=== PATIENT | female | born 1965 | race Caucasian/White ===

== ENCOUNTER 2017-02-24 11:09 | Inpatient (IN) | payer MEDICAID, OTHER ==
[2017-02-24 11:14] VITALS: BMI 24.7
--- NOTE | 2017-02-24 11:51 | CT ---
PROCEDURE: CT HEAD WITHOUT CONTRAST. HISTORY: r/o ICH - slurred speech since 3pm yesterday COMPARISON: None available. TECHNIQUE: Axial computed tomography images were obtained through the head/brain without intravenous contrast. Radiation dose: Total exam DLP = 955.53 mGy-cm. This CT exam was performed using one or more of the following dose reduction techniques: Automated exposure control, adjustment of the mA and/or kV according to patient size, and/or use of iterative reconstruction technique. FINDINGS: HEMORRHAGE: No acute parenchymal, subarachnoid or extra-axial hemorrhage. Hemorrhage. BRAIN: Large wedge-shaped area of low attenuation in the left of frontal operculum region which also appears to involve the left lateral basal ganglia including the subinsular cortex of consistent with acute/subacute infarct. . In addition, there is evidence of dense left sided MCA sign. Questionable small age-indeterminate infarct left centrum semiovale. VENTRICLES: Unremarkable. No hydrocephalus. CALVARIUM: Unremarkable. PARANASAL SINUSES: Unremarkable as visualized. No significant inflammatory changes. MASTOID AIR CELLS: Unremarkable as visualized. No inflammatory changes. OTHER FINDINGS: Status post hinson right-sided cataract surgery. IMPRESSION: Large acute/subacute left MCA territory infarct which also involves the on lateral basal ganglia. No evidence of acute intracranial hemorrhage. These findings discussed with Dr. Romero at approximately 11:44 a.m. with written down and read back verification.
[2017-02-24 11:57] LABS: BASO % 0.6 % (0.0-2.0); EOS # 0.1 K/uL (0.0-0.7); EOS % 0.8 % (0.0-4.0); HEMOGLOBIN 13.8 g/dL (11.0-16.0); LYMPH # 1.5 K/uL (1.0-4.3); LYMPH % 19.3 % (20.0-40.0); MEAN CELL VOLUME 83.4 fL (81.0-99.0); MEAN CORPUSCULAR HEMOGLOBIN 27.5 pg (27.0-31.0); MEAN PLATELET VOLUME 9.2 fL (7.2-11.7); MONO # 0.8 K/uL (0.0-0.8); MONO % 9.8 % (0.0-10.0); NEUT # 5.5 K/uL (1.8-7.0); NEUT % 69.5 % (50.0-75.0); RBC 5.03 Mil/uL (3.80-5.20); RED CELL DISTRIBUTION WIDTH 14.1 % (11.5-14.5)
[2017-02-24] MEDS ORDERED: Labetalol 25mg/5ml Syringe IVP STA (11:58)
[2017-02-24 12:05] LABS: INR 1.1
[2017-02-24] MEDS ORDERED: Iodixanol 320 MG/ML 100 ML BOTTLE IV ONE (12:17)
[2017-02-24 12:37] LABS: ALBUMIN 3.7 g/dL (3.5-5.0)
[2017-02-24 12:41] LABS: CALCIUM 8.5 mg/dl (8.6-10.4)
[2017-02-24 12:53] LABS: TROPONIN I 0.013 ng/mL (0.00-0.120)
--- NOTE | 2017-02-24 14:14 | C.PDOC ---
History Of Present Illness Patient is a 52 year old female brought in via ALS for slurred speech and a facial droop. Patient had an episode of slurred speech yesterday at 15:00 and was sent home from work. Patient did not show up from work today so her job called 991 as per ALS. Patient was found with slurred speech and a facial droop. Patient has no physical complaints at this time. Time Seen by Provider: 02/24/17 11:13 Chief Complaint (Nursing): Altered Mental Status History Per: Patient History/Exam Limitations: None Onset/Duration Of Symptoms: Hrs Onset Of Symptoms: Other (15:00 yesterday) Current Symptoms Are (Timing): Still Present Usual Baseline: Unknown Exacerbating Factor(s): Unknown Use Of Anticoag/Antiplatelets: Unknown Speech Is: Slurred Recent travel outside of the [place]: No Past Medical History Reviewed: Historical Data, Nursing Documentation, Vital Signs Vital Signs: Last Vital Signs Temp 98.3 F 02/24/17 16:03 Pulse 82 02/24/17 16:03 Resp 20 02/24/17 16:03 BP 188/95 H 02/24/17 16:03 Pulse Ox 2 L 02/24/17 18:21 - Medical History PMH: Diabetes, HTN, Hyperlipidemia - [facility] Procedures CORONAR ARTERIOGR-2 CATH (04/12/14) LEFT HEART CARDIAC CATH (04/12/14) LT HEART ANGIOCARDIOGRAM (04/12/14) NON-INVASIVE MECHANICAL VENTILATION (04/12/14) Family History: States: Unknown Family Hx - Social History Hx Tobacco Use: Yes Hx Alcohol Use: No Hx Substance Use: No Review Of Systems Except As Marked, All Systems Reviewed And Found Negative. Neurological: Positive for: Other (Slurred speech. Facial droop.) Physical Exam - Physical Exam Appears: Non-toxic Skin: Normal Color, Warm, Dry Head: Atraumatic, Normacephalic Eye(s): left: Normal Inspection, PERRL, EOMI Oral Mucosa: Moist Chest: Symmetrical, No Tenderness Cardiovascular: Rhythm Regular, No Murmur Respiratory: Normal Breath Sounds, No Rales, No Rhonchi, No Wheezing Extremity: Other (Mild right upper extremity weakness. Right upper extremity pronator drift.) Neurological/Psych: Oriented x3, Other (Right facial droop. Slurred speech.) ED Course And Treatment - Laboratory Results Result Diagrams: 02/24/17 11:48 02/24/17 12:25 O2 Sat by Pulse Oximetry: 2 Progress Note: Head/neck angio CT, EKG, CXR and urinalysis ordered. Aspirin and trandate administered. Patient will be admitted to telemetry under Dr. Pérez. - Physician Consult Information Time Consulting Physician Contacted: 12:00 Physician Contacted: Dr. Mccormick Outcome Of Conversation: Advised to keep patient on blood pressure medication and aspirin. Critical Care Time - Critical Care Note Total Time (in mins): 60 Documented critical care: time excludes all time spent performing seperately billable procedures. NIHSS Stroke Scale - Date/Time Evaluation Performed Date Performed: 02/24/17 Time Performed: 11:15 When Was NIHSS Performed: Baseline - How Severe is the Stoke Level of Consciousness: 0=Alert LOC to Questions: 2=Neither correct LOC to commands: 0=Obeys both correctly Best Gaze: 0=Normal Visual: 0=No visual loss Facial: 2=Partial (lower face paralysis) Motor Arm - Left: 0=No drift Motor Arm - Right: 2=Falls before 10 sec Motor Leg - Left: 0=No drift Motor Leg - Right: 0=No drift Limb Ataxia: 1=Present Upper or Lower Sensory: 0=Normal Best Language: 1=Mild to moderate aphasia Dysarthia: 1=Mild to moderate slurring Extinction & Inattention (Neglect): 0=Normal, no object Score: 9 Severity Of Stroke: 5-15= Moderate Stroke rTPA Inclusion/Exclusion - Refusal of Treatment Patient Refused Treatment: No - Inclusion Criteria for Altepase Patient is 18 years or Older: Yes Clinical DX Ischemic Stroke Cause Neurological Deficit: Yes Time of Onset Established Less Than 270 Mins Before TX Begin: No Risk/Benefit Discussed With Patient/Family Member Present: No - Exclusion Criteria for Altepase Uncontrolled Hypertension at Time of TX (SBP>185 or DBP>110): Yes Disposition - Disposition Disposition: HOSPITALIZED Disposition Time: 12:45 Condition: GUARDED - Clinical Impression Clinical Impression: Ischemic stroke - Scribe Statement The provider has reviewed the documentation as recorded by the Scribe Huey Guevara All medical record entries made by the Scribe were at my direction and personally dictated by me. I have reviewed the chart and agree that the record accurately reflects my personal performance of the history, physical exam, medical decision making, and the department course for this patient. I have also personally directed, reviewed, and agree with the discharge instructions and disposition.
--- NOTE | 2017-02-24 14:26 | CP.PCM.HP ---
<Jacques Kim - Last Filed: 02/24/17 15:13> History of Present Illness - History of Present Illness History of Present Illness: cc: unable to obtain HPI: Patient is a 52 year old female that presented to the hospital after being found by ambulance, which was called by people at her workplace after she had not come to work. Patient does not have any family in the [place] as per her emergency contact. Patient is able to answer some yes or no questions. She denies any current chest pain, breathing problems, abdominal pain. Additional history is not unobtainable, as patient is unable to talk. Chart review shows her last visit was in 2013, she had a history of hypertension, DM and triple vessel disease s/p triple bipass. Patient does not recall any of this history. Additional PMHx, PSH, Allergies, Fam hx , Social hx is not available. Present on Admission - Present on Admission Any Indicators Present on Admission: No Review of Systems - Constitutional Constitutional: absent: Chills, Daytime Sleepiness, Night Sweats, Snoring, Weakness - EENT Eyes: absent: Blurred Vision, Change in Vision Nose/Mouth/Throat: absent: Nasal Congestion, Nasal Discharge - Cardiovascular Cardiovascular: absent: Chest Pain, Irregular Heart Rhythm, Leg Edema, Palpitations, Pedal Edema - Respiratory Respiratory: absent: Cough, Dyspnea, Hemoptysis, Wheezing - Gastrointestinal Gastrointestinal: absent: Abdominal Pain, Belching, Constipation, Diarrhea, Nausea, Vomiting - Genitourinary Genitourinary: absent: Difficulty Urinating, Dysuria - Musculoskeletal Musculoskeletal: absent: Back Pain, Myalgias, Numbness - Neurological Neurological: Abnormal Speech Past Patient History - Infectious Disease Hx of Infectious Diseases: None - Past Medical History & Family History Past Medical History?: Yes - Past Social History Smoking Status: Unknown If Ever Smoked Alcohol: Other (unknown) Drugs: Other (unknown) - CARDIAC Hx Hypertension: Yes - PULMONARY Hx Pulmonary Edema: Yes - ENDOCRINE/METABOLIC Hx Diabetes Mellitus Type 2: Yes - MUSCULOSKELETAL/RHEUMATOLOGICAL Hx Falls: No - PSYCHIATRIC Hx Substance Use: No Meds Allergies/Adverse Reactions: Allergies Allergy/AdvReac Type Severity Reaction Status Date / Time No Known Allergies Allergy Verified 02/24/17 11:11 Physical Exam - Constitutional Appears: Non-toxic, No Acute Distress - Head Exam Head Exam: ATRAUMATIC, NORMAL INSPECTION, NORMOCEPHALIC Additional comments: left facial droop - Eye Exam Pupil Exam: NORMAL ACCOMODATION, PERRL - ENT Exam ENT Exam: Mucous Membranes Moist - Neck Exam Neck exam: Positive for: Normal Inspection - Respiratory Exam Respiratory Exam: Clear to Auscultation Bilateral, NORMAL BREATHING PATTERN. absent: Prolonged Expiratory Phase, Rales, Rhonchi, Wheezes - Cardiovascular Exam Cardiovascular Exam: REGULAR RHYTHM, +S1, +S2 - GI/Abdominal Exam GI & Abdominal Exam: Normal Bowel Sounds, Soft. absent: Distended, Firm, Hyperactive Bowel Sounds, Tenderness - Extremities Exam Extremities exam: Positive for: normal capillary refill - Neurological Exam Neurological exam: Alert, CN II-XII Intact, Motor Sensory Deficit (4/5 strenghth in R upper extremity, 5/5 strength in L upper R lower and L lower extremity), Oriented x3 - Psychiatric Exam Psychiatric exam: Normal Affect, Normal Mood - Skin Skin Exam: Dry, Intact, Normal Color, Warm Results - Vital Signs Recent Vital Signs: Last Vital Signs Temp 97.8 F 02/24/17 14:12 Pulse 81 02/24/17 14:12 Resp 17 02/24/17 14:12 BP 144/50 L 02/24/17 14:12 Pulse Ox 2 L 02/24/17 14:15 - Labs Result Diagrams: 02/24/17 11:48 02/24/17 12:25 Assessment & Plan (1) Acute ischemic stroke Status: Acute Comment: CT Head- Large acute/subacute left MCA territory infarct which also involves the left lateral basal ganglia. NPO until formal swallow evaluation, failed swallow eval in ED. Started on Asa 300mg per rectum. ROMIs negative x 1 , f/u ROMIs x 2. EKG- NSR w possible atrial enlargement. f/u MRI Brain w/o contrast, MRA of head and neck w/o contrast. f/u carotid ultrasound. f/u echo. As per Dr. Mccormick, SBP goal is 180. Hydralazine 10mg IVP Q6h PRN for SBP >180. f/u HgbA1C, FLP, TSH (2) Hypertension Status: Acute Comment: SBP to maintain around 180, as per Dr. Mccormick. Hydralazine 10mg IVP Q6h PRN for SBP >180 (3) Diabetes Status: Acute Comment: Accucheck. Hold off on RISS until patient can take PO. f/u HgbA1C (4) Prophylactic measure Status: Acute Comment: Protonix 40mg IVP Daily. Holding off on chemical anticoagulation due to acute stroke. SCDs <Dylan Monique H - Last Filed: 03/04/17 07:27> Results - Vital Signs Recent Vital Signs: Last Vital Signs Temp 97.3 F L 03/03/17 23:30 Pulse 65 03/04/17 04:06 Resp 20 03/03/17 23:30 BP 169/77 H 03/03/17 23:30 Pulse Ox 95 03/03/17 23:30 - Labs Result Diagrams: 03/03/17 11:14 03/03/17 11:14 Labs: Laboratory Results - last 24 hr 03/03/17 03/03/17 03/03/17 06:13 11:14 11:14 WBC 8.9 RBC 4.22 Hgb 11.5 Hct 35.5 MCV 84.1 MCH 27.2 MCHC 32.3 L RDW 14.0 Plt Count 296 MPV 9.1 Neut % (Auto) 63.3 Lymph % (Auto) 24.0 Kimble % (Auto) 8.7 Eos % (Auto) 2.9 Baso % (Auto) 1.1 Neut # 5.6 Lymph # 2.1 Kimble # 0.8 Eos # 0.3 Baso # 0.1 Sodium 146 Potassium 4.6 Chloride 109 H Carbon Dioxide 26 Anion Gap 16 BUN 33 H Creatinine 1.2 Est GFR ( Amer) 57 Est GFR (Non-Af Amer) 47 POC Glucose (mg/dL) 197 H Random Glucose 176 H Calcium 9.0 Phosphorus 3.9 Magnesium 2.5 H Total Bilirubin 0.3 AST 35 ALT 25 Alkaline Phosphatase 76 Total Protein 6.6 Albumin 3.0 L Globulin 3.5 Albumin/Globulin Ratio 0.9 L 03/03/17 03/03/17 03/03/17 11:26 16:25 21:06 WBC RBC Hgb Hct MCV MCH MCHC RDW Plt Count MPV Neut % (Auto) Lymph % (Auto) Kimble % (Auto) Eos % (Auto) Baso % (Auto) Neut # Lymph # Kimble # Eos # Baso # Sodium Potassium Chloride Carbon Dioxide Anion Gap BUN Creatinine Est GFR ( Amer) Est GFR (Non-Af Amer) POC Glucose (mg/dL) 211 H 155 H 171 H Random Glucose Calcium Phosphorus Magnesium Total Bilirubin AST ALT Alkaline Phosphatase Total Protein Albumin Globulin Albumin/Globulin Ratio 03/04/17 06:16 WBC RBC Hgb Hct MCV MCH MCHC RDW Plt Count MPV Neut % (Auto) Lymph % (Auto) Kimble % (Auto) Eos % (Auto) Baso % (Auto) Neut # Lymph # Kimble # Eos # Baso # Sodium Potassium Chloride Carbon Dioxide Anion Gap BUN Creatinine Est GFR ( Amer) Est GFR (Non-Af Amer) POC Glucose (mg/dL) 127 H Random Glucose Calcium Phosphorus Magnesium Total Bilirubin AST ALT Alkaline Phosphatase Total Protein Albumin Globulin Albumin/Globulin Ratio Attending/Attestation - Attestation I have personally seen and examined this patient.: Yes I have fully participated in the care of the patient.: Yes I have reviewed all pertinent clinical information: Yes
--- NOTE | 2017-02-24 14:42 | RAD ---
PROCEDURE: CHEST RADIOGRAPH, 1 VIEW HISTORY: r/o infiltrate COMPARISON: 04/12/2014 FINDINGS: LUNGS: Vague somewhat wedge-shaped area of increased attenuation left medial lung base could represent some atelectasis however developing infiltrate not excluded. PLEURA: No pneumothorax or pleural fluid seen. CARDIOVASCULAR: Normal. OSSEOUS STRUCTURES: No significant abnormalities. VISUALIZED UPPER ABDOMEN: Normal. OTHER FINDINGS: None. IMPRESSION: Vague opacity left medial lung base could represent some atelectasis though small infiltrate not excluded. Followup at interval recommended to assess stability. This report was placed in PA review folder for followup.
[2017-02-24] MEDS ORDERED: Sodium Chloride 0.45% 1,000 ML IV ONE ×2 (16:34)
--- NOTE | 2017-02-24 17:44 | CON ---
DATE: 02/24/2017 CHIEF COMPLAINT: Aphasia and right facial droop. HISTORY OF PRESENT ILLNESS: History was obtained from medical records due to the patient gives limit ed history. This is a 52-year-old woman with history of diabetes, hypertension, history of coronary artery disease who came to the hospital because patient did not show up for work today, so she was fo und and she had been found with slurring her speech and right facial droop and aphasia, found to have elevated systolic and diastolic blood pressures and right-sided weakness. A CAT scan of the head wa s done which showed a large acute/subacute left MCA territory infarct involving the left lateral basa l ganglia. She had an elevated systolic and diastolic blood pressure of 220/110 and is currently is slowly being managed permissively. Rectal aspirin has been given. She is outside the TPA window. PAST MEDICAL HISTORY: Diabetes, hypertension, dyslipidemia. REVIEW OF SYSTEMS: A 14-point review of systems negative except per HPI. ALLERGIES: No known drug allergies. SOCIAL HISTORY: No illicit drug use, smoking, or ETOH abuse. FAMILY HISTORY: Noncontributory. PHYSICAL EXAMINATION: VITAL SIGNS: Temperature 97.8, pulse rate of 80, blood pressure 191/75, respiratory rate 16, oxygen 98% on room air. GENERAL: The patient is sitting up in bed, slightly drowsy, in no acute distress. HEENT: Atraumatic, normocephalic. PERRLA. Extraocular muscles intact. NECK: Supple, no JVD, no adenopathy noted. LUNGS: Clear to auscultation. No adventitious sounds. HEART: S1, S2, normal rate and rhythm. No murmurs, rubs, or gallops. ABDOMEN: Soft, nontender, nondistended. Bowel sounds present. EXTREMITIES: No clubbing, no cyanosis. Peripheral pulses 2+ felt bilaterally. NEUROLOGIC: The patient is alert, oriented to person and place, not much in year, poor attention spa n, slow thought process, slightly drowsy. Cranial nerves II through XII are intact except for right facial droop. Speech has some dysarthria and a mild aphasia. MOTOR: Decreased tone on the right side, has right-sided weakness and right upper extremity pronator drift. Left side is intact. Toes are upgoing bilaterally. SENSORY: Light touch, pinprick, proprioception, vibration intact. Decreased vibration of the toes. COORDINATION: Difficult on the right due to right-sided weakness, intact on the left. GAIT: Deferred for now. DTRs 2+ throughout and 1 at the ankles. LABORATORY DATA: Sodium is 137, potassium 4, chloride 100, carbon dioxide 26, BUN of 45, creatinine 1.6. Glucose 276. ASSESSMENT AND PLAN: This is a 52-year-old woman with history of diabetes, hypertension, dyslipidemi a, who came in for right facial droop, dysarthria and right-sided weakness, found to have large acute to subacute left middle cerebral artery territory infarct affecting the left lateral basal ganglia, likely secondary to diffuse atherosclerosis and uncontrolled hypertension. She has acute renal failu re at this time and hypoglycemic episodes. At this time, recommend: 1. Suppository aspirin for now and likely needs to be on aspirin 81 mg p.o. daily in addition to pos sibly Plavix in the future 75 mg p.o. daily for stroke prevention. 2. Atorvastatin 80 mg p.o. daily for 21 days then can reduce to 40 mg. 3. Get an A1c and carotid Doppler. 4. An MRI of the brain without contrast and MRA of the head to assess the extent of the infarct. 5. Acute rehabilitation with speech therapy, PT and OT evaluation and will need acute rehabilitation . 6. Get a A1c and a fasting lipid profile and continue with current present management. Permissive hypertension for 24 hours and then to a goal 130-140 mmHg. At this time, continue with cu rrent present management. Thank you for this consult. Nigel Mccormick MD cc: [phone] TT: 02/24/2017 17:43:41 Confirmation # [id number] Dictation # [id number]
[2017-02-24 19:56] LABS: CK-MB 2.42 ng/mL (0.0-3.38)
[2017-02-25 02:02] LABS: CK-MB 1.92 ng/mL (0.0-3.38)
[2017-02-25 07:30] LABS: BASO # 0.1 K/uL (0.0-0.2); BASO % 0.9 % (0.0-2.0); EOS # 0.1 K/uL (0.0-0.7); EOS % 0.6 % (0.0-4.0); HEMOGLOBIN 12.9 g/dL (11.0-16.0); LYMPH # 2.3 K/uL (1.0-4.3); LYMPH % 24.7 % (20.0-40.0); MEAN CELL VOLUME 83.8 fL (81.0-99.0); MEAN CORPUSCULAR HEMOGLOBIN 27.4 pg (27.0-31.0); MEAN CORPUSCULAR HGB CONC 32.7 g/dL (33.0-37.0); MONO # 1.4 K/uL (0.0-0.8); MONO % 15.4 % (0.0-10.0); NEUT # 5.4 K/uL (1.8-7.0); NEUT % 58.4 % (50.0-75.0); RBC 4.71 Mil/uL (3.80-5.20); RED CELL DISTRIBUTION WIDTH 14.1 % (11.5-14.5); WHITE BLOOD COUNT 9.3 K/uL (4.8-10.8)
[2017-02-25 07:55] LABS: ALBUMIN 3.4 g/dL (3.5-5.0)
[2017-02-25 07:58] LABS: ALB/GLOB RATIO 0.9 (1.0-2.1); CALCIUM 8.4 mg/dl (8.6-10.4)
[2017-02-25 07:59] LABS: MAGNESIUM 2.2 mg/dL (1.6-2.3)
--- NOTE | 2017-02-25 09:33 | CP.PCM.PN ---
<Elena Rossisteveradha - Last Filed: 02/25/17 19:23> Subjective - Date & Time of Evaluation Date of Evaluation: 02/25/17 Time of Evaluation: 09:40 - Subjective Subjective: PGY 1 Medicine Note- Dr. Miranda's service Pt seen and examined in no acute distress. Patient can utter the words okay and can nod yes or no. Per Nurse Pepito patient is intermittently AMS and cannot complete MRI questionnaire and thus emergency contacts were attempted to be reached. Patient shook head no to a ROS however given intermitted AMS, will need to reassess. Objective - Vital Signs/Intake and Output Vital Signs (last 24 hours): Temp Pulse Resp BP Pulse Ox 98.2 F 72 20 169/99 H 100 02/25/17 08:26 02/25/17 08:26 02/25/17 08:26 02/25/17 08:26 02/25/17 08:26 Intake and Output: 02/25/17 02/25/17 06:59 18:59 Intake Total 320 Balance 320 - Medications Medications: Current Medications Aspirin (Aspirin Supp) 300 mg IN DAILY [place] Hydralazine HCl (Apresoline) 10 mg IVP Q6H PRN PRN Reason: For SBP >180 Last Admin: 02/24/17 16:45 Dose: 10 mg Sodium Chloride (Sodium Chloride 0.45%) 1,000 mls @ 40 mls/hr IV .Q24H ONE Stop: 02/25/17 16:33 Last Admin: 02/24/17 16:51 Dose: 40 mls/hr Pantoprazole Sodium (Protonix Inj) 40 mg IVP DAILY [place] - Labs Labs: 02/25/17 07:15 02/25/17 07:15 PT 12.0 SECONDS (9.7-12.2) 02/24/17 11:48 INR 1.1 02/24/17 11:48 APTT 24 SECONDS (21-34) 02/24/17 11:48 - Constitutional Appears: Non-toxic, No Acute Distress - Head Exam Head Exam: ATRAUMATIC Additional comments: facial droop - Eye Exam Eye Exam: EOMI, Normal appearance, PERRL Pupil Exam: NORMAL ACCOMODATION - ENT Exam ENT Exam: Mucous Membranes Moist - Neck Exam Neck Exam: Full ROM - Respiratory Exam Respiratory Exam: Clear to Ausculation Bilateral, NORMAL BREATHING PATTERN. absent: Wheezes - Cardiovascular Exam Cardiovascular Exam: REGULAR RHYTHM, +S1, +S2 - GI/Abdominal Exam GI & Abdominal Exam: Soft, Normal Bowel Sounds. absent: Tenderness - Back Exam Back Exam: absent: Full ROM - Neurological Exam Neurological Exam: Awake, CN II-XII Intact. absent: Oriented x3 Neuro motor strength exam: Left Upper Extremity: 4, Right Upper Extremity: 2/1, Left Lower Extremity: 4, Right Lower Extremity: 2/1 Additional comments: Sensation intact; unable to perform heel to franco test or finger to nose because patient is not fully comprehending commands. - Psychiatric Exam Psychiatric exam: Flat Affect, Normal Affect - Skin Skin Exam: Normal Color, Warm Assessment and Plan - Assessment and Plan (Free Text) Assessment: (1) Acute ischemic stroke Status: Acute Comment: CT Head- Large acute/subacute left MCA territory infarct which also involves the left lateral basal ganglia. NPO until formal swallow evaluation, failed swallow eval in ED. Started on ASA 300mg per rectum. ROMIs negative x 3, EKG- NSR w possible atrial enlargement. MRI Brain w/o contrast not performed yet becasue questionnaire could not be filled as patient is altered at times of evaluation. Awaiting a family member or friend who can confirm answers. In the meantime, CT angio of head ordered- F/ U MRA of head and neck w/o contrast. Carotid ultrasound- Complete occlusion of left internal carotid and mild occlusive disease of right internal carotid f/u echo. As per Dr. Mccormick, BP SBP btwn 130-140 mmHg, ASA *1 mg Po daily and Plavix 75 mg PO daily, Atorvastatin 80 mg PO daily for 21 days then reduced to 40 mg once patient passes swallow eval HgbA1C 11.2, FLP elevated, TSH 1.7 Repeat swalllow eval. Not performed today as patient was not in room at time of eval (2) Hypertension Status: Acute Comment: SBP to maintain around 180, as per Dr. Mccormick. Hydralazine 10mg IVP Q6h PRN for SBP >180 (3) Diabetes Status: Acute Comment: Accucheck. Hold off on RISS until patient can take PO. HgbA1C 11.2, Will assess medication management once patient passes swallow eval (4) Prophylactic measure Status: Acute Comment: Protonix 40mg IVP Daily. Holding off on chemical anticoagulation due to acute stroke. SCDs PT/OT eval <Jad Miranda M - Last Filed: 02/26/17 09:07> Objective - Vital Signs/Intake and Output Vital Signs (last 24 hours): Temp Pulse Resp BP Pulse Ox 97.8 F 60 20 179/78 H 98 02/26/17 00:40 02/26/17 04:02 02/26/17 00:40 02/26/17 00:40 02/25/17 15:53 Intake and Output: 02/26/17 02/26/17 06:59 18:59 Intake Total 1600 Balance 1600 - Medications Medications: Current Medications Aspirin (Aspirin Supp) 300 mg IN DAILY [facility] Last Admin: 02/25/17 10:48 Dose: 300 mg Hydralazine HCl (Apresoline) 10 mg IVP Q6H PRN PRN Reason: For SBP >180 Last Admin: 02/24/17 16:45 Dose: 10 mg Sodium Chloride (Sodium Chloride 0.9%) 1,000 mls @ 125 mls/hr IV .Q8H [facility] Last Admin: 02/26/17 03:40 Dose: 125 mls/hr Pantoprazole Sodium (Protonix Inj) 40 mg IVP DAILY [facility] Last Admin: 02/25/17 10:48 Dose: 40 mg Rosuvastatin Calcium (Crestor) 10 mg PO HS [facility] Last Admin: 02/26/17 00:39 Dose: 10 mg - Labs Labs: 02/26/17 07:19 02/26/17 07:19 PT 12.0 SECONDS (9.7-12.2) 02/24/17 11:48 INR 1.1 02/24/17 11:48 APTT 24 SECONDS (21-34) 02/24/17 11:48 Attending/Attestation - Attestation I have personally seen and examined this patient.: Yes I have fully participated in the care of the patient.: Yes I have reviewed all pertinent clinical information, including history, physical exam and plan: Yes Notes (Text): 02/26/17 09:05 Patient was seen and examined at bedside with the resident. Neurology evaluation and follow-up seen and appreciated. Swelling evaluation completed. Patient started on diet. She is also started on antiplatelet therapy and statin. MRI and MRA of the brain could not be completed because patient is unable to once a questions and no family can be contacted. Therefore we will obtain a CT angiogram of the head and neck. I discussed the plan of care with the resident and agree with the above history and physical and assessment/plan by the resident.
--- NOTE | 2017-02-25 13:02 | CARD ---
APPROVED REPORT EKG Measurement Heart [id number] <Conclusion> Normal sinus rhythm Possible Left atrial enlargement Nonspecific T wave abnormality Abnormal ECG
--- NOTE | 2017-02-25 13:03 | CARD ---
APPROVED REPORT EKG Measurement Heart [id number] ID [id number] <Conclusion> Normal sinus rhythm Possible Left atrial enlargement Nonspecific T wave abnormality Abnormal ECG
--- NOTE | 2017-02-25 16:29 | CP.PCM.CON ---
History of Present Illness - History of Present Illness History of Present Illness: [facility] Sx: Dr Choi Pt is a 52F recently brought to the ED by EMS. Pt did not show up for work yesterday so EMS was sent to her home, where she was found confused and with slurred speech. Pt also noted to have right sided facial droop. She was unable to answer questions on arrival and code stroke protocol was initiated. CT head showed large left MCA infarct which explains pts symptoms. Carotid duplex was ordered and surgery was consulted to evaluate potential for CEA. History unobtainable. Per records pt has history of htn, dm, triple vessel disease s/p triple bypass Review of Systems - Review of Systems Systems not reviewed;Unavailable: Altered Mental Status Past Patient History - Infectious Disease Hx of Infectious Diseases: None - Past Medical History & Family History Past Medical History?: Yes - Past Social History Smoking Status: Never Smoked - CARDIAC Hx Cardiac Disorders: Yes (CAD) Hx Hypertension: Yes - PULMONARY Hx Pulmonary Edema: Yes - ENDOCRINE/METABOLIC Hx Diabetes Mellitus Type 2: Yes - MUSCULOSKELETAL/RHEUMATOLOGICAL Hx Falls: No - PSYCHIATRIC Hx Substance Use: No - SURGICAL HISTORY Hx Angioplasty: Yes (CABG SCAR) - ANESTHESIA Hx Anesthesia: Yes Meds Allergies/Adverse Reactions: Allergies Allergy/AdvReac Type Severity Reaction Status Date / Time No Known Allergies Allergy Verified 02/24/17 11:11 - Medications Medications: Current Medications Aspirin (Aspirin Supp) 300 mg [place] DAILY [facility] Last Admin: 02/25/17 10:48 Dose: 300 mg Hydralazine HCl (Apresoline) 10 mg IVP Q6H PRN PRN Reason: For SBP >180 Last Admin: 02/24/17 16:45 Dose: 10 mg Pantoprazole Sodium (Protonix Inj) 40 mg IVP DAILY [facility] Last Admin: 02/25/17 10:48 Dose: 40 mg Physical Exam - Constitutional Appears: Non-toxic, No Acute Distress - ENT Exam Additional comments: right sided facial droop - Respiratory Exam Respiratory Exam: absent: Accessory Muscle Use, Respiratory Distress - GI/Abdominal Exam GI & Abdominal Exam: Soft. absent: Guarding, Hernia, Tenderness - Extremities Exam Extremities exam: Negative for: pedal edema - Neurological Exam Neurological exam: Alert - Psychiatric Exam Psychiatric exam: Normal Affect, Normal Mood Results - Vital Signs Recent Vital Signs: Last Vital Signs Temp 98.3 F 02/25/17 15:53 Pulse 67 02/25/17 15:53 Resp 20 02/25/17 15:53 BP 171/65 H 02/25/17 15:53 Pulse Ox 98 02/25/17 15:53 - Labs Result Diagrams: 02/25/17 07:15 02/25/17 07:15 Labs: Laboratory Results - last 24 hr 02/24/17 02/24/17 02/24/17 18:08 19:28 22:20 WBC RBC Hgb Hct MCV MCH MCHC RDW Plt Count MPV Neut % (Auto) Lymph % (Auto) Gibson % (Auto) Eos % (Auto) Baso % (Auto) Neut # Lymph # Gibson # Eos # Baso # Sodium Potassium Chloride Carbon Dioxide Anion Gap BUN Creatinine Est GFR ( Amer) Est GFR (Non-Af Amer) POC Glucose (mg/dL) 185 H 206 H Random Glucose Hemoglobin A1c Calcium Phosphorus Magnesium Total Bilirubin AST ALT Alkaline Phosphatase Total Creatine Kinase 127 CK-MB (Mass) 2.42 Troponin I, Quant 0.0140 Total Protein Albumin Globulin Albumin/Globulin Ratio Triglycerides Cholesterol LDL Cholesterol Direct HDL Cholesterol TSH 3rd Generation 02/25/17 02/25/17 02/25/17 00:45 07:15 07:15 WBC 9.3 RBC 4.71 Hgb 12.9 Hct 39.5 MCV 83.8 MCH 27.4 MCHC 32.7 L RDW 14.1 Plt Count 244 MPV 9.0 Neut % (Auto) 58.4 Lymph % (Auto) 24.7 Gibson % (Auto) 15.4 H Eos % (Auto) 0.6 Baso % (Auto) 0.9 Neut # 5.4 Lymph # 2.3 Gibson # 1.4 H Eos # 0.1 Baso # 0.1 Sodium 139 Potassium 3.9 Chloride 103 Carbon Dioxide 24 Anion Gap 17 BUN 42 H Creatinine 1.3 H Est GFR ( Amer) 52 Est GFR (Non-Af Amer) 43 POC Glucose (mg/dL) Random Glucose 187 H Hemoglobin A1c Calcium 8.4 L Phosphorus 5.0 H Magnesium 2.2 Total Bilirubin 0.6 AST 29 ALT 24 Alkaline Phosphatase 83 Total Creatine Kinase 111 CK-MB (Mass) 1.92 Troponin I, Quant 0.0170 Total Protein 7.1 Albumin 3.4 L Globulin 3.6 Albumin/Globulin Ratio 0.9 L Triglycerides 176 H Cholesterol 215 H LDL Cholesterol Direct 140 H HDL Cholesterol 28 L TSH 3rd Generation 1.70 02/25/17 02/25/17 07:15 07:29 WBC RBC Hgb Hct MCV MCH MCHC RDW Plt Count MPV Neut % (Auto) Lymph % (Auto) Gibson % (Auto) Eos % (Auto) Baso % (Auto) Neut # Lymph # Gibson # Eos # Baso # Sodium Potassium Chloride Carbon Dioxide Anion Gap BUN Creatinine Est GFR ( Amer) Est GFR (Non-Af Amer) POC Glucose (mg/dL) 185 H Random Glucose Hemoglobin A1c 11.2 H Calcium Phosphorus Magnesium Total Bilirubin AST ALT Alkaline Phosphatase Total Creatine Kinase CK-MB (Mass) Troponin I, Quant Total Protein Albumin Globulin Albumin/Globulin Ratio Triglycerides Cholesterol LDL Cholesterol Direct HDL Cholesterol TSH 3rd Generation Assessment & Plan - Assessment and Plan (Free Text) Assessment: 52F s/p left MCA infarct Plan: will follow up official duplex read further recommendations to follow will d/w Dr Steph Gimenez, PGY2 - Date & Time Date: 02/25/17 Time: 16:35
--- NOTE | 2017-02-25 16:56 | CP.PCM.PN ---
Subjective - Date & Time of Evaluation Date of Evaluation: 02/25/17 Time of Evaluation: 16:00 - Subjective Subjective: Patient: ALESSIA DOMINGUEZ [facility] #:[id number] Unit: [id number] : 1965 Loc: C.6T Room/Bed: C668-B Age/Sex: 52 / F ADM Status: ADM IN ADM Date: [id number] DIS Date: PROGRESS NOTE: DATE: 02/25/2017 CHIEF COMPLAINT: Aphasia and right facial droop. SUBJECTIVE: Patient has right-sided weakness and right facial droop. Left carotid no flow. Awaiting vascular intervention. MRA neck pending. PAST MEDICAL HISTORY: Diabetes, hypertension, dyslipidemia. REVIEW OF SYSTEMS: A 14-point review of systems negative except per HPI. ALLERGIES: No known drug allergies. SOCIAL HISTORY: No illicit drug use, smoking, or ETOH abuse. FAMILY HISTORY: Noncontributory. PHYSICAL EXAMINATION: VITAL SIGNS: Reviewed. GENERAL: The patient is sitting up in bed, slightly drowsy, in no acute distress. HEENT: Atraumatic, normocephalic. PERRLA. Extraocular muscles intact. NECK: Supple, no JVD, no adenopathy noted. LUNGS: Clear to auscultation. No adventitious sounds. HEART: S1, S2, normal rate and rhythm. No murmurs, rubs, or gallops. ABDOMEN: Soft, nontender, nondistended. Bowel sounds present. EXTREMITIES: No clubbing, no cyanosis. Peripheral pulses 2+ felt bilaterally. NEUROLOGIC: The patient is alert, oriented to person and place, not much in year, poor attention span, slow thought process, slightly drowsy. Cranial nerves II through XII are intact except for right facial droop. Speech has some dysarthria and a mild aphasia. MOTOR: Decreased tone on the right side, has right-sided weakness and right upper extremity pronator drift. Left side is intact. Toes are upgoing bilaterally. SENSORY: Light touch, pinprick, proprioception, vibration intact. Decreased vibration of the toes. COORDINATION: Difficult on the right due to right-sided weakness, intact on the left. GAIT: Deferred for now. DTRs 2+ throughout and 1 at the ankles. LABORATORY DATA: Reviewed. ASSESSMENT AND PLAN: This is a 52-year-old woman with history of diabetes, hypertension, dyslipidemia, who came in for right facial droop, dysarthria and right-sided weakness, found to have large acute to subacute left middle cerebral artery territory infarct affecting the left lateral basal ganglia, likely secondary to diffuse atherosclerosis and uncontrolled hypertension and left carotid disease. Left carotid showes no flow on doppler, need MRA neck pending. At this time, recommend: 1. Needs to be on aspirin 81 mg p.o. daily in addition to Plavix 75 mg p.o. daily for stroke prevention. 2. Atorvastatin 80 mg p.o. daily for 21 days then can reduce to 40 mg. 3. Vascular consult for left carotid occlusion. 4. An MRI of the brain without contrast and MRA of the head and neck to assess the extent of the infarct. 5. Acute rehabilitation with speech therapy, PT and OT evaluation and will need acute rehabilitation. 6. Keep BP btw 130-140 mmHg. 7. Needs acute rehab At this time, continue with current present management. Thank you for this consult. Nigel Mccormick MD Objective - Vital Signs/Intake and Output Vital Signs (last 24 hours): Temp Pulse Resp BP Pulse Ox 98.3 F 67 20 171/65 H 98 02/25/17 15:53 02/25/17 15:53 02/25/17 15:53 02/25/17 15:53 02/25/17 15:53 Intake and Output: 02/25/17 02/25/17 06:59 18:59 Intake Total 320 420 Balance 320 420 - Medications Medications: Current Medications Aspirin (Aspirin Supp) 300 mg [place] DAILY [facility] Last Admin: 02/25/17 10:48 Dose: 300 mg Hydralazine HCl (Apresoline) 10 mg IVP Q6H PRN PRN Reason: For SBP >180 Last Admin: 02/24/17 16:45 Dose: 10 mg Pantoprazole Sodium (Protonix Inj) 40 mg IVP DAILY [facility] Last Admin: 02/25/17 10:48 Dose: 40 mg - Labs Labs: 02/25/17 07:15 02/25/17 07:15 PT 12.0 SECONDS (9.7-12.2) 02/24/17 11:48 INR 1.1 02/24/17 11:48 APTT 24 SECONDS (21-34) 02/24/17 11:48
[2017-02-25] MEDS: Sodium Chloride 0.9% 1,000 ML IV SCH (19:49)
--- NOTE | 2017-02-25 21:47 | CARD ---
APPROVED REPORT EXAM: Two-dimensional and M-mode echocardiogram with Doppler and color Doppler. Other Information Quality : GoodRhythm : NSR INDICATION CVA/TIA Surgery/Intervention CABG: M-Mode DIMENSIONS RVDd2.05 (2.1-3.2cm)Left Atrium (MM)3.82 (2.5-4.0cm) IVSd0.62 (0.7-1.1cm)Aortic Root2.78 (2.2-3.7cm) LVDd4.79 (4.0-5.6cm)Aortic Cusp Exc.1.77 (1.5-2.0cm) PWd0.87 (0.7-1.1cm)FS (%) 43 % LVDs2.74 (2.0-3.8cm)LVEF (%)74 (>50%) Aortic Valve AI P 1/2 [id number] Mitral Valve MV E Cawqrygv72.6cm/sMV A Voreeyqr81.2cm/sE/A ratio0.8 TDI E/Lateral E'0.0E/Medial E'0.0 Tricuspid Valve TR Peak Nqlerrce15by/sTR Peak [id number] LEFT VENTRICLE The left ventricle is normal size. There is normal left ventricular wall thickness. Left ventricle systolic function is normal. The Ejection Fraction is 65-70%. There is hypokinesis in the septal wall. Transmitral Doppler flow pattern is Grade I-abnormal relaxation pattern. There is no ventricular septal defect visualized. RIGHT VENTRICLE The right ventricle is normal size. The right ventricular systolic function is normal. ATRIA The left atrium size is normal. The right atrium size is normal. AORTIC VALVE The aortic valve is mildly sclerotic. The aortic valve is tri-cuspid. There is mild aortic regurgitation. There is no aortic valvular stenosis. MITRAL VALVE Mitral annular calcification is mild. There is no evidence of mitral valve prolapse. There is no mitral valve regurgitation noted. TRICUSPID VALVE The tricuspid valve is normal in structure. There is trace tricuspid regurgitation. Right ventricular systolic pressure is estimated at less than 30 mmHg. There is no pulmonary hypertension. PULMONIC VALVE The pulmonic valve is not well visualized. There is no pulmonic valvular regurgitation. GREAT VESSELS The IVC is normal in size and collapses >50% with inspiration. PERICARDIAL EFFUSION There is no pericardial effusion. <Conclusion> Left ventricle systolic function is normal. The Ejection Fraction is 65-70%. There is hypokinesis in the septal wall. Transmitral Doppler flow pattern is Grade I-abnormal relaxation pattern. There is mild aortic regurgitation.
[2017-02-26] MEDS: Sodium Chloride 0.9% 1,000 ML IV SCH (03:40)
[2017-02-26 07:33] LABS: BASO # 0.1 K/uL (0.0-0.2); BASO % 0.9 % (0.0-2.0); EOS # 0.1 K/uL (0.0-0.7); EOS % 1.5 % (0.0-4.0); HEMOGLOBIN 12.5 g/dL (11.0-16.0); LYMPH # 3.2 K/uL (1.0-4.3); LYMPH % 33.9 % (20.0-40.0); MEAN CORPUSCULAR HEMOGLOBIN 27.8 pg (27.0-31.0); MEAN CORPUSCULAR HGB CONC 33.5 g/dL (33.0-37.0); MEAN PLATELET VOLUME 8.7 fL (7.2-11.7); MONO # 0.9 K/uL (0.0-0.8); MONO % 10.1 % (0.0-10.0); NEUT % 53.6 % (50.0-75.0); NRBC % 0.1 % (0.0-2.0); RBC 4.48 Mil/uL (3.80-5.20); RED CELL DISTRIBUTION WIDTH 14.2 % (11.5-14.5); WHITE BLOOD COUNT 9.3 K/uL (4.8-10.8)
--- NOTE | 2017-02-26 08:21 | CP.PCM.PN ---
Subjective - Date & Time of Evaluation Date of Evaluation: 02/26/17 Time of Evaluation: 08:19 - Subjective Subjective: Surgery: Dr. Choi Pt seen and examined. Still has R side motor defecits and is aphasic Objective - Vital Signs/Intake and Output Vital Signs (last 24 hours): Temp Pulse Resp BP Pulse Ox 97.8 F 60 20 179/78 H 98 02/26/17 00:40 02/26/17 04:02 02/26/17 00:40 02/26/17 00:40 02/25/17 15:53 Intake and Output: 02/26/17 02/26/17 06:59 18:59 Intake Total 1600 Balance 1600 - Medications Medications: Current Medications Aspirin (Aspirin Supp) 300 mg [place] DAILY [facility] Last Admin: 02/25/17 10:48 Dose: 300 mg Hydralazine HCl (Apresoline) 10 mg IVP Q6H PRN PRN Reason: For SBP >180 Last Admin: 02/24/17 16:45 Dose: 10 mg Sodium Chloride (Sodium Chloride 0.9%) 1,000 mls @ 125 mls/hr IV .Q8H [facility] Last Admin: 02/26/17 03:40 Dose: 125 mls/hr Pantoprazole Sodium (Protonix Inj) 40 mg IVP DAILY [facility] Last Admin: 02/25/17 10:48 Dose: 40 mg Rosuvastatin Calcium (Crestor) 10 mg PO HS [facility] Last Admin: 02/26/17 00:39 Dose: 10 mg - Labs Labs: 02/26/17 07:19 02/25/17 07:15 PT 12.0 SECONDS (9.7-12.2) 02/24/17 11:48 INR 1.1 02/24/17 11:48 APTT 24 SECONDS (21-34) 02/24/17 11:48 - Constitutional Appears: Non-toxic, No Acute Distress - Head Exam Head Exam: ATRAUMATIC, NORMOCEPHALIC Additional comments: R side facial droop - Respiratory Exam Respiratory Exam: NORMAL BREATHING PATTERN. absent: Accessory Muscle Use, Respiratory Distress - GI/Abdominal Exam GI & Abdominal Exam: Soft. absent: Tenderness - Extremities Exam Additional comments: R side motor defecits - Neurological Exam Neurological Exam: Alert, Awake. absent: Oriented x3 Assessment and Plan - Assessment and Plan (Free Text) Assessment: 52F w. L MCA infarct -f/u final read of carotid duplex -MRA of head and neck ordered, f/u results -d/w attending Jaret PGY2
[2017-02-26 08:25] LABS: ALBUMIN 3.2 g/dL (3.5-5.0)
[2017-02-26 08:27] LABS: GFR AFRICAN-AMERICAN > 60; GFR NON-AFRICAN AMERICAN 58
[2017-02-26 08:28] LABS: ALB/GLOB RATIO 0.8 (1.0-2.1); ALT/SGPT 21 U/L (9-52); AST/SGOT 27 U/L (14-36); BLOOD UREA NITROGEN 29 mg/dL (7-17); CALCIUM 8.2 mg/dl (8.6-10.4); MAGNESIUM 2.3 mg/dL (1.6-2.3)
--- NOTE | 2017-02-26 13:21 | MRI ---
PROCEDURE: MRI BRAIN WITHOUT CONTRAST HISTORY: CVA COMPARISON: Comparison made with CT scan brain 02/24/2017. Comparison also made with concurrent MRA of the brain. TECHNIQUE: Multiplanar, multisequence MR images of the brain were obtained without intravenous contrast enhancement. FINDINGS: HEMORRHAGE: No definitive evidence of acute parenchymal, subarachnoid nor extra-axial hemorrhage. DWI: Re- demonstrated is large left MCA territory infarct which involves most of the left temporal, left frontal and left parietal lobes. There is also some involvement of the left lateral basal ganglia as well. The at cytotoxic edema does exerts surrounding mass effect resulting in overlying sulcal effacement as well as mild compression of the left lateral ventricle. No significant [id number] midline shift seen at this time. BRAIN PARENCHYMA: Multiple tiny chronic appearing lacunar type infarcts seen scattered about deep and subcortical white matter both cerebral hemispheres. VENTRICLES: No evidence of obstructive hydrocephalus not withstanding the compressive effects left lateral ventricle mentioned above. CRANIUM: Grossly unremarkable. ORBITS: Changes of right cataract surgery. PARANASAL SINUSES/MASTOIDS: Small polypoid like mucosal thickening or mucous retention cyst left maxillary sinus. VASCULAR SYSTEM: There is complete occlusion of the distal left internal carotid artery including the petrous, cavernous and proximal supraclinoid segments. The proximal left middle cerebral artery is patent however there is paucity of distal branches of the left MCA within the sylvian fissure corresponding to the aforementioned acute infarct. OTHER FINDINGS: None. IMPRESSION: There is occlusion of the distal left internal carotid artery with large left MCA territory infarct as described. Note that these findings were discussed with nurse lead of 6 T nurse Gonzalez at 1:15 p.m. with written down and read back verification.
[2017-02-26] MEDS: (Novolog) Insulin Aspart, Recombinant 100 u/ml 10 ml vial SC SCH ×3 (13:45→22:12)
--- NOTE | 2017-02-26 13:53 | MRI ---
PROCEDURE: MR angiography of the neck dated 02/26/2017. HISTORY: CVA. COMPARISON: Correlation made with carotid Doppler exam dated 02/25/2017. FINDINGS: Note that the examination is quite limited due to motion artifact. Current study reveals complete occlusion of the left internal carotid artery which appears presumably at the level of the left carotid bifurcation/proximal left internal carotid artery. . There is an area of decreased flow along the posterior margin of the right carotid bifurcation however this is likely due to motion artifact which limits evaluation for the degree of stenosis. Both vertebral arteries are visible right-sided which is larger in caliber/ more dominant than the left side. . Impression: There is complete occlusion of the left internal carotid artery which appears to extend from the level of the bifurcation /proximal left internal carotid artery into the intracranial compartment. The left petrous and cavernous as well as proximal supraclinoid segments are completely occluded as seen on concurrent MRI and MRA of the brain. Evaluation for the degree of narrowing on the right side is limited due to motion artifact as above. There is asymmetry of the vertebral arteries right-sided which is larger in caliber/more dominant than the left Findings were discussed with resident art consultant Dr. Rossi at approximately 1:46 p.m. with written down and read back verification.
--- NOTE | 2017-02-26 13:55 | MRI ---
PROCEDURE: MRA brain dated 02/26/2017 HISTORY: CVA COMPARISON: Comparison made with concurrent MRI of the brain TECHNIQUE: 3D time of flight MR angiography of the intracranial arteries was performed. Rotating maximum intensity projection images were generated. FINDINGS: The current study reveals complete occlusion of the left internal carotid artery. In addition, there is high-grade/significant stenosis of the left cavernous and supraclinoid carotid artery. . There is paucity of distal branches of the left middle cerebral artery at the level of the sylvian fissure consistent with large acute left MCA territory infarct. Left-sided circulation is fed on across the 5 the right A1 and anterior communicating artery. There may also be some contribution from the posterior circulation. There is asymmetry of the vertebral arteries right-sided which is larger in caliber/ more dominant than the left. There may also be some mild localized stenosis of the left posterior cerebral artery at the P1/P2 junction. Paucity of distal branches of right posterior cerebral artery could be due to small vessel caliber and slow flow. Impression: Complete occlusion of the left internal carotid artery. High-grade stenosis of the distal right internal carotid artery at the cavernous/supraclinoid level. Note that these findings were discussed with Dr. Rossi at approximately 1:46 p.m. with written down and read back verification.
--- NOTE | 2017-02-26 14:02 | CP.PCM.PN ---
<Sunny Rossi - Last Filed: 02/26/17 19:42> Subjective - Date & Time of Evaluation Date of Evaluation: 02/26/17 Time of Evaluation: 07:36 - Subjective Subjective: PGY 1 Medicine Note- Dr. Miranda's service Pt seen and examined in no acute distress. Patient is still saying okay to questions and aphasic following ischemic stroke. Patient is not always able to follow commands. Patient not able to clearly respond to ROS. Objective - Vital Signs/Intake and Output Vital Signs (last 24 hours): Temp Pulse Resp BP Pulse Ox 97.8 F 60 20 179/78 H 98 02/26/17 00:40 02/26/17 04:02 02/26/17 00:40 02/26/17 00:40 02/25/17 15:53 Intake and Output: 02/26/17 02/26/17 06:59 18:59 Intake Total 1600 Balance 1600 - Medications Medications: Current Medications Aspirin (Ecotrin) 81 mg PO DAILY [facility] Last Admin: 02/26/17 10:18 Dose: 81 mg Clopidogrel Bisulfate (Plavix) 75 mg PO DAILY [facility] Last Admin: 02/26/17 10:16 Dose: 75 mg Famotidine (Pepcid) 20 mg PO BID [facility] Last Admin: 02/26/17 10:15 Dose: 20 mg Hydralazine HCl (Apresoline) 10 mg IVP Q6H PRN PRN Reason: For SBP >180 Last Admin: 02/26/17 10:17 Dose: 10 mg Sodium Chloride (Sodium Chloride 0.9%) 1,000 mls @ 125 mls/hr IV .Q8H [facility] Last Admin: 02/26/17 03:40 Dose: 125 mls/hr Insulin Aspart (Novolog) 0 unit SC ACHS [facility] PRN Reason: Protocol Last Admin: 02/26/17 13:45 Dose: Not Given Labetalol HCl (Trandate) 100 mg PO TID [facility] Last Admin: 02/26/17 10:17 Dose: 100 mg Rosuvastatin Calcium (Crestor) 40 mg PO HS [facility] - Labs Labs: 02/26/17 07:19 02/26/17 07:19 PT 12.0 SECONDS (9.7-12.2) 02/24/17 11:48 INR 1.1 02/24/17 11:48 APTT 24 SECONDS (21-34) 02/24/17 11:48 - Constitutional Appears: Non-toxic, No Acute Distress - Head Exam Head Exam: ATRAUMATIC Additional comments: facial droop noted - Eye Exam Eye Exam: EOMI, Normal appearance, PERRL - ENT Exam ENT Exam: Mucous Membranes Moist - Neck Exam Neck Exam: Full ROM - Respiratory Exam Respiratory Exam: Clear to Ausculation Bilateral, NORMAL BREATHING PATTERN. absent: Wheezes - Cardiovascular Exam Cardiovascular Exam: REGULAR RHYTHM, +S1, +S2 - GI/Abdominal Exam GI & Abdominal Exam: Soft, Normal Bowel Sounds - Extremities Exam Extremities Exam: Full ROM, Normal Capillary Refill - Back Exam Back Exam: Full ROM - Neurological Exam Neurological Exam: Alert, Awake, CN II-XII Intact, Oriented x3 Neuro motor strength exam: Left Upper Extremity: 4, Right Upper Extremity: 2/1, Left Lower Extremity: 4, Right Lower Extremity: 2/1 - Psychiatric Exam Psychiatric exam: Normal Affect, Normal Mood - Skin Skin Exam: Dry, Normal Color, Warm Additional comments: Sensation intact; unable to perform heel to franco test or finger to nose Assessment and Plan - Assessment and Plan (Free Text) Assessment: (1) Acute ischemic stroke Status: Acute Comment: CT Head- Large acute/subacute left MCA territory infarct which also involves the left lateral basal ganglia. ROMIs negative x 3, EKG- NSR w possible atrial enlargement. MRI Brain w/o contrast, MRA of head and neck w/o contrast performed. Cousin/ friend was able to answer MRI questionnaire. 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 Per Surgery ( Dr. Choi) no surgical intervention at this time. Radiologist Dr. Khan called to confirm occlusive findings. f/u echo. As per Dr. Mccormick, BP SBP btwn 130-140 mmHg, ASA 81 mg Po daily and Plavix 75 mg PO daily, Crestor 40 mg PO HS since patient passed swallow eval HgbA1C 11.2, FLP elevated, TSH 1.7 Cont to monitor (2) Hypertension Status: Acute Comment: Labetalol 100 mg PO TID and Hydralazine 10 mg IV Q6 PRN if SBP above 180 (3) Diabetes Status: Acute Comment: Accucheck. ISS ACHS. HgbA1C 11.2, (4) Prophylactic measure Status: Acute Comment: Pepcid 20 mg PO BID. ASA 81mg. SCDs PT/OT eval Cousin/Family Friend Sheng Doyle [phone] visited bedside. He was updated thus far and questions were addressed. <RubenHildan M - Last Filed: 02/27/17 08:14> Objective - Vital Signs/Intake and Output Vital Signs (last 24 hours): Temp Pulse Resp BP Pulse Ox 98.0 F 79 20 153/68 H 97 02/27/17 04:00 02/27/17 05:16 02/27/17 04:00 02/27/17 05:16 02/27/17 04:00 Intake and Output: 02/27/17 02/27/17 06:59 18:59 Intake Total 460 Balance 460 - Medications Medications: Current Medications Aspirin (Ecotrin) 81 mg PO DAILY [facility] Last Admin: 02/26/17 10:18 Dose: 81 mg Clopidogrel Bisulfate (Plavix) 75 mg PO DAILY [facility] Last Admin: 02/26/17 10:16 Dose: 75 mg Famotidine (Pepcid) 20 mg PO BID [facility] Last Admin: 02/26/17 17:59 Dose: 20 mg Hydralazine HCl (Apresoline) 10 mg IVP Q6H PRN PRN Reason: For SBP >180 Last Admin: 02/26/17 23:58 Dose: 10 mg Sodium Chloride (Sodium Chloride 0.9%) 1,000 mls @ 125 mls/hr IV .Q8H [facility] Last Admin: 02/26/17 03:40 Dose: 125 mls/hr Insulin Aspart (Novolog) 0 unit SC ACHS [facility] PRN Reason: Protocol Last Admin: 02/27/17 07:41 Dose: 4 unit Insulin Glargine (Lantus) 10 unit SC DAILY [facility] Labetalol HCl (Trandate) 100 mg PO TID [facility] Last Admin: 02/26/17 17:59 Dose: 100 mg Lisinopril (Zestril) 10 mg PO DAILY [facility] Metformin HCl (Glucophage) 500 mg PO BID [facility] Rosuvastatin Calcium (Crestor) 40 mg PO HS [facility] Last Admin: 02/26/17 22:13 Dose: 40 mg - Labs Labs: 02/27/17 07:02/27/17 07:06 PT 12.0 SECONDS (9.7-12.2) 02/24/17 11:48 INR 1.1 02/24/17 11:48 APTT 24 SECONDS (21-34) 02/24/17 11:48 Attending/Attestation - Attestation I have personally seen and examined this patient.: Yes I have fully participated in the care of the patient.: Yes I have reviewed all pertinent clinical information, including history, physical exam and plan: Yes Notes (Text): 02/27/17 08:13 Patient seen and examined at bedside with the resident MRI and MRA of the head and neck report reviewed. Patient has left the carotid artery occlusion Vascular surgery is already on board but no surgical intervention is planned I reviewed patient's chart, medical records, labs, imaging studies, consultants notes I agree with the history and physical and assessment/plan by the resident.
--- NOTE | 2017-02-26 16:17 | VASCLAB ---
PROCEDURE: HISTORY: CVA COMPARISON: None available. TECHNIQUE: Grayscale and duplex Doppler evaluation of the cervical carotid and vertebral arteries were performed. The common carotid, carotid bifurcations and cervical Internal Carotid Artery (ICA) and proximal External Carotid Artery (ECA) were evaluated. The vertebral arteries were evaluated for gross patency and flow direction. Report prepared by WILBER Magdaleno, RVT.. FINDINGS: RIGHT CAROTID ARTERIES: 1. Common Carotid Artery: No significant focal plaque formation of the right common carotid artery. Maximum Peak Systolic velocity: 93 cm/sec: End-diastolic velocity 23 cm/sec. 2. Carotid Bifurcation: plaque formation. Maximum Peak Systolic velocity: 95 cm/sec: End-diastolic velocity 22 cm/sec. 3. Internal Carotid Artery: Plaque description: 3.1. Proximal Segment: Peak systolic velocity 88 cm/sec: End-diastolic velocity 26 cm/sec - % stenosis 0-15% 3.2. Middle Segment: Peak systolic velocity 73 cm/sec: End-diastolic velocity 30 cm/sec - % stenosis 0-15% 3.3. Distal Segment: Peak systolic velocity 56 cm/sec: End-diastolic velocity 23 cm/sec - % stenosis 0-15% 4. External Carotid Artery: No significant focal plaque formation. Peak systolic velocity 133 cm/sec 5. ICA/CCA Ratio: 1.0 LEFT CAROTID ARTERIES: 1. Common Carotid Artery: No significant focal plaque formation of the left common carotid artery. Maximum Peak Systolic velocity: 55 cm/sec: End-diastolic velocity 0 cm/sec. 2. Carotid Bifurcation: Heterogeneous plaque formation. Maximum Peak Systolic velocity: 81 cm/sec: End-diastolic velocity 0 cm/sec. 3. Internal Carotid Artery: Plaque description: 3.1. Proximal Segment: Peak systolic velocity 0 cm/sec: End-diastolic velocity 0 cm/sec - % stenosis 100% 3.2. Middle Segment: Peak systolic velocity 0 cm/sec: End-diastolic velocity 0 cm/sec - % stenosis 100% 3.3. Distal Segment: Peak systolic velocity 0 cm/sec: End-diastolic velocity 0 cm/sec - % stenosis 100% 4. External Carotid Artery: No significant focal plaque formation. Peak systolic velocity 149 cm/sec 5. ICA/CCA Ratio: 1.5 VERTEBRAL ARTERIES: 1. Right Vertebral Artery: The right vertebral artery flow direction is antegrade. 2. Left Vertebral Artery: The left vertebral artery flow direction is antegrade. OTHER FINDINGS: 1. Right Brachial Blood pressure: mmHg. 2. Left Brachial Blood pressure: 146 mmHg. JEROME Cisneros notified about the findings. IMPRESSION: RIGHT: Duplex scan does not suggest hemodynamically significant stenosis of the right extracranial carotid arteries. LEFT: Occlusion of the left internal carotid artery.
[2017-02-27 07:26] LABS: BASO # 0.1 K/uL (0.0-0.2); BASO % 1.4 % (0.0-2.0); EOS # 0.1 K/uL (0.0-0.7); EOS % 0.9 % (0.0-4.0); HEMOGLOBIN 12.3 g/dL (11.0-16.0); LYMPH # 3.2 K/uL (1.0-4.3); MEAN CELL VOLUME 82.9 fL (81.0-99.0); MEAN CORPUSCULAR HEMOGLOBIN 27.8 pg (27.0-31.0); MEAN CORPUSCULAR HGB CONC 33.5 g/dL (33.0-37.0); MEAN PLATELET VOLUME 9.2 fL (7.2-11.7); MONO # 0.9 K/uL (0.0-0.8); MONO % 8.6 % (0.0-10.0); NEUT % 58.1 % (50.0-75.0); NRBC % 0.1 % (0.0-2.0); RBC 4.44 Mil/uL (3.80-5.20); RED CELL DISTRIBUTION WIDTH 14.2 % (11.5-14.5); WHITE BLOOD COUNT 10.3 K/uL (4.8-10.8)
[2017-02-27] MEDS: (Novolog) Insulin Aspart, Recombinant 100 u/ml 10 ml vial SC SCH ×4 (07:41→22:10)
[2017-02-27 07:47] LABS: ALBUMIN 3.1 g/dL (3.5-5.0)
[2017-02-27 07:49] LABS: AST/SGOT 21 U/L (14-36); GFR AFRICAN-AMERICAN > 60; GFR NON-AFRICAN AMERICAN 52
[2017-02-27 07:50] LABS: ALB/GLOB RATIO 0.8 (1.0-2.1); ALT/SGPT 21 U/L (9-52); BLOOD UREA NITROGEN 25 mg/dL (7-17); CALCIUM 8.4 mg/dl (8.6-10.4); MAGNESIUM 2.4 mg/dL (1.6-2.3)
--- NOTE | 2017-02-27 09:25 | CP.PCM.PN ---
<Sunny Rossi - Last Filed: 02/27/17 14:01> Subjective - Date & Time of Evaluation Date of Evaluation: 02/27/17 Time of Evaluation: 07:02 - Subjective Subjective: PGY 1 Medicine Note- Dr. Miranda's service Pt seen and examined in no acute distress. Patient responds "okay" to questions , nods and shakes head. Patient still aphasic however appears to understand when spoken to. Physical Therapist is optimizing patient for increased mobility. At this point, patient is full max assist secondarily to effects of the ischemic stroke. Family friend, (Mr. Sheng Doyle) informed case management that patient will be going to home country of [place] once patient's medical course is complete here. Patient has no family or other close friend here who can care for her and thus she will be cared for in her [place] by her family. Patient denies headaches, chest pain, palpitations, nausea or vomiting at this time. Objective - Vital Signs/Intake and Output Vital Signs (last 24 hours): Temp Pulse Resp BP Pulse Ox 98.1 F 85 20 161/74 H 97 02/27/17 07:30 02/27/17 07:30 02/27/17 07:30 02/27/17 07:30 02/27/17 07:30 Intake and Output: 02/27/17 02/27/17 06:59 18:59 Intake Total 460 Balance 460 - Medications Medications: Current Medications Aspirin (Ecotrin) 81 mg PO DAILY [facility] Last Admin: 02/26/17 10:18 Dose: 81 mg Clopidogrel Bisulfate (Plavix) 75 mg PO DAILY [facility] Last Admin: 02/26/17 10:16 Dose: 75 mg Famotidine (Pepcid) 20 mg PO BID [facility] Last Admin: 02/26/17 17:59 Dose: 20 mg Hydralazine HCl (Apresoline) 10 mg IVP Q6H PRN PRN Reason: For SBP >180 Last Admin: 02/26/17 23:58 Dose: 10 mg Sodium Chloride (Sodium Chloride 0.9%) 1,000 mls @ 125 mls/hr IV .Q8H [facility] Last Admin: 02/26/17 03:40 Dose: 125 mls/hr Insulin Aspart (Novolog) 0 unit SC ACHS [facility] PRN Reason: Protocol Last Admin: 02/27/17 07:41 Dose: 4 unit Insulin Glargine (Lantus) 10 unit SC DAILY [facility] Labetalol HCl (Trandate) 100 mg PO TID [facility] Last Admin: 02/26/17 17:59 Dose: 100 mg Lisinopril (Zestril) 10 mg PO DAILY [facility] Metformin HCl (Glucophage) 500 mg PO BIDCC [facility] Rosuvastatin Calcium (Crestor) 40 mg PO HS [facility] Last Admin: 02/26/17 22:13 Dose: 40 mg - Labs Labs: 02/27/17 07:06 02/27/17 07:06 PT 12.0 SECONDS (9.7-12.2) 02/24/17 11:48 INR 1.1 02/24/17 11:48 APTT 24 SECONDS (21-34) 02/24/17 11:48 - Constitutional Appears: Non-toxic, No Acute Distress - Head Exam Head Exam: ATRAUMATIC Additional comments: facial droop noted - Eye Exam Eye Exam: EOMI, PERRL - ENT Exam ENT Exam: Mucous Membranes Moist - Neck Exam Neck Exam: Full ROM - Respiratory Exam Respiratory Exam: NORMAL BREATHING PATTERN. absent: Wheezes - Cardiovascular Exam Cardiovascular Exam: REGULAR RHYTHM, +S1, +S2 - GI/Abdominal Exam GI & Abdominal Exam: Soft, Normal Bowel Sounds - Extremities Exam Extremities Exam: Normal Capillary Refill. absent: Full ROM, Pedal Edema - Neurological Exam Neurological Exam: Alert, Awake, CN II-XII Intact Neuro motor strength exam: Left Upper Extremity: 4, Right Upper Extremity: 2/1, Left Lower Extremity: 4, Right Lower Extremity: 2/1 Additional comments: Sensation intact. Patient unable to perform heel to franco test at this time. - Psychiatric Exam Psychiatric exam: Normal Affect, Normal Mood - Skin Skin Exam: Dry, Normal Color, Warm Assessment and Plan - Assessment and Plan (Free Text) Assessment: (1) Acute ischemic stroke Status: Acute Comment: CT Head- Large acute/subacute left MCA territory infarct which also involves the left lateral basal ganglia. ROMIs negative x 3, EKG- NSR w possible atrial enlargement. MRI Brain w/o contrast, MRA of head and neck w/o contrast performed. 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 Per Surgery ( Dr. Choi) no surgical intervention at this time. Radiologist Dr. Khan called to confirm occlusive findings. Echo- EF is 65-70%. Mild aortic regurgitation; LV systolic function is normal; hypokinesis in septal wall. Refer to complete report. As per Dr. Mccormick, BP SBP btwn 130-140 mmHg, ASA 81 mg Po daily and Plavix 75 mg PO daily, Crestor 40 mg PO HS since patient passed swallow eval HgbA1C 11.2, FLP elevated, TSH 1.7 Daily PT/OT to improve strength/ motor functioning Cont to monitor (2) Hypertension Status: Acute Comment: Labetalol 100 mg PO TID; Hydralazine 10 mg IV Q6 PRN if SBP above 180 (3) Diabetes Status: Acute Comment: Accucheck. ISS ACHS. HgbA1C 11.2, Lantus 10 units SC daily . Cont to monitor. (4) Prophylactic measure Status: Acute Comment: Pepcid 20 mg PO BID. ASA 81mg. SCDs. Continue with PT/OT daily to maximize strength. Per Case management: Patient has no medical insurance. Family friend Sheng Doyle spoke with patient's family back home in [place] who will care for her upon discharge when patient has improved strength and motor function. Patient has no family here in the [facility]. PT/OT on the case to help optimize patient. Contact info Family Friend Sheng Doyle [phone] <Jad Miranda M - Last Filed: 02/27/17 14:38> Objective - Vital Signs/Intake and Output Vital Signs (last 24 hours): Temp Pulse Resp BP Pulse Ox 98.1 F 76 20 156/74 H 97 02/27/17 07:30 02/27/17 12:44 02/27/17 07:30 02/27/17 12:44 02/27/17 07:30 Intake and Output: 02/27/17 02/27/17 06:59 18:59 Intake Total 460 Balance 460 - Medications Medications: Current Medications Aspirin (Ecotrin) 81 mg PO DAILY [facility] Last Admin: 02/27/17 10:03 Dose: 81 mg Clopidogrel Bisulfate (Plavix) 75 mg PO DAILY [facility] Last Admin: 02/27/17 10:04 Dose: 75 mg Famotidine (Pepcid) 20 mg PO BID [facility] Last Admin: 02/27/17 10:04 Dose: 20 mg Hydralazine HCl (Apresoline) 10 mg IVP Q6H PRN PRN Reason: For SBP >180 Last Admin: 02/26/17 23:58 Dose: 10 mg Sodium Chloride (Sodium Chloride 0.9%) 1,000 mls @ 125 mls/hr IV .Q8H [facility] Last Admin: 02/26/17 03:40 Dose: 125 mls/hr Insulin Aspart (Novolog) 0 unit SC ACHS [facility] PRN Reason: Protocol Last Admin: 02/27/17 11:21 Dose: 8 unit Insulin Glargine (Lantus) 10 unit SC DAILY [facility] Last Admin: 02/27/17 10:03 Dose: 10 u Labetalol HCl (Trandate) 100 mg PO TID [facility] Last Admin: 02/27/17 13:49 Dose: 100 mg Lisinopril (Zestril) 10 mg PO DAILY [facility] Last Admin: 02/27/17 10:05 Dose: 10 mg Metformin HCl (Glucophage) 500 mg PO BIDCC [facility] Last Admin: 02/27/17 10:03 Dose: 500 mg Rosuvastatin Calcium (Crestor) 40 mg PO HS [facility] Last Admin: 02/26/17 22:13 Dose: 40 mg - Labs Labs: 02/27/17 07:06 02/27/17 07:06 PT 12.0 SECONDS (9.7-12.2) 02/24/17 11:48 INR 1.1 02/24/17 11:48 APTT 24 SECONDS (21-34) 02/24/17 11:48 Attending/Attestation - Attestation I have personally seen and examined this patient.: Yes I have fully participated in the care of the patient.: Yes I have reviewed all pertinent clinical information, including history, physical exam and plan: Yes Notes (Text): 02/27/17 14:37 Patient was seen and examined at bedside with the resident Continue current medical management Continue physical therapy daily I discussed the plan of care with the resident and agree with the above- mentioned physical and assessment/plan by the resident.
[2017-02-27] MEDS: (Lantus) Insulin Glargine, Recombinant SC SCH (10:03)
[2017-02-28 02:16] LABS: HCG,QUALITATIVE URINE NEGATIVE (NEGATIVE)
[2017-02-28 02:23] LABS: SQUAMOUS EPITHIAL 1 /hpf (0-5); URINE BACTERIA MOD (<OCC); URINE BILIRUBIN NEGATIVE (NEGATIVE); URINE BLOOD NEGATIVE (NEGATIVE); URINE CLARITY Hazy (Clear); URINE COLOR Amber (YELLOW); URINE GLUCOSE (UA) 3+ mg/dL (Normal); URINE LEUKOCYTE ESTERASE 3+ Leu/uL (Negative); URINE NITRATE NEGATIVE (NEGATIVE); URINE PROTEIN 2+ mg/dL (NEGATIVE); URINE UROBILINOGEN NORMAL mg/dL (0.2-1.0)
[2017-02-28 06:42] LABS: BASO # 0.1 K/uL (0.0-0.2); EOS # 0.1 K/uL (0.0-0.7); EOS % 1.2 % (0.0-4.0); HEMOGLOBIN 11.2 g/dL (11.0-16.0); LYMPH # 3.1 K/uL (1.0-4.3); LYMPH % 27.6 % (20.0-40.0); MEAN CELL VOLUME 83.4 fL (81.0-99.0); MEAN CORPUSCULAR HGB CONC 32.3 g/dL (33.0-37.0); MEAN PLATELET VOLUME 8.9 fL (7.2-11.7); MONO % 8.7 % (0.0-10.0); NEUT # 6.9 K/uL (1.8-7.0); NEUT % 61.5 % (50.0-75.0); RBC 4.14 Mil/uL (3.80-5.20); RED CELL DISTRIBUTION WIDTH 14.4 % (11.5-14.5); WHITE BLOOD COUNT 11.1 K/uL (4.8-10.8)
[2017-02-28 07:06] LABS: ALBUMIN 2.9 g/dL (3.5-5.0)
[2017-02-28 07:09] LABS: ALB/GLOB RATIO 0.9 (1.0-2.1); CALCIUM 8.4 mg/dl (8.6-10.4)
[2017-02-28 07:10] LABS: MAGNESIUM 2.2 mg/dL (1.6-2.3)
[2017-02-28] MEDS: (Novolog) Insulin Aspart, Recombinant 100 u/ml 10 ml vial SC SCH ×4 (08:29→21:44)
[2017-02-28] MEDS: (Lantus) Insulin Glargine, Recombinant SC SCH (09:15)
--- NOTE | 2017-02-28 09:37 | CP.PCM.PN ---
<Elena Rossisteveradha - Last Filed: 02/28/17 20:03> Subjective - Date & Time of Evaluation Date of Evaluation: 02/28/17 Time of Evaluation: 06:27 - Subjective Subjective: PGY 1 Medicine Note- Dr. Miranda's service Pt seen and examined in no acute distress. Patient responds "okay" and now " no " to questions. She also nods and shakes head. Patient still aphasic however appears to understand when spoken to. Physical Therapist is continuing to optimize patient for increased mobility. At this point, patient cannot maintain a standing position for more than 30 seconds. Patient denies subjective fevers or chills, headaches, chest pain, palpitations, nausea, vomiting or dysuria at this time. Objective - Vital Signs/Intake and Output Vital Signs (last 24 hours): Temp Pulse Resp BP Pulse Ox 98.6 F 74 20 175/73 H 98 02/28/17 07:00 02/28/17 07:00 02/28/17 07:00 02/28/17 07:00 02/28/17 07:00 Intake and Output: 02/28/17 02/28/17 06:59 18:59 Intake Total 440 Output Total 60 Balance 380 - Medications Medications: Current Medications Aspirin (Ecotrin) 81 mg PO DAILY [facility] Last Admin: 02/28/17 09:14 Dose: 81 mg Clopidogrel Bisulfate (Plavix) 75 mg PO DAILY [facility] Last Admin: 02/28/17 09:14 Dose: 75 mg Famotidine (Pepcid) 20 mg PO BID [facility] Last Admin: 02/28/17 09:15 Dose: 20 mg Hydralazine HCl (Apresoline) 10 mg IVP Q6H PRN PRN Reason: For SBP >180 Last Admin: 02/26/17 23:58 Dose: 10 mg Sodium Chloride (Sodium Chloride 0.9%) 1,000 mls @ 125 mls/hr IV .Q8H [facility] Last Admin: 02/26/17 03:40 Dose: 125 mls/hr Ceftriaxone Sodium 1 gm/ (Sodium Chloride) 100 mls @ 100 mls/hr IVPB DAILY@ 0330 [facility] Last Admin: 02/28/17 03:33 Dose: 100 mls/hr Insulin Aspart (Novolog) 0 unit SC ACHS [facility] PRN Reason: Protocol Last Admin: 02/28/17 08:29 Dose: 4 unit Insulin Glargine (Lantus) 10 unit SC DAILY [facility] Last Admin: 02/28/17 09:15 Dose: 10 u Labetalol HCl (Trandate) 100 mg PO TID [facility] Last Admin: 02/28/17 09:14 Dose: 100 mg Lisinopril (Zestril) 10 mg PO DAILY [facility] Last Admin: 02/28/17 09:14 Dose: 10 mg Metformin HCl (Glucophage) 500 mg PO BIDCC [facility] Last Admin: 02/28/17 08:29 Dose: 500 mg Rosuvastatin Calcium (Crestor) 40 mg PO HS [facility] Last Admin: 02/27/17 22:10 Dose: 40 mg - Labs Labs: 02/28/17 06:26 02/28/17 06:26 PT 12.0 SECONDS (9.7-12.2) 02/24/17 11:48 INR 1.1 02/24/17 11:48 APTT 24 SECONDS (21-34) 02/24/17 11:48 - Constitutional Appears: Non-toxic, No Acute Distress - Head Exam Head Exam: ATRAUMATIC, NORMAL INSPECTION, NORMOCEPHALIC Additional comments: facial droop appreciated - Eye Exam Eye Exam: EOMI, Normal appearance, PERRL Pupil Exam: NORMAL ACCOMODATION, PERRL - ENT Exam ENT Exam: Mucous Membranes Moist - Neck Exam Neck Exam: Full ROM - Respiratory Exam Respiratory Exam: Clear to Ausculation Bilateral, NORMAL BREATHING PATTERN. absent: Wheezes - Cardiovascular Exam Cardiovascular Exam: REGULAR RHYTHM, +S1, +S2 - GI/Abdominal Exam GI & Abdominal Exam: Soft, Normal Bowel Sounds - Extremities Exam Extremities Exam: Normal Capillary Refill. absent: Full ROM - Neurological Exam Neurological Exam: Alert, Awake, CN II-XII Intact Neuro motor strength exam: Left Upper Extremity: 4, Right Upper Extremity: 2/1, Left Lower Extremity: 4, Right Lower Extremity: 2/1 Additional comments: Sensation intact to pressure. Patient unable to perform heel to franco test at this time. - Psychiatric Exam Psychiatric exam: Normal Affect, Normal Mood - Skin Skin Exam: Dry, Normal Color Assessment and Plan - Assessment and Plan (Free Text) Assessment: Acute ischemic stroke Status: Acute Comment: CT Head- Large acute/subacute left MCA territory infarct which also involves the left lateral basal ganglia. ROMIs negative x 3, EKG- NSR w possible atrial enlargement. MRI Brain w/o contrast, MRA of head and neck w/o contrast performed. 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 Per Surgery ( Dr. Choi) no surgical intervention at this time. Radiologist Dr. Khan called to confirm occlusive findings. Echo- EF is 65-70%. Mild aortic regurgitation; LV systolic function is normal; hypokinesis in septal wall. Refer to complete report. As per Dr. Mccormick, BP SBP btwn 130-140 mmHg, ASA 81 mg PO daily and Plavix 75 mg PO daily, Crestor 40 mg PO HS since patient passed swallow eval HgbA1C 11.2, FLP elevated, TSH 1.7 Daily PT/OT to improve strength/ motor functioning Cont to monitor Positive UA Status: Acute No fevers or white count noted No apparent change in mentation Positive UA F/U UC Ceftriaxone 1 gm daily Hypertension Status: Acute Comment: Labetalol 100 mg PO TID; Hydralazine 10 mg IV Q6 PRN if SBP above 180 Diabetes Status: Acute Comment: Accucheck. ISS ACHS. HgbA1C 11.2, Novolog Mix 70/30 15 units BIDAC daily. Metformin 500 mg PO BIDCC, Cont to monitor. Prophylactic measure Status: Acute Comment: Pepcid 20 mg PO BID. ASA 81mg. SCDs. Continue with PT/OT daily to maximize strength. Per Case management: Patient has no medical insurance. Family friend Joseab Doyle spoke with patient's family back home in [place] who will care for her upon discharge when patient has improved strength and motor function. Patient has no family here in the [facility]. PT/OT on the case to help optimize patient. Contact info Family Friend Sheng Doyle [phone] <Jad Miranda M - Last Filed: 03/01/17 16:09> Objective - Vital Signs/Intake and Output Vital Signs (last 24 hours): Temp Pulse Resp BP Pulse Ox 98.9 F 73 20 165/81 H 98 03/01/17 16:00 03/01/17 16:00 03/01/17 16:00 03/01/17 16:00 03/01/17 16:00 Intake and Output: 03/01/17 03/01/17 06:59 18:59 Intake Total 100 Balance 100 - Medications Medications: Current Medications Aspirin (Ecotrin) 81 mg PO DAILY [facility] Last Admin: 03/01/17 09:21 Dose: 81 mg Clopidogrel Bisulfate (Plavix) 75 mg PO DAILY [facility] Last Admin: 03/01/17 09:23 Dose: 75 mg Famotidine (Pepcid) 20 mg PO BID [facility] Last Admin: 03/01/17 09:21 Dose: 20 mg Hydralazine HCl (Apresoline) 10 mg IVP Q6H PRN PRN Reason: For SBP >180 Last Admin: 02/26/17 23:58 Dose: 10 mg Sodium Chloride (Sodium Chloride 0.9%) 1,000 mls @ 125 mls/hr IV .Q8H [facility] Last Admin: 02/26/17 03:40 Dose: 125 mls/hr Ceftriaxone Sodium 1 gm/ (Sodium Chloride) 100 mls @ 100 mls/hr IVPB DAILY@ 0330 [facility] Last Admin: 03/01/17 04:03 Dose: 100 mls/hr Insulin Aspart (Novolog Mix 70/30 (70/30 Units/Ml)) 15 units SC BIDAC [facility] Last Admin: 03/01/17 08:20 Dose: 15 units Insulin Aspart (Novolog) 0 unit SC ACHS [facility] PRN Reason: Protocol Last Admin: 03/01/17 12:09 Dose: 2 unit Labetalol HCl (Trandate) 100 mg PO TID [facility] Last Admin: 03/01/17 13:17 Dose: 100 mg Lisinopril (Zestril) 10 mg PO DAILY [facility] Last Admin: 03/01/17 09:21 Dose: 10 mg Metformin HCl (Glucophage) 500 mg PO BIDCC [facility] Last Admin: 03/01/17 08:20 Dose: 500 mg Rosuvastatin Calcium (Crestor) 40 mg PO HS [facility] Last Admin: 02/28/17 21:43 Dose: 40 mg - Labs Labs: 03/01/17 08:24 03/01/17 08:24 PT 12.0 SECONDS (9.7-12.2) 02/24/17 11:48 INR 1.1 02/24/17 11:48 APTT 24 SECONDS (21-34) 02/24/17 11:48 Attending/Attestation - Attestation I have personally seen and examined this patient.: Yes I have fully participated in the care of the patient.: Yes I have reviewed all pertinent clinical information, including history, physical exam and plan: Yes Notes (Text): 03/01/17 16:08 Patient was seen and examined at bedside with the resident We will continue current medical management Continue physical therapy daily I discussed the plan of care with the resident and agree with the above history and physical and assessment/plan by the resident.
[2017-02-28] MEDS: (Novolog Mix 70/30) Insulin Aspart/Insulin Aspar 100 units/ml SC SCH (18:05)
[2017-03-01] MEDS: (Novolog Mix 70/30) Insulin Aspart/Insulin Aspar 100 units/ml SC SCH ×2 (08:20→17:24)
[2017-03-01] MEDS: (Novolog) Insulin Aspart, Recombinant 100 u/ml 10 ml vial SC SCH ×4 (08:21→22:06)
[2017-03-01 08:33] LABS: BASO # 0.1 K/uL (0.0-0.2); BASO % 0.9 % (0.0-2.0); EOS # 0.2 K/uL (0.0-0.7); EOS % 1.9 % (0.0-4.0); HEMOGLOBIN 11.4 g/dL (11.0-16.0); LYMPH # 2.5 K/uL (1.0-4.3); LYMPH % 24.6 % (20.0-40.0); MEAN CORPUSCULAR HEMOGLOBIN 27.7 pg (27.0-31.0); MEAN PLATELET VOLUME 9.3 fL (7.2-11.7); MONO # 0.8 K/uL (0.0-0.8); MONO % 8.4 % (0.0-10.0); NEUT # 6.5 K/uL (1.8-7.0); NEUT % 64.2 % (50.0-75.0); RBC 4.1 Mil/uL (3.80-5.20); RED CELL DISTRIBUTION WIDTH 14.3 % (11.5-14.5); WHITE BLOOD COUNT 10.1 K/uL (4.8-10.8)
[2017-03-01 08:56] LABS: ALBUMIN 2.7 g/dL (3.5-5.0)
[2017-03-01 08:59] LABS: ALB/GLOB RATIO 0.7 (1.0-2.1)
[2017-03-01 09:00] LABS: CALCIUM 8.6 mg/dl (8.6-10.4); MAGNESIUM 2.2 mg/dL (1.6-2.3)
--- NOTE | 2017-03-01 09:06 | CP.PCM.PN ---
<FloElenasteveradha - Last Filed: 03/01/17 11:25> Subjective - Date & Time of Evaluation Date of Evaluation: 03/01/17 Time of Evaluation: 08:55 - Subjective Subjective: PGY 1 Medicine Note- Dr. Miranda's service Pt seen and examined in no acute distress. Patient responds "okay" and " no" to questions. She nods and shakes head although sometimes patient does not comprehend nor process well and attempts to smile when questioned. Patient still aphasic. Physical Therapist is continuing to optimize patient for increased mobility. Patient's friend Sommer Lopez present bedside with questions and concerns addressed regarding patient's course thus far. Patient shakes her head no in response to ROS specific for leg pain, chest pain, fevers , or chills. Objective - Vital Signs/Intake and Output Vital Signs (last 24 hours): Temp Pulse Resp BP Pulse Ox 98.8 F 67 18 181/79 H 97 03/01/17 07:17 03/01/17 08:00 03/01/17 07:17 03/01/17 07:17 03/01/17 07:17 Intake and Output: 03/01/17 03/01/17 06:59 18:59 Intake Total 100 Balance 100 - Medications Medications: Current Medications Aspirin (Ecotrin) 81 mg PO DAILY [facility] Last Admin: 02/28/17 09:14 Dose: 81 mg Clopidogrel Bisulfate (Plavix) 75 mg PO DAILY [facility] Last Admin: 02/28/17 09:14 Dose: 75 mg Famotidine (Pepcid) 20 mg PO BID [facility] Last Admin: 02/28/17 18:04 Dose: 20 mg Hydralazine HCl (Apresoline) 10 mg IVP Q6H PRN PRN Reason: For SBP >180 Last Admin: 02/26/17 23:58 Dose: 10 mg Sodium Chloride (Sodium Chloride 0.9%) 1,000 mls @ 125 mls/hr IV .Q8H [facility] Last Admin: 02/26/17 03:40 Dose: 125 mls/hr Ceftriaxone Sodium 1 gm/ (Sodium Chloride) 100 mls @ 100 mls/hr IVPB DAILY@ 0330 [facility] Last Admin: 03/01/17 04:03 Dose: 100 mls/hr Insulin Aspart (Novolog Mix 70/30 (70/30 Units/Ml)) 15 units SC BIDAC [facility] Last Admin: 03/01/17 08:20 Dose: 15 units Insulin Aspart (Novolog) 0 unit SC ACHS [facility] PRN Reason: Protocol Last Admin: 03/01/17 08:21 Dose: 4 unit Labetalol HCl (Trandate) 100 mg PO TID [facility] Last Admin: 02/28/17 18:39 Dose: 100 mg Lisinopril (Zestril) 10 mg PO DAILY [facility] Last Admin: 02/28/17 09:14 Dose: 10 mg Metformin HCl (Glucophage) 500 mg PO BIDCC [facility] Last Admin: 03/01/17 08:20 Dose: 500 mg Rosuvastatin Calcium (Crestor) 40 mg PO HS [facility] Last Admin: 02/28/17 21:43 Dose: 40 mg - Labs Labs: 03/01/17 08:24 03/01/17 08:24 PT 12.0 SECONDS (9.7-12.2) 02/24/17 11:48 INR 1.1 02/24/17 11:48 APTT 24 SECONDS (21-34) 02/24/17 11:48 - Constitutional Appears: Non-toxic, No Acute Distress - Head Exam Head Exam: ATRAUMATIC, NORMAL INSPECTION, NORMOCEPHALIC Additional comments: facial droop - Eye Exam Eye Exam: EOMI, Normal appearance, PERRL Pupil Exam: PERRL - ENT Exam ENT Exam: Mucous Membranes Moist - Neck Exam Neck Exam: Full ROM - Respiratory Exam Respiratory Exam: Clear to Ausculation Bilateral, NORMAL BREATHING PATTERN. absent: Wheezes - Cardiovascular Exam Cardiovascular Exam: REGULAR RHYTHM, +S1, +S2 - GI/Abdominal Exam GI & Abdominal Exam: Soft, Normal Bowel Sounds - Extremities Exam Extremities Exam: Normal Capillary Refill. absent: Full ROM - Neurological Exam Neurological Exam: Alert, Awake, CN II-XII Intact. absent: Normal Gait Neuro motor strength exam: Left Upper Extremity: 4, Right Upper Extremity: 2/1, Left Lower Extremity: 4, Right Lower Extremity: 2/1 - Psychiatric Exam Psychiatric exam: Normal Affect, Normal Mood - Skin Skin Exam: Dry, Normal Color Assessment and Plan - Assessment and Plan (Free Text) Assessment: Acute ischemic stroke Status: Acute Comment: CT Head- Large acute/subacute left MCA territory infarct which also involves the left lateral basal ganglia. ROMIs negative x 3, EKG- NSR w possible atrial enlargement. MRI Brain w/o contrast, MRA of head and neck w/o contrast performed. 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 Per Surgery ( Dr. Choi) no surgical intervention at this time. Radiologist Dr. Khan called to confirm occlusive findings. Echo- EF is 65-70%. Mild aortic regurgitation; LV systolic function is normal; hypokinesis in septal wall. Refer to complete report. As per Dr. Mccormick, BP SBP btwn 130-140 mmHg, ASA 81 mg PO daily and Plavix 75 mg PO daily, Crestor 40 mg PO HS since patient passed swallow eval HgbA1C 11.2, FLP elevated, TSH 1.7 Daily PT/OT to improve strength/ motor functioning Cont to monitor Positive UA Status: Acute No fevers or white count noted No apparent change in mentation Positive UA F/U UC. No final result to date though culture received. Ceftriaxone 1 gm daily Hypertension Status: Acute Comment: Labetalol 100 mg PO TID; Hydralazine 10 mg IV Q6 PRN if SBP above 180 Diabetes Status: Acute Comment: Accucheck. ISS ACHS. HgbA1C 11.2, Novolog Mix 70/30 15 units BIDAC daily. Metformin 500 mg PO BIDCC, Cont to monitor. Prophylactic measure Status: Acute Comment: Pepcid 20 mg PO BID. ASA 81mg. SCDs. Continue with PT/OT daily to maximize strength. Per Case management: Patient has no medical insurance. Family friend Sheng Reyescarissa spoke with patient's family back home in [place] who will care for her upon discharge when patient has improved strength and motor function. Patient has no family here in the [facility]. PT/OT on the case to help optimize patient. Contact info Family Friend Sheng Yanira [phone] <Jad Miranda - Last Filed: 03/01/17 16:14> Objective - Vital Signs/Intake and Output Vital Signs (last 24 hours): Temp Pulse Resp BP Pulse Ox 98.9 F 73 20 165/81 H 98 03/01/17 16:00 03/01/17 16:00 03/01/17 16:00 03/01/17 16:00 03/01/17 16:00 Intake and Output: 06/09/17 06/09/17 06:59 18:59 Intake Total 100 Balance 100 - Medications Medications: Current Medications Aspirin (Ecotrin) 81 mg PO DAILY [facility] Last Admin: 03/01/17 09:21 Dose: 81 mg Clopidogrel Bisulfate (Plavix) 75 mg PO DAILY [facility] Last Admin: 03/01/17 09:23 Dose: 75 mg Famotidine (Pepcid) 20 mg PO BID [facility] Last Admin: 03/01/17 09:21 Dose: 20 mg Hydralazine HCl (Apresoline) 10 mg IVP Q6H PRN PRN Reason: For SBP >180 Last Admin: 02/26/17 23:58 Dose: 10 mg Sodium Chloride (Sodium Chloride 0.9%) 1,000 mls @ 125 mls/hr IV .Q8H [facility] Last Admin: 02/26/17 03:40 Dose: 125 mls/hr Ceftriaxone Sodium 1 gm/ (Sodium Chloride) 100 mls @ 100 mls/hr IVPB DAILY@ 0330 [facility] Last Admin: 03/01/17 04:03 Dose: 100 mls/hr Insulin Aspart (Novolog Mix 70/30 (70/30 Units/Ml)) 15 units SC BIDAC [facility] Last Admin: 03/01/17 08:20 Dose: 15 units Insulin Aspart (Novolog) 0 unit SC ACHS [facility] PRN Reason: Protocol Last Admin: 03/01/17 12:09 Dose: 2 unit Labetalol HCl (Trandate) 100 mg PO TID [facility] Last Admin: 03/01/17 13:17 Dose: 100 mg Lisinopril (Zestril) 10 mg PO DAILY [facility] Last Admin: 03/01/17 09:21 Dose: 10 mg Metformin HCl (Glucophage) 500 mg PO BIDCC [facility] Last Admin: 03/01/17 08:20 Dose: 500 mg Rosuvastatin Calcium (Crestor) 40 mg PO HS [facility] Last Admin: 02/28/17 21:43 Dose: 40 mg - Labs Labs: 03/01/17 08:24 03/01/17 08:24 PT 12.0 SECONDS (9.7-12.2) 02/24/17 11:48 INR 1.1 02/24/17 11:48 APTT 24 SECONDS (21-34) 02/24/17 11:48 Attending/Attestation - Attestation I have personally seen and examined this patient.: Yes I have fully participated in the care of the patient.: Yes I have reviewed all pertinent clinical information, including history, physical exam and plan: Yes Notes (Text): 03/01/17 16:12 Patient was seen and examined at bedside No improvement noted in patient's clinical condition 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
--- NOTE | 2017-03-02 01:51 | CP.PCM.PN ---
<James Clayton - Last Filed: 03/02/17 05:43> Subjective - Date & Time of Evaluation Date of Evaluation: 03/02/17 Time of Evaluation: 01:48 - Subjective Subjective: PGY 1 Medicine Note- Dr. Miranda's service Pt seen and examined in no acute distress. Nursing reports no acute events overnight. Patient responds "okay" to all questions. Patient aphasic. Physical Therapist is continuing to optimize patient for increased mobility. Accurate ROS felt unavailable due to pts condition. Nursing paged this resident overnight for positive urine culture. Prelim culture showing gram negative bob. Will f/u sensitivities, but pt already on Rocephin. Nursing also paged for left antecubital heplock discontinuation. 2mm opening with scant drainage noted at site. Ordered one application of Bacitracin to area. Objective - Vital Signs/Intake and Output Vital Signs (last 24 hours): Temp Pulse Resp BP Pulse Ox 98.9 F 67 20 151/76 H 98 03/01/17 23:35 03/02/17 00:00 03/01/17 23:35 03/01/17 23:35 03/01/17 23:35 - Medications Medications: Current Medications Aspirin (Ecotrin) 81 mg PO DAILY [facility] Last Admin: 03/01/17 09:21 Dose: 81 mg Clopidogrel Bisulfate (Plavix) 75 mg PO DAILY [facility] Last Admin: 03/01/17 09:23 Dose: 75 mg Famotidine (Pepcid) 20 mg PO BID [facility] Last Admin: 03/01/17 17:25 Dose: 20 mg Hydralazine HCl (Apresoline) 10 mg IVP Q6H PRN PRN Reason: For SBP >180 Last Admin: 02/26/17 23:58 Dose: 10 mg Sodium Chloride (Sodium Chloride 0.9%) 1,000 mls @ 125 mls/hr IV .Q8H [facility] Last Admin: 02/26/17 03:40 Dose: 125 mls/hr Ceftriaxone Sodium 1 gm/ (Sodium Chloride) 100 mls @ 100 mls/hr IVPB DAILY@ 0330 [facility] Last Admin: 03/01/17 04:03 Dose: 100 mls/hr Insulin Aspart (Novolog Mix 70/30 (70/30 Units/Ml)) 15 units SC BIDAC [facility] Last Admin: 03/01/17 17:24 Dose: 15 units Insulin Aspart (Novolog) 0 unit SC ACHS [facility] PRN Reason: Protocol Last Admin: 03/01/17 22:06 Dose: Not Given Labetalol HCl (Trandate) 100 mg PO TID [facility] Last Admin: 03/01/17 17:25 Dose: 100 mg Lisinopril (Zestril) 10 mg PO DAILY [facility] Last Admin: 03/01/17 09:21 Dose: 10 mg Metformin HCl (Glucophage) 500 mg PO BIDCC [facility] Last Admin: 03/01/17 17:23 Dose: 500 mg Rosuvastatin Calcium (Crestor) 40 mg PO HS [facility] Last Admin: 03/01/17 22:03 Dose: 40 mg - Labs Labs: 03/01/17 08:24 03/01/17 08:24 PT 12.0 SECONDS (9.7-12.2) 02/24/17 11:48 INR 1.1 02/24/17 11:48 APTT 24 SECONDS (21-34) 02/24/17 11:48 - Additional Findings Additional findings: - Constitutional Appears: Non-toxic, No Acute Distress - Head Exam Head Exam: ATRAUMATIC, NORMAL INSPECTION, NORMOCEPHALIC Additional comments: facial droop - Eye Exam Eye Exam: EOMI, Normal appearance, PERRL Pupil Exam: PERRL - ENT Exam ENT Exam: Mucous Membranes Moist - Neck Exam Neck Exam: Full ROM - Respiratory Exam Respiratory Exam: Clear to Ausculation Bilateral, NORMAL BREATHING PATTERN. absent: Wheezes - Cardiovascular Exam Cardiovascular Exam: REGULAR RHYTHM, +S1, +S2 - GI/Abdominal Exam GI & Abdominal Exam: Soft, Normal Bowel Sounds - Extremities Exam Extremities Exam: Normal Capillary Refill. absent: Full ROM - Left arm heplock site d/c. Open 2mm area with scant drainage. - Neurological Exam Neurological Exam: Alert, Awake, CN II-XII Intact. absent: Normal Gait Neuro motor strength exam: Left Upper Extremity: 4, Right Upper Extremity: 2/1, Left Lower Extremity: 4, Right Lower Extremity: 2/1 - Right sided weakness/aphasia remain as sequelae from stroke - Psychiatric Exam Psychiatric exam: Normal Affect, Normal Mood - Skin Skin Exam: Dry, Normal Color Assessment and Plan - Assessment and Plan (Free Text) Plan: Acute ischemic stroke Status: Acute Comment: CT Head- Large acute/subacute left MCA territory infarct which also involves the left lateral basal ganglia. ROMIs negative x 3, EKG- NSR w possible atrial enlargement. MRI Brain w/o contrast, MRA of head and neck w/o contrast performed. 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 Per Surgery ( Dr. Choi) no surgical intervention at this time. Radiologist Dr. Khan called to confirm occlusive findings. Echo- EF is 65-70%. Mild aortic regurgitation; LV systolic function is normal; hypokinesis in septal wall. Refer to complete report. As per Dr. Mccormick, BP SBP btwn 130-140 mmHg, ASA 81 mg PO daily and Plavix 75 mg PO daily, Crestor 40 mg PO HS since patient passed swallow eval HgbA1C 11.2, FLP elevated, TSH 1.7 Daily PT/OT to improve strength/ motor functioning Cont to monitor Positive UA Status: Acute No fevers or white count noted No apparent change in mentation Positive UA UC: Preliminary Gram negative Bob Ceftriaxone 1 gm daily Hypertension Status: Acute Comment: Labetalol 100 mg PO TID; Hydralazine 10 mg IV Q6 PRN if SBP above 180 Diabetes Status: Acute Comment: Accucheck. ISS ACHS. HgbA1C 11.2, Novolog Mix 70/30 15 units BIDAC daily. Metformin 500 mg PO BIDCC, Cont to monitor. Prophylactic measure Status: Acute Comment: Pepcid 20 mg PO BID. ASA 81mg. SCDs. Continue with PT/OT daily to maximize strength. Per Case management: Patient has no medical insurance. Family friend Sheng Reyescarissa spoke with patient's family back home in [place] who will care for her upon discharge when patient has improved strength and motor function. Patient has no family here in the [facility]. PT/OT on the case to help optimize patient. Contact info Family Friend Sheng Doyle [phone] <Jad Miranda - Last Filed: 03/02/17 15:47> Objective - Vital Signs/Intake and Output Vital Signs (last 24 hours): Temp Pulse Resp BP Pulse Ox 98.2 F 65 20 152/72 H 96 03/02/17 07:39 03/02/17 07:39 03/02/17 07:39 03/02/17 07:39 03/02/17 07:39 Intake and Output: 06/10/17 06/10/17 06:59 18:59 Intake Total 10 Balance 10 - Medications Medications: Current Medications Aspirin (Ecotrin) 81 mg PO DAILY [facility] Last Admin: 03/02/17 09:49 Dose: 81 mg Clopidogrel Bisulfate (Plavix) 75 mg PO DAILY [facility] Last Admin: 03/02/17 09:49 Dose: 75 mg Famotidine (Pepcid) 20 mg PO BID [facility] Last Admin: 03/02/17 09:49 Dose: 20 mg Hydralazine HCl (Apresoline) 10 mg IVP Q6H PRN PRN Reason: For SBP >180 Last Admin: 02/26/17 23:58 Dose: 10 mg Sodium Chloride (Sodium Chloride 0.9%) 1,000 mls @ 125 mls/hr IV .Q8H [facility] Last Admin: 02/26/17 03:40 Dose: 125 mls/hr Ceftriaxone Sodium 1 gm/ (Sodium Chloride) 100 mls @ 100 mls/hr IVPB DAILY@ 0330 [facility] Last Admin: 03/02/17 02:33 Dose: 100 mls/hr Insulin Aspart (Novolog Mix 70/30 (70/30 Units/Ml)) 15 units SC BIDAC [facility] Last Admin: 03/02/17 08:28 Dose: 15 units Insulin Aspart (Novolog) 0 unit SC ACHS [facility] PRN Reason: Protocol Last Admin: 03/02/17 12:26 Dose: 2 unit Labetalol HCl (Trandate) 100 mg PO TID [facility] Last Admin: 03/02/17 09:48 Dose: 100 mg Lisinopril (Zestril) 10 mg PO DAILY [facility] Last Admin: 03/02/17 09:49 Dose: 10 mg Metformin HCl (Glucophage) 500 mg PO BIDCC [facility] Last Admin: 03/02/17 08:29 Dose: 500 mg Rosuvastatin Calcium (Crestor) 40 mg PO HS [facility] Last Admin: 03/01/17 22:03 Dose: 40 mg - Labs Labs: 03/02/17 08:41 03/02/17 08:41 PT 12.0 SECONDS (9.7-12.2) 02/24/17 11:48 INR 1.1 02/24/17 11:48 APTT 24 SECONDS (21-34) 02/24/17 11:48 Attending/Attestation - Attestation I have personally seen and examined this patient.: Yes I have fully participated in the care of the patient.: Yes I have reviewed all pertinent clinical information, including history, physical exam and plan: Yes Notes (Text): 03/02/17 15:41 Patient was seen and examined at bedside with the resident Patient continues to have right-sided flaccid paralysis Continue physical therapy daily. Continue medical management with antiplatelet therapy and statin. Control blood pressure We will increase the dose of lisinopril to 20 mg daily. Titrate medication for blood pressure as needed. I agree with the history and physical and assessment/plan by the resident
[2017-03-02] MEDS ORDERED: Bacitracin 500 Units/gm Oint Foilpak UD TOP ONE (03:04)
[2017-03-02] MEDS: (Novolog Mix 70/30) Insulin Aspart/Insulin Aspar 100 units/ml SC SCH ×2 (08:28→17:55)
[2017-03-02] MEDS: (Novolog) Insulin Aspart, Recombinant 100 u/ml 10 ml vial SC SCH ×4 (08:29→22:24)
[2017-03-02 08:51] LABS: BASO # 0.1 K/uL (0.0-0.2); EOS # 0.3 K/uL (0.0-0.7); EOS % 3.3 % (0.0-4.0); LYMPH # 2.4 K/uL (1.0-4.3); LYMPH % 24.9 % (20.0-40.0); MEAN CORPUSCULAR HEMOGLOBIN 27.3 pg (27.0-31.0); MEAN CORPUSCULAR HGB CONC 32.5 g/dL (33.0-37.0); MEAN PLATELET VOLUME 9.1 fL (7.2-11.7); MONO # 0.8 K/uL (0.0-0.8); MONO % 8.6 % (0.0-10.0); NEUT # 6.1 K/uL (1.8-7.0); NEUT % 62.2 % (50.0-75.0); RBC 4.01 Mil/uL (3.80-5.20); RED CELL DISTRIBUTION WIDTH 14.4 % (11.5-14.5); WHITE BLOOD COUNT 9.8 K/uL (4.8-10.8)
[2017-03-02 09:08] LABS: ALBUMIN 2.9 g/dL (3.5-5.0)
[2017-03-02 09:11] LABS: ALB/GLOB RATIO 0.9 (1.0-2.1)
[2017-03-02 09:12] LABS: CALCIUM 8.8 mg/dl (8.6-10.4); MAGNESIUM 2.3 mg/dL (1.6-2.3)
[2017-03-02] MEDS ORDERED: Sod Polystyrene Sulf 15 gm/60 ml Oral Susp PO ONE (12:30)
--- NOTE | 2017-03-03 03:27 | CP.PCM.PN ---
<James Clayton - Last Filed: 03/04/17 07:04> Subjective - Date & Time of Evaluation Date of Evaluation: 03/03/17 Time of Evaluation: 03:24 - Subjective Subjective: PGY 1 Medicine Note- Dr. Miranda's service Pt seen and examined in no acute distress. Nursing reports no acute events overnight. Patient resting comfortably in bed. Patient remains aphasic. Nursing reports pt tolerating diet, and is moving bowels without issue. Accurate ROS felt unavailable due to pts condition. Objective - Vital Signs/Intake and Output Vital Signs (last 24 hours): Temp Pulse Resp BP Pulse Ox 98.6 F 72 20 168/82 H 96 03/02/17 23:30 03/03/17 00:00 03/02/17 23:30 03/02/17 23:30 03/02/17 23:30 Intake and Output: 03/02/17 03/03/17 18:59 06:59 Intake Total 350 Balance 350 - Medications Medications: Current Medications Aspirin (Ecotrin) 81 mg PO DAILY [facility] Last Admin: 03/02/17 09:49 Dose: 81 mg Clopidogrel Bisulfate (Plavix) 75 mg PO DAILY [facility] Last Admin: 03/02/17 09:49 Dose: 75 mg Famotidine (Pepcid) 20 mg PO BID [facility] Last Admin: 03/02/17 17:54 Dose: 20 mg Hydralazine HCl (Apresoline) 10 mg IVP Q6H PRN PRN Reason: For SBP >180 Last Admin: 02/26/17 23:58 Dose: 10 mg Sodium Chloride (Sodium Chloride 0.9%) 1,000 mls @ 125 mls/hr IV .Q8H [facility] Last Admin: 02/26/17 03:40 Dose: 125 mls/hr Ceftriaxone Sodium 1 gm/ (Sodium Chloride) 100 mls @ 100 mls/hr IVPB DAILY@ 0330 [facility] Last Admin: 03/02/17 02:33 Dose: 100 mls/hr Insulin Aspart (Novolog Mix 70/30 (70/30 Units/Ml)) 15 units SC BIDAC [facility] Last Admin: 03/02/17 17:55 Dose: 15 units Insulin Aspart (Novolog) 0 unit SC ACHS [facility] PRN Reason: Protocol Last Admin: 03/02/17 22:24 Dose: Not Given Labetalol HCl (Trandate) 100 mg PO TID [facility] Last Admin: 03/02/17 17:54 Dose: 100 mg Lisinopril (Zestril) 20 mg PO DAILY [facility] Metformin HCl (Glucophage) 500 mg PO BIDCC [facility] Last Admin: 03/02/17 17:54 Dose: 500 mg Rosuvastatin Calcium (Crestor) 40 mg PO HS [facility] Last Admin: 03/02/17 22:23 Dose: 40 mg - Labs Labs: 03/02/17 08:41 03/02/17 08:41 PT 12.0 SECONDS (9.7-12.2) 02/24/17 11:48 INR 1.1 02/24/17 11:48 APTT 24 SECONDS (21-34) 02/24/17 11:48 - Additional Findings Additional findings: - Constitutional Appears: Non-toxic, No Acute Distress - Head Exam Head Exam: ATRAUMATIC, NORMAL INSPECTION, NORMOCEPHALIC Additional comments: facial droop - Eye Exam Eye Exam: EOMI, Normal appearance, PERRL Pupil Exam: PERRL - ENT Exam ENT Exam: Mucous Membranes Moist - Neck Exam Neck Exam: Full ROM - Respiratory Exam Respiratory Exam: Clear to Ausculation Bilateral, NORMAL BREATHING PATTERN. absent: Wheezes - Cardiovascular Exam Cardiovascular Exam: REGULAR RHYTHM, +S1, +S2 - GI/Abdominal Exam GI & Abdominal Exam: Soft, Normal Bowel Sounds - Extremities Exam Extremities Exam: Normal Capillary Refill. absent: Full ROM - Left arm heplock site d/c. Open 2mm area with scant drainage. - Neurological Exam Neurological Exam: Alert, Awake, CN II-XII Intact. absent: Normal Gait Neuro motor strength exam: Left Upper Extremity: 4, Right Upper Extremity: 2/1, Left Lower Extremity: 4, Right Lower Extremity: 2/1 - Right sided weakness/aphasia remain as sequelae from stroke - Psychiatric Exam Psychiatric exam: Normal Affect, Normal Mood - Skin Skin Exam: Dry, Normal Color Assessment and Plan - Assessment and Plan (Free Text) Plan: Acute ischemic stroke Status: Acute Comment: CT Head- Large acute/subacute left MCA territory infarct which also involves the left lateral basal ganglia. ROMIs negative x 3, EKG- NSR w possible atrial enlargement. MRI Brain w/o contrast, MRA of head and neck w/o contrast performed. 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 Per Surgery ( Dr. Choi) no surgical intervention at this time. Radiologist Dr. Khan called to confirm occlusive findings. Echo- EF is 65-70%. Mild aortic regurgitation; LV systolic function is normal; hypokinesis in septal wall. Refer to complete report. As per Dr. Mccormick, BP SBP btwn 130-140 mmHg, ASA 81 mg PO daily and Plavix 75 mg PO daily, Crestor 40 mg PO HS since patient passed swallow eval HgbA1C 11.2, FLP elevated, TSH 1.7 Daily PT/OT to improve strength/ motor functioning Cont to monitor Positive UA Status: Acute No fevers or white count noted No apparent change in mentation Positive UA UC: Preliminary Gram negative Bob Ceftriaxone 1 gm daily Hypertension Status: Acute Comment: Labetalol 100 mg PO TID; Start Lisinopril 20mg PO Daily; Hydralazine 10 mg IV Q6 PRN if SBP above 180 Diabetes Status: Acute Comment: Accucheck. ISS ACHS. HgbA1C 11.2, Novolog Mix 70/30 15 units BIDAC daily. Metformin 500 mg PO BIDCC, Cont to monitor. Prophylactic measure Status: Acute Comment: Pepcid 20 mg PO BID. ASA 81mg. SCDs. Continue with PT/OT daily to maximize strength. Per Case management: Patient has no medical insurance. Family friend Sheng Reyescarissa spoke with patient's family back home in [place] who will care for her upon discharge when patient has improved strength and motor function. Patient has no family here in the [facility]. PT/OT on the case to help optimize patient. Contact info Family Friend Sheng Reyescarissa [phone] <Jad Miranda M - Last Filed: 03/11/17 15:39> Objective - Vital Signs/Intake and Output Vital Signs (last 24 hours): Temp Pulse Resp BP Pulse Ox 98.3 F 64 18 123/71 96 03/11/17 15:17 03/11/17 15:17 03/11/17 15:17 03/11/17 15:17 03/11/17 15:17 Intake and Output: 03/11/17 03/11/17 06:59 18:59 Intake Total 750 Output Total 500 Balance -500 750 - Medications Medications: Current Medications Aspirin (Ecotrin) 81 mg PO DAILY [facility] Last Admin: 03/11/17 09:26 Dose: 81 mg Clopidogrel Bisulfate (Plavix) 75 mg PO DAILY [facility] Last Admin: 03/11/17 09:26 Dose: 75 mg Famotidine (Pepcid) 20 mg PO BID [facility] Last Admin: 03/11/17 09:26 Dose: 20 mg Heparin Sodium (Porcine) (Heparin) 5,000 units SC Q12 [facility] Last Admin: 03/11/17 09:26 Dose: 5,000 units Hydralazine HCl (Apresoline) 10 mg IVP Q6H PRN PRN Reason: For SBP >180 Last Admin: 02/26/17 23:58 Dose: 10 mg Hydralazine HCl (Apresoline) 50 mg PO QID [facility] Last Admin: 03/11/17 13:15 Dose: 50 mg Sodium Chloride (Sodium Chloride 0.45%) 1,000 mls @ 100 mls/hr IV .Q10H [facility] Last Admin: 03/11/17 14:46 Dose: 100 mls/hr Insulin Aspart (Novolog Mix 70/30 (70/30 Units/Ml)) 15 units SC BIDAC [facility] Last Admin: 03/11/17 07:57 Dose: 15 units Insulin Aspart (Novolog) 0 unit SC ACHS [facility] PRN Reason: Protocol Last Admin: 03/11/17 12:33 Dose: 3 unit Labetalol HCl (Trandate) 100 mg PO TID [facility] Last Admin: 03/11/17 13:15 Dose: 100 mg Lisinopril (Zestril) 20 mg PO DAILY [facility] Last Admin: 03/11/17 09:26 Dose: 20 mg Metformin HCl (Glucophage) 500 mg PO BIDCC [facility] Last Admin: 03/11/17 07:57 Dose: 500 mg Rosuvastatin Calcium (Crestor) 40 mg PO HS [facility] Last Admin: 03/10/17 21:43 Dose: 40 mg - Labs Labs: 03/11/17 11:06 03/11/17 11:06 PT 12.0 SECONDS (9.7-12.2) 02/24/17 11:48 INR 1.1 02/24/17 11:48 APTT 24 SECONDS (21-34) 02/24/17 11:48 Attending/Attestation - Attestation I have personally seen and examined this patient.: Yes I have fully participated in the care of the patient.: Yes I have reviewed all pertinent clinical information, including history, physical exam and plan: Yes Notes (Text): 03/11/17 15:39 Patient was seen and examined at bedside with the resident This a late computer entry Patient has right-sided hemiplegia Continue physical therapy daily Agree with the above history and physical and assessment/plan by the resident.
[2017-03-03] MEDS: (Novolog Mix 70/30) Insulin Aspart/Insulin Aspar 100 units/ml SC SCH ×2 (08:01→18:07)
[2017-03-03] MEDS: (Novolog) Insulin Aspart, Recombinant 100 u/ml 10 ml vial SC SCH ×4 (08:02→21:28)
[2017-03-03 11:21] LABS: BASO # 0.1 K/uL (0.0-0.2); BASO % 1.1 % (0.0-2.0); EOS # 0.3 K/uL (0.0-0.7); EOS % 2.9 % (0.0-4.0); HEMOGLOBIN 11.5 g/dL (11.0-16.0); LYMPH # 2.1 K/uL (1.0-4.3); MEAN CELL VOLUME 84.1 fL (81.0-99.0); MEAN CORPUSCULAR HEMOGLOBIN 27.2 pg (27.0-31.0); MEAN CORPUSCULAR HGB CONC 32.3 g/dL (33.0-37.0); MEAN PLATELET VOLUME 9.1 fL (7.2-11.7); MONO # 0.8 K/uL (0.0-0.8); MONO % 8.7 % (0.0-10.0); NEUT # 5.6 K/uL (1.8-7.0); NEUT % 63.3 % (50.0-75.0); RBC 4.22 Mil/uL (3.80-5.20); WHITE BLOOD COUNT 8.9 K/uL (4.8-10.8)
[2017-03-03 11:34] LABS: ALB/GLOB RATIO 0.9 (1.0-2.1)
[2017-03-03 11:35] LABS: MAGNESIUM 2.5 mg/dL (1.6-2.3)
--- NOTE | 2017-03-04 06:13 | CP.PCM.PN ---
<FloElenasteveradha - Last Filed: 03/04/17 12:11> Subjective - Date & Time of Evaluation Date of Evaluation: 03/04/17 Time of Evaluation: 06:23 - Subjective Subjective: PGY 1 Medicine Note- Dr. Monique's service Pt seen and examined in no acute distress. Patient frustrated this morning after being unable to adjust self in bed. Patient kept stating "okay" over and over and attempting to gesture with left hand though with difficulty. Patient was able to nod or shake head no as she was questioned about her level of discomfort. Patient able to adjust and scoot to edge of bed with difficulty and support from physical therapy and occupational therapy staff. She denies headaches, chest pain, palpitations, subjective fevers or chills at this time. Objective - Vital Signs/Intake and Output Vital Signs (last 24 hours): Temp Pulse Resp BP Pulse Ox 97.3 F L 65 20 169/77 H 95 03/03/17 23:30 03/04/17 04:06 03/03/17 23:30 03/03/17 23:30 03/03/17 23:30 Intake and Output: 03/03/17 03/04/17 18:59 06:59 Intake Total 250 420 Balance 250 420 - Medications Medications: Current Medications Aspirin (Ecotrin) 81 mg PO DAILY [facility] Last Admin: 03/03/17 10:24 Dose: 81 mg Clopidogrel Bisulfate (Plavix) 75 mg PO DAILY [facility] Last Admin: 03/03/17 10:24 Dose: 75 mg Famotidine (Pepcid) 20 mg PO BID [facility] Last Admin: 03/03/17 18:05 Dose: 20 mg Hydralazine HCl (Apresoline) 10 mg IVP Q6H PRN PRN Reason: For SBP >180 Last Admin: 02/26/17 23:58 Dose: 10 mg Sodium Chloride (Sodium Chloride 0.9%) 1,000 mls @ 125 mls/hr IV .Q8H [facility] Last Admin: 02/26/17 03:40 Dose: 125 mls/hr Ceftriaxone Sodium 1 gm/ (Sodium Chloride) 100 mls @ 100 mls/hr IVPB DAILY@ 0330 [facility] Last Admin: 03/04/17 03:31 Dose: 100 mls/hr Insulin Aspart (Novolog Mix 70/30 (70/30 Units/Ml)) 15 units SC BIDAC [facility] Last Admin: 03/03/17 18:07 Dose: 15 units Insulin Aspart (Novolog) 0 unit SC ACHS [facility] PRN Reason: Protocol Last Admin: 03/03/17 21:28 Dose: Not Given Labetalol HCl (Trandate) 100 mg PO TID [facility] Last Admin: 03/03/17 18:06 Dose: 100 mg Lisinopril (Zestril) 20 mg PO DAILY [facility] Last Admin: 03/03/17 10:24 Dose: 20 mg Metformin HCl (Glucophage) 500 mg PO BIDCC [facility] Last Admin: 03/03/17 18:00 Dose: 500 mg Rosuvastatin Calcium (Crestor) 40 mg PO HS [facility] Last Admin: 03/03/17 21:34 Dose: 40 mg - Labs Labs: 03/03/17 11:14 03/03/17 11:14 PT 12.0 SECONDS (9.7-12.2) 02/24/17 11:48 INR 1.1 02/24/17 11:48 APTT 24 SECONDS (21-34) 02/24/17 11:48 - Constitutional Appears: Non-toxic - Head Exam Head Exam: ATRAUMATIC, NORMAL INSPECTION, NORMOCEPHALIC - Eye Exam Eye Exam: EOMI, Normal appearance, PERRL Pupil Exam: NORMAL ACCOMODATION - ENT Exam ENT Exam: Mucous Membranes Moist - Neck Exam Neck Exam: Full ROM - Respiratory Exam Respiratory Exam: NORMAL BREATHING PATTERN. absent: Wheezes - Cardiovascular Exam Cardiovascular Exam: REGULAR RHYTHM, +S1, +S2 - GI/Abdominal Exam GI & Abdominal Exam: Soft, Normal Bowel Sounds - Extremities Exam Extremities Exam: Normal Capillary Refill. absent: Full ROM, Pedal Edema, Tenderness - Back Exam Back Exam: absent: Full ROM - Neurological Exam Neurological Exam: Alert, Awake, CN II-XII Intact Neuro motor strength exam: Left Upper Extremity: 4, Right Upper Extremity: 2/1, Left Lower Extremity: 4, Right Lower Extremity: 2/1 - Psychiatric Exam Psychiatric exam: Normal Affect, Normal Mood - Skin Skin Exam: Dry, Intact, Normal Color, Warm Assessment and Plan - Assessment and Plan (Free Text) Assessment: Acute ischemic stroke Status: Acute Comment: CT Head- Large acute/subacute left MCA territory infarct which also involves the left lateral basal ganglia. ROMIs negative x 3, EKG- NSR w possible atrial enlargement. MRI Brain w/o contrast, MRA of head and neck w/o contrast performed. 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 Per Surgery ( Dr. Choi) no surgical intervention at this time. Radiologist Dr. Khan called to confirm occlusive findings. Echo- EF is 65-70%. Mild aortic regurgitation; LV systolic function is normal; hypokinesis in septal wall. Refer to complete report. As per Dr. Mccormick, BP SBP btwn 130-140 mmHg, ASA 81 mg PO daily and Plavix 75 mg PO daily, Crestor 40 mg PO HS since patient passed swallow eval HgbA1C 11.2, FLP elevated, TSH 1.7 Daily PT/OT to improve strength/ motor functioning Cont to monitor Positive UA Status: Acute No fevers or white count noted No apparent change in mentation Positive UA UC: sensitive to ceftriaxone. Continue. Ceftriaxone 1 gm daily started 02/28 Hypertension Status: Acute Comment: Labetalol 100 mg PO TID; Lisinopril 20mg PO Daily; Hydralazine 10 mg IV Q6 PRN if SBP above 180 Diabetes Status: Acute Comment: Accucheck. ISS ACHS. HgbA1C 11.2, Novolog Mix 70/30 15 units BIDAC daily. Metformin 500 mg PO BIDCC, Cont to monitor. Prophylactic measure Status: Acute Comment: Pepcid 20 mg PO BID. ASA 81mg. Heparin SC Q12 SCDs. Continue with PT /OT daily to maximize strength. Mouth care. Per Case management: Patient has no medical insurance. Family friend Sheng Doyle spoke with patient's family back home in [place] who will care for her upon discharge when patient has improved strength and motor function. Patient has no family here in the [facility]. PT/OT on the case to help optimize patient. Contact info Family Friend Sheng Doyle [phone] <Dylan Monique - Last Filed: 03/04/17 15:40> Objective - Vital Signs/Intake and Output Vital Signs (last 24 hours): Temp Pulse Resp BP Pulse Ox 98.2 F 68 20 137/75 97 03/04/17 07:22 03/04/17 07:22 03/04/17 07:22 03/04/17 13:26 03/04/17 07:22 Intake and Output: 03/04/17 03/04/17 06:59 18:59 Intake Total 520 Balance 520 - Medications Medications: Current Medications Aspirin (Ecotrin) 81 mg PO DAILY [facility] Last Admin: 03/04/17 09:36 Dose: 81 mg Clopidogrel Bisulfate (Plavix) 75 mg PO DAILY [facility] Last Admin: 03/04/17 09:36 Dose: 75 mg Famotidine (Pepcid) 20 mg PO BID [facility] Last Admin: 03/04/17 09:35 Dose: 20 mg Heparin Sodium (Porcine) (Heparin) 5,000 units SC Q12 [facility] Hydralazine HCl (Apresoline) 10 mg IVP Q6H PRN PRN Reason: For SBP >180 Last Admin: 02/26/17 23:58 Dose: 10 mg Sodium Chloride (Sodium Chloride 0.9%) 1,000 mls @ 125 mls/hr IV .Q8H [facility] Last Admin: 02/26/17 03:40 Dose: 125 mls/hr Ceftriaxone Sodium 1 gm/ (Sodium Chloride) 100 mls @ 100 mls/hr IVPB DAILY@ 0330 [facility] Last Admin: 03/04/17 03:31 Dose: 100 mls/hr Insulin Aspart (Novolog Mix 70/30 (70/30 Units/Ml)) 15 units SC BIDAC [facility] Last Admin: 03/04/17 08:00 Dose: 15 units Insulin Aspart (Novolog) 0 unit SC ACHS [facility] PRN Reason: Protocol Last Admin: 03/04/17 12:25 Dose: 4 unit Labetalol HCl (Trandate) 100 mg PO TID [facility] Last Admin: 03/04/17 13:25 Dose: 100 mg Lisinopril (Zestril) 20 mg PO DAILY [facility] Last Admin: 03/04/17 09:36 Dose: 20 mg Metformin HCl (Glucophage) 500 mg PO BIDCC [facility] Last Admin: 03/04/17 08:00 Dose: 500 mg Rosuvastatin Calcium (Crestor) 40 mg PO HS [facility] Last Admin: 03/03/17 21:34 Dose: 40 mg - Labs Labs: 03/04/17 07:44 03/04/17 07:44 PT 12.0 SECONDS (9.7-12.2) 02/24/17 11:48 INR 1.1 02/24/17 11:48 APTT 24 SECONDS (21-34) 02/24/17 11:48 Attending/Attestation - Attestation I have personally seen and examined this patient.: Yes I have fully participated in the care of the patient.: Yes I have reviewed all pertinent clinical information, including history, physical exam and plan: Yes Notes (Text): Medical attending: Patient was seen and examined by me as well. Agree with the above note by the resident. This is my first time meeting patient. Reviewed case with the medical facilities section director and also previous notes. There was extensive occlusion found in left carotid artery and the patient has had a massive CVA causing hemipargeai. Situaution is more complicated due to language difference as well. We watched her during PT/OT session today and she is profoundly weak on the right side. She was able to slowly move her self using the left side of her body. Dylan Monique
[2017-03-04] MEDS: (Novolog) Insulin Aspart, Recombinant 100 u/ml 10 ml vial SC SCH ×4 (07:59→22:13)
[2017-03-04] MEDS: (Novolog Mix 70/30) Insulin Aspart/Insulin Aspar 100 units/ml SC SCH ×2 (08:00→18:33)
[2017-03-04 08:04] LABS: BASO # 0.1 K/uL (0.0-0.2); BASO % 0.9 % (0.0-2.0); EOS # 0.3 K/uL (0.0-0.7); EOS % 3.7 % (0.0-4.0); HEMOGLOBIN 11.1 g/dL (11.0-16.0); LYMPH # 2.1 K/uL (1.0-4.3); LYMPH % 25.5 % (20.0-40.0); MEAN CELL VOLUME 84.4 fL (81.0-99.0); MEAN CORPUSCULAR HEMOGLOBIN 27.4 pg (27.0-31.0); MEAN CORPUSCULAR HGB CONC 32.5 g/dL (33.0-37.0); MEAN PLATELET VOLUME 9.1 fL (7.2-11.7); MONO # 0.7 K/uL (0.0-0.8); MONO % 9.1 % (0.0-10.0); NEUT % 60.8 % (50.0-75.0); NRBC % 0.1 % (0.0-2.0); RBC 4.05 Mil/uL (3.80-5.20); RED CELL DISTRIBUTION WIDTH 14.1 % (11.5-14.5); WHITE BLOOD COUNT 8.2 K/uL (4.8-10.8)
[2017-03-04 08:49] LABS: ALB/GLOB RATIO 0.9 (1.0-2.1); ALBUMIN 3.1 g/dL (3.5-5.0); CALCIUM 8.9 mg/dl (8.6-10.4); MAGNESIUM 2.3 mg/dL (1.6-2.3)
[2017-03-05 08:30] LABS: BASO # 0.1 K/uL (0.0-0.2); BASO % 1.1 % (0.0-2.0); EOS # 0.3 K/uL (0.0-0.7); EOS % 3.3 % (0.0-4.0); HEMOGLOBIN 11.1 g/dL (11.0-16.0); LYMPH # 2.3 K/uL (1.0-4.3); LYMPH % 25.8 % (20.0-40.0); MEAN CELL VOLUME 84.1 fL (81.0-99.0); MEAN CORPUSCULAR HEMOGLOBIN 27.6 pg (27.0-31.0); MEAN CORPUSCULAR HGB CONC 32.8 g/dL (33.0-37.0); MEAN PLATELET VOLUME 8.7 fL (7.2-11.7); MONO # 0.7 K/uL (0.0-0.8); MONO % 8.4 % (0.0-10.0); NEUT # 5.5 K/uL (1.8-7.0); NEUT % 61.4 % (50.0-75.0); RBC 4.04 Mil/uL (3.80-5.20); RED CELL DISTRIBUTION WIDTH 14.1 % (11.5-14.5); WHITE BLOOD COUNT 8.9 K/uL (4.8-10.8)
[2017-03-05] MEDS: (Novolog) Insulin Aspart, Recombinant 100 u/ml 10 ml vial SC SCH ×4 (08:37→21:41)
[2017-03-05] MEDS: (Novolog Mix 70/30) Insulin Aspart/Insulin Aspar 100 units/ml SC SCH ×2 (08:37→18:01)
[2017-03-05 08:52] LABS: ALBUMIN 3.1 g/dL (3.5-5.0)
[2017-03-05 08:55] LABS: ALB/GLOB RATIO 0.9 (1.0-2.1)
[2017-03-05 08:56] LABS: MAGNESIUM 2.3 mg/dL (1.6-2.3)
--- NOTE | 2017-03-05 09:45 | CP.PCM.PN ---
<FloRuthradha - Last Filed: 03/05/17 12:33> Subjective - Date & Time of Evaluation Date of Evaluation: 03/05/17 Time of Evaluation: 07:40 - Subjective Subjective: PGY 1 Medicine Note- Dr. Monique's service Pt seen and examined. She is still responding " okay" in response to questions asked. Patient able to move left toes in response to touch stimuli. Patient not able to verbally respond to ROS, rather stating "okay" repetitively. Objective - Vital Signs/Intake and Output Vital Signs (last 24 hours): Temp Pulse Resp BP Pulse Ox 98.4 F 64 20 188/81 H 97 03/05/17 07:00 03/05/17 07:00 03/05/17 07:00 03/05/17 07:00 03/05/17 07:00 - Medications Medications: Current Medications Aspirin (Ecotrin) 81 mg PO DAILY [facility] Last Admin: 03/05/17 09:19 Dose: 81 mg Clopidogrel Bisulfate (Plavix) 75 mg PO DAILY [facility] Last Admin: 03/05/17 09:19 Dose: 75 mg Famotidine (Pepcid) 20 mg PO BID [facility] Last Admin: 03/05/17 09:19 Dose: 20 mg Heparin Sodium (Porcine) (Heparin) 5,000 units SC Q12 [facility] Last Admin: 03/05/17 09:19 Dose: 5,000 units Hydralazine HCl (Apresoline) 10 mg IVP Q6H PRN PRN Reason: For SBP >180 Last Admin: 02/26/17 23:58 Dose: 10 mg Sodium Chloride (Sodium Chloride 0.9%) 1,000 mls @ 125 mls/hr IV .Q8H [facility] Last Admin: 02/26/17 03:40 Dose: 125 mls/hr Ceftriaxone Sodium 1 gm/ (Sodium Chloride) 100 mls @ 100 mls/hr IVPB DAILY@ 0330 [facility] Last Admin: 03/05/17 04:59 Dose: 100 mls/hr Insulin Aspart (Novolog Mix 70/30 (70/30 Units/Ml)) 15 units SC BIDAC [facility] Last Admin: 03/05/17 08:37 Dose: 15 units Insulin Aspart (Novolog) 0 unit SC ACHS [facility] PRN Reason: Protocol Last Admin: 03/05/17 08:37 Dose: 2 unit Labetalol HCl (Trandate) 100 mg PO TID [facility] Last Admin: 03/05/17 09:23 Dose: 100 mg Lisinopril (Zestril) 20 mg PO DAILY [facility] Last Admin: 03/05/17 09:19 Dose: 20 mg Metformin HCl (Glucophage) 500 mg PO BIDCC [facility] Last Admin: 03/05/17 08:36 Dose: 500 mg Rosuvastatin Calcium (Crestor) 40 mg PO HS [facility] Last Admin: 03/04/17 22:37 Dose: 40 mg - Labs Labs: 03/05/17 08:23 03/05/17 08:23 PT 12.0 SECONDS (9.7-12.2) 02/24/17 11:48 INR 1.1 02/24/17 11:48 APTT 24 SECONDS (21-34) 02/24/17 11:48 - Constitutional Appears: Non-toxic, No Acute Distress - Head Exam Head Exam: ATRAUMATIC, NORMAL INSPECTION, NORMOCEPHALIC - Eye Exam Eye Exam: EOMI, Normal appearance, PERRL Pupil Exam: NORMAL ACCOMODATION - ENT Exam ENT Exam: Mucous Membranes Moist - Neck Exam Neck Exam: Full ROM - Respiratory Exam Respiratory Exam: Clear to Ausculation Bilateral. absent: Wheezes - Cardiovascular Exam Cardiovascular Exam: +S1, +S2 - GI/Abdominal Exam GI & Abdominal Exam: Soft - Extremities Exam Extremities Exam: absent: Full ROM - Back Exam Back Exam: absent: tenderness - Neurological Exam Neurological Exam: Alert, Awake, CN II-XII Intact Neuro motor strength exam: Left Upper Extremity: 4, Right Upper Extremity: 2/1, Left Lower Extremity: 4, Right Lower Extremity: 2/1 Additional comments: Brachioradialis reflex testing of LUE 4/4, Brachioradialis reflex testing of RUE 4/4, Patellar reflex testing of LLE 4/4, Patellar reflex testing of RLE 3/4 , sensation intact in UE and LE to light touch - Psychiatric Exam Psychiatric exam: Normal Affect, Normal Mood - Skin Skin Exam: Dry, Normal Color, Warm Assessment and Plan - Assessment and Plan (Free Text) Assessment: Acute ischemic stroke Status: Acute Comment: CT Head- Large acute/subacute left MCA territory infarct which also involves the left lateral basal ganglia. ROMIs negative x 3, EKG- NSR w possible atrial enlargement. MRI Brain w/o contrast, MRA of head and neck w/o contrast performed. 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 Per Surgery ( Dr. Choi) no surgical intervention at this time. Radiologist Dr. Khan called to confirm occlusive findings. Echo- EF is 65-70%. Mild aortic regurgitation; LV systolic function is normal; hypokinesis in septal wall. Refer to complete report. As per Dr. Mccormick, BP SBP btwn 130-140 mmHg, ASA 81 mg PO daily and Plavix 75 mg PO daily, Crestor 40 mg PO HS since patient passed swallow eval HgbA1C 11.2, FLP elevated, TSH 1.7 Daily PT/OT to improve strength/ motor functioning F/U Repeat Head CT to evaluate if there is progression of prior CVA. Cont to monitor Positive UA Status: Acute No fevers or white count noted No apparent change in mentation Positive UA UC: sensitive to ceftriaxone. Continue. Ceftriaxone 1 gm daily started 02/28 Hypertension Status: Acute Comment: Labetalol 100 mg PO TID; Lisinopril 20mg PO Daily; Hydralazine 10 mg IV Q6 PRN if SBP above 180 Diabetes Status: Acute Comment: Accucheck. ISS ACHS. HgbA1C 11.2, Novolog Mix 70/30 15 units BIDAC daily. Metformin 500 mg PO BIDCC, Cont to monitor. Prophylactic measure Status: Acute Comment: Pepcid 20 mg PO BID. ASA 81mg. Heparin SC Q12. SCDs. Continue with PT/OT daily to maximize strength. Patient is still max assist. Mouth care. Per Case management: Patient has no medical insurance. Family friend Sheng Doyle spoke with patient's family back home in [place] who will care for her upon discharge when patient has improved strength and motor function. Patient has no family here in the [facility]. PT/OT on the case to help optimize patient. Contact info Family Friend Sheng Doyle [phone] <Dylan Monique - Last Filed: 03/05/17 15:54> Objective - Vital Signs/Intake and Output Vital Signs (last 24 hours): Temp Pulse Resp BP Pulse Ox 98.4 F 64 20 157/65 H 97 03/05/17 07:00 03/05/17 07:00 03/05/17 07:00 03/05/17 13:58 03/05/17 07:00 Intake and Output: 03/05/17 03/05/17 06:59 18:59 Intake Total 500 Balance 500 - Medications Medications: Current Medications Aspirin (Ecotrin) 81 mg PO DAILY [facility] Last Admin: 03/05/17 09:19 Dose: 81 mg Clopidogrel Bisulfate (Plavix) 75 mg PO DAILY [facility] Last Admin: 03/05/17 09:19 Dose: 75 mg Famotidine (Pepcid) 20 mg PO BID [facility] Last Admin: 03/05/17 09:19 Dose: 20 mg Heparin Sodium (Porcine) (Heparin) 5,000 units SC Q12 [facility] Last Admin: 03/05/17 09:19 Dose: 5,000 units Hydralazine HCl (Apresoline) 10 mg IVP Q6H PRN PRN Reason: For SBP >180 Last Admin: 02/26/17 23:58 Dose: 10 mg Sodium Chloride (Sodium Chloride 0.9%) 1,000 mls @ 125 mls/hr IV .Q8H [facility] Last Admin: 02/26/17 03:40 Dose: 125 mls/hr Ceftriaxone Sodium 1 gm/ (Sodium Chloride) 100 mls @ 100 mls/hr IVPB DAILY@ 0330 [facility] Last Admin: 03/05/17 04:59 Dose: 100 mls/hr Insulin Aspart (Novolog Mix 70/30 (70/30 Units/Ml)) 15 units SC BIDAC [facility] Last Admin: 03/05/17 08:37 Dose: 15 units Insulin Aspart (Novolog) 0 unit SC ACHS [facility] PRN Reason: Protocol Last Admin: 03/05/17 12:00 Dose: 3 unit Labetalol HCl (Trandate) 100 mg PO TID [facility] Last Admin: 03/05/17 13:59 Dose: 100 mg Lisinopril (Zestril) 20 mg PO DAILY [facility] Last Admin: 03/05/17 09:19 Dose: 20 mg Metformin HCl (Glucophage) 500 mg PO BIDCC [facility] Last Admin: 03/05/17 08:36 Dose: 500 mg Rosuvastatin Calcium (Crestor) 40 mg PO HS [facility] Last Admin: 03/04/17 22:37 Dose: 40 mg - Labs Labs: 03/05/17 08:23 03/05/17 08:23 PT 12.0 SECONDS (9.7-12.2) 02/24/17 11:48 INR 1.1 02/24/17 11:48 APTT 24 SECONDS (21-34) 02/24/17 11:48 Attending/Attestation - Attestation I have personally seen and examined this patient.: Yes I have fully participated in the care of the patient.: Yes I have reviewed all pertinent clinical information, including history, physical exam and plan: Yes Notes (Text): 03/05/17 15:47 Medical Attending: Patient was seen and examined by me. Agree with the above note by the resident. The patient as mentioned before and also above in the resident note requires maximum assistance. Today ordered another CT of the head without contrast for follow up. In the mean time continue with PT/OT thank you Dylan Monique
--- NOTE | 2017-03-05 12:49 | CT ---
PROCEDURE: CT HEAD WITHOUT CONTRAST. HISTORY: CVA followup COMPARISON: Comparison made with prior 9 Gy dated 02/26/2017 TECHNIQUE: Axial computed tomography images were obtained through the head/brain without intravenous contrast. Radiation dose: Total exam DLP = 981.84 mGy-cm. This CT exam was performed using one or more of the following dose reduction techniques: Automated exposure control, adjustment of the mA and/or kV according to patient size, and/or use of iterative reconstruction technique. FINDINGS: HEMORRHAGE: No acute parenchymal, subarachnoid nor extra-axial hemorrhage. BRAIN: Large of the left MCA territory infarct again noted. Mild surrounding mass effect with effacement rule in sulci and mild compression of the left lateral ventricle. No significant [id number] midline shift. No new infarcts. VENTRICLES: No evidence of obstructive hydrocephalus despite compressive effects of the left lateral ventricle. CALVARIUM: There are no acute calvarial fractures. . PARANASAL SINUSES: Small focal area polypoid like mucosal thickening left maxillary sinus unchanged. MASTOID AIR CELLS: Unremarkable as visualized. No inflammatory changes. OTHER FINDINGS: None. IMPRESSION: Re- demonstrated is large left MCA territory infarct with mild surrounding mass effect as described. No evidence hemorrhage. No new infarcts seen.
--- NOTE | 2017-03-06 06:30 | CP.PCM.PN ---
<Sunny Rossi - Last Filed: 03/06/17 17:20> Subjective - Date & Time of Evaluation Date of Evaluation: 03/06/17 Time of Evaluation: 07:14 - Subjective Subjective: PGY 1 Medicine Note- Dr. Monique's service Pt seen and examined. She is still responding " okay" in response to questions asked. Patient still having difficulty moving right side of body. She made some attempts tp move her LLE with great difficulty. Patient not able to verbally respond to ROS, rather stating "okay" repetitively. Objective - Vital Signs/Intake and Output Vital Signs (last 24 hours): Temp Pulse Resp BP Pulse Ox 98.4 F 64 20 129/73 97 03/05/17 23:35 03/06/17 00:00 03/05/17 23:35 03/05/17 23:35 03/05/17 23:35 Intake and Output: 03/05/17 03/06/17 18:59 06:59 Intake Total 500 Balance 500 - Medications Medications: Current Medications Aspirin (Ecotrin) 81 mg PO DAILY [facility] Last Admin: 03/05/17 09:19 Dose: 81 mg Clopidogrel Bisulfate (Plavix) 75 mg PO DAILY [facility] Last Admin: 03/05/17 09:19 Dose: 75 mg Famotidine (Pepcid) 20 mg PO BID [facility] Last Admin: 03/05/17 18:00 Dose: 20 mg Heparin Sodium (Porcine) (Heparin) 5,000 units SC Q12 [facility] Last Admin: 03/05/17 21:40 Dose: 5,000 units Hydralazine HCl (Apresoline) 10 mg IVP Q6H PRN PRN Reason: For SBP >180 Last Admin: 02/26/17 23:58 Dose: 10 mg Sodium Chloride (Sodium Chloride 0.9%) 1,000 mls @ 125 mls/hr IV .Q8H [facility] Last Admin: 02/26/17 03:40 Dose: 125 mls/hr Ceftriaxone Sodium 1 gm/ (Sodium Chloride) 100 mls @ 100 mls/hr IVPB DAILY@ 0330 [facility] Last Admin: 03/06/17 02:32 Dose: 100 mls/hr Insulin Aspart (Novolog Mix 70/30 (70/30 Units/Ml)) 15 units SC BIDAC [facility] Last Admin: 03/05/17 18:01 Dose: 15 units Insulin Aspart (Novolog) 0 unit SC ACHS [facility] PRN Reason: Protocol Last Admin: 03/05/17 21:41 Dose: Not Given Labetalol HCl (Trandate) 100 mg PO TID [facility] Last Admin: 03/05/17 18:00 Dose: 100 mg Lisinopril (Zestril) 20 mg PO DAILY [facility] Last Admin: 03/05/17 09:19 Dose: 20 mg Metformin HCl (Glucophage) 500 mg PO BIDCC [facility] Last Admin: 03/05/17 17:56 Dose: 500 mg Rosuvastatin Calcium (Crestor) 40 mg PO HS [facility] Last Admin: 03/05/17 21:39 Dose: 40 mg - Labs Labs: 03/05/17 08:23 03/05/17 08:23 PT 12.0 SECONDS (9.7-12.2) 02/24/17 11:48 INR 1.1 02/24/17 11:48 APTT 24 SECONDS (21-34) 02/24/17 11:48 - Constitutional Appears: Non-toxic, No Acute Distress - Head Exam Head Exam: ATRAUMATIC, NORMAL INSPECTION Additional comments: facial droop resolving - Eye Exam Eye Exam: EOMI, Normal appearance, PERRL - ENT Exam ENT Exam: Mucous Membranes Moist - Neck Exam Neck Exam: Full ROM - Respiratory Exam Respiratory Exam: NORMAL BREATHING PATTERN. absent: Wheezes - Cardiovascular Exam Cardiovascular Exam: +S1, +S2 - GI/Abdominal Exam GI & Abdominal Exam: Soft, Normal Bowel Sounds - Extremities Exam Extremities Exam: absent: Full ROM Additional comments: limited ROM of right sided extremities - Back Exam Back Exam: Full ROM - Neurological Exam Neurological Exam: Alert, Awake, Oriented x3 Neuro motor strength exam: Left Upper Extremity: 5, Right Upper Extremity: 2/1, Left Lower Extremity: 4, Right Lower Extremity: 2/1 Additional comments: sensation intact in UE and LE to light touch - Psychiatric Exam Psychiatric exam: Normal Affect, Normal Mood - Skin Skin Exam: Dry, Intact, Normal Color, Warm Assessment and Plan - Assessment and Plan (Free Text) Assessment: Acute ischemic stroke Status: Acute Comment: CT Head- Large acute/subacute left MCA territory infarct which also involves the left lateral basal ganglia. ROMIs negative x 3, EKG- NSR w possible atrial enlargement. MRI Brain w/o contrast, MRA of head and neck w/o contrast performed. 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 Per Surgery ( Dr. Choi) no surgical intervention at this time. Radiologist Dr. Khan called to confirm occlusive findings. Echo- EF is 65-70%. Mild aortic regurgitation; LV systolic function is normal; hypokinesis in septal wall. Refer to complete report. As per Dr. Mccormick, BP SBP btwn 130-140 mmHg, ASA 81 mg PO daily and Plavix 75 mg PO daily, Crestor 40 mg PO HS since patient passed swallow eval HgbA1C 11.2, FLP elevated, TSH 1.7 Daily PT/OT to improve strength/ motor functioning Repeat Head CT 03/05 redemonstrates large MCA territory infarct with mild surrounding mass effect . No evidence of hemorrhage or new infarcts. Cont to monitor Positive UA Status: Acute No fevers or white count noted No apparent change in mentation Positive UA UC: sensitive to ceftriaxone. Continue. Ceftriaxone 1 gm daily started 02/28 Hyperkalemia Status: Acute Comment: Kayexelate administered. Monitor for BMs Hypertension Status: Acute Comment: Labetalol 100 mg PO TID; Lisinopril 20mg PO Daily; Hydralazine 10 mg IV Q6 PRN if SBP above 180 Diabetes Status: Acute Comment: Accucheck. ISS ACHS. HgbA1C 11.2, Novolog Mix 70/30 15 units BIDAC daily. Metformin 500 mg PO BIDCC, Cont to monitor. Prophylactic measure Status: Acute Comment: Pepcid 20 mg PO BID. ASA 81mg. Heparin SC Q12. SCDs. Continue with PT/OT daily to maximize strength. Patient is still max assist. Mouth care. Per Case management: Patient has no medical insurance. Family friend Sheng Doyle spoke with patient's family back home in [place] who will care for her upon discharge when patient has improved strength and motor function. Patient has no family here in the [facility]. PT/OT on the case to help optimize patient. Contact info Family Friend Sheng Doyle [phone] <Dylan Monique - Last Filed: 03/06/17 18:38> Objective - Vital Signs/Intake and Output Vital Signs (last 24 hours): Temp Pulse Resp BP Pulse Ox 97.9 F 60 18 145/78 97 03/06/17 15:45 03/06/17 15:45 03/06/17 15:45 03/06/17 15:45 03/06/17 15:45 Intake and Output: 03/06/17 03/06/17 06:59 18:59 Intake Total 110 Balance 110 - Medications Medications: Current Medications Aspirin (Ecotrin) 81 mg PO DAILY [facility] Last Admin: 03/06/17 10:32 Dose: 81 mg Clopidogrel Bisulfate (Plavix) 75 mg PO DAILY [facility] Last Admin: 03/06/17 10:32 Dose: 75 mg Famotidine (Pepcid) 20 mg PO BID [facility] Last Admin: 03/06/17 17:37 Dose: 20 mg Heparin Sodium (Porcine) (Heparin) 5,000 units SC Q12 [facility] Last Admin: 03/06/17 10:31 Dose: 5,000 units Hydralazine HCl (Apresoline) 10 mg IVP Q6H PRN PRN Reason: For SBP >180 Last Admin: 02/26/17 23:58 Dose: 10 mg Hydralazine HCl (Apresoline) 25 mg PO QID [facility] Last Admin: 03/06/17 17:37 Dose: 25 mg Sodium Chloride (Sodium Chloride 0.9%) 1,000 mls @ 125 mls/hr IV .Q8H [facility] Last Admin: 02/26/17 03:40 Dose: 125 mls/hr Ceftriaxone Sodium 1 gm/ (Sodium Chloride) 100 mls @ 100 mls/hr IVPB DAILY@ 0330 [facility] Last Admin: 03/06/17 02:32 Dose: 100 mls/hr Insulin Aspart (Novolog Mix 70/30 (70/30 Units/Ml)) 15 units SC BIDAC [facility] Last Admin: 03/06/17 17:30 Dose: 15 units Insulin Aspart (Novolog) 0 unit SC ACHS [facility] PRN Reason: Protocol Last Admin: 03/06/17 17:30 Dose: 2 unit Labetalol HCl (Trandate) 100 mg PO TID [facility] Last Admin: 03/06/17 14:04 Dose: 100 mg Lisinopril (Zestril) 20 mg PO DAILY [facility] Last Admin: 03/06/17 10:32 Dose: 20 mg Metformin HCl (Glucophage) 500 mg PO BIDCC [facility] Last Admin: 03/06/17 17:37 Dose: 500 mg Rosuvastatin Calcium (Crestor) 40 mg PO HS [facility] Last Admin: 03/05/17 21:39 Dose: 40 mg - Labs Labs: 03/06/17 11:26 03/06/17 11:26 PT 12.0 SECONDS (9.7-12.2) 02/24/17 11:48 INR 1.1 02/24/17 11:48 APTT 24 SECONDS (21-34) 02/24/17 11:48 Attending/Attestation - Attestation I have personally seen and examined this patient.: Yes I have fully participated in the care of the patient.: Yes I have reviewed all pertinent clinical information, including history, physical exam and plan: Yes Notes (Text): Medical attending: Patient was seen and examined by me, by medical center director. As mentioned before in the resident note the head CT showed very large left MCA area infarct. The patient still needs a lot of help with daily activities, she is maximum assist. The only areas of improvement appear to be in her face where she has less facial droop before, especially on smiling and when asking to puff her cheeks. Her extraocular eye muscles appear to be intact. On examination of the right side of her body she still has 0 out of 5 muscle strength. This is both upper and lower extremity strength. The only adjustments we made today work with regard to her blood pressure medication added on hydralazine by mouth every 8 hours Dylan Monique
[2017-03-06] MEDS: (Novolog) Insulin Aspart, Recombinant 100 u/ml 10 ml vial SC SCH ×4 (08:00→22:07)
[2017-03-06] MEDS: (Novolog Mix 70/30) Insulin Aspart/Insulin Aspar 100 units/ml SC SCH ×2 (08:00→17:30)
[2017-03-06 11:35] LABS: BASO # 0.1 K/uL (0.0-0.2); BASO % 1.2 % (0.0-2.0); EOS # 0.3 K/uL (0.0-0.7); HEMOGLOBIN 11.6 g/dL (11.0-16.0); LYMPH # 2.4 K/uL (1.0-4.3); LYMPH % 26.6 % (20.0-40.0); MEAN CELL VOLUME 83.6 fL (81.0-99.0); MEAN CORPUSCULAR HEMOGLOBIN 26.9 pg (27.0-31.0); MEAN CORPUSCULAR HGB CONC 32.2 g/dL (33.0-37.0); MONO # 0.6 K/uL (0.0-0.8); MONO % 7.1 % (0.0-10.0); NEUT # 5.6 K/uL (1.8-7.0); NEUT % 62.1 % (50.0-75.0); NRBC % 0.1 % (0.0-2.0); RBC 4.31 Mil/uL (3.80-5.20); RED CELL DISTRIBUTION WIDTH 13.7 % (11.5-14.5); WHITE BLOOD COUNT 9.1 K/uL (4.8-10.8)
[2017-03-06 11:59] LABS: AST/SGOT 40 U/L (14-36); GFR AFRICAN-AMERICAN > 60; GFR NON-AFRICAN AMERICAN 52
[2017-03-06 12:00] LABS: ALB/GLOB RATIO 0.8 (1.0-2.1); ALT/SGPT 40 U/L (9-52); BLOOD UREA NITROGEN 33 mg/dL (7-17); CALCIUM 8.8 mg/dl (8.6-10.4)
[2017-03-06 12:01] LABS: MAGNESIUM 2.1 mg/dL (1.6-2.3)
[2017-03-06] MEDS ORDERED: Sod Polystyrene Sulf 15 gm/60 ml Oral Susp PO ONE (17:05)
[2017-03-07] MEDS: (Novolog Mix 70/30) Insulin Aspart/Insulin Aspar 100 units/ml SC SCH ×2 (08:13→18:30)
[2017-03-07] MEDS: (Novolog) Insulin Aspart, Recombinant 100 u/ml 10 ml vial SC SCH ×4 (08:14→21:45)
--- NOTE | 2017-03-07 09:08 | CP.PCM.PN ---
<FloRuthradha - Last Filed: 03/07/17 14:26> Subjective - Date & Time of Evaluation Date of Evaluation: 03/07/17 Time of Evaluation: 09:45 - Subjective Subjective: PGY 1 Medicine Note- Dr. Monique's service Pt seen and examined. Patient remains aphasic. She responds "okay" in response to questions asked. Patient sitting upright in armchair. Patient still having difficulty with right extremity movements. Patient still responding okay and nodding to a ROS. She denies chest pain, headaches, palpitations, leg pain, arm pain, visual changes at this time. Objective - Vital Signs/Intake and Output Vital Signs (last 24 hours): Temp Pulse Resp BP Pulse Ox 97.4 F L 59 L 20 151/80 H 98 03/07/17 07:00 03/07/17 07:00 03/07/17 07:00 03/07/17 07:00 03/07/17 07:00 Intake and Output: 03/07/17 03/07/17 06:59 18:59 Intake Total 380 Balance 380 - Medications Medications: Current Medications Aspirin (Ecotrin) 81 mg PO DAILY [facility] Last Admin: 03/06/17 10:32 Dose: 81 mg Clopidogrel Bisulfate (Plavix) 75 mg PO DAILY [facility] Last Admin: 03/06/17 10:32 Dose: 75 mg Famotidine (Pepcid) 20 mg PO BID [facility] Last Admin: 03/06/17 17:37 Dose: 20 mg Heparin Sodium (Porcine) (Heparin) 5,000 units SC Q12 [facility] Last Admin: 03/06/17 22:05 Dose: 5,000 units Hydralazine HCl (Apresoline) 10 mg IVP Q6H PRN PRN Reason: For SBP >180 Last Admin: 02/26/17 23:58 Dose: 10 mg Hydralazine HCl (Apresoline) 25 mg PO QID [facility] Last Admin: 03/06/17 22:05 Dose: 25 mg Sodium Chloride (Sodium Chloride 0.9%) 1,000 mls @ 125 mls/hr IV .Q8H [facility] Last Admin: 02/26/17 03:40 Dose: 125 mls/hr Ceftriaxone Sodium 1 gm/ (Sodium Chloride) 100 mls @ 100 mls/hr IVPB DAILY@ 0330 [facility] Last Admin: 03/07/17 04:25 Dose: 100 mls/hr Insulin Aspart (Novolog Mix 70/30 (70/30 Units/Ml)) 15 units SC BIDAC [facility] Last Admin: 03/07/17 08:13 Dose: 15 units Insulin Aspart (Novolog) 0 unit SC ACHS [facility] PRN Reason: Protocol Last Admin: 03/07/17 08:14 Dose: 2 unit Labetalol HCl (Trandate) 100 mg PO TID [facility] Last Admin: 03/06/17 22:09 Dose: 100 mg Lisinopril (Zestril) 20 mg PO DAILY [facility] Last Admin: 03/06/17 10:32 Dose: 20 mg Metformin HCl (Glucophage) 500 mg PO BIDCC [facility] Last Admin: 03/07/17 08:13 Dose: 500 mg Rosuvastatin Calcium (Crestor) 40 mg PO HS [facility] Last Admin: 03/06/17 22:05 Dose: 40 mg - Labs Labs: 03/06/17 11:26 03/06/17 11:26 PT 12.0 SECONDS (9.7-12.2) 02/24/17 11:48 INR 1.1 02/24/17 11:48 APTT 24 SECONDS (21-34) 02/24/17 11:48 - Constitutional Appears: Non-toxic, No Acute Distress - Head Exam Head Exam: ATRAUMATIC, NORMAL INSPECTION, NORMOCEPHALIC - Eye Exam Eye Exam: EOMI, Normal appearance, PERRL Pupil Exam: NORMAL ACCOMODATION - ENT Exam ENT Exam: Mucous Membranes Moist - Neck Exam Neck Exam: Full ROM - Respiratory Exam Respiratory Exam: NORMAL BREATHING PATTERN. absent: Wheezes - Cardiovascular Exam Cardiovascular Exam: REGULAR RHYTHM, +S1, +S2 - GI/Abdominal Exam GI & Abdominal Exam: Soft. absent: Tenderness - Extremities Exam Extremities Exam: Normal Capillary Refill. absent: Full ROM, Tenderness Additional comments: limited ROM of right sided extremities sensation intact for light touch and temperature. - Back Exam Back Exam: Full ROM - Neurological Exam Neurological Exam: Alert, CN II-XII Intact, Oriented x3 Neuro motor strength exam: Left Upper Extremity: 4, Right Upper Extremity: 2/1, Left Lower Extremity: 4, Right Lower Extremity: 2/1 - Psychiatric Exam Psychiatric exam: Normal Affect, Normal Mood - Skin Skin Exam: Dry, Normal Color, Warm Assessment and Plan - Assessment and Plan (Free Text) Assessment: Acute ischemic stroke Status: Acute Comment: CT Head- Large acute/subacute left MCA territory infarct which also involves the left lateral basal ganglia. ROMIs negative x 3, EKG- NSR w possible atrial enlargement. MRI Brain w/o contrast, MRA of head and neck w/o contrast performed. 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 Per Surgery ( Dr. Choi) no surgical intervention at this time. Radiologist Dr. Khan called to confirm occlusive findings. Echo- EF is 65-70%. Mild aortic regurgitation; LV systolic function is normal; hypokinesis in septal wall. Refer to complete report. As per Dr. Mccormick, BP SBP btwn 130-140 mmHg, ASA 81 mg PO daily and Plavix 75 mg PO daily, Crestor 40 mg PO HS since patient passed swallow eval HgbA1C 11.2, FLP elevated, TSH 1.7 Physical Therapy visit 03/05/17- Pt maintained sitting on EOB w/ supervision w/ reaching slightly out of ALIRIO w/ L UE for 15 reps in all directions. Patient was able to sit to stand x 2, Pt maintained standing at the EOB w/min A/mod A for 5 mins, Side to side rolling x 5 Will encourage Physical therapy treatment today as well. Continue to maximize efforts and encourage patient. Repeat Head CT 03/05 redemonstrates large MCA territory infarct with mild surrounding mass effect . No evidence of hemorrhage or new infarcts. Cont to monitor Positive UA Status: Acute No fevers or white count noted No apparent change in mentation Positive UA UC: sensitive to ceftriaxone. Continue. Ceftriaxone 1 gm daily started 02/28 Hyperkalemia Status: Acute Comment: Kayexelate administered. Monitor for BMs Hypertension Status: Acute Comment: Labetalol 100 mg PO TID; Lisinopril 20mg PO Daily; Hydralazine 10 mg IV Q6 PRN if SBP above 180 Diabetes Status: Acute Comment: Accucheck. ISS ACHS. HgbA1C 11.2, Novolog Mix 70/30 15 units BIDAC daily. Metformin 500 mg PO BIDCC, Cont to monitor. Prophylactic measure Status: Acute Comment: Pepcid 20 mg PO BID. ASA 81mg. Heparin SC Q12. SCDs. Continue with PT/OT daily to maximize strength. Patient is still max assist. Mouth care. Per Case management: Patient has no medical insurance. Family friend Sheng Doyle spoke with patient's family back home in [place] who will care for her upon discharge when patient has improved strength and motor function. Patient has no family here in the [place]. PT/OT on the case to help optimize patient. Contact info Family Friend Sheng Doyle [phone] <Dylan Monique - Last Filed: 03/07/17 15:36> Objective - Vital Signs/Intake and Output Vital Signs (last 24 hours): Temp Pulse Resp BP Pulse Ox 97.4 F L 59 L 20 91/59 L 98 03/07/17 07:00 03/07/17 07:00 03/07/17 07:00 03/07/17 13:06 03/07/17 07:00 Intake and Output: 03/07/17 03/07/17 06:59 18:59 Intake Total 380 400 Balance 380 400 - Medications Medications: Current Medications Aspirin (Ecotrin) 81 mg PO DAILY [facility] Last Admin: 03/07/17 09:37 Dose: 81 mg Clopidogrel Bisulfate (Plavix) 75 mg PO DAILY [facility] Last Admin: 03/07/17 09:37 Dose: 75 mg Famotidine (Pepcid) 20 mg PO BID [facility] Last Admin: 03/07/17 09:36 Dose: 20 mg Heparin Sodium (Porcine) (Heparin) 5,000 units SC Q12 [facility] Last Admin: 03/07/17 09:37 Dose: 5,000 units Hydralazine HCl (Apresoline) 10 mg IVP Q6H PRN PRN Reason: For SBP >180 Last Admin: 02/26/17 23:58 Dose: 10 mg Hydralazine HCl (Apresoline) 25 mg PO QID [facility] Last Admin: 03/07/17 13:03 Dose: Not Given Sodium Chloride (Sodium Chloride 0.9%) 1,000 mls @ 125 mls/hr IV .Q8H [facility] Last Admin: 02/26/17 03:40 Dose: 125 mls/hr Ceftriaxone Sodium 1 gm/ (Sodium Chloride) 100 mls @ 100 mls/hr IVPB DAILY@ 0330 [facility] Last Admin: 03/07/17 04:25 Dose: 100 mls/hr Insulin Aspart (Novolog Mix 70/30 (70/30 Units/Ml)) 15 units SC BIDAC [facility] Last Admin: 03/07/17 08:13 Dose: 15 units Insulin Aspart (Novolog) 0 unit SC ACHS [facility] PRN Reason: Protocol Last Admin: 03/07/17 12:10 Dose: 2 unit Labetalol HCl (Trandate) 100 mg PO TID [facility] Last Admin: 03/07/17 13:03 Dose: Not Given Lisinopril (Zestril) 20 mg PO DAILY [facility] Last Admin: 03/07/17 09:36 Dose: 20 mg Metformin HCl (Glucophage) 500 mg PO BIDCC [facility] Last Admin: 03/07/17 08:13 Dose: 500 mg Rosuvastatin Calcium (Crestor) 40 mg PO HS [facility] Last Admin: 03/06/17 22:05 Dose: 40 mg - Labs Labs: 03/07/17 08:44 03/07/17 08:44 PT 12.0 SECONDS (9.7-12.2) 02/24/17 11:48 INR 1.1 02/24/17 11:48 APTT 24 SECONDS (21-34) 02/24/17 11:48 Attending/Attestation - Attestation I have personally seen and examined this patient.: Yes I have fully participated in the care of the patient.: Yes I have reviewed all pertinent clinical information, including history, physical exam and plan: Yes Notes (Text): Medical attending: Patient was seen and examined by me, agrees the above note by medical asst. The patient still needs a lot of assistance during PT and OT sessions. She still has a lot of weakness particularly on the right upper extremity and right lower extremity the muscle strength is 0 out of 5. There is some reflex is present. She is able to feed herself with the left arm and hand. Yesterday we had started the patient on hydralazine orally every 6 hours. The blood pressure systolic is about 150 today with low today and will see how she does tomorrow if it still in this range will see if will adjust the medications to bring it down a little bit lower. Thank you very much, Dylan Monique
[2017-03-07 09:10] LABS: BASO # 0.1 K/uL (0.0-0.2); BASO % 0.8 % (0.0-2.0); EOS # 0.3 K/uL (0.0-0.7); EOS % 3.3 % (0.0-4.0); HEMOGLOBIN 11.7 g/dL (11.0-16.0); LYMPH # 2.2 K/uL (1.0-4.3); LYMPH % 25.2 % (20.0-40.0); MEAN CELL VOLUME 83.9 fL (81.0-99.0); MEAN CORPUSCULAR HEMOGLOBIN 27.6 pg (27.0-31.0); MEAN CORPUSCULAR HGB CONC 32.8 g/dL (33.0-37.0); MONO # 0.7 K/uL (0.0-0.8); MONO % 8.1 % (0.0-10.0); NEUT # 5.4 K/uL (1.8-7.0); NEUT % 62.6 % (50.0-75.0); NRBC % 0.2 % (0.0-2.0); RBC 4.25 Mil/uL (3.80-5.20); RED CELL DISTRIBUTION WIDTH 13.7 % (11.5-14.5); WHITE BLOOD COUNT 8.7 K/uL (4.8-10.8)
[2017-03-07 09:50] LABS: ALBUMIN 2.9 g/dL (3.5-5.0)
[2017-03-07 09:52] LABS: GFR AFRICAN-AMERICAN > 60; GFR NON-AFRICAN AMERICAN 52
[2017-03-07 09:53] LABS: ALB/GLOB RATIO 0.7 (1.0-2.1); AST/SGOT 48 U/L (14-36); BLOOD UREA NITROGEN 30 mg/dL (7-17); CALCIUM 8.8 mg/dl (8.6-10.4); MAGNESIUM 2.2 mg/dL (1.6-2.3)
[2017-03-07 10:09] LABS: ALT/SGPT 46 U/L (9-52)
[2017-03-08] MEDS: (Novolog) Insulin Aspart, Recombinant 100 u/ml 10 ml vial SC SCH ×4 (08:28→21:25)
[2017-03-08 08:48] LABS: BASO # 0.1 K/uL (0.0-0.2); BASO % 1.4 % (0.0-2.0); EOS # 0.2 K/uL (0.0-0.7); EOS % 3.1 % (0.0-4.0); LYMPH # 2.1 K/uL (1.0-4.3); LYMPH % 27.6 % (20.0-40.0); MEAN CORPUSCULAR HEMOGLOBIN 27.6 pg (27.0-31.0); MEAN CORPUSCULAR HGB CONC 32.9 g/dL (33.0-37.0); MEAN PLATELET VOLUME 8.9 fL (7.2-11.7); MONO # 0.6 K/uL (0.0-0.8); MONO % 7.9 % (0.0-10.0); NEUT # 4.5 K/uL (1.8-7.0); RBC 3.99 Mil/uL (3.80-5.20); RED CELL DISTRIBUTION WIDTH 13.9 % (11.5-14.5); WHITE BLOOD COUNT 7.5 K/uL (4.8-10.8)
--- NOTE | 2017-03-08 09:50 | CP.PCM.PN ---
<Amelie Izaguirre DO - Last Filed: 03/08/17 10:41> Subjective - Date & Time of Evaluation Date of Evaluation: 03/08/17 Time of Evaluation: 07:45 - Subjective Subjective: PGY1 progress note for Dr. Monique Patient seen and examined. Patient able to follow simple commands and squeezing left hand and move left leg. Patient unable to move right side. Patient nods in response to some questions. Objective - Vital Signs/Intake and Output Vital Signs (last 24 hours): Temp Pulse Resp BP Pulse Ox 98.3 F 66 20 163/79 H 97 03/08/17 08:12 03/08/17 08:12 03/08/17 08:12 03/08/17 08:12 03/08/17 08:12 - Medications Medications: Current Medications Aspirin (Ecotrin) 81 mg PO DAILY [facility] Last Admin: 03/07/17 09:37 Dose: 81 mg Clopidogrel Bisulfate (Plavix) 75 mg PO DAILY [facility] Last Admin: 03/07/17 09:37 Dose: 75 mg Famotidine (Pepcid) 20 mg PO BID [facility] Last Admin: 03/07/17 18:00 Dose: 20 mg Hydralazine HCl (Apresoline) 10 mg IVP Q6H PRN PRN Reason: For SBP >180 Last Admin: 02/26/17 23:58 Dose: 10 mg Hydralazine HCl (Apresoline) 50 mg PO QID [facility] Sodium Chloride (Sodium Chloride 0.9%) 1,000 mls @ 125 mls/hr IV .Q8H [facility] Last Admin: 02/26/17 03:40 Dose: 125 mls/hr Ceftriaxone Sodium 1 gm/ (Sodium Chloride) 100 mls @ 100 mls/hr IVPB DAILY@ 0330 [facility] Last Admin: 03/08/17 03:15 Dose: 100 mls/hr Insulin Aspart (Novolog Mix 70/30 (70/30 Units/Ml)) 15 units SC BIDAC [facility] Last Admin: 03/07/17 18:30 Dose: 15 units Insulin Aspart (Novolog) 0 unit SC ACHS [facility] PRN Reason: Protocol Last Admin: 03/08/17 08:28 Dose: 2 unit Labetalol HCl (Trandate) 100 mg PO TID [facility] Last Admin: 03/07/17 18:00 Dose: 100 mg Lisinopril (Zestril) 20 mg PO DAILY [facility] Last Admin: 03/07/17 09:36 Dose: 20 mg Metformin HCl (Glucophage) 500 mg PO BIDCC [facility] Last Admin: 03/08/17 08:28 Dose: 500 mg Rosuvastatin Calcium (Crestor) 40 mg PO HS [facility] Last Admin: 03/07/17 21:36 Dose: 40 mg - Labs Labs: 03/08/17 08:27 03/07/17 08:44 PT 12.0 SECONDS (9.7-12.2) 02/24/17 11:48 INR 1.1 02/24/17 11:48 APTT 24 SECONDS (21-34) 02/24/17 11:48 - Constitutional Appears: Non-toxic, No Acute Distress - Head Exam Head Exam: ATRAUMATIC, NORMOCEPHALIC - Eye Exam Eye Exam: EOMI - ENT Exam ENT Exam: Mucous Membranes Moist - Respiratory Exam Respiratory Exam: Clear to Ausculation Bilateral, NORMAL BREATHING PATTERN - Cardiovascular Exam Cardiovascular Exam: +S1, +S2 - GI/Abdominal Exam GI & Abdominal Exam: Soft, Normal Bowel Sounds. absent: Tenderness - Extremities Exam Extremities Exam: absent: Pedal Edema - Neurological Exam Neurological Exam: Alert, Awake Additional comments: left upper extremity 4/5 strength, left lower extremity 4/5 intact sensation left side and right side patient cannot move right upper or lower extremity Assessment and Plan - Assessment and Plan (Free Text) Assessment: Acute ischemic stroke Status: Acute Comment: CT Head- Large acute/subacute left MCA territory infarct which also involves the left lateral basal ganglia. ROMIs negative x 3, EKG- NSR w possible atrial enlargement. MRI Brain w/o contrast, MRA of head and neck w/o contrast performed. 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 Per Surgery ( Dr. Choi) no surgical intervention at this time. Radiologist Dr. Khan called to confirm occlusive findings. Echo- EF is 65-70%. Mild aortic regurgitation; LV systolic function is normal; hypokinesis in septal wall. Refer to complete report. As per Dr. Mccormick, BP SBP btwn 130-140 mmHg, ASA 81 mg PO daily and Plavix 75 mg PO daily, Crestor 40 mg PO HS since patient passed swallow eval HgbA1C 11.2, FLP elevated, TSH 1.7 Physical Therapy visit 03/05/17- Pt maintained sitting on EOB w/ supervision w/ reaching slightly out of ALIRIO w/ L UE for 15 reps in all directions. Patient was able to sit to stand x 2, Pt maintained standing at the EOB w/min A/mod A for 5 mins, Side to side rolling x 5 Will encourage Physical therapy treatment today as well. Continue to maximize efforts and encourage patient. Repeat Head CT 03/05 redemonstrates large MCA territory infarct with mild surrounding mass effect . No evidence of hemorrhage or new infarcts. Cont to monitor Positive UA Status: Acute No fevers or white count noted No apparent change in mentation Positive UA UC: sensitive to ceftriaxone. Continue. Ceftriaxone 1 gm daily started 02/28 Hyperkalemia Status: Acute Comment: Kayexelate administered. Monitor for BMs Hypertension Status: Acute Comment: Labetalol 100 mg PO TID; Lisinopril 20mg PO Daily; Hydralazine 10 mg IV Q6 PRN if SBP above 180; adding hydralazine 50mg QID Diabetes Status: Acute Comment: Accucheck. ISS ACHS. HgbA1C 11.2, Novolog Mix 70/30 15 units BIDAC daily. Metformin 500 mg PO BIDCC, Cont to monitor. Prophylactic measure Status: Acute Comment: Pepcid 20 mg PO BID. ASA 81mg. Heparin SC Q12. SCDs. Continue with PT/OT daily to maximize strength. Patient is still max assist. Mouth care. Per Case management: Patient has no medical insurance. Family friend Sheng Doyle spoke with patient's family back home in [place] who will care for her upon discharge when patient has improved strength and motor function. Patient has no family here in the [facility]. PT/OT on the case to help optimize patient. Contact info Family Friend Sheng Doyle [phone] <Dylan Monique - Last Filed: 03/08/17 16:04> Objective - Vital Signs/Intake and Output Vital Signs (last 24 hours): Temp Pulse Resp BP Pulse Ox 98.3 F 69 20 124/69 97 03/08/17 08:12 03/08/17 14:00 03/08/17 08:12 03/08/17 14:00 03/08/17 08:12 - Medications Medications: Current Medications Aspirin (Ecotrin) 81 mg PO DAILY [facility] Last Admin: 03/08/17 09:52 Dose: 81 mg Clopidogrel Bisulfate (Plavix) 75 mg PO DAILY [facility] Last Admin: 03/08/17 09:52 Dose: 75 mg Famotidine (Pepcid) 20 mg PO BID [facility] Last Admin: 03/08/17 09:52 Dose: 20 mg Hydralazine HCl (Apresoline) 10 mg IVP Q6H PRN PRN Reason: For SBP >180 Last Admin: 02/26/17 23:58 Dose: 10 mg Hydralazine HCl (Apresoline) 50 mg PO QID [facility] Last Admin: 03/08/17 14:01 Dose: 50 mg Sodium Chloride (Sodium Chloride 0.9%) 1,000 mls @ 125 mls/hr IV .Q8H [facility] Last Admin: 02/26/17 03:40 Dose: 125 mls/hr Ceftriaxone Sodium 1 gm/ (Sodium Chloride) 100 mls @ 100 mls/hr IVPB DAILY@ 0330 [facility] Last Admin: 03/08/17 03:15 Dose: 100 mls/hr Insulin Aspart (Novolog Mix 70/30 (70/30 Units/Ml)) 15 units SC BIDAC [facility] Last Admin: 03/08/17 12:04 Dose: 15 units Insulin Aspart (Novolog) 0 unit SC ACHS [facility] PRN Reason: Protocol Last Admin: 03/08/17 12:04 Dose: 2 unit Labetalol HCl (Trandate) 100 mg PO TID [facility] Last Admin: 03/08/17 09:52 Dose: 100 mg Lisinopril (Zestril) 20 mg PO DAILY [facility] Last Admin: 03/08/17 09:52 Dose: 20 mg Metformin HCl (Glucophage) 500 mg PO BIDCC [facility] Last Admin: 03/08/17 08:28 Dose: 500 mg Rosuvastatin Calcium (Crestor) 40 mg PO HS [facility] Last Admin: 03/07/17 21:36 Dose: 40 mg - Labs Labs: 03/08/17 08:27 03/08/17 08:27 PT 12.0 SECONDS (9.7-12.2) 02/24/17 11:48 INR 1.1 02/24/17 11:48 APTT 24 SECONDS (21-34) 06/04/17 11:48 Attending/Attestation - Attestation I have personally seen and examined this patient.: Yes I have fully participated in the care of the patient.: Yes I have reviewed all pertinent clinical information, including history, physical exam and plan: Yes Notes (Text): 03/08/17 16:02 Medical attending: Patient was seen and examined by me, agree with the above note by coroner/medical examiner. As mentioned before the patient has profound weakness on the right side of her body. At this time were continuing with physical therapy she needs a lot of assistance. The goal is to hopefully make the patient strong enough at some point so that she'll be able to get on a plane go to her country however this is quite distended future considering a week the patient has right now We also increased her hydralazine as her blood pressure is still relatively high Thank you very much, Dylan Monique
[2017-03-08 09:57] LABS: ALBUMIN 2.9 g/dL (3.5-5.0)
[2017-03-08 10:00] LABS: ALB/GLOB RATIO 0.8 (1.0-2.1)
[2017-03-08 10:01] LABS: CALCIUM 8.6 mg/dl (8.6-10.4); MAGNESIUM 2.3 mg/dL (1.6-2.3)
[2017-03-08] MEDS: (Novolog Mix 70/30) Insulin Aspart/Insulin Aspar 100 units/ml SC SCH ×2 (12:04→17:50)
--- NOTE | 2017-03-09 03:43 | CP.PCM.PN ---
<Sunny Rossi - Last Filed: 03/09/17 03:37> Subjective - Date & Time of Evaluation Date of Evaluation: 03/09/17 Time of Evaluation: 12:39 - Subjective Subjective: PGY 1 Medicine Note- Dr. Monique's service Pt seen and examined. Patient remains aphasic. She responds "okay" still. Patient not able to completely respond to ROS due to aphasia secondary to stroke. Objective - Vital Signs/Intake and Output Vital Signs (last 24 hours): Temp Pulse Resp BP Pulse Ox 98.3 F 66 20 133/71 98 03/08/17 23:25 03/09/17 00:00 03/08/17 23:25 03/08/17 23:25 03/08/17 23:25 - Medications Medications: Current Medications Aspirin (Ecotrin) 81 mg PO DAILY [facility] Last Admin: 03/08/17 09:52 Dose: 81 mg Clopidogrel Bisulfate (Plavix) 75 mg PO DAILY [facility] Last Admin: 03/08/17 09:52 Dose: 75 mg Famotidine (Pepcid) 20 mg PO BID [facility] Last Admin: 03/08/17 17:49 Dose: 20 mg Hydralazine HCl (Apresoline) 10 mg IVP Q6H PRN PRN Reason: For SBP >180 Last Admin: 02/26/17 23:58 Dose: 10 mg Hydralazine HCl (Apresoline) 50 mg PO QID [facility] Last Admin: 03/08/17 21:23 Dose: 50 mg Sodium Chloride (Sodium Chloride 0.9%) 1,000 mls @ 125 mls/hr IV .Q8H [facility] Last Admin: 02/26/17 03:40 Dose: 125 mls/hr Ceftriaxone Sodium 1 gm/ (Sodium Chloride) 100 mls @ 100 mls/hr IVPB DAILY@ 0330 [facility] Last Admin: 03/08/17 03:15 Dose: 100 mls/hr Insulin Aspart (Novolog Mix 70/30 (70/30 Units/Ml)) 15 units SC BIDAC [facility] Last Admin: 03/08/17 17:50 Dose: 15 units Insulin Aspart (Novolog) 0 unit SC ACHS [facility] PRN Reason: Protocol Last Admin: 03/08/17 21:25 Dose: Not Given Labetalol HCl (Trandate) 100 mg PO TID [facility] Last Admin: 03/08/17 17:49 Dose: 100 mg Lisinopril (Zestril) 20 mg PO DAILY [facility] Last Admin: 03/08/17 09:52 Dose: 20 mg Metformin HCl (Glucophage) 500 mg PO BIDCC [facility] Last Admin: 03/08/17 17:50 Dose: 500 mg Rosuvastatin Calcium (Crestor) 40 mg PO HS [facility] Last Admin: 03/08/17 21:23 Dose: 40 mg - Labs Labs: 03/08/17 08:27 03/08/17 08:27 PT 12.0 SECONDS (9.7-12.2) 02/24/17 11:48 INR 1.1 02/24/17 11:48 APTT 24 SECONDS (21-34) 02/24/17 11:48 - Constitutional Appears: Non-toxic - Head Exam Head Exam: ATRAUMATIC - Eye Exam Eye Exam: EOMI, Normal appearance, PERRL Pupil Exam: PERRL - ENT Exam ENT Exam: Mucous Membranes Moist - Neck Exam Neck Exam: Full ROM - Respiratory Exam Respiratory Exam: NORMAL BREATHING PATTERN. absent: Wheezes - Cardiovascular Exam Cardiovascular Exam: +S1, +S2 - GI/Abdominal Exam GI & Abdominal Exam: Soft, Normal Bowel Sounds - Extremities Exam Extremities Exam: absent: Full ROM - Neurological Exam Neurological Exam: Alert, Awake, CN II-XII Intact Additional comments: limited ROM of right sided extremities sensation intact for light touch and temperature. - Psychiatric Exam Psychiatric exam: Normal Affect, Normal Mood - Skin Skin Exam: Dry, Normal Color, Warm Assessment and Plan - Assessment and Plan (Free Text) Assessment: ROMIs negative x 3, EKG- NSR w possible atrial enlargement. MRI Brain w/o contrast, MRA of head and neck w/o contrast performed. 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 Per Surgery ( Dr. Choi) no surgical intervention at this time. Radiologist Dr. Khan called to confirm occlusive findings. Echo- EF is 65-70%. Mild aortic regurgitation; LV systolic function is normal; hypokinesis in septal wall. Refer to complete report. As per Dr. Mccormick, BP SBP btwn 130-140 mmHg, ASA 81 mg PO daily and Plavix 75 mg PO daily, Crestor 40 mg PO HS since patient passed swallow eval HgbA1C 11.2, FLP elevated, TSH 1.7 Physical Therapy visit 03/07/17- Pt still max assist; ambulating 4 steps with max assist of two individuals Will encourage Physical therapy treatment today as well. Continue to maximize efforts and encourage patient. Repeat Head CT 03/05 redemonstrates large MCA territory infarct with mild surrounding mass effect . No evidence of hemorrhage or new infarcts. Cont to monitor Positive UA Status: Acute No fevers or white count noted No apparent change in mentation Positive UA UC: sensitive to ceftriaxone. Continue. Recheck UA and UC Ceftriaxone 1 gm daily started 02/28 Hyperkalemia Status: Acute Comment: Kayexelate administered. Monitor for BMs Hypertension Status: Acute Comment: Labetalol 100 mg PO TID; Lisinopril 20mg PO Daily; Hydralazine 50 mg QID, Hydralazine 10 mg IV Q6 PRN if SBP above 180 Diabetes Status: Acute Comment: Accucheck. ISS ACHS. HgbA1C 11.2, Novolog Mix 70/30 15 units BIDAC daily. Metformin 500 mg PO BIDCC, Cont to monitor. Prophylactic measure Status: Acute Comment: Pepcid 20 mg PO BID. ASA 81mg. Heparin SC Q12. SCDs. Continue with PT/OT daily to maximize strength. Patient is still max assist. Mouth care. Per Case management: Patient has no medical insurance. Family friend Sheng Reyescarissa spoke with patient's family back home in [place] who will care for her upon discharge when patient has improved strength and motor function. Patient has no family here in the [facility]. PT/OT on the case to help optimize patient. Contact info Family Friend Sheng Reyescarissa [phone] <Dylan Monique H - Last Filed: 03/09/17 09:00> Objective - Vital Signs/Intake and Output Vital Signs (last 24 hours): Temp Pulse Resp BP Pulse Ox 98.1 F 68 18 165/78 H 96 03/09/17 08:53 03/09/17 08:53 03/09/17 08:53 03/09/17 08:53 03/09/17 08:53 Intake and Output: 03/09/17 03/09/17 06:59 18:59 Intake Total 250 Output Total 450 Balance -200 - Medications Medications: Current Medications Aspirin (Ecotrin) 81 mg PO DAILY [facility] Last Admin: 03/08/17 09:52 Dose: 81 mg Clopidogrel Bisulfate (Plavix) 75 mg PO DAILY [facility] Last Admin: 03/08/17 09:52 Dose: 75 mg Famotidine (Pepcid) 20 mg PO BID [facility] Last Admin: 03/08/17 17:49 Dose: 20 mg Heparin Sodium (Porcine) (Heparin) 5,000 units SC Q12 [facility] Hydralazine HCl (Apresoline) 10 mg IVP Q6H PRN PRN Reason: For SBP >180 Last Admin: 02/26/17 23:58 Dose: 10 mg Hydralazine HCl (Apresoline) 50 mg PO QID [facility] Last Admin: 03/08/17 21:23 Dose: 50 mg Sodium Chloride (Sodium Chloride 0.9%) 1,000 mls @ 125 mls/hr IV .Q8H [facility] Last Admin: 02/26/17 03:40 Dose: 125 mls/hr Ceftriaxone Sodium 1 gm/ (Sodium Chloride) 100 mls @ 100 mls/hr IVPB DAILY@ 0330 [facility] Last Admin: 03/09/17 04:05 Dose: 100 mls/hr Insulin Aspart (Novolog Mix 70/30 (70/30 Units/Ml)) 15 units SC BIDAC [facility] Last Admin: 03/09/17 08:26 Dose: 15 units Insulin Aspart (Novolog) 0 unit SC ACHS [facility] PRN Reason: Protocol Last Admin: 03/08/17 21:25 Dose: Not Given Labetalol HCl (Trandate) 100 mg PO TID [facility] Last Admin: 03/08/17 17:49 Dose: 100 mg Lisinopril (Zestril) 20 mg PO DAILY [facility] Last Admin: 03/08/17 09:52 Dose: 20 mg Metformin HCl (Glucophage) 500 mg PO BIDCC [facility] Last Admin: 03/09/17 08:27 Dose: 500 mg Rosuvastatin Calcium (Crestor) 40 mg PO HS [facility] Last Admin: 03/08/17 21:23 Dose: 40 mg - Labs Labs: 03/08/17 08:27 03/08/17 08:27 PT 12.0 SECONDS (9.7-12.2) 02/24/17 11:48 INR 1.1 02/24/17 11:48 APTT 24 SECONDS (21-34) 02/24/17 11:48 Attending/Attestation - Attestation I have personally seen and examined this patient.: Yes I have fully participated in the care of the patient.: Yes I have reviewed all pertinent clinical information, including history, physical exam and plan: Yes Notes (Text): 03/09/17 08:58 Medical attending: Patient was seen and examined by me. Agree with the above note by the resident. I came and saw the patient later in the morning. The patient had her hydralazine adjusted yesterday and will see if later today the BP is better. As mentioned above in the resident note the patient had a large L MCA and needs alot of assistance. There is no right upper or right lower extremity strength on exam today. So for now working on better BP control. Family wants to bring back to [place] at some point in the future if she gets some strength back thank you Dylan Monique
[2017-03-09 08:12] LABS: SQUAMOUS EPITHIAL < 1 /hpf (0-5); URINE BACTERIA RARE (<OCC); URINE BILIRUBIN NEGATIVE (NEGATIVE); URINE BLOOD NEGATIVE (NEGATIVE); URINE CLARITY Hazy (Clear); URINE COLOR Yellow (YELLOW); URINE GLUCOSE (UA) NORMAL (Normal); URINE LEUKOCYTE ESTERASE NEG Leu/uL (Negative); URINE NITRATE NEGATIVE (NEGATIVE); URINE PROTEIN 2+ mg/dL (NEGATIVE); URINE UROBILINOGEN NORMAL mg/dL (0.2-1.0)
[2017-03-09] MEDS: (Novolog Mix 70/30) Insulin Aspart/Insulin Aspar 100 units/ml SC SCH ×2 (08:26→18:21)
[2017-03-09 09:07] LABS: BASO # 0.1 K/uL (0.0-0.2); BASO % 1.2 % (0.0-2.0); EOS # 0.3 K/uL (0.0-0.7); EOS % 3.1 % (0.0-4.0); LYMPH % 23.3 % (20.0-40.0); MEAN CELL VOLUME 84.1 fL (81.0-99.0); MEAN CORPUSCULAR HEMOGLOBIN 27.4 pg (27.0-31.0); MEAN CORPUSCULAR HGB CONC 32.6 g/dL (33.0-37.0); MEAN PLATELET VOLUME 8.7 fL (7.2-11.7); MONO # 0.6 K/uL (0.0-0.8); MONO % 6.5 % (0.0-10.0); NEUT # 5.6 K/uL (1.8-7.0); NEUT % 65.9 % (50.0-75.0); RBC 4.03 Mil/uL (3.80-5.20); RED CELL DISTRIBUTION WIDTH 13.6 % (11.5-14.5); WHITE BLOOD COUNT 8.5 K/uL (4.8-10.8)
[2017-03-09 09:22] LABS: ALBUMIN 3.2 g/dL (3.5-5.0)
[2017-03-09 09:25] LABS: ALB/GLOB RATIO 0.9 (1.0-2.1)
[2017-03-09 09:26] LABS: CALCIUM 9.2 mg/dl (8.6-10.4); MAGNESIUM 2.4 mg/dL (1.6-2.3)
[2017-03-09] MEDS: (Novolog) Insulin Aspart, Recombinant 100 u/ml 10 ml vial SC SCH ×3 (10:30→22:00)
--- NOTE | 2017-03-10 05:22 | CP.PCM.PN ---
<Sunny Rossi - Last Filed: 03/10/17 06:50> Subjective - Date & Time of Evaluation Date of Evaluation: 03/10/17 Time of Evaluation: 05:19 - Subjective Subjective: PGY 1 Medicine Note- Dr. Monique's service Pt seen and examined with no acute events overnight. Patient remains aphasic. She responds "okay", "no" to questions. Patient not able to completely respond to ROS due to aphasia secondary to stroke. Objective - Vital Signs/Intake and Output Vital Signs (last 24 hours): Temp Pulse Resp BP Pulse Ox 97.9 F 67 20 113/72 96 03/09/17 23:45 03/10/17 00:00 03/09/17 23:45 03/09/17 23:45 03/09/17 23:45 - Medications Medications: Current Medications Aspirin (Ecotrin) 81 mg PO DAILY [facility] Last Admin: 03/09/17 10:29 Dose: 81 mg Clopidogrel Bisulfate (Plavix) 75 mg PO DAILY [facility] Last Admin: 03/09/17 10:29 Dose: 75 mg Famotidine (Pepcid) 20 mg PO BID [facility] Last Admin: 03/09/17 18:21 Dose: 20 mg Heparin Sodium (Porcine) (Heparin) 5,000 units SC Q12 [facility] Last Admin: 03/09/17 21:16 Dose: 5,000 units Hydralazine HCl (Apresoline) 10 mg IVP Q6H PRN PRN Reason: For SBP >180 Last Admin: 02/26/17 23:58 Dose: 10 mg Hydralazine HCl (Apresoline) 50 mg PO QID [facility] Last Admin: 03/09/17 21:16 Dose: 50 mg Sodium Chloride (Sodium Chloride 0.9%) 1,000 mls @ 125 mls/hr IV .Q8H [facility] Last Admin: 02/26/17 03:40 Dose: 125 mls/hr Ceftriaxone Sodium 1 gm/ (Sodium Chloride) 100 mls @ 100 mls/hr IVPB DAILY@ 0330 [facility] Last Admin: 03/10/17 02:30 Dose: 100 mls/hr Insulin Aspart (Novolog Mix 70/30 (70/30 Units/Ml)) 15 units SC BIDAC [facility] Last Admin: 03/09/17 18:21 Dose: 15 units Insulin Aspart (Novolog) 0 unit SC ACHS [facility] PRN Reason: Protocol Last Admin: 03/09/17 22:00 Dose: Not Given Labetalol HCl (Trandate) 100 mg PO TID [facility] Last Admin: 03/09/17 18:21 Dose: 100 mg Lisinopril (Zestril) 20 mg PO DAILY [facility] Last Admin: 03/09/17 10:29 Dose: 20 mg Metformin HCl (Glucophage) 500 mg PO BIDCC [facility] Last Admin: 03/09/17 18:21 Dose: 500 mg Rosuvastatin Calcium (Crestor) 40 mg PO HS [facility] Last Admin: 03/09/17 21:16 Dose: 40 mg - Labs Labs: 03/09/17 08:50 03/09/17 08:50 PT 12.0 SECONDS (9.7-12.2) 02/24/17 11:48 INR 1.1 02/24/17 11:48 APTT 24 SECONDS (21-34) 02/24/17 11:48 - Constitutional Appears: Non-toxic, No Acute Distress - Head Exam Head Exam: NORMOCEPHALIC - Eye Exam Eye Exam: EOMI, Normal appearance, PERRL - ENT Exam ENT Exam: Mucous Membranes Moist - Neck Exam Neck Exam: Full ROM - Respiratory Exam Respiratory Exam: NORMAL BREATHING PATTERN. absent: Wheezes - Cardiovascular Exam Cardiovascular Exam: +S1, +S2 - GI/Abdominal Exam GI & Abdominal Exam: Soft, Normal Bowel Sounds - Extremities Exam Extremities Exam: Normal Capillary Refill, Normal Inspection. absent: Full ROM - Back Exam Back Exam: Full ROM - Neurological Exam Neurological Exam: Alert, Awake Neuro motor strength exam: Left Upper Extremity: 4, Right Upper Extremity: 2/1, Left Lower Extremity: 4, Right Lower Extremity: 2/1 - Psychiatric Exam Psychiatric exam: Flat Affect - Skin Skin Exam: Normal Color, Warm Assessment and Plan - Assessment and Plan (Free Text) Assessment: Acute Ischemic Stroke ROMIs negative x 3, EKG- NSR w possible atrial enlargement. MRI Brain w/o contrast, MRA of head and neck w/o contrast performed. 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 Per Surgery ( Dr. Choi) no surgical intervention at this time. Radiologist Dr. Khan called to confirm occlusive findings. Echo- EF is 65-70%. Mild aortic regurgitation; LV systolic function is normal; hypokinesis in septal wall. Refer to complete report. As per Dr. Mccormick, BP SBP btwn 130-140 mmHg, ASA 81 mg PO daily and Plavix 75 mg PO daily, Crestor 40 mg PO HS since patient passed swallow eval HgbA1C 11.2, FLP elevated, TSH 1.7 Physical Therapy visit 03/07/17- Pt still max assist; ambulating 4 steps with max assist of two individuals Will encourage Physical therapy treatment today as well. Continue to maximize efforts and encourage patient. Repeat Head CT 03/05 redemonstrates large MCA territory infarct with mild surrounding mass effect . No evidence of hemorrhage or new infarcts. Cont to monitor Positive UA Status: Acute No fevers or white count noted No apparent change in mentation Positive UA UC: sensitive to ceftriaxone. Continue. UA improved. F/U UC. Will adjust or discontinue antibiotics pending results. Ceftriaxone 1 gm daily started 02/28 Hyperkalemia Status: Acute Comment: Kayexelate administered. Monitor for BMs Hypertension Status: Acute Comment: Labetalol 100 mg PO TID; Lisinopril 20mg PO Daily; Hydralazine 50 mg QID, Hydralazine 10 mg IV Q6 PRN if SBP above 180 Diabetes Status: Acute Comment: Accucheck. ISS ACHS. HgbA1C 11.2, Novolog Mix 70/30 15 units BIDAC daily. Metformin 500 mg PO BIDCC, Cont to monitor. Prophylactic measure Status: Acute Comment: Pepcid 20 mg PO BID. ASA 81mg. Heparin SC Q12. SCDs. Continue with PT/OT daily to maximize strength. Patient is still max assist. Mouth care. Per Case management: Patient has no medical insurance. Family friend Sheng Doyle spoke with patient's family back home in [place] who will care for her upon discharge when patient has improved strength and motor function. Patient has no family here in the [place]. PT/OT on the case to help optimize patient. Contact info Family Friend Sheng Doyle [phone] <Dylan Monique - Last Filed: 03/10/17 08:25> Objective - Vital Signs/Intake and Output Vital Signs (last 24 hours): Temp Pulse Resp BP Pulse Ox 97.9 F 67 20 113/72 96 03/09/17 23:45 03/10/17 00:00 03/09/17 23:45 03/09/17 23:45 03/09/17 23:45 - Medications Medications: Current Medications Aspirin (Ecotrin) 81 mg PO DAILY [facility] Last Admin: 03/09/17 10:29 Dose: 81 mg Clopidogrel Bisulfate (Plavix) 75 mg PO DAILY [facility] Last Admin: 03/09/17 10:29 Dose: 75 mg Famotidine (Pepcid) 20 mg PO BID [facility] Last Admin: 03/09/17 18:21 Dose: 20 mg Heparin Sodium (Porcine) (Heparin) 5,000 units SC Q12 [facility] Last Admin: 03/09/17 21:16 Dose: 5,000 units Hydralazine HCl (Apresoline) 10 mg IVP Q6H PRN PRN Reason: For SBP >180 Last Admin: 02/26/17 23:58 Dose: 10 mg Hydralazine HCl (Apresoline) 50 mg PO QID [facility] Last Admin: 03/09/17 21:16 Dose: 50 mg Sodium Chloride (Sodium Chloride 0.9%) 1,000 mls @ 125 mls/hr IV .Q8H [facility] Last Admin: 02/26/17 03:40 Dose: 125 mls/hr Ceftriaxone Sodium 1 gm/ (Sodium Chloride) 100 mls @ 100 mls/hr IVPB DAILY@ 0330 [facility] Last Admin: 03/10/17 02:30 Dose: 100 mls/hr Insulin Aspart (Novolog Mix 70/30 (70/30 Units/Ml)) 15 units SC BIDAC [facility] Last Admin: 03/09/17 18:21 Dose: 15 units Insulin Aspart (Novolog) 0 unit SC ACHS [facility] PRN Reason: Protocol Last Admin: 03/10/17 07:58 Dose: Not Given Labetalol HCl (Trandate) 100 mg PO TID [facility] Last Admin: 03/09/17 18:21 Dose: 100 mg Lisinopril (Zestril) 20 mg PO DAILY [facility] Last Admin: 03/09/17 10:29 Dose: 20 mg Metformin HCl (Glucophage) 500 mg PO BIDCC [facility] Last Admin: 03/09/17 18:21 Dose: 500 mg Rosuvastatin Calcium (Crestor) 40 mg PO HS [facility] Last Admin: 03/09/17 21:16 Dose: 40 mg - Labs Labs: 03/09/17 08:50 03/09/17 08:50 PT 12.0 SECONDS (9.7-12.2) 02/24/17 11:48 INR 1.1 02/24/17 11:48 APTT 24 SECONDS (21-34) 02/24/17 11:48 Attending/Attestation - Attestation I have personally seen and examined this patient.: Yes I have fully participated in the care of the patient.: Yes I have reviewed all pertinent clinical information, including history, physical exam and plan: Yes Notes (Text): 03/10/17 08:23 Medical Attending: Patient was seen and examined by me. Agree with the above note by the resident. As mentioned previously she needs maxiumum assistance. There has not been any regain of strength in the right upper or lower extremity following the MCA stroke that she had. With regards to her blood pressure, we recently added hydralazine and increased the dose and as of late the systolic numbers in the 130s. There are still times when she gets into the 160s. thank you Dylan Monique
[2017-03-10] MEDS: (Novolog) Insulin Aspart, Recombinant 100 u/ml 10 ml vial SC SCH ×4 (07:58→21:44)
[2017-03-10] MEDS: (Novolog Mix 70/30) Insulin Aspart/Insulin Aspar 100 units/ml SC SCH ×2 (08:30→17:30)
[2017-03-10 09:29] LABS: BASO # 0.1 K/uL (0.0-0.2); BASO % 1.5 % (0.0-2.0); EOS # 0.3 K/uL (0.0-0.7); EOS % 3.2 % (0.0-4.0); HEMOGLOBIN 11.5 g/dL (11.0-16.0); LYMPH # 2.1 K/uL (1.0-4.3); MEAN CELL VOLUME 84.5 fL (81.0-99.0); MEAN CORPUSCULAR HEMOGLOBIN 27.4 pg (27.0-31.0); MEAN CORPUSCULAR HGB CONC 32.4 g/dL (33.0-37.0); MEAN PLATELET VOLUME 8.6 fL (7.2-11.7); MONO # 0.5 K/uL (0.0-0.8); MONO % 6.4 % (0.0-10.0); NEUT # 5.2 K/uL (1.8-7.0); NEUT % 62.9 % (50.0-75.0); RBC 4.21 Mil/uL (3.80-5.20); RED CELL DISTRIBUTION WIDTH 13.9 % (11.5-14.5); WHITE BLOOD COUNT 8.3 K/uL (4.8-10.8)
[2017-03-10 09:43] LABS: ALBUMIN 3.3 g/dL (3.5-5.0)
[2017-03-10 09:47] LABS: MAGNESIUM 2.3 mg/dL (1.6-2.3)
[2017-03-11] MEDS: (Novolog) Insulin Aspart, Recombinant 100 u/ml 10 ml vial SC SCH ×4 (07:51→22:12)
[2017-03-11] MEDS: (Novolog Mix 70/30) Insulin Aspart/Insulin Aspar 100 units/ml SC SCH ×2 (07:57→17:53)
[2017-03-11 11:22] LABS: BASO # 0.1 K/uL (0.0-0.2); BASO % 1.1 % (0.0-2.0); EOS # 0.3 K/uL (0.0-0.7); EOS % 3.5 % (0.0-4.0); HEMOGLOBIN 11.5 g/dL (11.0-16.0); LYMPH # 2.2 K/uL (1.0-4.3); LYMPH % 29.1 % (20.0-40.0); MEAN CELL VOLUME 84.5 fL (81.0-99.0); MEAN CORPUSCULAR HEMOGLOBIN 27.2 pg (27.0-31.0); MEAN CORPUSCULAR HGB CONC 32.2 g/dL (33.0-37.0); MEAN PLATELET VOLUME 8.7 fL (7.2-11.7); MONO # 0.4 K/uL (0.0-0.8); NEUT # 4.7 K/uL (1.8-7.0); NEUT % 61.3 % (50.0-75.0); NRBC % 0.1 % (0.0-2.0); RBC 4.23 Mil/uL (3.80-5.20); RED CELL DISTRIBUTION WIDTH 13.9 % (11.5-14.5); WHITE BLOOD COUNT 7.7 K/uL (4.8-10.8)
[2017-03-11 11:26] LABS: ALBUMIN 3.6 g/dL (3.5-5.0)
[2017-03-11 11:30] LABS: CALCIUM 9.3 mg/dl (8.6-10.4)
[2017-03-11 11:31] LABS: MAGNESIUM 2.5 mg/dL (1.6-2.3)
--- NOTE | 2017-03-11 14:17 | CP.PCM.PN ---
<Sherlyn Zaidi - Last Filed: 03/11/17 19:13> Subjective - Date & Time of Evaluation Date of Evaluation: 03/11/17 Time of Evaluation: 08:00 - Subjective Subjective: PGY 1 Medicine Note- Dr. Miranda's service Patient seen and examined and is in no acute distress. She responds with "okay" and "no" to questions and is able to follow commands. Objective - Vital Signs/Intake and Output Vital Signs (last 24 hours): Temp Pulse Resp BP Pulse Ox 98.1 F 64 18 120/64 97 03/11/17 07:07 03/11/17 07:07 03/11/17 07:07 03/11/17 13:16 03/11/17 07:07 Intake and Output: 03/11/17 03/11/17 06:59 18:59 Output Total 500 Balance -500 - Medications Medications: Current Medications Aspirin (Ecotrin) 81 mg PO DAILY [facility] Last Admin: 03/11/17 09:26 Dose: 81 mg Clopidogrel Bisulfate (Plavix) 75 mg PO DAILY [facility] Last Admin: 03/11/17 09:26 Dose: 75 mg Famotidine (Pepcid) 20 mg PO BID [facility] Last Admin: 03/11/17 09:26 Dose: 20 mg Heparin Sodium (Porcine) (Heparin) 5,000 units SC Q12 [facility] Last Admin: 03/11/17 09:26 Dose: 5,000 units Hydralazine HCl (Apresoline) 10 mg IVP Q6H PRN PRN Reason: For SBP >180 Last Admin: 02/26/17 23:58 Dose: 10 mg Hydralazine HCl (Apresoline) 50 mg PO QID [facility] Last Admin: 03/11/17 13:15 Dose: 50 mg Sodium Chloride (Sodium Chloride 0.9%) 1,000 mls @ 125 mls/hr IV .Q8H [facility] Last Admin: 02/26/17 03:40 Dose: 125 mls/hr Insulin Aspart (Novolog Mix 70/30 (70/30 Units/Ml)) 15 units SC BIDAC [facility] Last Admin: 03/11/17 07:57 Dose: 15 units Insulin Aspart (Novolog) 0 unit SC ACHS [facility] PRN Reason: Protocol Last Admin: 03/11/17 12:33 Dose: 3 unit Labetalol HCl (Trandate) 100 mg PO TID [facility] Last Admin: 03/11/17 13:15 Dose: 100 mg Lisinopril (Zestril) 20 mg PO DAILY [facility] Last Admin: 03/11/17 09:26 Dose: 20 mg Metformin HCl (Glucophage) 500 mg PO BIDCC [facility] Last Admin: 03/11/17 07:57 Dose: 500 mg Rosuvastatin Calcium (Crestor) 40 mg PO HS [facility] Last Admin: 03/10/17 21:43 Dose: 40 mg - Labs Labs: 03/11/17 11:06 03/11/17 11:06 PT 12.0 SECONDS (9.7-12.2) 02/24/17 11:48 INR 1.1 02/24/17 11:48 APTT 24 SECONDS (21-34) 02/24/17 11:48 - Constitutional Appears: No Acute Distress - Head Exam Head Exam: ATRAUMATIC, NORMAL INSPECTION, NORMOCEPHALIC - Eye Exam Eye Exam: EOMI, Normal appearance, PERRL - ENT Exam ENT Exam: Mucous Membranes Moist, Normal Exam - Neck Exam Neck Exam: Normal Inspection. absent: Lymphadenopathy, Tenderness - Respiratory Exam Respiratory Exam: Clear to Ausculation Bilateral, NORMAL BREATHING PATTERN - Cardiovascular Exam Cardiovascular Exam: REGULAR RHYTHM, +S1, +S2 - GI/Abdominal Exam GI & Abdominal Exam: Soft, Normal Bowel Sounds - Extremities Exam Extremities Exam: absent: Full ROM (R side deficits) - Neurological Exam Neurological Exam: Alert, Awake, Motor Sensory Deficit (R sided neurological deficits ) Neuro motor strength exam: Left Upper Extremity: 5, Right Upper Extremity: 2/1, Left Lower Extremity: 5, Right Lower Extremity: 2/1 - Psychiatric Exam Psychiatric exam: Normal Affect - Skin Skin Exam: Dry, Intact, Normal Color, Warm Assessment and Plan (1) Ischemic stroke Assessment & Plan: 02/24: * ROMIs negative x 3, * EKG- NSR w possible atrial enlargement. * Echo- EF is 65-70%. Mild aortic regurgitation; LV systolic function is normal ; hypokinesis in septal wall. Refer to complete report. As per Dr. Mccormick, BP SBP btwn 130-140 mmHg, ASA 81 mg PO daily and Plavix 75 mg PO daily, Crestor 40 mg PO HS since patient passed swallow eval HgbA1C 11.2, FLP elevated, TSH 1.7 02/26:Head, Neck MRA-Complete occlusion of left internal carotid and mild occlusive disease of right internal carotid. Per Surgery ( Dr. Choi) no surgical intervention at this time. Radiologist Dr. Khan called to confirm occlusive findings. 03/05:Head CT- redemonstrates large MCA territory infarct with mild surrounding mass effect . No evidence of hemorrhage or new infarcts. Continue to encourage movement with help from Physical Therapy. Continue to monitor Status: Acute (2) UTI (urinary tract infection) Assessment & Plan: No fevers or white count noted No apparent change in mentation Positive UA on 02/28, negative UA on 03/09 UC: sensitive to ceftriaxone. Ceftriaxone started on 02/28 and stopped on 03/10. Retaining urine no 03/11 in AM- bladder scan 680ml so patient straight catheterized. Repeat bladder scan 150. Bladder scan PRN to confirm no longer retaining urine. Status: Resolved (3) Acute kidney injury Assessment & Plan: Creatinine trending up; 1.3 on 03/10, 1.5 on 03/11 Consider nephrotoxic medications. Fluids changed to 1/2 NS 100cc/hr Status: Acute (4) Hypertension Assessment & Plan: Labetalol 100 mg PO TID; Lisinopril 20mg PO Daily; Hydralazine 50 mg QID, Hydralazine 10 mg IV Q6 PRN if SBP above 180 Monitor BP Status: Acute (5) Diabetes Assessment & Plan: Accucheck. ISS ACHS. HgbA1C 11.2, Novolog Mix 70/30 15 units BIDAC daily. Metformin 500 mg PO BIDCC, Cont to monitor. Status: Acute (6) Prophylactic measure Assessment & Plan: Pepcid 20 mg PO BID. ASA 81mg. Heparin SC Q12. SCDs. Continue with PT/OT daily to maximize strength. Patient is moderate assist. Mouth care. Status: Acute <Jad Miranda - Last Filed: 03/12/17 07:22> Objective - Vital Signs/Intake and Output Vital Signs (last 24 hours): Temp Pulse Resp BP Pulse Ox 98.0 F 62 20 158/77 H 98 03/12/17 04:00 03/12/17 04:00 03/12/17 04:00 03/12/17 04:00 03/12/17 04:00 Intake and Output: 03/12/17 03/12/17 06:59 18:59 Intake Total 2020 Output Total 950 Balance 1070 - Medications Medications: Current Medications Aspirin (Ecotrin) 81 mg PO DAILY [facility] Last Admin: 03/11/17 09:26 Dose: 81 mg Clopidogrel Bisulfate (Plavix) 75 mg PO DAILY [facility] Last Admin: 03/11/17 09:26 Dose: 75 mg Famotidine (Pepcid) 20 mg PO BID [facility] Last Admin: 03/11/17 17:53 Dose: 20 mg Heparin Sodium (Porcine) (Heparin) 5,000 units SC Q12 [facility] Last Admin: 03/11/17 22:15 Dose: 5,000 units Hydralazine HCl (Apresoline) 10 mg IVP Q6H PRN PRN Reason: For SBP >180 Last Admin: 02/26/17 23:58 Dose: 10 mg Hydralazine HCl (Apresoline) 50 mg PO QID [facility] Last Admin: 03/11/17 22:15 Dose: 50 mg Sodium Chloride (Sodium Chloride 0.45%) 1,000 mls @ 100 mls/hr IV .Q10H [facility] Last Admin: 03/12/17 01:43 Dose: 100 mls/hr Insulin Aspart (Novolog Mix 70/30 (70/30 Units/Ml)) 15 units SC BIDAC [facility] Last Admin: 03/11/17 17:53 Dose: 15 units Insulin Aspart (Novolog) 0 unit SC ACHS [facility] PRN Reason: Protocol Last Admin: 03/11/17 22:12 Dose: Not Given Labetalol HCl (Trandate) 100 mg PO TID [facility] Last Admin: 03/11/17 17:53 Dose: 100 mg Lisinopril (Zestril) 20 mg PO DAILY [facility] Last Admin: 03/11/17 09:26 Dose: 20 mg Metformin HCl (Glucophage) 500 mg PO BIDCC [facility] Last Admin: 03/11/17 17:53 Dose: 500 mg Rosuvastatin Calcium (Crestor) 40 mg PO HS [facility] Last Admin: 03/11/17 22:15 Dose: 40 mg - Labs Labs: 03/11/17 11:06 03/11/17 11:06 PT 12.0 SECONDS (9.7-12.2) 02/24/17 11:48 INR 1.1 02/24/17 11:48 APTT 24 SECONDS (21-34) 02/24/17 11:48 Attending/Attestation - Attestation I have personally seen and examined this patient.: Yes I have fully participated in the care of the patient.: Yes I have reviewed all pertinent clinical information, including history, physical exam and plan: Yes Notes (Text): 03/12/17 07:20 Patient was seen and examined at bedside with the resident Patient appears comfortable lying in bed Patient is still aphasic Persistent right-sided hemiplegia noted Blood pressure periodically elevated. Follow the trend and titrate the medication as needed. Continue medical management with the antiplatelet therapy and statin Continue physical therapy daily Discharge planning when patient is stronger. I discussed the plan of care with the resident and agree with the assessment and plan by the resident. 03/12/17 07:21
[2017-03-11] MEDS: Sodium Chloride 0.45% 1,000 ML IV SCH (14:46)
[2017-03-12] MEDS: Sodium Chloride 0.45% 1,000 ML IV SCH ×3 (01:43→20:30)
[2017-03-12 07:33] LABS: BASO # 0.1 K/uL (0.0-0.2); BASO % 1.2 % (0.0-2.0); EOS # 0.4 K/uL (0.0-0.7); EOS % 4.6 % (0.0-4.0); HEMOGLOBIN 10.5 g/dL (11.0-16.0); LYMPH # 2.4 K/uL (1.0-4.3); LYMPH % 29.7 % (20.0-40.0); MEAN CELL VOLUME 84.1 fL (81.0-99.0); MEAN CORPUSCULAR HEMOGLOBIN 26.9 pg (27.0-31.0); MEAN PLATELET VOLUME 8.6 fL (7.2-11.7); MONO # 0.5 K/uL (0.0-0.8); MONO % 6.6 % (0.0-10.0); NEUT # 4.7 K/uL (1.8-7.0); NEUT % 57.9 % (50.0-75.0); NRBC % 0.2 % (0.0-2.0); RBC 3.91 Mil/uL (3.80-5.20); RED CELL DISTRIBUTION WIDTH 13.6 % (11.5-14.5); WHITE BLOOD COUNT 8.2 K/uL (4.8-10.8)
[2017-03-12 08:31] LABS: ALBUMIN 2.8 g/dL (3.5-5.0)
[2017-03-12 08:34] LABS: ALB/GLOB RATIO 0.8 (1.0-2.1)
[2017-03-12 08:35] LABS: CALCIUM 8.7 mg/dl (8.6-10.4); MAGNESIUM 2.1 mg/dL (1.6-2.3)
[2017-03-12] MEDS: (Novolog) Insulin Aspart, Recombinant 100 u/ml 10 ml vial SC SCH ×4 (08:35→22:18)
[2017-03-12] MEDS: (Novolog Mix 70/30) Insulin Aspart/Insulin Aspar 100 units/ml SC SCH ×2 (08:44→17:26)
--- NOTE | 2017-03-12 10:06 | CP.PCM.PN ---
<Sherlyn Zaidi - Last Filed: 03/12/17 20:14> Subjective - Date & Time of Evaluation Date of Evaluation: 03/12/17 Time of Evaluation: 08:00 - Subjective Subjective: PGY 1 Medicine Note- Dr. Miranda's service Patient seen and examined and is in no acute distress. She responds with "okay" and "no" to questions and is able to follow commands. Objective - Vital Signs/Intake and Output Vital Signs (last 24 hours): Temp Pulse Resp BP Pulse Ox 97.5 F L 66 20 149/72 97 03/12/17 08:28 03/12/17 08:28 03/12/17 08:28 03/12/17 08:28 03/12/17 08:28 Intake and Output: 03/12/17 03/12/17 06:59 18:59 Intake Total 2020 Output Total 950 Balance 1070 - Medications Medications: Current Medications Aspirin (Ecotrin) 81 mg PO DAILY [facility] Last Admin: 03/12/17 09:27 Dose: 81 mg Clopidogrel Bisulfate (Plavix) 75 mg PO DAILY [facility] Last Admin: 03/12/17 09:26 Dose: 75 mg Famotidine (Pepcid) 20 mg PO BID [facility] Last Admin: 03/12/17 09:27 Dose: 20 mg Heparin Sodium (Porcine) (Heparin) 5,000 units SC Q12 [facility] Last Admin: 03/12/17 09:26 Dose: 5,000 units Hydralazine HCl (Apresoline) 10 mg IVP Q6H PRN PRN Reason: For SBP >180 Last Admin: 02/26/17 23:58 Dose: 10 mg Hydralazine HCl (Apresoline) 50 mg PO QID [facility] Last Admin: 03/12/17 09:27 Dose: 50 mg Sodium Chloride (Sodium Chloride 0.45%) 1,000 mls @ 100 mls/hr IV .Q10H [facility] Last Admin: 03/12/17 01:43 Dose: 100 mls/hr Insulin Aspart (Novolog Mix 70/30 (70/30 Units/Ml)) 15 units SC BIDAC [facility] Last Admin: 03/12/17 08:44 Dose: 15 units Insulin Aspart (Novolog) 0 unit SC ACHS [facility] PRN Reason: Protocol Last Admin: 03/12/17 08:35 Dose: Not Given Labetalol HCl (Trandate) 100 mg PO TID [facility] Last Admin: 03/12/17 09:27 Dose: 100 mg Lisinopril (Zestril) 20 mg PO DAILY [facility] Last Admin: 03/12/17 09:27 Dose: 20 mg Metformin HCl (Glucophage) 500 mg PO BIDCC [facility] Last Admin: 03/12/17 08:45 Dose: 500 mg Rosuvastatin Calcium (Crestor) 40 mg PO HS [facility] Last Admin: 03/11/17 22:15 Dose: 40 mg - Labs Labs: 03/12/17 07:13 03/12/17 07:13 PT 12.0 SECONDS (9.7-12.2) 02/24/17 11:48 INR 1.1 02/24/17 11:48 APTT 24 SECONDS (21-34) 02/24/17 11:48 - Constitutional Appears: Well, Non-toxic, No Acute Distress - Head Exam Head Exam: ATRAUMATIC, NORMAL INSPECTION, NORMOCEPHALIC - Eye Exam Eye Exam: EOMI, Normal appearance, PERRL - ENT Exam ENT Exam: Mucous Membranes Moist, Normal Exam - Neck Exam Neck Exam: Normal Inspection. absent: Lymphadenopathy - Respiratory Exam Respiratory Exam: Clear to Ausculation Bilateral, NORMAL BREATHING PATTERN. absent: Rales, Rhonchi, Wheezes, Respiratory Distress, Stridor - Cardiovascular Exam Cardiovascular Exam: REGULAR RHYTHM, RRR, +S1, +S2. absent: Gallop, Rubs, Murmur - GI/Abdominal Exam GI & Abdominal Exam: Soft, Normal Bowel Sounds. absent: Distended, Guarding, Tenderness - Extremities Exam Extremities Exam: absent: Full ROM Additional comments: R side deficits - Back Exam Back Exam: NORMAL INSPECTION - Neurological Exam Neurological Exam: Alert, Awake, Oriented x3 Neuro motor strength exam: Left Upper Extremity: 5, Right Upper Extremity: 2/1, Left Lower Extremity: 5, Right Lower Extremity: 2/1 - Psychiatric Exam Psychiatric exam: Normal Affect, Normal Mood - Skin Skin Exam: Normal Color Assessment and Plan (1) Ischemic stroke Assessment & Plan: 02/24: * ROMIs negative x 3, * EKG- NSR w possible atrial enlargement. * Echo- EF is 65-70%. Mild aortic regurgitation; LV systolic function is normal ; hypokinesis in septal wall. Refer to complete report. As per Dr. Mccormick, BP SBP btwn 130-140 mmHg, ASA 81 mg PO daily and Plavix 75 mg PO daily, Crestor 40 mg PO HS since patient passed swallow eval HgbA1C 11.2, FLP elevated, TSH 1.7 02/26:Head, Neck MRA-Complete occlusion of left internal carotid and mild occlusive disease of right internal carotid. Per Surgery ( Dr. Choi) no surgical intervention at this time. Radiologist Dr. Khan called to confirm occlusive findings. 03/05:Head CT- redemonstrates large MCA territory infarct with mild surrounding mass effect . No evidence of hemorrhage or new infarcts. Continue to encourage movement with help from Physical Therapy. Patient has low PO food intake. Seen by banquet manager on 03/08 and recommended Boost glucose control supplementation. Continue boost and await new recommendations. Status: Acute (2) UTI (urinary tract infection) Assessment & Plan: No fevers or white count noted No apparent change in mentation Positive UA on 02/28, negative UA on 03/09 UC: sensitive to ceftriaxone. Ceftriaxone started on 02/28 and stopped on 03/10. Retaining urine no 03/11 in AM- bladder scan 680ml so patient straight catheterized. Repeat bladder scan 150. Pt continued retaining urine and bennett placed. Voiding trial to be done in morning. If fails voiding trial start Flomax. Status: Resolved (3) Acute kidney injury Assessment & Plan: Creatinine trending down; 1.4 on 03/12, 1.5 on 03/11 Continue 1/2 NS 100cc/hr Status: Acute (5) Hypertension Assessment & Plan: Labetalol 100 mg PO TID; Lisinopril 20mg PO Daily; Hydralazine 50 mg QID, Hydralazine 10 mg IV Q6 PRN if SBP above 180 Monitor BP Status: Acute (6) Diabetes Assessment & Plan: Accucheck. ISS ACHS. HgbA1C 11.2, Novolog Mix 70/30 15 units BIDAC daily. Metformin 500 mg PO BIDCC, Cont to monitor. Status: Acute (7) Prophylactic measure Assessment & Plan: Pepcid 20 mg PO BID. ASA 81mg. Heparin SC Q12. SCDs. Continue with PT/OT daily to maximize strength. Patient is moderate assist. Mouth care. Status: Acute <Jad Miranda - Last Filed: 03/13/17 16:45> Objective - Vital Signs/Intake and Output Vital Signs (last 24 hours): Temp Pulse Resp BP Pulse Ox 97.9 F 64 20 118/66 99 03/13/17 15:40 03/13/17 15:40 03/13/17 15:40 03/13/17 15:40 03/13/17 15:40 Intake and Output: 03/13/17 03/13/17 06:59 18:59 Intake Total 1840 Output Total 1100 Balance 740 - Medications Medications: Current Medications Aspirin (Ecotrin) 81 mg PO DAILY [facility] Last Admin: 03/13/17 09:37 Dose: 81 mg Clopidogrel Bisulfate (Plavix) 75 mg PO DAILY [facility] Last Admin: 03/13/17 09:37 Dose: 75 mg Famotidine (Pepcid) 20 mg PO DAILY [facility] Last Admin: 03/13/17 09:38 Dose: 20 mg Heparin Sodium (Porcine) (Heparin) 5,000 units SC Q12 [facility] Last Admin: 03/13/17 09:41 Dose: 5,000 units Hydralazine HCl (Apresoline) 10 mg IVP Q6H PRN PRN Reason: For SBP >180 Last Admin: 02/26/17 23:58 Dose: 10 mg Hydralazine HCl (Apresoline) 50 mg PO QID [facility] Last Admin: 03/13/17 13:27 Dose: 50 mg Sodium Chloride (Sodium Chloride 0.45%) 1,000 mls @ 100 mls/hr IV .Q10H [facility] Last Admin: 03/13/17 01:09 Dose: 100 mls/hr Insulin Aspart (Novolog Mix 70/30 (70/30 Units/Ml)) 15 units SC BIDAC [facility] Last Admin: 03/13/17 09:38 Dose: 15 units Insulin Aspart (Novolog) 0 unit SC ACHS [facility] PRN Reason: Protocol Last Admin: 03/13/17 13:27 Dose: 3 unit Labetalol HCl (Trandate) 200 mg PO BID [place] Lisinopril (Zestril) 20 mg PO DAILY [facility] Last Admin: 03/13/17 09:37 Dose: 20 mg Metformin HCl (Glucophage) 500 mg PO BIDCC [facility] Last Admin: 03/13/17 09:37 Dose: 500 mg Rosuvastatin Calcium (Crestor) 40 mg PO HS [facility] Last Admin: 03/12/17 22:03 Dose: 40 mg - Labs Labs: 03/13/17 07:05 03/13/17 07:05 PT 12.0 SECONDS (9.7-12.2) 02/24/17 11:48 INR 1.1 02/24/17 11:48 APTT 24 SECONDS (21-34) 02/24/17 11:48 Attending/Attestation - Attestation I have personally seen and examined this patient.: Yes I have fully participated in the care of the patient.: Yes I have reviewed all pertinent clinical information, including history, physical exam and plan: Yes Notes (Text): 03/13/17 16:44 Patient was seen and examined at bedside with the resident Continue current medical management Bennett's in place Will do voiding trial in the morning I discussed with the resident and agree with above assessment/plan by the resident.
[2017-03-13] MEDS: Sodium Chloride 0.45% 1,000 ML IV SCH (01:09)
[2017-03-13 07:16] LABS: BASO # 0.1 K/uL (0.0-0.2); BASO % 0.8 % (0.0-2.0); EOS # 0.4 K/uL (0.0-0.7); EOS % 5.2 % (0.0-4.0); HEMOGLOBIN 10.1 g/dL (11.0-16.0); LYMPH # 2.6 K/uL (1.0-4.3); LYMPH % 32.6 % (20.0-40.0); MEAN CELL VOLUME 84.7 fL (81.0-99.0); MEAN CORPUSCULAR HEMOGLOBIN 27.4 pg (27.0-31.0); MEAN CORPUSCULAR HGB CONC 32.4 g/dL (33.0-37.0); MEAN PLATELET VOLUME 8.6 fL (7.2-11.7); MONO # 0.5 K/uL (0.0-0.8); MONO % 6.3 % (0.0-10.0); NEUT # 4.4 K/uL (1.8-7.0); NEUT % 55.1 % (50.0-75.0); RBC 3.7 Mil/uL (3.80-5.20); RED CELL DISTRIBUTION WIDTH 14.1 % (11.5-14.5)
[2017-03-13 07:37] LABS: ALBUMIN 2.7 g/dL (3.5-5.0)
[2017-03-13 07:40] LABS: ALB/GLOB RATIO 0.8 (1.0-2.1)
[2017-03-13 07:41] LABS: CALCIUM 8.7 mg/dl (8.6-10.4); MAGNESIUM 2.1 mg/dL (1.6-2.3)
[2017-03-13] MEDS: (Novolog) Insulin Aspart, Recombinant 100 u/ml 10 ml vial SC SCH ×4 (08:08→22:00)
[2017-03-13] MEDS: (Novolog Mix 70/30) Insulin Aspart/Insulin Aspar 100 units/ml SC SCH ×2 (09:38→18:07)
--- NOTE | 2017-03-13 14:00 | CP.PCM.PN ---
<Sherlyn Zaidi - Last Filed: 03/13/17 19:05> Subjective - Date & Time of Evaluation Date of Evaluation: 03/13/17 Time of Evaluation: 08:00 - Subjective Subjective: PGY 1 Medicine Note- Dr. Miranda's service Patient seen and examined and is in no acute distress. She responds with "okay" and "no" to questions and is able to follow commands. Patient worked with physical therapy to go from bed to chair. Needed max assist to move to chair and back to bed. Objective - Vital Signs/Intake and Output Vital Signs (last 24 hours): Temp Pulse Resp BP Pulse Ox 97.9 F 68 20 143/73 97 03/13/17 08:59 03/13/17 08:59 03/13/17 08:59 03/13/17 08:59 03/13/17 08:59 Intake and Output: 03/13/17 03/13/17 06:59 18:59 Intake Total 1840 Output Total 1100 Balance 740 - Medications Medications: Current Medications Aspirin (Ecotrin) 81 mg PO DAILY [facility] Last Admin: 03/13/17 09:37 Dose: 81 mg Clopidogrel Bisulfate (Plavix) 75 mg PO DAILY [facility] Last Admin: 03/13/17 09:37 Dose: 75 mg Famotidine (Pepcid) 20 mg PO DAILY [facility] Last Admin: 03/13/17 09:38 Dose: 20 mg Heparin Sodium (Porcine) (Heparin) 5,000 units SC Q12 [facility] Last Admin: 03/13/17 09:41 Dose: 5,000 units Hydralazine HCl (Apresoline) 10 mg IVP Q6H PRN PRN Reason: For SBP >180 Last Admin: 02/26/17 23:58 Dose: 10 mg Hydralazine HCl (Apresoline) 50 mg PO QID [facility] Last Admin: 03/13/17 13:27 Dose: 50 mg Sodium Chloride (Sodium Chloride 0.45%) 1,000 mls @ 100 mls/hr IV .Q10H [facility] Last Admin: 03/13/17 01:09 Dose: 100 mls/hr Insulin Aspart (Novolog Mix 70/30 (70/30 Units/Ml)) 15 units SC BIDAC [facility] Last Admin: 03/13/17 09:38 Dose: 15 units Insulin Aspart (Novolog) 0 unit SC ACHS [facility] PRN Reason: Protocol Last Admin: 03/13/17 13:27 Dose: 3 unit Labetalol HCl (Trandate) 200 mg PO BID [place] Lisinopril (Zestril) 20 mg PO DAILY [facility] Last Admin: 03/13/17 09:37 Dose: 20 mg Metformin HCl (Glucophage) 500 mg PO BIDCC [facility] Last Admin: 03/13/17 09:37 Dose: 500 mg Rosuvastatin Calcium (Crestor) 40 mg PO HS [facility] Last Admin: 03/12/17 22:03 Dose: 40 mg - Labs Labs: 03/13/17 07:05 03/13/17 07:05 PT 12.0 SECONDS (9.7-12.2) 02/24/17 11:48 INR 1.1 02/24/17 11:48 APTT 24 SECONDS (21-34) 02/24/17 11:48 - Constitutional Appears: Well, Non-toxic, No Acute Distress - Head Exam Head Exam: ATRAUMATIC, NORMAL INSPECTION, NORMOCEPHALIC - Eye Exam Eye Exam: EOMI, Normal appearance, PERRL - ENT Exam ENT Exam: Mucous Membranes Moist, Normal Exam - Neck Exam Neck Exam: Normal Inspection. absent: Lymphadenopathy, Tenderness - Respiratory Exam Respiratory Exam: Clear to Ausculation Bilateral, NORMAL BREATHING PATTERN. absent: Rales, Rhonchi, Wheezes, Stridor - Cardiovascular Exam Cardiovascular Exam: REGULAR RHYTHM, RRR, +S1, +S2. absent: Gallop, JVD, Rubs, Murmur - GI/Abdominal Exam GI & Abdominal Exam: Soft, Normal Bowel Sounds. absent: Firm, Guarding, Tenderness - Extremities Exam Extremities Exam: Normal Inspection. absent: Full ROM (R neuro deficits) - Back Exam Back Exam: NORMAL INSPECTION - Neurological Exam Neuro motor strength exam: Left Upper Extremity: 4, Right Upper Extremity: 2/1, Left Lower Extremity: 4, Right Lower Extremity: 2/1 - Psychiatric Exam Psychiatric exam: Normal Affect, Normal Mood - Skin Skin Exam: Normal Color Assessment and Plan (1) Ischemic stroke Assessment & Plan: 02/24: * ROMIs negative x 3, * EKG- NSR w possible atrial enlargement. * Echo- EF is 65-70%. Mild aortic regurgitation; LV systolic function is normal ; hypokinesis in septal wall. Refer to complete report. As per Dr. Mccormick, BP SBP btwn 130-140 mmHg, ASA 81 mg PO daily and Plavix 75 mg PO daily, Crestor 40 mg PO HS since patient passed swallow eval HgbA1C 11.2, FLP elevated, TSH 1.7 02/26:Head, Neck MRA-Complete occlusion of left internal carotid and mild occlusive disease of right internal carotid. Per Surgery ( Dr. Choi) no surgical intervention at this time. Radiologist Dr. Khan called to confirm occlusive findings. 03/05:Head CT- redemonstrates large MCA territory infarct with mild surrounding mass effect . No evidence of hemorrhage or new infarcts. Continue to encourage movement with help from Physical Therapy. 03/13: Patient moved from bed to chair with max assist and put back to bed after an hour with max assist. Modified [place] scale: 5, severe disability; bedridden, incontinent/ requiring constant nursing care. Patient has low PO food intake. Seen by quality process engineer on 03/08 and recommended Boost glucose control supplementation. Continue boost and await new recommendations. Status: Acute (2) UTI (urinary tract infection) Assessment & Plan: No fevers or white count noted No apparent change in mentation Positive UA on 02/28, negative UA on 03/09 UC: sensitive to ceftriaxone. Ceftriaxone started on 02/28 and stopped on 03/10. Retaining urine no 03/11 in AM- bladder scan 680ml so patient straight catheterized. Repeat bladder scan 150. Pt continued retaining urine and bennett placed. Voiding trial done today. Bennett removed. Bladder scan done, showed 250ml retained urine. Nursing communication to contact house doctor if next bladder scan greater than 300ml. Continue to follow bladder scans and straight catheterize if needed. Status: Resolved (3) Acute kidney injury Assessment & Plan: Creatinine trending down; 1.3 on 03/13, 1.4 on 03/12, 1.5 on 03/11 Continue 1/2 NS 100cc/hr Status: Acute (4) Elevated transaminase level Assessment & Plan: AST trending down 03/13: 54...(from 67,110) ALT trending down 03/13:61...(from 79, 103) Status: Acute (5) Hypertension Assessment & Plan: Continue Labetalol 200 mg PO BID (switched from 100 mg PO TID) which is better controlling blood pressure Lisinopril 20mg PO Daily; Hydralazine 50 mg QID, Hydralazine 10 mg IV Q6 PRN if SBP above 180 Monitor BP Status: Acute (6) Diabetes Assessment & Plan: Accucheck. ISS ACHS. HgbA1C 11.2, Novolog Mix 70/30 15 units BIDAC daily. Metformin 500 mg PO BIDCC, Cont to monitor. Status: Acute (7) Prophylactic measure Assessment & Plan: Pepcid 20 mg PO BID. ASA 81mg. Heparin SC Q12. SCDs. Continue with PT/OT daily to maximize strength. Patient is maximum assist. Mouth care. Status: Acute <RubenHildan M - Last Filed: 03/14/17 07:55> Objective - Vital Signs/Intake and Output Vital Signs (last 24 hours): Temp Pulse Resp BP Pulse Ox 98.2 F 68 20 146/66 97 03/14/17 04:00 03/14/17 04:00 03/14/17 04:00 03/14/17 04:00 03/13/17 23:35 Intake and Output: 03/14/17 03/14/17 06:59 18:59 Intake Total 950 Balance 950 - Medications Medications: Current Medications Aspirin (Ecotrin) 81 mg PO DAILY [facility] Last Admin: 03/13/17 09:37 Dose: 81 mg Clopidogrel Bisulfate (Plavix) 75 mg PO DAILY [facility] Last Admin: 03/13/17 09:37 Dose: 75 mg Famotidine (Pepcid) 20 mg PO DAILY [facility] Last Admin: 03/13/17 09:38 Dose: 20 mg Heparin Sodium (Porcine) (Heparin) 5,000 units SC Q12 [facility] Last Admin: 03/13/17 22:00 Dose: 5,000 units Hydralazine HCl (Apresoline) 10 mg IVP Q6H PRN PRN Reason: For SBP >180 Last Admin: 02/26/17 23:58 Dose: 10 mg Hydralazine HCl (Apresoline) 50 mg PO QID [facility] Last Admin: 03/13/17 22:00 Dose: Not Given Sodium Chloride (Sodium Chloride 0.45%) 1,000 mls @ 100 mls/hr IV .Q10H [facility] Last Admin: 03/13/17 01:09 Dose: 100 mls/hr Insulin Aspart (Novolog Mix 70/30 (70/30 Units/Ml)) 15 units SC BIDAC [facility] Last Admin: 03/13/17 18:07 Dose: 15 units Insulin Aspart (Novolog) 0 unit SC ACHS [facility] PRN Reason: Protocol Last Admin: 03/13/17 22:00 Dose: Not Given Labetalol HCl (Trandate) 200 mg PO BID [facility] Last Admin: 03/13/17 18:07 Dose: 200 mg Lisinopril (Zestril) 20 mg PO DAILY [facility] Last Admin: 03/13/17 09:37 Dose: 20 mg Metformin HCl (Glucophage) 500 mg PO BIDCC [facility] Last Admin: 03/13/17 18:07 Dose: 500 mg Rosuvastatin Calcium (Crestor) 40 mg PO HS [facility] Last Admin: 03/13/17 23:13 Dose: 40 mg - Labs Labs: 03/13/17 07:05 03/13/17 07:05 PT 12.0 SECONDS (9.7-12.2) 02/24/17 11:48 INR 1.1 02/24/17 11:48 APTT 24 SECONDS (21-34) 02/24/17 11:48 Attending/Attestation - Attestation I have personally seen and examined this patient.: Yes I have fully participated in the care of the patient.: Yes I have reviewed all pertinent clinical information, including history, physical exam and plan: Yes Notes (Text): 03/14/17 07:55 Patient was seen and examined at bedside with the resident Continue current medical management Continue physical therapy daily Voiding trial in progress I discussed the plan of care with the resident and agree with the above history and physical and assessment/plan.
[2017-03-13] MEDS ORDERED: Dextrose 50% SYRINGE Inj (50 ml) ONE (21:14)
[2017-03-13] MEDS ORDERED: Dextrose 50% SYRINGE Inj (50 ml) IV STA (21:15)
[2017-03-14 07:54] LABS: BASO # 0.1 K/uL (0.0-0.2); BASO % 0.8 % (0.0-2.0); EOS # 0.4 K/uL (0.0-0.7); EOS % 4.5 % (0.0-4.0); HEMOGLOBIN 10.4 g/dL (11.0-16.0); LYMPH # 2.9 K/uL (1.0-4.3); LYMPH % 34.7 % (20.0-40.0); MEAN CELL VOLUME 84.2 fL (81.0-99.0); MEAN CORPUSCULAR HEMOGLOBIN 27.6 pg (27.0-31.0); MEAN CORPUSCULAR HGB CONC 32.7 g/dL (33.0-37.0); MEAN PLATELET VOLUME 8.6 fL (7.2-11.7); MONO # 0.6 K/uL (0.0-0.8); MONO % 6.6 % (0.0-10.0); NEUT # 4.6 K/uL (1.8-7.0); NEUT % 53.4 % (50.0-75.0); RBC 3.77 Mil/uL (3.80-5.20); WHITE BLOOD COUNT 8.5 K/uL (4.8-10.8)
[2017-03-14 08:00] LABS: ALBUMIN 2.9 g/dL (3.5-5.0)
[2017-03-14] MEDS: (Novolog) Insulin Aspart, Recombinant 100 u/ml 10 ml vial SC SCH ×4 (08:00→22:05)
[2017-03-14 08:03] LABS: ALB/GLOB RATIO 0.9 (1.0-2.1)
[2017-03-14 08:04] LABS: CALCIUM 9.1 mg/dl (8.6-10.4); MAGNESIUM 2.1 mg/dL (1.6-2.3)
[2017-03-14] MEDS: (Novolog Mix 70/30) Insulin Aspart/Insulin Aspar 100 units/ml SC SCH ×2 (08:10→18:05)
--- NOTE | 2017-03-14 09:24 | CP.PCM.PN ---
<Sherlyn Zaidi - Last Filed: 03/14/17 19:33> Subjective - Date & Time of Evaluation Date of Evaluation: 03/14/17 Time of Evaluation: 08:00 - Subjective Subjective: PGY 1 Medicine Note- Dr. Miranda's service Patient seen and examined and is in no acute distress. She responds with "okay" and "no" to questions and is able to follow commands. Bennett placed today due to continued urine retention. Objective - Vital Signs/Intake and Output Vital Signs (last 24 hours): Temp Pulse Resp BP Pulse Ox 98.0 F 79 20 159/68 H 97 03/14/17 08:33 03/14/17 08:33 03/14/17 08:33 03/14/17 08:33 03/14/17 08:33 Intake and Output: 03/14/17 03/14/17 06:59 18:59 Intake Total 950 Output Total 400 Balance 550 - Medications Medications: Current Medications Aspirin (Ecotrin) 81 mg PO DAILY [facility] Last Admin: 03/13/17 09:37 Dose: 81 mg Clopidogrel Bisulfate (Plavix) 75 mg PO DAILY [facility] Last Admin: 03/13/17 09:37 Dose: 75 mg Famotidine (Pepcid) 20 mg PO DAILY [facility] Last Admin: 03/13/17 09:38 Dose: 20 mg Heparin Sodium (Porcine) (Heparin) 5,000 units SC Q12 [facility] Last Admin: 03/13/17 22:00 Dose: 5,000 units Hydralazine HCl (Apresoline) 10 mg IVP Q6H PRN PRN Reason: For SBP >180 Last Admin: 02/26/17 23:58 Dose: 10 mg Hydralazine HCl (Apresoline) 50 mg PO QID [facility] Last Admin: 03/13/17 22:00 Dose: Not Given Sodium Chloride (Sodium Chloride 0.45%) 1,000 mls @ 100 mls/hr IV .Q10H [facility] Last Admin: 03/13/17 01:09 Dose: 100 mls/hr Insulin Aspart (Novolog Mix 70/30 (70/30 Units/Ml)) 15 units SC BIDAC [facility] Last Admin: 03/13/17 18:07 Dose: 15 units Insulin Aspart (Novolog) 0 unit SC ACHS [facility] PRN Reason: Protocol Last Admin: 03/14/17 08:00 Dose: Not Given Labetalol HCl (Trandate) 200 mg PO BID [facility] Last Admin: 03/13/17 18:07 Dose: 200 mg Lisinopril (Zestril) 20 mg PO DAILY [facility] Last Admin: 03/13/17 09:37 Dose: 20 mg Metformin HCl (Glucophage) 500 mg PO BIDCC [facility] Last Admin: 03/13/17 18:07 Dose: 500 mg Rosuvastatin Calcium (Crestor) 40 mg PO HS [facility] Last Admin: 03/13/17 23:13 Dose: 40 mg Tamsulosin HCl (Flomax) 0.4 mg PO DAILY [facility] - Labs Labs: 03/14/17 07:40 03/14/17 07:40 PT 12.0 SECONDS (9.7-12.2) 02/24/17 11:48 INR 1.1 02/24/17 11:48 APTT 24 SECONDS (21-34) 02/24/17 11:48 - Constitutional Appears: Well, Non-toxic, No Acute Distress - Head Exam Head Exam: ATRAUMATIC, NORMAL INSPECTION, NORMOCEPHALIC - Eye Exam Eye Exam: EOMI, Normal appearance, PERRL - ENT Exam ENT Exam: Mucous Membranes Moist, Normal Exam - Neck Exam Neck Exam: Normal Inspection. absent: Lymphadenopathy, Tenderness - Respiratory Exam Respiratory Exam: Clear to Ausculation Bilateral, NORMAL BREATHING PATTERN. absent: Rales, Rhonchi, Wheezes, Stridor - Cardiovascular Exam Cardiovascular Exam: REGULAR RHYTHM, RRR, +S1, +S2. absent: Gallop, Rubs, Murmur - GI/Abdominal Exam GI & Abdominal Exam: Soft, Normal Bowel Sounds. absent: Distended, Firm, Guarding, Tenderness - Extremities Exam Extremities Exam: absent: Joint Swelling, Pedal Edema Additional comments: R neuro deficits. No ROM on right - Back Exam Back Exam: NORMAL INSPECTION - Neurological Exam Neurological Exam: Alert, Awake, Oriented x3 Neuro motor strength exam: Left Upper Extremity: 4, Right Upper Extremity: 2/1, Left Lower Extremity: 4, Right Lower Extremity: 2/1 - Psychiatric Exam Psychiatric exam: Normal Affect, Normal Mood - Skin Skin Exam: Normal Color, Warm Assessment and Plan (1) Ischemic stroke Assessment & Plan: 02/24: * ROMIs negative x 3, * EKG- NSR w possible atrial enlargement. * Echo- EF is 65-70%. Mild aortic regurgitation; LV systolic function is normal ; hypokinesis in septal wall. Refer to complete report. As per Dr. Mccormick, BP SBP btwn 130-140 mmHg, ASA 81 mg PO daily and Plavix 75 mg PO daily, Crestor 40 mg PO HS since patient passed swallow eval HgbA1C 11.2, FLP elevated, TSH 1.7 02/26:Head, Neck MRA-Complete occlusion of left internal carotid and mild occlusive disease of right internal carotid. Per Surgery ( Dr. Choi) no surgical intervention at this time. Radiologist Dr. Khan called to confirm occlusive findings. 03/05:Head CT- redemonstrates large MCA territory infarct with mild surrounding mass effect . No evidence of hemorrhage or new infarcts. Continue to encourage movement with help from Physical Therapy. 03/13: Patient moved from bed to chair with max assist and put back to bed after an hour with max assist. Modified [place] scale: 5, severe disability; bedridden, incontinent/ requiring constant nursing care. Patient has low PO food intake. Seen by solar hot water installer on 03/08 and recommended Boost glucose control supplementation. Continue boost and await new recommendations. Status: Acute (2) UTI (urinary tract infection) Assessment & Plan: No fevers or white count noted No apparent change in mentation Positive UA on 02/28, negative UA on 03/09 UC: sensitive to ceftriaxone. Ceftriaxone started on 02/28 and stopped on 03/10. Retaining urine no 03/11 in AM- bladder scan 680ml so patient straight catheterized. Repeat bladder scan 150. Pt continued retaining urine and bennett placed. Voiding trial done today. Bennett removed. Retaining urine and two straigh caths performed. Bennett inserted 03/14. Flomax .4mg once daily started. Fluids decreased to 60 mL/hr. Status: Resolved (3) Acute kidney injury Assessment & Plan: Creatinine stable at 1.3 Continue 09/24 NS 60 cc/hr (decreased due to urine retention) Status: Acute (4) Elevated transaminase level Assessment & Plan: AST and ALT stable at 59. Status: Acute (5) Hypertension Assessment & Plan: Continue Labetalol 200 mg PO BID (switched from 100 mg PO TID) which is better controlling blood pressure Lisinopril 20mg PO Daily; Hydralazine 50 mg QID, Hydralazine 10 mg IV Q6 PRN if SBP above 180 Monitor BP Status: Acute (6) Diabetes Assessment & Plan: Accucheck. ISS ACHS. HgbA1C 11.2, Novolog Mix 70/30 15 units BIDAC daily. Metformin 500 mg PO BIDCC, Cont to monitor. Status: Acute (7) Prophylactic measure Assessment & Plan: Pepcid 20 mg PO BID. ASA 81mg. Heparin SC Q12. SCDs. Continue with PT/OT daily to maximize strength. Patient is maximum assist. Mouth care. Status: Acute <Jad Miranda M - Last Filed: 03/15/17 09:11> Objective - Vital Signs/Intake and Output Vital Signs (last 24 hours): Temp Pulse Resp BP Pulse Ox 98.3 F 66 20 127/72 96 03/15/17 08:34 03/15/17 08:34 03/15/17 08:34 03/15/17 08:34 03/15/17 08:34 Intake and Output: 03/15/17 03/15/17 06:59 18:59 Intake Total 1280 Output Total 950 Balance 330 - Medications Medications: Current Medications Aspirin (Ecotrin) 81 mg PO DAILY [facility] Last Admin: 03/14/17 10:58 Dose: 81 mg Clopidogrel Bisulfate (Plavix) 75 mg PO DAILY [facility] Last Admin: 03/14/17 10:58 Dose: 75 mg Famotidine (Pepcid) 20 mg PO DAILY [facility] Last Admin: 03/14/17 10:58 Dose: 20 mg Hydralazine HCl (Apresoline) 10 mg IVP Q6H PRN PRN Reason: For SBP >180 Last Admin: 02/26/17 23:58 Dose: 10 mg Hydralazine HCl (Apresoline) 50 mg PO QID [facility] Last Admin: 03/14/17 22:04 Dose: 50 mg Sodium Chloride (Sodium Chloride 0.45%) 1,000 mls @ 60 mls/hr IV .[id number] [facility] Last Admin: 03/14/17 20:50 Dose: 60 mls/hr Insulin Aspart (Novolog Mix 70/30 (70/30 Units/Ml)) 15 units SC BIDAC [facility] Last Admin: 03/14/17 18:05 Dose: 15 units Insulin Aspart (Novolog) 0 unit SC ACHS [facility] PRN Reason: Protocol Last Admin: 03/15/17 08:11 Dose: Not Given Labetalol HCl (Trandate) 200 mg PO BID [facility] Last Admin: 03/14/17 18:06 Dose: 200 mg Lisinopril (Zestril) 20 mg PO DAILY [facility] Last Admin: 03/14/17 10:58 Dose: 20 mg Metformin HCl (Glucophage) 500 mg PO BIDCC [facility] Last Admin: 03/14/17 18:05 Dose: 500 mg Rosuvastatin Calcium (Crestor) 40 mg PO HS [facility] Last Admin: 03/14/17 22:04 Dose: 40 mg Tamsulosin HCl (Flomax) 0.4 mg PO DAILY [facility] Last Admin: 03/14/17 10:59 Dose: 0.4 mg - Labs Labs: 03/15/17 06:08 03/15/17 06:08 PT 12.0 SECONDS (9.7-12.2) 02/24/17 11:48 INR 1.1 02/24/17 11:48 APTT 24 SECONDS (21-34) 02/24/17 11:48 Attending/Attestation - Attestation I have personally seen and examined this patient.: Yes I have fully participated in the care of the patient.: Yes I have reviewed all pertinent clinical information, including history, physical exam and plan: Yes Notes (Text): 03/15/17 09:10 Patient was seen and examined at bedside with the resident Bennett's catheter has been placed again because of kidney retention Patient started on Flomax. We will request urology evaluation. I discussed the plan of care with the resident and agree with the history and physical and assessment/plan by the resident.
[2017-03-14] MEDS: Sodium Chloride 0.45% 1,000 ML IV SCH ×2 (12:49→20:50)
[2017-03-15 06:16] LABS: BASO # 0.1 K/uL (0.0-0.2); BASO % 0.9 % (0.0-2.0); EOS # 0.3 K/uL (0.0-0.7); EOS % 4.2 % (0.0-4.0); LYMPH # 2.8 K/uL (1.0-4.3); LYMPH % 34.7 % (20.0-40.0); MEAN CELL VOLUME 84.3 fL (81.0-99.0); MEAN CORPUSCULAR HEMOGLOBIN 27.7 pg (27.0-31.0); MEAN CORPUSCULAR HGB CONC 32.8 g/dL (33.0-37.0); MEAN PLATELET VOLUME 8.1 fL (7.2-11.7); MONO # 0.5 K/uL (0.0-0.8); MONO % 6.6 % (0.0-10.0); NEUT # 4.3 K/uL (1.8-7.0); NEUT % 53.6 % (50.0-75.0); RBC 3.63 Mil/uL (3.80-5.20); RED CELL DISTRIBUTION WIDTH 14.6 % (11.5-14.5)
--- NOTE | 2017-03-15 06:22 | CP.PCM.PN ---
<Sherlyn Zaidi - Last Filed: 03/15/17 20:13> Subjective - Date & Time of Evaluation Date of Evaluation: 03/15/17 Time of Evaluation: 07:00 - Subjective Subjective: PGY1 Medicine Note- Dr. Miranda's service Patient seen and examined bedside this morning and is in no acute distress. Patient still answering "okay" and "no" to questions. Patient had a good appetite. Objective - Vital Signs/Intake and Output Vital Signs (last 24 hours): Temp Pulse Resp BP Pulse Ox 98.9 F 81 20 144/73 97 03/15/17 04:00 03/15/17 04:00 03/15/17 04:00 03/15/17 04:00 03/15/17 04:00 Intake and Output: 03/14/17 03/15/17 18:59 06:59 Intake Total 700 Output Total 950 Balance -250 - Medications Medications: Current Medications Aspirin (Ecotrin) 81 mg PO DAILY [facility] Last Admin: 03/14/17 10:58 Dose: 81 mg Clopidogrel Bisulfate (Plavix) 75 mg PO DAILY [facility] Last Admin: 03/14/17 10:58 Dose: 75 mg Famotidine (Pepcid) 20 mg PO DAILY [facility] Last Admin: 03/14/17 10:58 Dose: 20 mg Hydralazine HCl (Apresoline) 10 mg IVP Q6H PRN PRN Reason: For SBP >180 Last Admin: 02/26/17 23:58 Dose: 10 mg Hydralazine HCl (Apresoline) 50 mg PO QID [facility] Last Admin: 03/14/17 22:04 Dose: 50 mg Sodium Chloride (Sodium Chloride 0.45%) 1,000 mls @ 60 mls/hr IV .[id number] [facility] Last Admin: 03/14/17 20:50 Dose: 60 mls/hr Insulin Aspart (Novolog Mix 70/30 (70/30 Units/Ml)) 15 units SC BIDAC [facility] Last Admin: 03/14/17 18:05 Dose: 15 units Insulin Aspart (Novolog) 0 unit SC ACHS [facility] PRN Reason: Protocol Last Admin: 03/14/17 22:05 Dose: Not Given Labetalol HCl (Trandate) 200 mg PO BID [facility] Last Admin: 03/14/17 18:06 Dose: 200 mg Lisinopril (Zestril) 20 mg PO DAILY [facility] Last Admin: 03/14/17 10:58 Dose: 20 mg Metformin HCl (Glucophage) 500 mg PO BIDCC [facility] Last Admin: 03/14/17 18:05 Dose: 500 mg Rosuvastatin Calcium (Crestor) 40 mg PO HS [facility] Last Admin: 03/14/17 22:04 Dose: 40 mg Tamsulosin HCl (Flomax) 0.4 mg PO DAILY [facility] Last Admin: 03/14/17 10:59 Dose: 0.4 mg - Labs Labs: 03/15/17 06:08 03/14/17 07:40 PT 12.0 SECONDS (9.7-12.2) 02/24/17 11:48 INR 1.1 02/24/17 11:48 APTT 24 SECONDS (21-34) 02/24/17 11:48 - Constitutional Appears: Well, Non-toxic, No Acute Distress - Head Exam Head Exam: ATRAUMATIC, NORMAL INSPECTION, NORMOCEPHALIC - Eye Exam Eye Exam: EOMI, Normal appearance, PERRL - ENT Exam ENT Exam: Mucous Membranes Moist, Normal Exam - Respiratory Exam Respiratory Exam: Clear to Ausculation Bilateral, NORMAL BREATHING PATTERN. absent: Rales, Rhonchi, Wheezes, Respiratory Distress, Stridor - Cardiovascular Exam Cardiovascular Exam: REGULAR RHYTHM, RRR, +S1, +S2. absent: Gallop, Rubs, Murmur - GI/Abdominal Exam GI & Abdominal Exam: Soft, Normal Bowel Sounds. absent: Firm, Guarding, Rigid, Tenderness - Back Exam Back Exam: NORMAL INSPECTION. absent: CVA tenderness (R), rash noted - Neurological Exam Neurological Exam: Alert, Awake, Oriented x3 Neuro motor strength exam: Left Upper Extremity: 4, Right Upper Extremity: 2/1, Left Lower Extremity: 4, Right Lower Extremity: 2/1 - Psychiatric Exam Psychiatric exam: Normal Affect, Normal Mood - Skin Skin Exam: Normal Color, Warm Assessment and Plan (1) Ischemic stroke Assessment & Plan: 02/24: * ROMIs negative x 3, * EKG- NSR w possible atrial enlargement. * Echo- EF is 65-70%. Mild aortic regurgitation; LV systolic function is normal ; hypokinesis in septal wall. Refer to complete report. As per Dr. Mccormick, BP SBP btwn 130-140 mmHg, ASA 81 mg PO daily and Plavix 75 mg PO daily, Crestor 40 mg PO HS since patient passed swallow eval HgbA1C 11.2, FLP elevated, TSH 1.7 02/26:Head, Neck MRA-Complete occlusion of left internal carotid and mild occlusive disease of right internal carotid. Per Surgery ( Dr. Choi) no surgical intervention at this time. Radiologist Dr. Khan called to confirm occlusive findings. 03/05:Head CT- redemonstrates large MCA territory infarct with mild surrounding mass effect . No evidence of hemorrhage or new infarcts. Continue to encourage movement with help from Physical Therapy. 03/13: Patient moved from bed to chair with max assist and put back to bed after an hour with max assist. Modified [place] scale: 5, severe disability; bedridden, incontinent/ requiring constant nursing care. Patient has low PO food intake. Seen by sound technician on 03/08 and recommended Boost glucose control supplementation. Continue boost and await new recommendations. Status: Acute (2) Acute kidney injury Assessment & Plan: Creatinine stable at 1.3 Continue 09/24 NS 60 cc/hr (decreased due to urine retention) Status: Acute (3) Urinary retention Assessment & Plan: Retaining urine no 03/11 in AM- bladder scan 680ml so patient straight catheterized. Repeat bladder scan 150. Pt continued retaining urine and bennett placed. Bennett inserted 03/14. Flomax .4mg once daily started. Fluids decreased to 60 mL/hr. Dr. Valdez evaluated patient today and recommends keeping patient on bennett and encouraging patient to try to urinate more often. Patient started on Cipro 250 mg PO BID Status: Acute (4) Elevated transaminase level Assessment & Plan: AST increased to 67 ALT increased to 66 monitor. Status: Acute (5) Hypertension Assessment & Plan: Continue Labetalol 200 mg PO BID (switched from 100 mg PO TID) which is better controlling blood pressure Lisinopril 20mg PO Daily; Hydralazine 50 mg QID, Hydralazine 10 mg IV Q6 PRN if SBP above 180 Monitor BP Status: Acute (6) Diabetes Assessment & Plan: Accucheck. ISS ACHS. HgbA1C 11.2, Novolog Mix 70/30 15 units BIDAC daily. Metformin 500 mg PO BIDCC, Cont to monitor. Status: Acute (7) UTI (urinary tract infection) Assessment & Plan: No fevers or white count noted No apparent change in mentation Positive UA on 02/28, negative UA on 03/09 UC: sensitive to ceftriaxone. Ceftriaxone started on 02/28 and stopped on 03/10. Status: Resolved (8) Prophylactic measure Assessment & Plan: Pepcid 20 mg PO BID. ASA 81mg. Lovenox 40 sc daily. SCDs. Continue with PT/OT daily to maximize strength. Patient is maximum assist. Mouth care. Status: Acute <RubenJad M - Last Filed: 03/16/17 13:32> Objective - Vital Signs/Intake and Output Vital Signs (last 24 hours): Temp Pulse Resp BP Pulse Ox 98 F 98 H 20 146/76 96 03/16/17 07:00 03/16/17 07:00 03/16/17 07:00 03/16/17 07:00 03/16/17 07:00 Intake and Output: 03/16/17 03/16/17 06:59 18:59 Intake Total 1200 Output Total 2150 Balance -950 - Medications Medications: Current Medications Aspirin (Ecotrin) 81 mg PO DAILY [facility] Last Admin: 03/16/17 10:25 Dose: 81 mg Ciprofloxacin (Cipro) 250 mg PO BID [facility] Last Admin: 03/16/17 10:23 Dose: 250 mg Clopidogrel Bisulfate (Plavix) 75 mg PO DAILY [facility] Last Admin: 03/16/17 10:22 Dose: 75 mg Enoxaparin Sodium (Lovenox) 40 mg SC DAILY [facility] Last Admin: 03/16/17 10:22 Dose: 40 mg Famotidine (Pepcid) 20 mg PO DAILY [facility] Last Admin: 03/16/17 10:25 Dose: 20 mg Hydralazine HCl (Apresoline) 10 mg IVP Q6H PRN PRN Reason: For SBP >180 Last Admin: 02/26/17 23:58 Dose: 10 mg Hydralazine HCl (Apresoline) 50 mg PO QID [facility] Last Admin: 03/16/17 10:22 Dose: 50 mg Sodium Chloride (Sodium Chloride 0.45%) 1,000 mls @ 60 mls/hr IV .[id number] [facility] Last Admin: 03/15/17 20:38 Dose: 60 mls/hr Insulin Aspart (Novolog Mix 70/30 (70/30 Units/Ml)) 15 units SC BIDAC [facility] Last Admin: 03/16/17 09:00 Dose: 15 units Insulin Aspart (Novolog) 0 unit SC ACHS [facility] PRN Reason: Protocol Last Admin: 03/16/17 08:05 Dose: Not Given Labetalol HCl (Trandate) 200 mg PO BID [facility] Last Admin: 03/16/17 10:22 Dose: 200 mg Lisinopril (Zestril) 20 mg PO DAILY [facility] Last Admin: 03/16/17 10:23 Dose: 20 mg Metformin HCl (Glucophage) 500 mg PO BIDCC [facility] Last Admin: 03/16/17 08:30 Dose: 500 mg Rosuvastatin Calcium (Crestor) 40 mg PO HS [facility] Last Admin: 03/15/17 22:27 Dose: 40 mg Tamsulosin HCl (Flomax) 0.4 mg PO DAILY [facility] Last Admin: 03/16/17 10:23 Dose: 0.4 mg - Labs Labs: 03/16/17 08:36 03/16/17 08:36 PT 12.0 SECONDS (9.7-12.2) 02/24/17 11:48 INR 1.1 02/24/17 11:48 APTT 24 SECONDS (21-34) 02/24/17 11:48 Attending/Attestation - Attestation I have personally seen and examined this patient.: Yes I have fully participated in the care of the patient.: Yes I have reviewed all pertinent clinical information, including history, physical exam and plan: Yes Notes (Text): 03/16/17 13:32 Patient was seen and examined at bedside with the resident Patient was also evaluated by urologist Agree with the Bennett's catheter Voiding trial in the next few days Continue current medical management Continue physical therapy Discussed the plan of care with the resident With discharge and physical and assessment/plan.
[2017-03-15 06:35] LABS: ALBUMIN 2.7 g/dL (3.5-5.0)
[2017-03-15 06:38] LABS: ALB/GLOB RATIO 0.9 (1.0-2.1)
[2017-03-15 06:39] LABS: CALCIUM 8.8 mg/dl (8.6-10.4); MAGNESIUM 1.9 mg/dL (1.6-2.3)
[2017-03-15] MEDS: (Novolog) Insulin Aspart, Recombinant 100 u/ml 10 ml vial SC SCH ×5 (07:54→22:28)
[2017-03-15] MEDS: (Novolog Mix 70/30) Insulin Aspart/Insulin Aspar 100 units/ml SC SCH ×3 (07:55→17:24)
[2017-03-15] MEDS: Sodium Chloride 0.45% 1,000 ML IV SCH ×2 (12:30→20:38)
[2017-03-16] MEDS: (Novolog) Insulin Aspart, Recombinant 100 u/ml 10 ml vial SC SCH ×4 (08:05→21:17)
[2017-03-16 08:50] LABS: BASO # 0.1 K/uL (0.0-0.2); BASO % 1.3 % (0.0-2.0); EOS # 0.3 K/uL (0.0-0.7); EOS % 3.8 % (0.0-4.0); HEMOGLOBIN 10.5 g/dL (11.0-16.0); LYMPH # 2.5 K/uL (1.0-4.3); LYMPH % 30.5 % (20.0-40.0); MEAN CELL VOLUME 84.8 fL (81.0-99.0); MEAN CORPUSCULAR HEMOGLOBIN 27.5 pg (27.0-31.0); MEAN CORPUSCULAR HGB CONC 32.4 g/dL (33.0-37.0); MEAN PLATELET VOLUME 8.5 fL (7.2-11.7); MONO # 0.5 K/uL (0.0-0.8); MONO % 5.6 % (0.0-10.0); NEUT # 4.8 K/uL (1.8-7.0); NEUT % 58.8 % (50.0-75.0); RBC 3.82 Mil/uL (3.80-5.20); RED CELL DISTRIBUTION WIDTH 14.4 % (11.5-14.5); WHITE BLOOD COUNT 8.2 K/uL (4.8-10.8)
[2017-03-16 08:58] LABS: ALBUMIN 2.9 g/dL (3.5-5.0)
[2017-03-16 09:00] LABS: GFR AFRICAN-AMERICAN > 60; GFR NON-AFRICAN AMERICAN 52
[2017-03-16] MEDS: (Novolog Mix 70/30) Insulin Aspart/Insulin Aspar 100 units/ml SC SCH ×2 (09:00→18:26)
[2017-03-16 09:01] LABS: ALB/GLOB RATIO 0.9 (1.0-2.1); ALT/SGPT 66 U/L (9-52); AST/SGOT 59 U/L (14-36); BLOOD UREA NITROGEN 21 mg/dL (7-17); CALCIUM 9.2 mg/dl (8.6-10.4)
[2017-03-16 09:02] LABS: MAGNESIUM 1.9 mg/dL (1.6-2.3)
[2017-03-16] MEDS: Enoxaparin 40 mg Syringe SC SCH (10:22)
--- NOTE | 2017-03-16 20:40 | CP.PCM.PN ---
<Augie Ann - Last Filed: 03/16/17 20:37> Subjective - Date & Time of Evaluation Date of Evaluation: 03/16/17 Time of Evaluation: 10:00 - Subjective Subjective: PGY2 on medicine Dr. Miranda service: Pt seen and examined at bedside. No acute events overnight per RN. Pt follows commands but unable to answer questions with sentences, which is no change. Objective - Vital Signs/Intake and Output Vital Signs (last 24 hours): Temp Pulse Resp BP Pulse Ox 97.9 F 70 20 132/75 97 03/16/17 15:00 03/16/17 15:00 03/16/17 15:00 03/16/17 15:00 03/16/17 15:00 - Medications Medications: Current Medications Aspirin (Ecotrin) 81 mg PO DAILY [facility] Last Admin: 03/16/17 10:25 Dose: 81 mg Ciprofloxacin (Cipro) 250 mg PO BID [facility] Last Admin: 03/16/17 18:21 Dose: 250 mg Clopidogrel Bisulfate (Plavix) 75 mg PO DAILY [facility] Last Admin: 03/16/17 10:22 Dose: 75 mg Enoxaparin Sodium (Lovenox) 40 mg SC DAILY [facility] Last Admin: 03/16/17 10:22 Dose: 40 mg Famotidine (Pepcid) 20 mg PO DAILY [facility] Last Admin: 03/16/17 10:25 Dose: 20 mg Hydralazine HCl (Apresoline) 10 mg IVP Q6H PRN PRN Reason: For SBP >180 Last Admin: 02/26/17 23:58 Dose: 10 mg Hydralazine HCl (Apresoline) 50 mg PO QID [facility] Last Admin: 03/16/17 18:25 Dose: 50 mg Sodium Chloride (Sodium Chloride 0.45%) 1,000 mls @ 60 mls/hr IV .[id number] [facility] Last Admin: 03/15/17 20:38 Dose: 60 mls/hr Insulin Aspart (Novolog Mix 70/30 (70/30 Units/Ml)) 15 units SC BIDAC [facility] Last Admin: 03/16/17 18:26 Dose: 15 units Insulin Aspart (Novolog) 0 unit SC ACHS [facility] PRN Reason: Protocol Last Admin: 03/16/17 18:25 Dose: 2 unit Labetalol HCl (Trandate) 200 mg PO BID [facility] Last Admin: 03/16/17 10:22 Dose: 200 mg Lisinopril (Zestril) 20 mg PO DAILY [facility] Last Admin: 03/16/17 10:23 Dose: 20 mg Metformin HCl (Glucophage) 500 mg PO BIDCC [facility] Last Admin: 03/16/17 18:25 Dose: 500 mg Rosuvastatin Calcium (Crestor) 40 mg PO HS [facility] Last Admin: 03/15/17 22:27 Dose: 40 mg Tamsulosin HCl (Flomax) 0.4 mg PO DAILY [facility] Last Admin: 03/16/17 10:23 Dose: 0.4 mg - Labs Labs: 03/16/17 08:36 03/16/17 08:36 PT 12.0 SECONDS (9.7-12.2) 02/24/17 11:48 INR 1.1 02/24/17 11:48 APTT 24 SECONDS (21-34) 02/24/17 11:48 - Constitutional Appears: Non-toxic, No Acute Distress - Head Exam Head Exam: NORMAL INSPECTION, NORMOCEPHALIC - Eye Exam Eye Exam: Normal appearance Pupil Exam: NORMAL ACCOMODATION - Respiratory Exam Respiratory Exam: Clear to Ausculation Bilateral, NORMAL BREATHING PATTERN. absent: Rhonchi, Wheezes - Cardiovascular Exam Cardiovascular Exam: REGULAR RHYTHM, +S1, +S2. absent: Gallop, Rubs - GI/Abdominal Exam GI & Abdominal Exam: Soft, Normal Bowel Sounds. absent: Tenderness - Neurological Exam Neurological Exam: Alert, Awake, Oriented x3 Neuro motor strength exam: Left Upper Extremity: 5, Right Upper Extremity: 3, Left Lower Extremity: 5, Right Lower Extremity: 3 - Psychiatric Exam Psychiatric exam: Normal Mood - Skin Skin Exam: Dry, Intact Assessment and Plan - Assessment and Plan (Free Text) Assessment: (1) Ischemic stroke Assessment & Plan: 02/24: * ROMIs negative x 3, * EKG- NSR w possible atrial enlargement. * Echo- EF is 65-70%. Mild aortic regurgitation; LV systolic function is normal ; hypokinesis in septal wall. Refer to complete report. As per Dr. Mccormick, BP SBP btwn 130-140 mmHg, ASA 81 mg PO daily and Plavix 75 mg PO daily, Crestor 40 mg PO HS since patient passed swallow eval HgbA1C 11.2, FLP elevated, TSH 1.7 02/26:Head, Neck MRA-Complete occlusion of left internal carotid and mild occlusive disease of right internal carotid. Per Surgery ( Dr. Choi) no surgical intervention at this time. Radiologist Dr. Khan called to confirm occlusive findings. 03/05:Head CT- redemonstrates large MCA territory infarct with mild surrounding mass effect . No evidence of hemorrhage or new infarcts. Continue to encourage movement with help from Physical Therapy. 03/13: Patient moved from bed to chair with max assist and put back to bed after an hour with max assist. Modified [place] scale: 5, severe disability; bedridden, incontinent/ requiring constant nursing care. Patient has low PO food intake. Seen by bar manager on 03/08 and recommended Boost glucose control supplementation. Continue boost and await new recommendations. 03/16: Continue physical therapy. Status: Acute (2) Acute kidney injury Assessment & Plan: Creatinine stable at 1.3 Continue 09/24 NS 60 cc/hr (decreased due to urine retention) Status: Acute (3) Urinary retention Assessment & Plan: Retaining urine no 03/11 in AM- bladder scan 680ml so patient straight catheterized. Repeat bladder scan 150. Pt continued retaining urine and bennett placed. Bennett inserted 03/14. Flomax .4mg once daily started. Fluids decreased to 60 mL/hr. Dr. Valdez evaluated patient today and recommends keeping patient on bennett and encouraging patient to try to urinate more often. Patient started on Cipro 250 mg PO BID Status: Acute (4) Elevated transaminase level Assessment & Plan: AST increased to 67 ALT increased to 66 monitor. Status: Acute (5) Hypertension Assessment & Plan: Continue Labetalol 200 mg PO BID (switched from 100 mg PO TID) which is better controlling blood pressure Lisinopril 20mg PO Daily; Hydralazine 50 mg QID, Hydralazine 10 mg IV Q6 PRN if SBP above 180 Monitor BP Status: Acute (6) Diabetes Assessment & Plan: Accucheck. ISS ACHS. HgbA1C 11.2, Novolog Mix 70/30 15 units BIDAC daily. Metformin 500 mg PO BIDCC, Cont to monitor. Status: Acute (7) UTI (urinary tract infection) Assessment & Plan: No fevers or white count noted No apparent change in mentation Positive UA on 02/28, negative UA on 03/09 UC: sensitive to ceftriaxone. Ceftriaxone started on 02/28 and stopped on 03/10. Status: Resolved (8) Prophylactic measure Assessment & Plan: Pepcid 20 mg PO BID. ASA 81mg. Lovenox 40 sc daily. SCDs. Continue with PT/OT daily to maximize strength. Patient is maximum assist. Mouth care. Status: Acute <Jad Miranda - Last Filed: 03/25/17 16:55> Objective - Vital Signs/Intake and Output Vital Signs (last 24 hours): Temp Pulse Resp BP Pulse Ox 98 F 69 18 147/68 98 03/25/17 16:00 03/25/17 16:00 03/25/17 16:00 03/25/17 16:00 03/25/17 16:00 Intake and Output: 03/25/17 03/25/17 06:59 18:59 Intake Total 560 340 Output Total 750 600 Balance -190 -260 - Medications Medications: Current Medications Aspirin (Ecotrin) 81 mg PO DAILY [facility] Last Admin: 03/25/17 09:33 Dose: 81 mg Ciprofloxacin (Cipro) 250 mg PO BID [facility] Last Admin: 03/25/17 09:34 Dose: 250 mg Clopidogrel Bisulfate (Plavix) 75 mg PO DAILY [facility] Last Admin: 03/25/17 09:34 Dose: 75 mg Enoxaparin Sodium (Lovenox) 40 mg SC DAILY [facility] Last Admin: 03/25/17 09:33 Dose: 40 mg Famotidine (Pepcid) 20 mg PO DAILY [facility] Last Admin: 03/25/17 09:33 Dose: 20 mg Hydralazine HCl (Apresoline) 10 mg IVP Q6H PRN PRN Reason: For SBP >180 Last Admin: 02/26/17 23:58 Dose: 10 mg Hydralazine HCl (Apresoline) 50 mg PO QID [facility] Last Admin: 03/25/17 13:54 Dose: 50 mg Insulin Aspart (Novolog Mix 70/30 (70/30 Units/Ml)) 15 units SC BIDAC [facility] Last Admin: 03/25/17 08:35 Dose: 15 units Insulin Aspart (Novolog) 0 unit SC ACHS [facility] PRN Reason: Protocol Last Admin: 03/25/17 08:32 Dose: 2 unit Labetalol HCl (Trandate) 200 mg PO BID [facility] Last Admin: 03/25/17 09:34 Dose: 200 mg Lisinopril (Zestril) 20 mg PO HS [facility] Metformin HCl (Glucophage) 500 mg PO BIDCC [facility] Last Admin: 03/25/17 08:36 Dose: 500 mg Rosuvastatin Calcium (Crestor) 40 mg PO HS [facility] Last Admin: 03/24/17 21:20 Dose: 40 mg Tamsulosin HCl (Flomax) 0.4 mg PO DAILY [facility] Last Admin: 03/25/17 09:34 Dose: 0.4 mg - Labs Labs: 03/24/17 07:47 03/24/17 07:47 PT 12.0 SECONDS (9.7-12.2) 02/24/17 11:48 INR 1.1 02/24/17 11:48 APTT 24 SECONDS (21-34) 02/24/17 11:48 Attending/Attestation - Attestation I have personally seen and examined this patient.: Yes I have fully participated in the care of the patient.: Yes I have reviewed all pertinent clinical information, including history, physical exam and plan: Yes Notes (Text): 03/25/17 16:51 Patient was seen and examined at bedside with the resident Continue physical therapy. Continue medical management for acute CVA Discharge planning when patient is physically stronger Discussed with the resident and agree with the history and physical and assessment/plan but the resident
[2017-03-17] MEDS: Sodium Chloride 0.45% 1,000 ML IV SCH (05:49)
[2017-03-17 07:48] LABS: BASO # 0.1 K/uL (0.0-0.2); BASO % 0.9 % (0.0-2.0); EOS # 0.3 K/uL (0.0-0.7); EOS % 3.4 % (0.0-4.0); HEMOGLOBIN 10.6 g/dL (11.0-16.0); LYMPH # 2.6 K/uL (1.0-4.3); LYMPH % 28.9 % (20.0-40.0); MEAN CELL VOLUME 84.1 fL (81.0-99.0); MEAN CORPUSCULAR HEMOGLOBIN 27.8 pg (27.0-31.0); MEAN CORPUSCULAR HGB CONC 33.1 g/dL (33.0-37.0); MEAN PLATELET VOLUME 8.8 fL (7.2-11.7); MONO # 0.4 K/uL (0.0-0.8); MONO % 4.6 % (0.0-10.0); NEUT # 5.7 K/uL (1.8-7.0); NEUT % 62.2 % (50.0-75.0); RBC 3.83 Mil/uL (3.80-5.20); RED CELL DISTRIBUTION WIDTH 14.1 % (11.5-14.5); WHITE BLOOD COUNT 9.1 K/uL (4.8-10.8)
[2017-03-17 08:00] LABS: ALB/GLOB RATIO 0.9 (1.0-2.1); CALCIUM 9.2 mg/dl (8.6-10.4)
[2017-03-17] MEDS: (Novolog) Insulin Aspart, Recombinant 100 u/ml 10 ml vial SC SCH ×4 (08:25→22:06)
[2017-03-17] MEDS: (Novolog Mix 70/30) Insulin Aspart/Insulin Aspar 100 units/ml SC SCH ×2 (08:28→17:57)
--- NOTE | 2017-03-17 09:22 | CP.PCM.PN ---
Subjective - Date & Time of Evaluation Date of Evaluation: 03/17/17 Time of Evaluation: 08:30 - Subjective Subjective: Patient was seen and examined by me. Not much change from previous time I saw and spoke with the patient Still has right upper and lower extremity weakness, 0/5 strength. There is still facial droop. As documented previously she had a large MCA area ischemic stroke. Objective - Vital Signs/Intake and Output Vital Signs (last 24 hours): Temp Pulse Resp BP Pulse Ox 97.8 F 69 20 136/75 96 03/17/17 09:08 03/17/17 09:08 03/17/17 09:08 03/17/17 09:08 03/17/17 09:08 Intake and Output: 03/17/17 03/17/17 06:59 18:59 Intake Total 480 Output Total 900 Balance -420 - Medications Medications: Current Medications Aspirin (Ecotrin) 81 mg PO DAILY [facility] Last Admin: 03/16/17 10:25 Dose: 81 mg Ciprofloxacin (Cipro) 250 mg PO BID [facility] Last Admin: 03/16/17 18:21 Dose: 250 mg Clopidogrel Bisulfate (Plavix) 75 mg PO DAILY [facility] Last Admin: 03/16/17 10:22 Dose: 75 mg Enoxaparin Sodium (Lovenox) 40 mg SC DAILY [facility] Last Admin: 03/16/17 10:22 Dose: 40 mg Famotidine (Pepcid) 20 mg PO DAILY [facility] Last Admin: 03/16/17 10:25 Dose: 20 mg Hydralazine HCl (Apresoline) 10 mg IVP Q6H PRN PRN Reason: For SBP >180 Last Admin: 02/26/17 23:58 Dose: 10 mg Hydralazine HCl (Apresoline) 50 mg PO QID [facility] Last Admin: 03/16/17 21:55 Dose: 50 mg Sodium Chloride (Sodium Chloride 0.45%) 1,000 mls @ 60 mls/hr IV .[id number] [facility] Last Admin: 03/17/17 05:49 Dose: 60 mls/hr Insulin Aspart (Novolog Mix 70/30 (70/30 Units/Ml)) 15 units SC BIDAC [facility] Last Admin: 03/17/17 08:28 Dose: 15 units Insulin Aspart (Novolog) 0 unit SC ACHS [facility] PRN Reason: Protocol Last Admin: 03/17/17 08:25 Dose: 2 unit Labetalol HCl (Trandate) 200 mg PO BID [facility] Last Admin: 03/16/17 21:55 Dose: 200 mg Lisinopril (Zestril) 20 mg PO DAILY [facility] Last Admin: 03/16/17 10:23 Dose: 20 mg Metformin HCl (Glucophage) 500 mg PO BIDCC [facility] Last Admin: 03/17/17 08:24 Dose: 500 mg Rosuvastatin Calcium (Crestor) 40 mg PO HS [facility] Last Admin: 03/16/17 21:55 Dose: 40 mg Tamsulosin HCl (Flomax) 0.4 mg PO DAILY [facility] Last Admin: 03/16/17 10:23 Dose: 0.4 mg - Labs Labs: 03/17/17 07:39 03/17/17 07:39 PT 12.0 SECONDS (9.7-12.2) 02/24/17 11:48 INR 1.1 02/24/17 11:48 APTT 24 SECONDS (21-34) 02/24/17 11:48 - Constitutional Appears: Well, No Acute Distress - Head Exam Head Exam: NORMAL INSPECTION Additional comments: + facial droop not changed from before - ENT Exam ENT Exam: Mucous Membranes Moist - Cardiovascular Exam Cardiovascular Exam: REGULAR RHYTHM - GI/Abdominal Exam GI & Abdominal Exam: Soft, Normal Bowel Sounds. absent: Guarding, Rigid, Tenderness - Extremities Exam Extremities Exam: absent: Pedal Edema - Neurological Exam Neurological Exam: Alert, Awake, Oriented x3 Neuro motor strength exam: Left Upper Extremity: 4, Right Upper Extremity: 0, Right Lower Extremity: 4 - Psychiatric Exam Psychiatric exam: Depressed, Flat Affect - Skin Skin Exam: Normal Color, Warm Assessment and Plan - Assessment and Plan (Free Text) Assessment: Assessment and Plan (1) Ischemic stroke Assessment & Plan: 03/17: No large changes from before. Also no improvement or change of the right upper and lower extremity weakness. Ideally would go to rehab placment however because of situation this is not possible at this moment. 02/24: * ROMIs negative x 3, * EKG- NSR w possible atrial enlargement. * Echo- EF is 65-70%. Mild aortic regurgitation; LV systolic function is normal ; hypokinesis in septal wall. Refer to complete report. As per Dr. Mccormick, BP SBP btwn 130-140 mmHg, ASA 81 mg PO daily and Plavix 75 mg PO daily, Crestor 40 mg PO HS since patient passed swallow eval HgbA1C 11.2, FLP elevated, TSH 1.7 02/26:Head, Neck MRA-Complete occlusion of left internal carotid and mild occlusive disease of right internal carotid. Per Surgery ( Dr. Choi) no surgical intervention at this time. Radiologist Dr. Khan called to confirm occlusive findings. 03/05:Head CT- redemonstrates large MCA territory infarct with mild surrounding mass effect . No evidence of hemorrhage or new infarcts. Continue to encourage movement with help from Physical Therapy. 03/13: Patient moved from bed to chair with max assist and put back to bed after an hour with max assist. Modified [place] scale: 5, severe disability; bedridden, incontinent/ requiring constant nursing care. Patient has low PO food intake. Seen by collector on 03/08 and recommended Boost glucose control supplementation. Continue boost and await new recommendations. 03/16: Continue physical therapy. Status: Acute (2) Acute kidney injury Assessment & Plan: 03/17: Creatine is stable. She does have a bennett cather Creatinine stable at 1.3 Continue 09/24 NS 60 cc/hr (decreased due to urine retention) Status: Acute (3) Urinary retention Assessment & Plan: 03/17: Currently has a bennett cathter Retaining urine no 03/11 in AM- bladder scan 680ml so patient straight catheterized. Repeat bladder scan 150. Pt continued retaining urine and bennett placed. Bennett inserted 03/14. Flomax .4mg once daily started. Fluids decreased to 60 mL/hr. Dr. Valdez evaluated patient today and recommends keeping patient on bennett and encouraging patient to try to urinate more often. Patient started on Cipro 250 mg PO BID Status: Acute (4) Elevated transaminase level Assessment & Plan: AST increased to 67 ALT increased to 66 monitor. Status: Acute (5) Hypertension Assessment & Plan: Continue Labetalol 200 mg PO BID (switched from 100 mg PO TID) which is better controlling blood pressure Lisinopril 20mg PO Daily; Hydralazine 50 mg QID, Hydralazine 10 mg IV Q6 PRN if SBP above 180 Monitor BP Status: Acute (6) Diabetes Assessment & Plan: Accucheck. ISS ACHS. HgbA1C 11.2, Novolog Mix 70/30 15 units BIDAC daily. Metformin 500 mg PO BIDCC, Cont to monitor. Status: Acute (7) UTI (urinary tract infection) Assessment & Plan: No fevers or white count noted No apparent change in mentation Positive UA on 02/28, negative UA on 03/09 UC: sensitive to ceftriaxone. Ceftriaxone started on 02/28 and stopped on 03/10. Status: Resolved (8) Prophylactic measure Assessment & Plan: Pepcid 20 mg PO BID. ASA 81mg. Lovenox 40 sc daily. SCDs. Continue with PT/OT daily to maximize strength. Patient is maximum assist. Mouth care. Status: Acute
[2017-03-17] MEDS: Enoxaparin 40 mg Syringe SC SCH (09:28)
[2017-03-18] MEDS: Sodium Chloride 0.45% 1,000 ML IV SCH (00:30)
[2017-03-18 07:33] LABS: ALBUMIN 2.8 g/dL (3.5-5.0)
[2017-03-18 07:36] LABS: ALB/GLOB RATIO 0.8 (1.0-2.1)
[2017-03-18 07:37] LABS: CALCIUM 8.6 mg/dl (8.6-10.4)
[2017-03-18 07:40] LABS: BASO # 0.1 K/uL (0.0-0.2); BASO % 1.3 % (0.0-2.0); EOS # 0.5 K/uL (0.0-0.7); EOS % 4.7 % (0.0-4.0); HEMOGLOBIN 10.3 g/dL (11.0-16.0); LYMPH # 3.3 K/uL (1.0-4.3); LYMPH % 32.7 % (20.0-40.0); MEAN CELL VOLUME 84.6 fL (81.0-99.0); MEAN CORPUSCULAR HEMOGLOBIN 27.8 pg (27.0-31.0); MEAN CORPUSCULAR HGB CONC 32.8 g/dL (33.0-37.0); MEAN PLATELET VOLUME 8.9 fL (7.2-11.7); MONO # 0.7 K/uL (0.0-0.8); MONO % 6.9 % (0.0-10.0); NEUT # 5.5 K/uL (1.8-7.0); NEUT % 54.4 % (50.0-75.0); NRBC % 0.1 % (0.0-2.0); RBC 3.69 Mil/uL (3.80-5.20); RED CELL DISTRIBUTION WIDTH 14.6 % (11.5-14.5); WHITE BLOOD COUNT 10.1 K/uL (4.8-10.8)
[2017-03-18] MEDS: (Novolog) Insulin Aspart, Recombinant 100 u/ml 10 ml vial SC SCH ×4 (07:49→21:50)
[2017-03-18] MEDS: Enoxaparin 40 mg Syringe SC SCH (09:22)
[2017-03-18] MEDS: (Novolog Mix 70/30) Insulin Aspart/Insulin Aspar 100 units/ml SC SCH ×2 (09:22→17:58)
--- NOTE | 2017-03-18 14:13 | CP.PCM.PN ---
<Sherlyn Zaidi - Last Filed: 03/18/17 16:52> Subjective - Date & Time of Evaluation Date of Evaluation: 03/18/17 Time of Evaluation: 07:30 - Subjective Subjective: PGY-1 Medicine Note, Dr. Monique's service Patient seen and examined at bedside. Patient has no new complaints. Patient still only able to respond by shaking her head and saying "no" or "okay." Patient continues to have no function in right upper or lower extremities. Objective - Vital Signs/Intake and Output Vital Signs (last 24 hours): Temp Pulse Resp BP Pulse Ox 98.6 F 72 20 146/72 97 03/18/17 07:15 03/18/17 07:15 03/18/17 07:15 03/18/17 07:15 03/18/17 07:15 Intake and Output: 03/18/17 03/18/17 06:59 18:59 Intake Total 630 Balance 630 - Medications Medications: Current Medications Aspirin (Ecotrin) 81 mg PO DAILY [facility] Last Admin: 03/18/17 09:26 Dose: 81 mg Ciprofloxacin (Cipro) 250 mg PO BID [facility] Last Admin: 03/18/17 09:22 Dose: 250 mg Clopidogrel Bisulfate (Plavix) 75 mg PO DAILY [facility] Last Admin: 03/18/17 09:22 Dose: 75 mg Enoxaparin Sodium (Lovenox) 40 mg SC DAILY [facility] Last Admin: 03/18/17 09:22 Dose: 40 mg Famotidine (Pepcid) 20 mg PO DAILY [facility] Last Admin: 03/18/17 09:22 Dose: 20 mg Hydralazine HCl (Apresoline) 10 mg IVP Q6H PRN PRN Reason: For SBP >180 Last Admin: 02/26/17 23:58 Dose: 10 mg Hydralazine HCl (Apresoline) 50 mg PO QID [facility] Last Admin: 03/18/17 09:22 Dose: 50 mg Insulin Aspart (Novolog Mix 70/30 (70/30 Units/Ml)) 15 units SC BIDAC [facility] Last Admin: 03/18/17 09:22 Dose: 15 units Insulin Aspart (Novolog) 0 unit SC ACHS [facility] PRN Reason: Protocol Last Admin: 03/18/17 07:49 Dose: Not Given Labetalol HCl (Trandate) 200 mg PO BID [facility] Last Admin: 03/18/17 09:22 Dose: 200 mg Lisinopril (Zestril) 20 mg PO DAILY [facility] Metformin HCl (Glucophage) 500 mg PO BIDCC [facility] Last Admin: 03/18/17 09:22 Dose: 500 mg Rosuvastatin Calcium (Crestor) 40 mg PO HS [facility] Last Admin: 03/17/17 21:41 Dose: 40 mg Tamsulosin HCl (Flomax) 0.4 mg PO DAILY [facility] Last Admin: 03/18/17 09:22 Dose: 0.4 mg - Labs Labs: 03/18/17 07:14 03/18/17 07:14 PT 12.0 SECONDS (9.7-12.2) 02/24/17 11:48 INR 1.1 02/24/17 11:48 APTT 24 SECONDS (21-34) 02/24/17 11:48 - Constitutional Appears: Well, Non-toxic, No Acute Distress - Head Exam Head Exam: ATRAUMATIC, NORMAL INSPECTION, NORMOCEPHALIC - Eye Exam Eye Exam: EOMI, Normal appearance, PERRL - ENT Exam ENT Exam: Mucous Membranes Moist, Normal Exam - Neck Exam Neck Exam: Normal Inspection. absent: Lymphadenopathy, Tenderness - Respiratory Exam Respiratory Exam: Clear to Ausculation Bilateral, NORMAL BREATHING PATTERN. absent: Rales, Rhonchi, Wheezes, Respiratory Distress, Stridor - Cardiovascular Exam Cardiovascular Exam: REGULAR RHYTHM, RRR, +S1, +S2. absent: Gallop, Rubs, Murmur - GI/Abdominal Exam GI & Abdominal Exam: Soft, Normal Bowel Sounds. absent: Distended, Firm, Guarding, Tenderness - Extremities Exam Extremities Exam: Normal Inspection. absent: Full ROM Additional comments: no movement with right upper or lower extremity - Back Exam Back Exam: NORMAL INSPECTION - Neurological Exam Neurological Exam: Alert, Awake, Oriented x3 Neuro motor strength exam: Left Upper Extremity: 4, Right Upper Extremity: 0, Left Lower Extremity: 4, Right Lower Extremity: 0 Additional comments: no movement on right side - Psychiatric Exam Psychiatric exam: Normal Affect, Normal Mood - Skin Skin Exam: Normal Color, Warm Assessment and Plan (1) Ischemic stroke Assessment & Plan: 03/18: No large changes from before. No improvement or change of the right upper and lower extremity weakness. 02/24: * ROMIs negative x 3, * EKG- NSR w possible atrial enlargement. * Echo- EF is 65-70%. Mild aortic regurgitation; LV systolic function is normal ; hypokinesis in septal wall. Refer to complete report. As per Dr. Mccormick, BP SBP btwn 130-140 mmHg, ASA 81 mg PO daily and Plavix 75 mg PO daily, Crestor 40 mg PO HS since patient passed swallow eval HgbA1C 11.2, FLP elevated, TSH 1.7 02/26:Head, Neck MRA-Complete occlusion of left internal carotid and mild occlusive disease of right internal carotid. Per Surgery ( Dr. Choi) no surgical intervention at this time. Radiologist Dr. Khan called to confirm occlusive findings. 03/05:Head CT- redemonstrates large MCA territory infarct with mild surrounding mass effect . No evidence of hemorrhage or new infarcts. Continue to encourage movement with help from Physical Therapy. 03/13: Patient moved from bed to chair with max assist and put back to bed after an hour with max assist. Modified [place] scale: 5, severe disability; bedridden, incontinent/ requiring constant nursing care. Patient has low PO food intake. Seen by striper spray gun on 03/08 and recommended Boost glucose control supplementation. Continue boost and await new recommendations. continue PT Status: Acute (2) Acute kidney injury Assessment & Plan: Continue 09/24 NS 60 cc/hr (decreased due to urine retention) Creatinine decreasing, at 1.2 Status: Acute (3) Urinary retention Assessment & Plan: 03/18: bennett catheter Retaining urine no 03/11 in AM- bladder scan 680ml so patient straight catheterized. Repeat bladder scan 150. Pt continued retaining urine and bennett placed. Bennett inserted 03/14. Flomax .4mg once daily started. Maintain fluids at 60 mL/hr. Dr. Valdez evaluated patient today and recommends keeping patient on bennett and encouraging patient to try to urinate more often. Continue patient on Cipro 250 mg PO BID Lasix 40 mg one time dose given. Status: Acute (4) Elevated transaminase level Assessment & Plan: AST decreased to 38 ALT decreased to 56 monitor. Status: Acute (5) Hypertension Assessment & Plan: Continue Labetalol 200 mg PO BID (switched from 100 mg PO TID) which is better controlling blood pressure Lisinopril 20mg PO Daily; Hydralazine 50 mg QID, Hydralazine 10 mg IV Q6 PRN if SBP above 180 Monitor BP Status: Acute (6) Diabetes Assessment & Plan: Accucheck. ISS ACHS. HgbA1C 11.2, Novolog Mix 70/30 15 units BIDAC daily. Metformin 500 mg PO BIDCC, Cont to monitor. Status: Acute (7) UTI (urinary tract infection) Assessment & Plan: No fevers or white count noted No apparent change in mentation Positive UA on 02/28, negative UA on 03/09 UC: sensitive to ceftriaxone. Ceftriaxone started on 02/28 and stopped on 03/10. Status: Resolved (8) Prophylactic measure Assessment & Plan: Pepcid 20 mg PO BID. ASA 81mg. Lovenox 40 sc daily. SCDs. Continue with PT/OT daily to maximize strength. Patient is maximum assist. Mouth care. Status: Acute <Dylan Monique H - Last Filed: 03/18/17 17:36> Objective - Vital Signs/Intake and Output Vital Signs (last 24 hours): Temp Pulse Resp BP Pulse Ox 97.8 F 66 20 138/62 99 03/18/17 15:00 03/18/17 15:00 03/18/17 15:00 03/18/17 15:54 03/18/17 15:00 Intake and Output: 03/18/17 03/18/17 06:59 18:59 Intake Total 630 980 Output Total 500 Balance 630 480 - Medications Medications: Current Medications Aspirin (Ecotrin) 81 mg PO DAILY [facility] Last Admin: 03/18/17 09:26 Dose: 81 mg Ciprofloxacin (Cipro) 250 mg PO BID [facility] Last Admin: 03/18/17 09:22 Dose: 250 mg Clopidogrel Bisulfate (Plavix) 75 mg PO DAILY [facility] Last Admin: 03/18/17 09:22 Dose: 75 mg Enoxaparin Sodium (Lovenox) 40 mg SC DAILY [facility] Last Admin: 03/18/17 09:22 Dose: 40 mg Famotidine (Pepcid) 20 mg PO DAILY [facility] Last Admin: 03/18/17 09:22 Dose: 20 mg Hydralazine HCl (Apresoline) 10 mg IVP Q6H PRN PRN Reason: For SBP >180 Last Admin: 02/26/17 23:58 Dose: 10 mg Hydralazine HCl (Apresoline) 50 mg PO QID [facility] Last Admin: 03/18/17 14:54 Dose: 50 mg Sodium Chloride (Sodium Chloride 0.45%) 1,000 mls @ 60 mls/hr IV .[id number] [facility] Insulin Aspart (Novolog Mix 70/30 (70/30 Units/Ml)) 15 units SC BIDAC [facility] Last Admin: 03/18/17 09:22 Dose: 15 units Insulin Aspart (Novolog) 0 unit SC ACHS [facility] PRN Reason: Protocol Last Admin: 03/18/17 16:52 Dose: Not Given Labetalol HCl (Trandate) 200 mg PO BID [facility] Last Admin: 03/18/17 09:22 Dose: 200 mg Lisinopril (Zestril) 20 mg PO DAILY [facility] Metformin HCl (Glucophage) 500 mg PO BIDCC [facility] Last Admin: 03/18/17 09:22 Dose: 500 mg Rosuvastatin Calcium (Crestor) 40 mg PO HS [facility] Last Admin: 03/17/17 21:41 Dose: 40 mg Tamsulosin HCl (Flomax) 0.4 mg PO DAILY [facility] Last Admin: 03/18/17 09:22 Dose: 0.4 mg - Labs Labs: 03/18/17 07:14 03/18/17 07:14 PT 12.0 SECONDS (9.7-12.2) 02/24/17 11:48 INR 1.1 02/24/17 11:48 APTT 24 SECONDS (21-34) 02/24/17 11:48 Attending/Attestation - Attestation I have personally seen and examined this patient.: Yes I have fully participated in the care of the patient.: Yes I have reviewed all pertinent clinical information, including history, physical exam and plan: Yes Notes (Text): 03/18/17 17:35 Medical attending: Patient was seen and examined by me, agrees the above note by medical chemist. Unfortunately there is no improvement on the right side of the patient's body. Her situation is the same as the last time I had previously seen her. She does not have any muscle strength in the right upper or right lower extremity she had some pain when I tried to raise the right arm up. Also of note she does have some lower extremity swelling as well as some upper extremity swelling. This might be secondary to her not being able to use the right side She is getting some intravenous fluids, I suspect that this may be keeping the blood pressure on the higher side. So will continue the give her a one-time dose of IV Lasix to see if this helps with the blood pressure. I would like to decrease the fluid further however her appetite has been quite poor. Thank you very much, Dylan Monique
[2017-03-19] MEDS: Sodium Chloride 0.45% 1,000 ML IV SCH ×2 (01:49→19:59)
--- NOTE | 2017-03-19 06:18 | CP.PCM.PN ---
<Sherlyn Zaidi - Last Filed: 03/19/17 15:34> Subjective - Date & Time of Evaluation Date of Evaluation: 03/19/17 Time of Evaluation: 08:00 - Subjective Subjective: PGY1 Medicine Note- Dr. Monique's service Patient seen and examined at bedside and in no acute distress. Patient has no new complaints. Patient still only able to respond by shaking her head and saying "no" or "okay." Patient continues to have no function in right upper or lower extremities. Objective - Vital Signs/Intake and Output Vital Signs (last 24 hours): Temp Pulse Resp BP Pulse Ox 98.2 F 77 20 127/75 97 03/18/17 23:25 03/18/17 23:25 03/18/17 23:25 03/18/17 23:25 03/18/17 23:25 Intake and Output: 03/18/17 03/19/17 18:59 06:59 Intake Total 980 880 Output Total 500 1300 Balance 480 -420 - Medications Medications: Current Medications Aspirin (Ecotrin) 81 mg PO DAILY [facility] Last Admin: 03/18/17 09:26 Dose: 81 mg Ciprofloxacin (Cipro) 250 mg PO BID [facility] Last Admin: 03/18/17 17:58 Dose: 250 mg Clopidogrel Bisulfate (Plavix) 75 mg PO DAILY [facility] Last Admin: 03/18/17 09:22 Dose: 75 mg Enoxaparin Sodium (Lovenox) 40 mg SC DAILY [facility] Last Admin: 03/18/17 09:22 Dose: 40 mg Famotidine (Pepcid) 20 mg PO DAILY [facility] Last Admin: 03/18/17 09:22 Dose: 20 mg Hydralazine HCl (Apresoline) 10 mg IVP Q6H PRN PRN Reason: For SBP >180 Last Admin: 02/26/17 23:58 Dose: 10 mg Hydralazine HCl (Apresoline) 50 mg PO QID [facility] Last Admin: 03/18/17 21:50 Dose: 50 mg Sodium Chloride (Sodium Chloride 0.45%) 1,000 mls @ 60 mls/hr IV .[id number] [facility] Last Admin: 03/19/17 01:49 Dose: 60 mls/hr Insulin Aspart (Novolog Mix 70/30 (70/30 Units/Ml)) 15 units SC BIDAC [facility] Last Admin: 03/18/17 17:58 Dose: 15 units Insulin Aspart (Novolog) 0 unit SC ACHS [facility] PRN Reason: Protocol Last Admin: 03/18/17 21:50 Dose: Not Given Labetalol HCl (Trandate) 200 mg PO BID [facility] Last Admin: 03/18/17 17:58 Dose: 200 mg Lisinopril (Zestril) 20 mg PO DAILY [facility] Metformin HCl (Glucophage) 500 mg PO BIDCC [facility] Last Admin: 03/18/17 17:58 Dose: 500 mg Rosuvastatin Calcium (Crestor) 40 mg PO HS [facility] Last Admin: 03/18/17 21:49 Dose: 40 mg Tamsulosin HCl (Flomax) 0.4 mg PO DAILY [facility] Last Admin: 03/18/17 09:22 Dose: 0.4 mg - Labs Labs: 03/18/17 07:14 03/18/17 07:14 PT 12.0 SECONDS (9.7-12.2) 02/24/17 11:48 INR 1.1 02/24/17 11:48 APTT 24 SECONDS (21-34) 02/24/17 11:48 - Constitutional Appears: Well, Non-toxic, No Acute Distress - Head Exam Head Exam: ATRAUMATIC, NORMAL INSPECTION, NORMOCEPHALIC - Eye Exam Eye Exam: EOMI, Normal appearance, PERRL Pupil Exam: NORMAL ACCOMODATION, PERRL - ENT Exam ENT Exam: Mucous Membranes Moist, Normal Exam - Neck Exam Neck Exam: Normal Inspection. absent: Lymphadenopathy, Tenderness - Respiratory Exam Respiratory Exam: Clear to Ausculation Bilateral, NORMAL BREATHING PATTERN. absent: Rales, Rhonchi, Wheezes, Respiratory Distress, Stridor - Cardiovascular Exam Cardiovascular Exam: REGULAR RHYTHM, RRR, +S1, +S2. absent: Gallop, Rubs, Murmur - GI/Abdominal Exam GI & Abdominal Exam: Soft, Normal Bowel Sounds. absent: Distended, Firm, Guarding, Rigid, Tenderness - Extremities Exam Extremities Exam: Normal Inspection, Pedal Edema. absent: Full ROM Additional comments: trace pitting edema bilaterally no ROM of right extremities - Back Exam Back Exam: NORMAL INSPECTION. absent: CVA tenderness (L), CVA tenderness (R), rash noted - Neurological Exam Neurological Exam: Alert, Awake, Oriented x3 Neuro motor strength exam: Left Upper Extremity: 4, Right Upper Extremity: 0, Left Lower Extremity: 4, Right Lower Extremity: 0 - Psychiatric Exam Psychiatric exam: Normal Affect, Normal Mood - Skin Skin Exam: Normal Color, Warm Assessment and Plan (1) Ischemic stroke Assessment & Plan: 03/19: No large changes from before. No improvement or change of the right upper and lower extremity weakness. 02/24: * ROMIs negative x 3, * EKG- NSR w possible atrial enlargement. * Echo- EF is 65-70%. Mild aortic regurgitation; LV systolic function is normal ; hypokinesis in septal wall. Refer to complete report. As per Dr. Mccormick, BP SBP btwn 130-140 mmHg, ASA 81 mg PO daily and Plavix 75 mg PO daily, Crestor 40 mg PO HS since patient passed swallow eval HgbA1C 11.2, FLP elevated, TSH 1.7 02/26:Head, Neck MRA-Complete occlusion of left internal carotid and mild occlusive disease of right internal carotid. Per Surgery ( Dr. Choi) no surgical intervention at this time. Radiologist Dr. Khan called to confirm occlusive findings. 03/05:Head CT- redemonstrates large MCA territory infarct with mild surrounding mass effect . No evidence of hemorrhage or new infarcts. Continue to encourage movement with help from Physical Therapy. 03/13: Patient moved from bed to chair with max assist and put back to bed after an hour with max assist. Modified [place] scale: 5, severe disability; bedridden, incontinent/ requiring constant nursing care. Patient has low PO food intake. Seen by junk removal specialist on 03/08 and recommended Boost glucose control supplementation. Continue boost and await new recommendations. continue PT Status: Acute (2) Acute kidney injury Assessment & Plan: Continue 09/24 NS 60 cc/hr (decreased due to urine retention) Creatinine 1.4 Status: Acute (3) Urinary retention Assessment & Plan: 03/19: bennett catheter, lasix 20 mg one time dose given Retaining urine no 03/11 in AM- bladder scan 680ml so patient straight catheterized. Repeat bladder scan 150. Pt continued retaining urine and bennett placed. Bennett inserted 03/14. Flomax .4mg once daily started. Maintain fluids at 60 mL/hr. Dr. Valdez evaluated patient today and recommends keeping patient on bennett and encouraging patient to try to urinate more often. Continue patient on Cipro 250 mg PO BID Status: Acute (4) Elevated transaminase level Assessment & Plan: AST:44 ALT: 54 Status: Acute (5) Hypertension Assessment & Plan: Continue Labetalol 200 mg PO BID (switched from 100 mg PO TID) which is better controlling blood pressure Lisinopril 20mg PO Daily; Hydralazine 50 mg QID, Hydralazine 10 mg IV Q6 PRN if SBP above 180 Monitor BP Status: Acute (6) Diabetes Assessment & Plan: Accucheck. ISS ACHS. HgbA1C 11.2, Novolog Mix 70/30 15 units BIDAC daily. Metformin 500 mg PO BIDCC, Cont to monitor. Status: Acute (7) UTI (urinary tract infection) Assessment & Plan: No fevers or white count noted No apparent change in mentation Positive UA on 02/28, negative UA on 03/09 UC: sensitive to ceftriaxone. Ceftriaxone started on 02/28 and stopped on 03/10. Status: Resolved (8) Prophylactic measure Assessment & Plan: Pepcid 20 mg PO BID. ASA 81mg. Lovenox 40 sc daily. SCDs. Continue with PT/OT daily to maximize strength. Patient is maximum assist. Mouth care. Status: Acute <Dylan Monique H - Last Filed: 03/19/17 15:56> Objective - Vital Signs/Intake and Output Vital Signs (last 24 hours): Temp Pulse Resp BP Pulse Ox 98.4 F 71 20 121/69 100 03/19/17 09:09 03/19/17 14:03 03/19/17 09:09 03/19/17 14:03 03/19/17 12:11 Intake and Output: 03/19/17 03/19/17 06:59 18:59 Intake Total 880 Output Total 1650 Balance -770 - Medications Medications: Current Medications Aspirin (Ecotrin) 81 mg PO DAILY [facility] Last Admin: 03/19/17 10:29 Dose: 81 mg Ciprofloxacin (Cipro) 250 mg PO BID [facility] Last Admin: 03/19/17 10:30 Dose: 250 mg Clopidogrel Bisulfate (Plavix) 75 mg PO DAILY [facility] Last Admin: 03/19/17 10:30 Dose: 75 mg Enoxaparin Sodium (Lovenox) 40 mg SC DAILY [facility] Last Admin: 06/27/17 10:29 Dose: 40 mg Famotidine (Pepcid) 20 mg PO DAILY [facility] Last Admin: 03/19/17 10:29 Dose: 20 mg Hydralazine HCl (Apresoline) 10 mg IVP Q6H PRN PRN Reason: For SBP >180 Last Admin: 02/26/17 23:58 Dose: 10 mg Hydralazine HCl (Apresoline) 50 mg PO QID [facility] Last Admin: 03/19/17 14:04 Dose: 50 mg Sodium Chloride (Sodium Chloride 0.45%) 1,000 mls @ 60 mls/hr IV .[id number] [facility] Last Admin: 03/19/17 01:49 Dose: 60 mls/hr Insulin Aspart (Novolog Mix 70/30 (70/30 Units/Ml)) 15 units SC BIDAC [facility] Last Admin: 03/19/17 08:09 Dose: 15 units Insulin Aspart (Novolog) 0 unit SC ACHS [facility] PRN Reason: Protocol Last Admin: 03/19/17 13:10 Dose: 3 unit Labetalol HCl (Trandate) 200 mg PO BID [facility] Last Admin: 03/19/17 10:30 Dose: 200 mg Lisinopril (Zestril) 20 mg PO DAILY [facility] Last Admin: 03/19/17 10:29 Dose: 20 mg Metformin HCl (Glucophage) 500 mg PO BIDCC [facility] Last Admin: 03/19/17 08:09 Dose: 500 mg Rosuvastatin Calcium (Crestor) 40 mg PO HS [facility] Last Admin: 03/18/17 21:49 Dose: 40 mg Tamsulosin HCl (Flomax) 0.4 mg PO DAILY [facility] Last Admin: 03/19/17 10:30 Dose: 0.4 mg - Labs Labs: 03/19/17 11:51 03/19/17 11:51 PT 12.0 SECONDS (9.7-12.2) 02/24/17 11:48 INR 1.1 02/24/17 11:48 APTT 24 SECONDS (21-34) 02/24/17 11:48 Attending/Attestation - Attestation I have personally seen and examined this patient.: Yes I have fully participated in the care of the patient.: Yes I have reviewed all pertinent clinical information, including history, physical exam and plan: Yes Notes (Text): 03/19/17 15:50 Medical attending: Patient was seen and examined by me, agrees the above note by medical imaging specialist. The situation is not greatly changed from before. Yesterday we did give her Lasix 1 just to see if this would help with the blood pressure as well as the swelling that we see in her extremities. As mentioned before we are giving her intravenous fluids and I do realize that may be counterproductive and oxymorphone to give both fluids and Lasix at the same time however her appetite has been quite poor recently and I am not sure if she's taking enough by mouth to be without IV fluids Thank you very much, Dylan Monique
[2017-03-19] MEDS: (Novolog) Insulin Aspart, Recombinant 100 u/ml 10 ml vial SC SCH ×3 (07:39→20:27)
[2017-03-19] MEDS: (Novolog Mix 70/30) Insulin Aspart/Insulin Aspar 100 units/ml SC SCH ×2 (08:09→18:24)
[2017-03-19] MEDS: Enoxaparin 40 mg Syringe SC SCH (10:29)
[2017-03-19 12:04] LABS: BASO # 0.1 K/uL (0.0-0.2); BASO % 0.7 % (0.0-2.0); EOS # 0.3 K/uL (0.0-0.7); EOS % 3.8 % (0.0-4.0); HEMOGLOBIN 10.9 g/dL (11.0-16.0); LYMPH # 2.2 K/uL (1.0-4.3); LYMPH % 26.8 % (20.0-40.0); MEAN CELL VOLUME 84.8 fL (81.0-99.0); MEAN CORPUSCULAR HEMOGLOBIN 27.7 pg (27.0-31.0); MEAN CORPUSCULAR HGB CONC 32.7 g/dL (33.0-37.0); MONO # 0.5 K/uL (0.0-0.8); MONO % 6.3 % (0.0-10.0); NEUT % 62.4 % (50.0-75.0); RBC 3.92 Mil/uL (3.80-5.20); RED CELL DISTRIBUTION WIDTH 14.3 % (11.5-14.5); WHITE BLOOD COUNT 8.1 K/uL (4.8-10.8)
[2017-03-19 12:30] LABS: ALBUMIN 3.2 g/dL (3.5-5.0)
[2017-03-19 12:33] LABS: ALB/GLOB RATIO 0.9 (1.0-2.1)
[2017-03-19 12:34] LABS: CALCIUM 9.2 mg/dl (8.6-10.4); MAGNESIUM 1.7 mg/dL (1.6-2.3)
--- NOTE | 2017-03-20 06:12 | CP.PCM.PN ---
<Sherlyn Zaidi - Last Filed: 03/20/17 15:56> Subjective - Date & Time of Evaluation Date of Evaluation: 03/20/17 Time of Evaluation: 07:00 - Subjective Subjective: PGY1 Medicine Note- Dr. Monique's service Patient seen and examined at bedside and in no acute distress. Patient has no new complaints. Patient still only able to respond by shaking her head and saying "no" or "okay." Patient continues to have no function in right upper or lower extremities. Objective - Vital Signs/Intake and Output Vital Signs (last 24 hours): Temp Pulse Resp BP Pulse Ox 98.1 F 70 20 141/68 98 03/19/17 23:35 03/19/17 23:35 03/19/17 23:35 03/19/17 23:35 03/19/17 23:35 Intake and Output: 03/19/17 03/20/17 18:59 06:59 Intake Total 400 Balance 400 - Medications Medications: Current Medications Aspirin (Ecotrin) 81 mg PO DAILY [facility] Last Admin: 03/19/17 10:29 Dose: 81 mg Ciprofloxacin (Cipro) 250 mg PO BID [facility] Last Admin: 03/19/17 18:25 Dose: 250 mg Clopidogrel Bisulfate (Plavix) 75 mg PO DAILY [facility] Last Admin: 03/19/17 10:30 Dose: 75 mg Enoxaparin Sodium (Lovenox) 40 mg SC DAILY [facility] Last Admin: 03/19/17 10:29 Dose: 40 mg Famotidine (Pepcid) 20 mg PO DAILY [facility] Last Admin: 03/19/17 10:29 Dose: 20 mg Hydralazine HCl (Apresoline) 10 mg IVP Q6H PRN PRN Reason: For SBP >180 Last Admin: 02/26/17 23:58 Dose: 10 mg Hydralazine HCl (Apresoline) 50 mg PO QID [facility] Last Admin: 03/19/17 21:43 Dose: 50 mg Sodium Chloride (Sodium Chloride 0.45%) 1,000 mls @ 60 mls/hr IV .[id number] [facility] Last Admin: 03/19/17 19:59 Dose: 60 mls/hr Insulin Aspart (Novolog Mix 70/30 (70/30 Units/Ml)) [facility] Last Admin: 03/19/17 18:24 Dose: 15 units Insulin Aspart (Novolog) 0 unit SC ACHS [facility] PRN Reason: Protocol Last Admin: 03/19/17 20:27 Dose: Not Given Labetalol HCl (Trandate) 200 mg PO BID [facility] Last Admin: 03/19/17 18:26 Dose: 200 mg Lisinopril (Zestril) 20 mg PO DAILY [facility] Last Admin: 03/19/17 10:29 Dose: 20 mg Metformin HCl (Glucophage) 500 mg PO BIDCC [facility] Last Admin: 03/19/17 18:25 Dose: 500 mg Rosuvastatin Calcium (Crestor) 40 mg PO HS [facility] Last Admin: 03/19/17 21:43 Dose: 40 mg Tamsulosin HCl (Flomax) 0.4 mg PO DAILY [facility] Last Admin: 03/19/17 10:30 Dose: 0.4 mg - Labs Labs: 03/19/17 11:51 03/19/17 11:51 PT 12.0 SECONDS (9.7-12.2) 02/24/17 11:48 INR 1.1 02/24/17 11:48 APTT 24 SECONDS (21-34) 02/24/17 11:48 - Constitutional Appears: Well, Non-toxic, No Acute Distress - Head Exam Head Exam: ATRAUMATIC, NORMAL INSPECTION, NORMOCEPHALIC - Eye Exam Eye Exam: EOMI, Normal appearance, PERRL - ENT Exam ENT Exam: Mucous Membranes Moist, Normal Exam - Neck Exam Neck Exam: Normal Inspection. absent: Lymphadenopathy, Tenderness - Respiratory Exam Respiratory Exam: Clear to Ausculation Bilateral, NORMAL BREATHING PATTERN. absent: Rales, Rhonchi, Wheezes, Respiratory Distress, Stridor - Cardiovascular Exam Cardiovascular Exam: REGULAR RHYTHM, RRR, +S1, +S2. absent: Gallop, Rubs, Murmur - GI/Abdominal Exam GI & Abdominal Exam: Soft, Normal Bowel Sounds. absent: Distended, Firm, Guarding, Tenderness, Diminished Bowel Sounds - Exam Additional comments: light yellow urine in bennett bag - Extremities Exam Extremities Exam: Normal Capillary Refill, Normal Inspection, Pedal Edema. absent: Full ROM, Joint Swelling Additional comments: no ROM in right side extremities trace pedal edema bilaterally - Back Exam Back Exam: NORMAL INSPECTION. absent: rash noted - Neurological Exam Neurological Exam: Alert, Awake, Oriented x3 Neuro motor strength exam: Left Upper Extremity: 4, Right Upper Extremity: 0, Left Lower Extremity: 4, Right Lower Extremity: 0 - Psychiatric Exam Psychiatric exam: Normal Affect, Normal Mood - Skin Skin Exam: Intact, Normal Color, Warm Assessment and Plan (1) Ischemic stroke Assessment & Plan: 03/20: No large changes from before. No improvement or change of the right upper and lower extremity weakness. 02/24: * ROMIs negative x 3, * EKG- NSR w possible atrial enlargement. * Echo- EF is 65-70%. Mild aortic regurgitation; LV systolic function is normal ; hypokinesis in septal wall. Refer to complete report. As per Dr. Mccormick, BP SBP btwn 130-140 mmHg, ASA 81 mg PO daily and Plavix 75 mg PO daily, Crestor 40 mg PO HS since patient passed swallow eval HgbA1C 11.2, FLP elevated, TSH 1.7 02/26:Head, Neck MRA-Complete occlusion of left internal carotid and mild occlusive disease of right internal carotid. Per Surgery ( Dr. Choi) no surgical intervention at this time. Radiologist Dr. Khan called to confirm occlusive findings. 03/05:Head CT- redemonstrates large MCA territory infarct with mild surrounding mass effect . No evidence of hemorrhage or new infarcts. Continue to encourage movement with help from Physical Therapy. 03/13: Patient moved from bed to chair with max assist and put back to bed after an hour with max assist. Modified [place] scale: 5, severe disability; bedridden, incontinent/ requiring constant nursing care. Patient has low PO food intake. Seen by design analyst on 03/08 and recommended Boost glucose control supplementation. Continue boost and await new recommendations. continue PT Status: Acute (2) Acute kidney injury Assessment & Plan: Continue 09/24 NS 40 cc/hr (decreased because patient tolerating diet) Creatinine 1.4 Status: Acute (3) Urinary retention Assessment & Plan: 03/19: bennett catheter, lasix 20 mg one time dose given Retaining urine no 03/11 in AM- bladder scan 680ml so patient straight catheterized. Repeat bladder scan 150. Pt continued retaining urine and bennett placed. Bennett inserted 03/14. Flomax .4mg once daily started. Maintain fluids at 60 mL/hr. Dr. Valdez evaluated patient today and recommends keeping patient on bennett and encouraging patient to try to urinate more often. Continue patient on Cipro 250 mg PO BID Status: Acute (4) Elevated transaminase level Assessment & Plan: AST:44 ALT: 54 Status: Acute (5) Hypertension Assessment & Plan: Continue Labetalol 200 mg PO BID (switched from 100 mg PO TID) which is better controlling blood pressure Lisinopril 20mg PO Daily; Hydralazine 50 mg QID, Hydralazine 10 mg IV Q6 PRN if SBP above 180 Monitor BP Status: Acute (6) Diabetes Assessment & Plan: Accucheck. ISS ACHS. HgbA1C 11.2, Novolog Mix 70/30 15 units BIDAC daily. Metformin 500 mg PO BIDCC, Cont to monitor. Status: Acute (7) UTI (urinary tract infection) Assessment & Plan: No fevers or white count noted No apparent change in mentation Positive UA on 02/28, negative UA on 03/09 UC: sensitive to ceftriaxone. Ceftriaxone started on 02/28 and stopped on 03/10. Status: Resolved (8) Prophylactic measure Assessment & Plan: Pepcid 20 mg PO BID. ASA 81mg. Lovenox 40 sc daily. SCDs. Continue with PT/OT daily to maximize strength. Patient is maximum assist. Mouth care. Status: Acute <Dylan Monique H - Last Filed: 03/20/17 17:36> Objective - Vital Signs/Intake and Output Vital Signs (last 24 hours): Temp Pulse Resp BP Pulse Ox 97.7 F 69 18 137/67 97 03/20/17 15:10 03/20/17 15:10 03/20/17 15:10 03/20/17 15:10 03/20/17 15:10 Intake and Output: 03/20/17 03/20/17 06:59 18:59 Intake Total 880 Output Total 1350 Balance -470 - Medications Medications: Current Medications Aspirin (Ecotrin) 81 mg PO DAILY [facility] Last Admin: 03/20/17 10:46 Dose: 81 mg Ciprofloxacin (Cipro) 250 mg PO BID [facility] Last Admin: 03/20/17 17:22 Dose: 250 mg Clopidogrel Bisulfate (Plavix) 75 mg PO DAILY [facility] Last Admin: 03/20/17 10:46 Dose: 75 mg Enoxaparin Sodium (Lovenox) 40 mg SC DAILY [facility] Last Admin: 03/20/17 10:47 Dose: 40 mg Famotidine (Pepcid) 20 mg PO DAILY [facility] Last Admin: 03/20/17 10:46 Dose: 20 mg Hydralazine HCl (Apresoline) 10 mg IVP Q6H PRN PRN Reason: For SBP >180 Last Admin: 02/26/17 23:58 Dose: 10 mg Hydralazine HCl (Apresoline) 50 mg PO QID [facility] Last Admin: 03/20/17 14:27 Dose: 50 mg Sodium Chloride (Sodium Chloride 0.45%) 1,000 mls @ 40 mls/hr IV .Q24H [facility] Last Admin: 03/20/17 14:28 Dose: 40 mls/hr Insulin Aspart (Novolog Mix 70/30 (70/30 Units/Ml)) 15 units SC BIDAC [facility] Last Admin: 03/20/17 17:21 Dose: 15 units Insulin Aspart (Novolog) 0 unit SC ACHS [facility] PRN Reason: Protocol Last Admin: 03/20/17 17:20 Dose: 2 unit Labetalol HCl (Trandate) 200 mg PO BID [facility] Last Admin: 03/20/17 17:24 Dose: 200 mg Lisinopril (Zestril) 20 mg PO DAILY [facility] Last Admin: 03/20/17 10:46 Dose: 20 mg Metformin HCl (Glucophage) 500 mg PO BIDCC [facility] Last Admin: 03/20/17 17:22 Dose: 500 mg Rosuvastatin Calcium (Crestor) 40 mg PO HS [facility] Last Admin: 03/19/17 21:43 Dose: 40 mg Tamsulosin HCl (Flomax) 0.4 mg PO DAILY [facility] Last Admin: 03/20/17 10:46 Dose: 0.4 mg - Labs Labs: 03/19/17 11:51 03/19/17 11:51 PT 12.0 SECONDS (9.7-12.2) 02/24/17 11:48 INR 1.1 02/24/17 11:48 APTT 24 SECONDS (21-34) 02/24/17 11:48 Attending/Attestation - Attestation I have personally seen and examined this patient.: Yes I have fully participated in the care of the patient.: Yes I have reviewed all pertinent clinical information, including history, physical exam and plan: Yes Notes (Text): 03/20/17 17:35 Medical attending: Patient was seen and examined by me, agrees the above note by medical imaging technologist. As mentioned above by the resident the blood pressure is a lot more stable at this time. As mentioned previously we gave IV Lasix on 2 occasions. It seems to have helped significantly with her blood pressure. This being said reluctant to place a standing order for diarrhetic only because the patient has very poor by mouth intake. So at this time glucose slightly decreased intravenous fluids that she is getting. She still taking medications by mouth and some liquids by mouth As mentioned previously the patient's right upper and right lower extremity is Sirota 5 muscle strength and unfortunately were not getting any return of strength to that side Thank you very much, Dylan Monique
[2017-03-20] MEDS: (Novolog) Insulin Aspart, Recombinant 100 u/ml 10 ml vial SC SCH ×3 (08:10→21:29)
[2017-03-20] MEDS: (Novolog Mix 70/30) Insulin Aspart/Insulin Aspar 100 units/ml SC SCH ×2 (08:34→17:21)
[2017-03-20] MEDS: Enoxaparin 40 mg Syringe SC SCH (10:47)
[2017-03-20] MEDS: Sodium Chloride 0.45% 1,000 ML IV SCH (14:28)
--- NOTE | 2017-03-21 06:24 | CP.PCM.PN ---
<Sherlyn Zaidi - Last Filed: 03/21/17 15:11> Subjective - Date & Time of Evaluation Date of Evaluation: 03/21/17 Time of Evaluation: 07:00 - Subjective Subjective: PGY1 Medicine Note- Dr. Monique's service Patient seen and examined at bedside and in no acute distress. No changes observed. Patient has no new complaints. Patient still only able to respond by shaking her head and saying "no" or "okay." Patient continues to have no function in right upper or lower extremities. Objective - Vital Signs/Intake and Output Vital Signs (last 24 hours): Temp Pulse Resp BP Pulse Ox 98.2 F 74 20 140/63 98 03/20/17 23:30 03/20/17 23:30 03/20/17 23:30 03/20/17 23:30 03/20/17 23:30 Intake and Output: 03/20/17 03/21/17 18:59 06:59 Output Total 450 Balance -450 - Medications Medications: Current Medications Aspirin (Ecotrin) 81 mg PO DAILY [facility] Last Admin: 03/20/17 10:46 Dose: 81 mg Ciprofloxacin (Cipro) 250 mg PO BID [facility] Last Admin: 03/20/17 17:22 Dose: 250 mg Clopidogrel Bisulfate (Plavix) 75 mg PO DAILY [facility] Last Admin: 03/20/17 10:46 Dose: 75 mg Enoxaparin Sodium (Lovenox) 40 mg SC DAILY [facility] Last Admin: 03/20/17 10:47 Dose: 40 mg Famotidine (Pepcid) 20 mg PO DAILY [facility] Last Admin: 03/20/17 10:46 Dose: 20 mg Hydralazine HCl (Apresoline) 10 mg IVP Q6H PRN PRN Reason: For SBP >180 Last Admin: 02/26/17 23:58 Dose: 10 mg Hydralazine HCl (Apresoline) 50 mg PO QID [facility] Last Admin: 03/20/17 22:00 Dose: 50 mg Sodium Chloride (Sodium Chloride 0.45%) 1,000 mls @ 40 mls/hr IV .Q24H [facility] Last Admin: 03/20/17 14:28 Dose: 40 mls/hr Insulin Aspart (Novolog Mix 70/30 (70/30 Units/Ml)) 15 units SC BIDAC [facility] Last Admin: 03/20/17 17:21 Dose: 15 units Insulin Aspart (Novolog) 0 unit SC ACHS [facility] PRN Reason: Protocol Last Admin: 03/20/17 21:29 Dose: Not Given Labetalol HCl (Trandate) 200 mg PO BID [facility] Last Admin: 03/20/17 17:24 Dose: 200 mg Lisinopril (Zestril) 20 mg PO DAILY [facility] Last Admin: 03/20/17 10:46 Dose: 20 mg Metformin HCl (Glucophage) 500 mg PO BIDCC [facility] Last Admin: 03/20/17 17:22 Dose: 500 mg Rosuvastatin Calcium (Crestor) 40 mg PO HS [facility] Last Admin: 03/20/17 22:00 Dose: 40 mg Tamsulosin HCl (Flomax) 0.4 mg PO DAILY [facility] Last Admin: 03/20/17 10:46 Dose: 0.4 mg - Labs Labs: 03/19/17 11:51 03/19/17 11:51 PT 12.0 SECONDS (9.7-12.2) 02/24/17 11:48 INR 1.1 02/24/17 11:48 APTT 24 SECONDS (21-34) 02/24/17 11:48 - Constitutional Appears: Well, Non-toxic, No Acute Distress - Head Exam Head Exam: ATRAUMATIC, NORMAL INSPECTION, NORMOCEPHALIC - Eye Exam Eye Exam: EOMI, Normal appearance, PERRL Pupil Exam: NORMAL ACCOMODATION, PERRL - ENT Exam ENT Exam: Mucous Membranes Moist, Normal Exam - Neck Exam Neck Exam: Normal Inspection. absent: Lymphadenopathy, Tenderness - Respiratory Exam Respiratory Exam: Clear to Ausculation Bilateral, NORMAL BREATHING PATTERN. absent: Rales, Rhonchi, Wheezes, Respiratory Distress, Stridor - Cardiovascular Exam Cardiovascular Exam: REGULAR RHYTHM, RRR, +S1, +S2. absent: Gallop, Rubs, Murmur - GI/Abdominal Exam GI & Abdominal Exam: Soft, Normal Bowel Sounds. absent: Distended, Firm, Guarding, Rigid, Tenderness - Extremities Exam Extremities Exam: Normal Inspection. absent: Full ROM Additional comments: No ROM in right upper or lower extremities - Back Exam Back Exam: NORMAL INSPECTION - Neurological Exam Neurological Exam: Alert, Awake, Oriented x3 Neuro motor strength exam: Left Upper Extremity: 4, Right Upper Extremity: 0, Left Lower Extremity: 4, Right Lower Extremity: 0 - Psychiatric Exam Psychiatric exam: Normal Affect, Normal Mood - Skin Skin Exam: Dry, Normal Color, Warm Assessment and Plan (1) Ischemic stroke Assessment & Plan: 03/21: No changes from before. No improvement or change of the right upper and lower extremity weakness. Neurologic assessment: aphasic speach, flaccid right upper and lower extremity muscle strength. 03/20: Patient seen by PT and given score of 5 on the Modified Antonio Scale: severe disability; bedridden, incontinent/requiring constant nsg care. Patient moved out of bed to chair with cheng steady. 02/24: * ROMIs negative x 3, * EKG- NSR w possible atrial enlargement. * Echo- EF is 65-70%. Mild aortic regurgitation; LV systolic function is normal ; hypokinesis in septal wall. Refer to complete report. As per Dr. Mccormick, BP SBP btwn 130-140 mmHg, ASA 81 mg PO daily and Plavix 75 mg PO daily, Crestor 40 mg PO HS since patient passed swallow eval HgbA1C 11.2, FLP elevated, TSH 1.7 02/26:Head, Neck MRA-Complete occlusion of left internal carotid and mild occlusive disease of right internal carotid. Per Surgery ( Dr. Choi) no surgical intervention at this time. Radiologist Dr. Khan called to confirm occlusive findings. 03/05:Head CT- redemonstrates large MCA territory infarct with mild surrounding mass effect . No evidence of hemorrhage or new infarcts. Continue to encourage movement with help from Physical Therapy. 03/13: Patient moved from bed to chair with max assist and put back to bed after an hour with max assist. Modified [place] scale: 5, severe disability; bedridden, incontinent/ requiring constant nursing care. Patient has low PO food intake. Seen by journeyman wireman on 03/08 and recommended Boost glucose control supplementation. Continue boost and await new recommendations. continue PT Status: Acute (2) Acute kidney injury Assessment & Plan: Continue 09/24 NS 40 cc/hr (decreased because patient tolerating diet) Creatinine decreased to 1.2. Status: Acute (3) Urinary retention Assessment & Plan: 03/21: no lasix given today 03/19: bennett catheter, lasix 20 mg one time dose given Retaining urine no 03/11 in AM- bladder scan 680ml so patient straight catheterized. Repeat bladder scan 150. Pt continued retaining urine and bennett placed. Bennett inserted 03/14. Flomax .4mg once daily started. Maintain fluids at 60 mL/hr. Dr. Valdez evaluated patient today and recommends keeping patient on bennett and encouraging patient to try to urinate more often. Continue patient on Cipro 250 mg PO BID Status: Acute (4) Elevated transaminase level Assessment & Plan: 03/21: decreased to AST:36, ALT: 43 monitor Status: Acute (5) Hypertension Assessment & Plan: 03/21: blood pressure stable Continue Labetalol 200 mg PO BID (switched from 100 mg PO TID) which is better controlling blood pressure Lisinopril 20mg PO Daily; Hydralazine 50 mg QID, Hydralazine 10 mg IV Q6 PRN if SBP above 180 Monitor BP Status: Acute (6) Diabetes Assessment & Plan: Accucheck. ISS ACHS. HgbA1C 11.2, Novolog Mix 70/30 15 units BIDAC daily. Metformin 500 mg PO BIDCC, Cont to monitor. Status: Acute (7) UTI (urinary tract infection) Assessment & Plan: No fevers or white count noted No apparent change in mentation Positive UA on 02/28, negative UA on 03/09 UC: sensitive to ceftriaxone. Ceftriaxone started on 02/28 and stopped on 03/10. Status: Resolved (8) Prophylactic measure Assessment & Plan: Pepcid 20 mg PO BID. ASA 81mg. Lovenox 40 sc daily. SCDs. Continue with PT/OT daily to maximize strength. Patient is maximum assist. Mouth care. Status: Acute <Dylan Monique H - Last Filed: 03/21/17 15:49> Objective - Vital Signs/Intake and Output Vital Signs (last 24 hours): Temp Pulse Resp BP Pulse Ox 98.0 F 72 20 130/66 96 03/21/17 08:55 03/21/17 08:55 03/21/17 08:55 03/21/17 08:55 03/21/17 08:55 Intake and Output: 03/21/17 03/21/17 06:59 18:59 Intake Total 320 Output Total 650 Balance -650 320 - Medications Medications: Current Medications Aspirin (Ecotrin) 81 mg PO DAILY [facility] Last Admin: 03/21/17 09:31 Dose: 81 mg Ciprofloxacin (Cipro) 250 mg PO BID [facility] Last Admin: 03/21/17 09:31 Dose: 250 mg Clopidogrel Bisulfate (Plavix) 75 mg PO DAILY [facility] Last Admin: 03/21/17 09:31 Dose: 75 mg Enoxaparin Sodium (Lovenox) 40 mg SC DAILY [facility] Last Admin: 03/21/17 09:31 Dose: 40 mg Famotidine (Pepcid) 20 mg PO DAILY [facility] Last Admin: 03/21/17 09:31 Dose: 20 mg Hydralazine HCl (Apresoline) 10 mg IVP Q6H PRN PRN Reason: For SBP >180 Last Admin: 02/26/17 23:58 Dose: 10 mg Hydralazine HCl (Apresoline) 50 mg PO QID [facility] Last Admin: 03/21/17 14:59 Dose: 50 mg Sodium Chloride (Sodium Chloride 0.45%) 1,000 mls @ 40 mls/hr IV .Q24H [facility] Last Admin: 03/20/17 14:28 Dose: 40 mls/hr Insulin Aspart (Novolog Mix 70/30 (70/30 Units/Ml)) 15 units SC BIDAC [facility] Last Admin: 03/21/17 08:47 Dose: 15 units Insulin Aspart (Novolog) 0 unit SC ACHS [facility] PRN Reason: Protocol Last Admin: 03/21/17 08:44 Dose: Not Given Labetalol HCl (Trandate) 200 mg PO BID [facility] Last Admin: 03/21/17 09:31 Dose: 200 mg Lisinopril (Zestril) 20 mg PO DAILY [facility] Last Admin: 03/21/17 09:31 Dose: 20 mg Metformin HCl (Glucophage) 500 mg PO BIDCC [facility] Last Admin: 03/21/17 08:47 Dose: 500 mg Rosuvastatin Calcium (Crestor) 40 mg PO HS [facility] Last Admin: 03/20/17 22:00 Dose: 40 mg Tamsulosin HCl (Flomax) 0.4 mg PO DAILY [facility] Last Admin: 03/21/17 09:31 Dose: 0.4 mg - Labs Labs: 03/21/17 08:08 03/21/17 08:08 PT 12.0 SECONDS (9.7-12.2) 02/24/17 11:48 INR 1.1 02/24/17 11:48 APTT 24 SECONDS (21-34) 02/24/17 11:48 Attending/Attestation - Attestation I have personally seen and examined this patient.: Yes I have fully participated in the care of the patient.: Yes I have reviewed all pertinent clinical information, including history, physical exam and plan: Yes Notes (Text): 03/21/17 15:48 Medical attending: Patient was seen and examined by me, agrees the above note by emergency medical technician/driver. Currently blood pressure is stable. As mentioned before she was changed to 40 mL an hour of intravenous fluids. She is taking food and water by mouth. Thank you very much, Dylan Monique
[2017-03-21 08:20] LABS: BASO % 0.6 % (0.0-2.0); EOS # 0.5 K/uL (0.0-0.7); EOS % 6.2 % (0.0-4.0); HEMOGLOBIN 10.8 g/dL (11.0-16.0); LYMPH # 2.4 K/uL (1.0-4.3); MEAN CELL VOLUME 85.2 fL (81.0-99.0); MEAN CORPUSCULAR HGB CONC 32.8 g/dL (33.0-37.0); MEAN PLATELET VOLUME 8.9 fL (7.2-11.7); MONO # 0.5 K/uL (0.0-0.8); MONO % 6.6 % (0.0-10.0); NEUT # 4.3 K/uL (1.8-7.0); NEUT % 55.6 % (50.0-75.0); NRBC % 0.1 % (0.0-2.0); RBC 3.84 Mil/uL (3.80-5.20); RED CELL DISTRIBUTION WIDTH 14.6 % (11.5-14.5); WHITE BLOOD COUNT 7.8 K/uL (4.8-10.8)
[2017-03-21 08:36] LABS: ALBUMIN 3.2 g/dL (3.5-5.0)
[2017-03-21 08:39] LABS: ALB/GLOB RATIO 0.9 (1.0-2.1)
[2017-03-21 08:41] LABS: CALCIUM 8.9 mg/dl (8.6-10.4); MAGNESIUM 1.8 mg/dL (1.6-2.3)
[2017-03-21] MEDS: (Novolog) Insulin Aspart, Recombinant 100 u/ml 10 ml vial SC SCH ×4 (08:44→22:14)
[2017-03-21] MEDS: (Novolog Mix 70/30) Insulin Aspart/Insulin Aspar 100 units/ml SC SCH ×2 (08:47→17:56)
[2017-03-21] MEDS: Enoxaparin 40 mg Syringe SC SCH (09:31)
--- NOTE | 2017-03-22 06:29 | CP.PCM.PN ---
Subjective - Date & Time of Evaluation Date of Evaluation: 03/22/17 Time of Evaluation: 07:00 - Subjective Subjective: PGY-1 Medicine Note- Dr. Monique's Service Patient seen and examined at bedside and in no acute distress. No changes observed. Patient has no new complaints. Patient still only able to respond by shaking her head and saying "no" or "okay." Patient continues to have no function in right upper or lower extremities. Will need to try to find out if she has family in [place] that could take care of her. Objective - Vital Signs/Intake and Output Vital Signs (last 24 hours): Temp Pulse Resp BP Pulse Ox 98 F 79 20 158/71 H 98 03/21/17 23:30 03/21/17 23:30 03/21/17 23:30 03/21/17 23:30 03/21/17 23:30 Intake and Output: 03/21/17 03/22/17 18:59 06:59 Intake Total 320 320 Output Total 200 Balance 320 120 - Medications Medications: Current Medications Aspirin (Ecotrin) 81 mg PO DAILY [facility] Last Admin: 03/21/17 09:31 Dose: 81 mg Ciprofloxacin (Cipro) 250 mg PO BID [facility] Last Admin: 03/21/17 17:56 Dose: 250 mg Clopidogrel Bisulfate (Plavix) 75 mg PO DAILY [facility] Last Admin: 03/21/17 09:31 Dose: 75 mg Enoxaparin Sodium (Lovenox) 40 mg SC DAILY [facility] Last Admin: 03/21/17 09:31 Dose: 40 mg Famotidine (Pepcid) 20 mg PO DAILY [facility] Last Admin: 03/21/17 09:31 Dose: 20 mg Hydralazine HCl (Apresoline) 10 mg IVP Q6H PRN PRN Reason: For SBP >180 Last Admin: 02/26/17 23:58 Dose: 10 mg Hydralazine HCl (Apresoline) 50 mg PO QID [facility] Last Admin: 03/21/17 22:14 Dose: 50 mg Sodium Chloride (Sodium Chloride 0.45%) 1,000 mls @ 40 mls/hr IV .Q24H [facility] Last Admin: 03/20/17 14:28 Dose: 40 mls/hr Insulin Aspart (Novolog Mix 70/30 (70/30 Units/Ml)) 15 units SC BIDAC [facility] Last Admin: 03/21/17 17:56 Dose: 15 units Insulin Aspart (Novolog) 0 unit SC ACHS [facility] PRN Reason: Protocol Last Admin: 03/21/17 22:14 Dose: 3 unit Labetalol HCl (Trandate) 200 mg PO BID [facility] Last Admin: 03/21/17 17:56 Dose: 200 mg Lisinopril (Zestril) 20 mg PO DAILY [facility] Last Admin: 03/21/17 09:31 Dose: 20 mg Metformin HCl (Glucophage) 500 mg PO BIDCC [facility] Last Admin: 03/21/17 17:56 Dose: 500 mg Rosuvastatin Calcium (Crestor) 40 mg PO HS [facility] Last Admin: 03/21/17 22:14 Dose: 40 mg Tamsulosin HCl (Flomax) 0.4 mg PO DAILY [facility] Last Admin: 03/21/17 09:31 Dose: 0.4 mg - Labs Labs: 03/21/17 08:08 03/21/17 08:08 PT 12.0 SECONDS (9.7-12.2) 02/24/17 11:48 INR 1.1 02/24/17 11:48 APTT 24 SECONDS (21-34) 02/24/17 11:48 - Constitutional Appears: Well, Non-toxic, No Acute Distress - Head Exam Head Exam: ATRAUMATIC, NORMAL INSPECTION, NORMOCEPHALIC - Eye Exam Eye Exam: EOMI, Normal appearance, PERRL - ENT Exam ENT Exam: Mucous Membranes Moist, Normal Exam - Neck Exam Neck Exam: Normal Inspection. absent: Lymphadenopathy, Tenderness - Respiratory Exam Respiratory Exam: Clear to Ausculation Bilateral, NORMAL BREATHING PATTERN. absent: Rales, Rhonchi, Wheezes, Respiratory Distress, Stridor - Cardiovascular Exam Cardiovascular Exam: REGULAR RHYTHM, RRR, +S1, +S2. absent: Gallop, Rubs, Murmur - GI/Abdominal Exam GI & Abdominal Exam: Soft, Normal Bowel Sounds. absent: Distended, Firm, Guarding, Tenderness - Extremities Exam Extremities Exam: Pedal Edema. absent: Full ROM Additional comments: Patient has no movement on right side trace pedal edema - Back Exam Back Exam: NORMAL INSPECTION. absent: rash noted - Neurological Exam Neurological Exam: Alert, Awake, Oriented x3 Neuro motor strength exam: Left Upper Extremity: 4, Right Upper Extremity: 0, Left Lower Extremity: 4, Right Lower Extremity: 0 - Psychiatric Exam Psychiatric exam: Normal Affect, Normal Mood - Skin Skin Exam: Normal Color, Warm Assessment and Plan (1) Ischemic stroke Assessment & Plan: 03/22: No changes from before. No improvement or change of the right upper and lower extremity weakness. 03/21: Neurologic assessment: aphasic speach, flaccid right upper and lower extremity muscle strength. 03/20: Patient seen by PT and given score of 5 on the Modified [place] Scale: severe disability; bedridden, incontinent/requiring constant nsg care. Patient moved out of bed to chair with cheng steady. 02/24: * ROMIs negative x 3, * EKG- NSR w possible atrial enlargement. * Echo- EF is 65-70%. Mild aortic regurgitation; LV systolic function is normal ; hypokinesis in septal wall. Refer to complete report. As per Dr. Mccormick, BP SBP btwn 130-140 mmHg, ASA 81 mg PO daily and Plavix 75 mg PO daily, Crestor 40 mg PO HS since patient passed swallow eval HgbA1C 11.2, FLP elevated, TSH 1.7 02/26:Head, Neck MRA-Complete occlusion of left internal carotid and mild occlusive disease of right internal carotid. Per Surgery ( Dr. Choi) no surgical intervention at this time. Radiologist Dr. Khan called to confirm occlusive findings. 03/05:Head CT- redemonstrates large MCA territory infarct with mild surrounding mass effect . No evidence of hemorrhage or new infarcts. Continue to encourage movement with help from Physical Therapy. 03/13: Patient moved from bed to chair with max assist and put back to bed after an hour with max assist. Modified Antonio scale: 5, severe disability; bedridden, incontinent/ requiring constant nursing care. Patient has low PO food intake. Seen by wind instrument repairer on 03/08 and recommended Boost glucose control supplementation. Continue boost and await new recommendations. continue PT Status: Acute (2) Acute kidney injury Assessment & Plan: Continue 09/24 NS 40 cc/hr (decreased because patient tolerating diet) Creatinine decreased to 1.2. Status: Acute (3) Urinary retention Assessment & Plan: 03/22 and 03/21: no lasix given today 03/19: bennett catheter, lasix 20 mg one time dose given Retaining urine no 03/11 in AM- bladder scan 680ml so patient straight catheterized. Repeat bladder scan 150. Pt continued retaining urine and bennett placed. Bennett inserted 03/14. Flomax .4mg once daily started. Maintain fluids at 60 mL/hr. Dr. Valdez evaluated patient today and recommends keeping patient on bennett and encouraging patient to try to urinate more often. Continue patient on Cipro 250 mg PO BID Status: Acute (4) Elevated transaminase level Assessment & Plan: 03/21: decreased to AST:36, ALT: 43 monitor Status: Acute (5) Hypertension Assessment & Plan: 03/21: blood pressure stable Continue Labetalol 200 mg PO BID (switched from 100 mg PO TID) which is better controlling blood pressure Lisinopril 20mg PO Daily; Hydralazine 50 mg QID, Hydralazine 10 mg IV Q6 PRN if SBP above 180 Monitor BP Status: Acute (6) Diabetes Assessment & Plan: Accucheck. ISS ACHS. HgbA1C 11.2, Novolog Mix 70/30 15 units BIDAC daily. Metformin 500 mg PO BIDCC, Cont to monitor. Status: Acute (7) UTI (urinary tract infection) Assessment & Plan: No fevers or white count noted No apparent change in mentation Positive UA on 02/28, negative UA on 03/09 UC: sensitive to ceftriaxone. Ceftriaxone started on 02/28 and stopped on 03/10. Status: Resolved (8) Prophylactic measure Assessment & Plan: Pepcid 20 mg PO BID. ASA 81mg. Lovenox 40 sc daily. SCDs. Continue with PT/OT daily to maximize strength. Patient is maximum assist. Mouth care. Status: Acute
[2017-03-22] MEDS: (Novolog Mix 70/30) Insulin Aspart/Insulin Aspar 100 units/ml SC SCH ×2 (08:30→18:21)
[2017-03-22] MEDS: (Novolog) Insulin Aspart, Recombinant 100 u/ml 10 ml vial SC SCH ×4 (08:30→23:01)
[2017-03-22] MEDS: Enoxaparin 40 mg Syringe SC SCH (09:42)
[2017-03-22] MEDS: Sodium Chloride 0.45% 1,000 ML IV SCH ×2 (11:23→18:22)
[2017-03-23 07:42] LABS: BASO % 0.5 % (0.0-2.0); EOS # 0.4 K/uL (0.0-0.7); LYMPH # 2.4 K/uL (1.0-4.3); MEAN CELL VOLUME 84.6 fL (81.0-99.0); MEAN CORPUSCULAR HEMOGLOBIN 27.4 pg (27.0-31.0); MEAN CORPUSCULAR HGB CONC 32.3 g/dL (33.0-37.0); MEAN PLATELET VOLUME 8.6 fL (7.2-11.7); MONO # 0.6 K/uL (0.0-0.8); MONO % 6.7 % (0.0-10.0); NEUT # 5.1 K/uL (1.8-7.0); NEUT % 59.8 % (50.0-75.0); RBC 3.67 Mil/uL (3.80-5.20); RED CELL DISTRIBUTION WIDTH 14.3 % (11.5-14.5); WHITE BLOOD COUNT 8.5 K/uL (4.8-10.8)
[2017-03-23 08:14] LABS: ALB/GLOB RATIO 0.9 (1.0-2.1); ALT/SGPT 47 U/L (9-52); AST/SGOT 34 U/L (14-36); BLOOD UREA NITROGEN 23 mg/dL (7-17); GFR AFRICAN-AMERICAN > 60; GFR NON-AFRICAN AMERICAN 52
--- NOTE | 2017-03-23 08:14 | CP.PCM.PN ---
<Ernie Casas - Last Filed: 03/23/17 08:12> Subjective - Date & Time of Evaluation Date of Evaluation: 03/23/17 Time of Evaluation: 02:30 - Subjective Subjective: PGY-1 Medicine Note- Dr. Monique's Service Patient seen and examined at bedside and in no acute distress. Patient has no new complaints. Patient still only able to respond by shaking her head and saying "no" or "okay." Patient continues to have no function in right upper or lower extremities. ROS limited due to patients condition. Objective - Vital Signs/Intake and Output Vital Signs (last 24 hours): Temp Pulse Resp BP Pulse Ox 98.0 F 80 20 160/66 H 98 03/22/17 23:30 03/22/17 23:30 03/22/17 23:30 03/23/17 04:45 03/22/17 23:30 Intake and Output: 03/23/17 03/23/17 06:59 18:59 Intake Total 420 Output Total 700 Balance -280 - Medications Medications: Current Medications Aspirin (Ecotrin) 81 mg PO DAILY [facility] Last Admin: 03/22/17 09:42 Dose: 81 mg Ciprofloxacin (Cipro) 250 mg PO BID [facility] Last Admin: 03/22/17 18:20 Dose: 250 mg Clopidogrel Bisulfate (Plavix) 75 mg PO DAILY [facility] Last Admin: 03/22/17 09:42 Dose: 75 mg Enoxaparin Sodium (Lovenox) 40 mg SC DAILY [facility] Last Admin: 03/22/17 09:42 Dose: 40 mg Famotidine (Pepcid) 20 mg PO DAILY [facility] Last Admin: 03/22/17 09:42 Dose: 20 mg Hydralazine HCl (Apresoline) 10 mg IVP Q6H PRN PRN Reason: For SBP >180 Last Admin: 02/26/17 23:58 Dose: 10 mg Hydralazine HCl (Apresoline) 50 mg PO QID [facility] Last Admin: 03/22/17 23:00 Dose: 50 mg Sodium Chloride (Sodium Chloride 0.45%) 1,000 mls @ 40 mls/hr IV .Q24H [facility] Last Admin: 03/22/17 18:22 Dose: 40 mls/hr Insulin Aspart (Novolog Mix 70/30 (70/30 Units/Ml)) 15 units SC BIDAC [facility] Last Admin: 03/22/17 18:21 Dose: Not Given Insulin Aspart (Novolog) 0 unit SC ACHS [facility] PRN Reason: Protocol Last Admin: 03/22/17 23:01 Dose: Not Given Labetalol HCl (Trandate) 200 mg PO BID [facility] Last Admin: 03/22/17 18:25 Dose: 200 mg Lisinopril (Zestril) 20 mg PO DAILY [facility] Last Admin: 03/22/17 09:42 Dose: 20 mg Metformin HCl (Glucophage) 500 mg PO BIDCC [facility] Last Admin: 03/22/17 18:21 Dose: 500 mg Rosuvastatin Calcium (Crestor) 40 mg PO HS [facility] Last Admin: 03/22/17 23:01 Dose: 40 mg Tamsulosin HCl (Flomax) 0.4 mg PO DAILY [facility] Last Admin: 03/22/17 09:42 Dose: 0.4 mg - Labs Labs: 03/23/17 07:21 PT 12.0 SECONDS (9.7-12.2) 02/24/17 11:48 INR 1.1 02/24/17 11:48 APTT 24 SECONDS (21-34) 02/24/17 11:48 - Constitutional Appears: Well - Head Exam Head Exam: ATRAUMATIC, NORMAL INSPECTION, NORMOCEPHALIC - Eye Exam Eye Exam: EOMI, Normal appearance, PERRL - ENT Exam ENT Exam: Mucous Membranes Moist, Normal Exam - Neck Exam Neck Exam: Full ROM, Normal Inspection. absent: Lymphadenopathy - Respiratory Exam Respiratory Exam: Clear to Ausculation Bilateral, NORMAL BREATHING PATTERN - Cardiovascular Exam Cardiovascular Exam: REGULAR RHYTHM, +S1, +S2. absent: Murmur - GI/Abdominal Exam GI & Abdominal Exam: Soft, Normal Bowel Sounds. absent: Tenderness - Rectal Exam Rectal Exam: Deferred - Extremities Exam Extremities Exam: Full ROM, Normal Capillary Refill, Normal Inspection. absent : Joint Swelling, Pedal Edema Additional comments: Patient has no movement on right side trace pedal edema - Neurological Exam Neurological Exam: Alert, Awake, Normal Gait - Psychiatric Exam Psychiatric exam: Normal Affect, Normal Mood - Skin Skin Exam: Dry, Intact, Normal Color, Warm Assessment and Plan - Assessment and Plan (Free Text) Assessment: (1) Ischemic stroke Assessment & Plan: 03/22: No changes from before. No improvement or change of the right upper and lower extremity weakness. 03/21: Neurologic assessment: aphasic speach, flaccid right upper and lower extremity muscle strength. 03/20: Patient seen by PT and given score of 5 on the Modified Antonio Scale: severe disability; bedridden, incontinent/requiring constant nsg care. Patient moved out of bed to chair with cheng steady. 02/24: * ROMIs negative x 3, * EKG- NSR w possible atrial enlargement. * Echo- EF is 65-70%. Mild aortic regurgitation; LV systolic function is normal ; hypokinesis in septal wall. Refer to complete report. As per Dr. Mccormick, BP SBP btwn 130-140 mmHg, ASA 81 mg PO daily and Plavix 75 mg PO daily, Crestor 40 mg PO HS since patient passed swallow eval HgbA1C 11.2, FLP elevated, TSH 1.7 02/26:Head, Neck MRA-Complete occlusion of left internal carotid and mild occlusive disease of right internal carotid. Per Surgery ( Dr. Choi) no surgical intervention at this time. Radiologist Dr. Khan called to confirm occlusive findings. 03/05:Head CT- redemonstrates large MCA territory infarct with mild surrounding mass effect . No evidence of hemorrhage or new infarcts. Continue to encourage movement with help from Physical Therapy. 03/13: Patient moved from bed to chair with max assist and put back to bed after an hour with max assist. Modified Pierce scale: 5, severe disability; bedridden, incontinent/ requiring constant nursing care. Patient has low PO food intake. Seen by phone technician on 03/08 and recommended Boost glucose control supplementation. Continue boost and await new recommendations. continue PT Status: Acute (2) Acute kidney injury Assessment & Plan: Continue 09/24 NS 40 cc/hr (decreased because patient tolerating diet) Creatinine decreased to 1.2. Status: Acute (3) Urinary retention Assessment & Plan: 03/22 and 03/21: no lasix given today 03/19: bennett catheter, lasix 20 mg one time dose given Retaining urine no 03/11 in AM- bladder scan 680ml so patient straight catheterized. Repeat bladder scan 150. Pt continued retaining urine and bennett placed. Bennett inserted 03/14. Flomax .4mg once daily started. Maintain fluids at 60 mL/hr. Dr. Valdez evaluated patient today and recommends keeping patient on bennett and encouraging patient to try to urinate more often. Continue patient on Cipro 250 mg PO BID Status: Acute (4) Elevated transaminase level Assessment & Plan: 03/21: decreased to AST:36, ALT: 43 monitor Status: Acute (5) Hypertension Assessment & Plan: 03/21: blood pressure stable Continue Labetalol 200 mg PO BID (switched from 100 mg PO TID) which is better controlling blood pressure Lisinopril 20mg PO Daily; Hydralazine 50 mg QID, Hydralazine 10 mg IV Q6 PRN if SBP above 180 Monitor BP Status: Acute (6) Diabetes Assessment & Plan: Accucheck. ISS ACHS. HgbA1C 11.2, Novolog Mix 70/30 15 units BIDAC daily. Metformin 500 mg PO BIDCC, Cont to monitor. Status: Acute (7) UTI (urinary tract infection) Assessment & Plan: No fevers or white count noted No apparent change in mentation Positive UA on 02/28, negative UA on 03/09 UC: sensitive to ceftriaxone. Ceftriaxone started on 02/28 and stopped on 03/10. Status: Resolved (8) Prophylactic measure Assessment & Plan: Pepcid 20 mg PO BID. ASA 81mg. Lovenox 40 sc daily. SCDs. Continue with PT/OT daily to maximize strength. Patient is maximum assist. Mouth care. Status: Acute <Dylan Monique H - Last Filed: 03/23/17 10:34> Objective - Vital Signs/Intake and Output Vital Signs (last 24 hours): Temp Pulse Resp BP Pulse Ox 98.0 F 71 20 154/72 H 96 03/23/17 08:51 03/23/17 08:51 03/23/17 08:51 03/23/17 08:51 03/23/17 08:51 Intake and Output: 03/23/17 03/23/17 06:59 18:59 Intake Total 420 Output Total 700 Balance -280 - Medications Medications: Current Medications Aspirin (Ecotrin) 81 mg PO DAILY [facility] Last Admin: 03/23/17 09:49 Dose: 81 mg Ciprofloxacin (Cipro) 250 mg PO BID [facility] Last Admin: 03/23/17 09:50 Dose: 250 mg Clopidogrel Bisulfate (Plavix) 75 mg PO DAILY [facility] Last Admin: 07/01/17 09:49 Dose: 75 mg Enoxaparin Sodium (Lovenox) 40 mg SC DAILY [facility] Last Admin: 03/23/17 09:48 Dose: 40 mg Famotidine (Pepcid) 20 mg PO DAILY [facility] Last Admin: 03/23/17 09:43 Dose: 20 mg Hydralazine HCl (Apresoline) 10 mg IVP Q6H PRN PRN Reason: For SBP >180 Last Admin: 02/26/17 23:58 Dose: 10 mg Hydralazine HCl (Apresoline) 50 mg PO QID [facility] Last Admin: 03/22/17 23:00 Dose: 50 mg Sodium Chloride (Sodium Chloride 0.45%) 1,000 mls @ 40 mls/hr IV .Q24H [facility] Last Admin: 03/22/17 18:22 Dose: 40 mls/hr Insulin Aspart (Novolog Mix 70/30 (70/30 Units/Ml)) 15 units SC BIDAC [facility] Last Admin: 03/23/17 09:48 Dose: 15 units Insulin Aspart (Novolog) 0 unit SC ACHS [facility] PRN Reason: Protocol Last Admin: 03/23/17 09:44 Dose: 2 unit Labetalol HCl (Trandate) 200 mg PO BID [facility] Last Admin: 03/23/17 09:50 Dose: 200 mg Lisinopril (Zestril) 20 mg PO DAILY [facility] Last Admin: 03/23/17 09:49 Dose: 20 mg Metformin HCl (Glucophage) 500 mg PO BIDCC [facility] Last Admin: 03/23/17 09:49 Dose: 500 mg Rosuvastatin Calcium (Crestor) 40 mg PO HS [facility] Last Admin: 03/22/17 23:01 Dose: 40 mg Tamsulosin HCl (Flomax) 0.4 mg PO DAILY [facility] Last Admin: 03/23/17 09:49 Dose: 0.4 mg - Labs Labs: 03/23/17 07:21 03/23/17 07:21 PT 12.0 SECONDS (9.7-12.2) 02/24/17 11:48 INR 1.1 02/24/17 11:48 APTT 24 SECONDS (21-34) 02/24/17 11:48 Attending/Attestation - Attestation I have personally seen and examined this patient.: Yes I have fully participated in the care of the patient.: Yes I have reviewed all pertinent clinical information, including history, physical exam and plan: Yes Notes (Text): Medical Attending: Patient was seen and examined by me. Agree with the above note by the resident. Today the BP systolic was higher than before. Will give another lasix x 1 thank you Dylan Monique
[2017-03-23 08:15] LABS: CALCIUM 8.8 mg/dl (8.6-10.4); MAGNESIUM 1.6 mg/dL (1.6-2.3)
[2017-03-23] MEDS: (Novolog) Insulin Aspart, Recombinant 100 u/ml 10 ml vial SC SCH ×3 (09:44→22:30)
[2017-03-23] MEDS: Enoxaparin 40 mg Syringe SC SCH (09:48)
[2017-03-23] MEDS: (Novolog Mix 70/30) Insulin Aspart/Insulin Aspar 100 units/ml SC SCH ×2 (09:48→16:30)
[2017-03-23] MEDS: Sodium Chloride 0.45% 1,000 ML IV SCH (22:22)
--- NOTE | 2017-03-24 02:17 | CP.PCM.PN ---
<Ernie Casas - Last Filed: 03/24/17 02:13> Subjective - Date & Time of Evaluation Date of Evaluation: 03/24/17 Time of Evaluation: 06:40 - Subjective Subjective: PGY-1 Medicine Note- Dr. Monique's Service Patient seen and examined at bedside and in no acute distress. Patient wanted the head of bed to be elevated. Patient has no new complaints. Patient still only able to respond by shaking her head and saying "no" or "okay." Patient continues to have no function in right upper or lower extremities. ROS limited due to patients condition. Objective - Vital Signs/Intake and Output Vital Signs (last 24 hours): Temp Pulse Resp BP Pulse Ox 98.3 F 75 20 146/72 97 03/23/17 23:35 03/23/17 23:35 03/23/17 23:35 03/23/17 23:35 03/23/17 23:35 Intake and Output: 03/23/17 03/24/17 18:59 06:59 Intake Total 560 Output Total 300 Balance 260 - Medications Medications: Current Medications Aspirin (Ecotrin) 81 mg PO DAILY [facility] Last Admin: 03/23/17 09:49 Dose: 81 mg Ciprofloxacin (Cipro) 250 mg PO BID [facility] Last Admin: 03/23/17 18:00 Dose: 250 mg Clopidogrel Bisulfate (Plavix) 75 mg PO DAILY [facility] Last Admin: 03/23/17 09:49 Dose: 75 mg Enoxaparin Sodium (Lovenox) 40 mg SC DAILY [facility] Last Admin: 03/23/17 09:48 Dose: 40 mg Famotidine (Pepcid) 20 mg PO DAILY [facility] Last Admin: 03/23/17 09:43 Dose: 20 mg Hydralazine HCl (Apresoline) 10 mg IVP Q6H PRN PRN Reason: For SBP >180 Last Admin: 02/26/17 23:58 Dose: 10 mg Hydralazine HCl (Apresoline) 50 mg PO QID [facility] Last Admin: 03/23/17 22:22 Dose: 50 mg Sodium Chloride (Sodium Chloride 0.45%) 1,000 mls @ 40 mls/hr IV .Q24H [facility] Last Admin: 03/23/17 22:22 Dose: 40 mls/hr Insulin Aspart (Novolog Mix 70/30 (70/30 Units/Ml)) 15 units SC BIDAC [facility] Last Admin: 03/23/17 16:30 Dose: Not Given Insulin Aspart (Novolog) 0 unit SC ACHS [facility] PRN Reason: Protocol Last Admin: 03/23/17 22:30 Dose: Not Given Labetalol HCl (Trandate) 200 mg PO BID [facility] Last Admin: 03/23/17 18:00 Dose: 200 mg Lisinopril (Zestril) 20 mg PO DAILY [facility] Last Admin: 03/23/17 09:49 Dose: 20 mg Metformin HCl (Glucophage) 500 mg PO BIDCC [facility] Last Admin: 03/23/17 17:00 Dose: Not Given Rosuvastatin Calcium (Crestor) 40 mg PO HS [facility] Last Admin: 03/23/17 22:22 Dose: 40 mg Tamsulosin HCl (Flomax) 0.4 mg PO DAILY [facility] Last Admin: 03/23/17 09:49 Dose: 0.4 mg - Labs Labs: 03/23/17 07:21 03/23/17 07:21 PT 12.0 SECONDS (9.7-12.2) 02/24/17 11:48 INR 1.1 02/24/17 11:48 APTT 24 SECONDS (21-34) 02/24/17 11:48 - Constitutional Appears: Well, Non-toxic, No Acute Distress - Head Exam Head Exam: NORMAL INSPECTION - Eye Exam Eye Exam: EOMI, Normal appearance Pupil Exam: PERRL - ENT Exam ENT Exam: Mucous Membranes Moist - Neck Exam Neck Exam: Full ROM - Respiratory Exam Respiratory Exam: Clear to Ausculation Bilateral, NORMAL BREATHING PATTERN - Cardiovascular Exam Cardiovascular Exam: REGULAR RHYTHM, +S1, +S2. absent: Murmur - GI/Abdominal Exam GI & Abdominal Exam: Soft, Normal Bowel Sounds. absent: Tenderness - Rectal Exam Rectal Exam: Deferred - Extremities Exam Additional comments: Patient has no movement on right side trace pedal edema - Neurological Exam Neurological Exam: Awake - Psychiatric Exam Psychiatric exam: Normal Mood - Skin Skin Exam: Dry, Intact, Normal Color, Warm Assessment and Plan - Assessment and Plan (Free Text) Assessment: (1) Ischemic stroke Assessment & Plan: 03/22: No changes from before. No improvement or change of the right upper and lower extremity weakness. 03/21: Neurologic assessment: aphasic speach, flaccid right upper and lower extremity muscle strength. 03/20: Patient seen by PT and given score of 5 on the Modified [place] Scale: severe disability; bedridden, incontinent/requiring constant nsg care. Patient moved out of bed to chair with cheng steady. 02/24: * ROMIs negative x 3, * EKG- NSR w possible atrial enlargement. * Echo- EF is 65-70%. Mild aortic regurgitation; LV systolic function is normal ; hypokinesis in septal wall. Refer to complete report. As per Dr. Mccormick, BP SBP btwn 130-140 mmHg, ASA 81 mg PO daily and Plavix 75 mg PO daily, Crestor 40 mg PO HS since patient passed swallow eval HgbA1C 11.2, FLP elevated, TSH 1.7 02/26:Head, Neck MRA-Complete occlusion of left internal carotid and mild occlusive disease of right internal carotid. Per Surgery ( Dr. Choi) no surgical intervention at this time. Radiologist Dr. Khan called to confirm occlusive findings. 03/05:Head CT- redemonstrates large MCA territory infarct with mild surrounding mass effect . No evidence of hemorrhage or new infarcts. Continue to encourage movement with help from Physical Therapy. 03/13: Patient moved from bed to chair with max assist and put back to bed after an hour with max assist. Modified [place] scale: 5, severe disability; bedridden, incontinent/ requiring constant nursing care. Patient has low PO food intake. Seen by energy conservation director on 03/08 and recommended Boost glucose control supplementation. Continue boost and await new recommendations. continue PT Status: Acute (2) Acute kidney injury Assessment & Plan: Continue 09/24 NS 40 cc/hr (decreased because patient tolerating diet) Creatinine decreased to 1.2. Status: Acute (3) Urinary retention Assessment & Plan: 03/22 and 03/21: no lasix given today 03/19: bennett catheter, lasix 20 mg one time dose given Retaining urine no 03/11 in AM- bladder scan 680ml so patient straight catheterized. Repeat bladder scan 150. Pt continued retaining urine and bennett placed. Bennett inserted 03/14. Flomax .4mg once daily started. Maintain fluids at 60 mL/hr. Dr. Valdez evaluated patient today and recommends keeping patient on bennett and encouraging patient to try to urinate more often. Continue patient on Cipro 250 mg PO BID Status: Acute (4) Elevated transaminase level Assessment & Plan: 03/21: decreased to AST:36, ALT: 43 monitor Status: Acute (5) Hypertension Assessment & Plan: 03/23: elevated bp, lasix x1 given 03/21: blood pressure stable Continue Labetalol 200 mg PO BID (switched from 100 mg PO TID) which is better controlling blood pressure Lisinopril 20mg PO Daily; Hydralazine 50 mg QID, Hydralazine 10 mg IV Q6 PRN if SBP above 180 Monitor BP Status: Acute (6) Diabetes Assessment & Plan: Accucheck. ISS ACHS. HgbA1C 11.2, Novolog Mix 70/30 15 units BIDAC daily. Metformin 500 mg PO BIDCC, Cont to monitor. Status: Acute (7) UTI (urinary tract infection) Assessment & Plan: No fevers or white count noted No apparent change in mentation Positive UA on 02/28, negative UA on 03/09 UC: sensitive to ceftriaxone. Ceftriaxone started on 02/28 and stopped on 03/10. Status: Resolved (8) Prophylactic measure Assessment & Plan: Pepcid 20 mg PO BID. ASA 81mg. Lovenox 40 sc daily. SCDs. Continue with PT/OT daily to maximize strength. Patient is maximum assist. Mouth care. Status: Acute <Dylan Monique H - Last Filed: 03/24/17 10:08> Objective - Vital Signs/Intake and Output Vital Signs (last 24 hours): Temp Pulse Resp BP Pulse Ox 98.7 F 75 20 149/74 98 03/24/17 08:50 03/24/17 08:50 03/24/17 08:50 03/24/17 08:50 03/24/17 08:50 Intake and Output: 03/24/17 03/24/17 06:59 18:59 Intake Total 880 Output Total 1000 Balance -120 - Medications Medications: Current Medications Aspirin (Ecotrin) 81 mg PO DAILY [facility] Last Admin: 03/24/17 09:03 Dose: 81 mg Ciprofloxacin (Cipro) 250 mg PO BID [facility] Last Admin: 03/24/17 09:02 Dose: 250 mg Clopidogrel Bisulfate (Plavix) 75 mg PO DAILY [facility] Last Admin: 03/24/17 09:03 Dose: 75 mg Enoxaparin Sodium (Lovenox) 40 mg SC DAILY [facility] Last Admin: 03/24/17 09:03 Dose: 40 mg Famotidine (Pepcid) 20 mg PO DAILY [facility] Last Admin: 03/24/17 09:03 Dose: 20 mg Hydralazine HCl (Apresoline) 10 mg IVP Q6H PRN PRN Reason: For SBP >180 Last Admin: 02/26/17 23:58 Dose: 10 mg Hydralazine HCl (Apresoline) 50 mg PO QID [facility] Last Admin: 03/24/17 09:03 Dose: 50 mg Sodium Chloride (Sodium Chloride 0.45%) 1,000 mls @ 40 mls/hr IV .Q24H [facility] Last Admin: 03/23/17 22:22 Dose: 40 mls/hr Insulin Aspart (Novolog Mix 70/30 (70/30 Units/Ml)) 15 units SC BIDAC [facility] Last Admin: 03/24/17 09:02 Dose: 15 units Insulin Aspart (Novolog) 0 unit SC ACHS [facility] PRN Reason: Protocol Last Admin: 03/23/17 22:30 Dose: Not Given Labetalol HCl (Trandate) 200 mg PO BID [facility] Last Admin: 03/24/17 09:03 Dose: 200 mg Lisinopril (Zestril) 20 mg PO DAILY [facility] Last Admin: 03/24/17 09:03 Dose: 20 mg Metformin HCl (Glucophage) 500 mg PO BIDCC [facility] Last Admin: 03/24/17 09:02 Dose: 500 mg Rosuvastatin Calcium (Crestor) 40 mg PO HS [facility] Last Admin: 03/23/17 22:22 Dose: 40 mg Tamsulosin HCl (Flomax) 0.4 mg PO DAILY [facility] Last Admin: 03/24/17 09:03 Dose: 0.4 mg - Labs Labs: 03/24/17 07:47 03/24/17 07:47 PT 12.0 SECONDS (9.7-12.2) 02/24/17 11:48 INR 1.1 02/24/17 11:48 APTT 24 SECONDS (21-34) 02/24/17 11:48 Attending/Attestation - Attestation I have personally seen and examined this patient.: Yes I have fully participated in the care of the patient.: Yes I have reviewed all pertinent clinical information, including history, physical exam and plan: Yes Notes (Text): Medical attending: Agree with the above note by the resident. Situation is mostly unchanged from before. Please reach out to the case workers during the weekdays to have the major airlines representatives contacted to see what their thresh-hold is for taking wheelchair bound patients with one side hemiplegia on economy seating - because I often see a lot of elderly wheelchair bound patients board planes with assistance. If on the other hands the major airlines say no - then patient may need medical air lift - which would be very expensive. thank you Dylan Monique
[2017-03-24 07:53] LABS: BASO % 0.6 % (0.0-2.0); EOS # 0.5 K/uL (0.0-0.7); EOS % 6.3 % (0.0-4.0); HEMOGLOBIN 10.4 g/dL (11.0-16.0); LYMPH # 2.5 K/uL (1.0-4.3); LYMPH % 30.8 % (20.0-40.0); MEAN CELL VOLUME 85.6 fL (81.0-99.0); MEAN CORPUSCULAR HEMOGLOBIN 27.3 pg (27.0-31.0); MEAN CORPUSCULAR HGB CONC 31.9 g/dL (33.0-37.0); MEAN PLATELET VOLUME 8.9 fL (7.2-11.7); MONO # 0.7 K/uL (0.0-0.8); MONO % 8.2 % (0.0-10.0); NEUT # 4.4 K/uL (1.8-7.0); NEUT % 54.1 % (50.0-75.0); NRBC % 0.1 % (0.0-2.0); RBC 3.79 Mil/uL (3.80-5.20); WHITE BLOOD COUNT 8.2 K/uL (4.8-10.8)
[2017-03-24 08:40] LABS: ALBUMIN 2.9 g/dL (3.5-5.0)
[2017-03-24 08:43] LABS: ALB/GLOB RATIO 0.9 (1.0-2.1)
[2017-03-24 08:44] LABS: CALCIUM 8.8 mg/dl (8.6-10.4); MAGNESIUM 1.8 mg/dL (1.6-2.3)
[2017-03-24] MEDS: (Novolog Mix 70/30) Insulin Aspart/Insulin Aspar 100 units/ml SC SCH ×2 (09:02→17:30)
[2017-03-24] MEDS: Enoxaparin 40 mg Syringe SC SCH (09:03)
[2017-03-24] MEDS: (Novolog) Insulin Aspart, Recombinant 100 u/ml 10 ml vial SC SCH ×3 (12:18→21:20)
[2017-03-24] MEDS: Sodium Chloride 0.45% 1,000 ML IV SCH (22:05)
[2017-03-25] MEDS: (Novolog) Insulin Aspart, Recombinant 100 u/ml 10 ml vial SC SCH ×3 (08:32→22:00)
[2017-03-25] MEDS: (Novolog Mix 70/30) Insulin Aspart/Insulin Aspar 100 units/ml SC SCH ×2 (08:35→17:30)
[2017-03-25] MEDS: Enoxaparin 40 mg Syringe SC SCH (09:33)
--- NOTE | 2017-03-25 09:43 | CP.PCM.PN ---
<Sherlyn Zaidi - Last Filed: 03/25/17 15:40> Subjective - Date & Time of Evaluation Date of Evaluation: 03/25/17 Time of Evaluation: 07:00 - Subjective Subjective: Patient seen and examined at bedside and in no acute distress. Patient has no new complaints. Patient still only able to respond by shaking her head and saying "no" or "okay." Patient continues to have no function in right upper or lower extremities. ROS limited due to patients condition. Patient's friend at bedside today and explains that her brother is trying to get a Visa from [place] to come take his sister out of the hospital. Objective - Vital Signs/Intake and Output Vital Signs (last 24 hours): Temp Pulse Resp BP Pulse Ox 97.6 F 75 18 174/72 H 96 03/25/17 07:40 03/25/17 07:40 03/25/17 07:40 03/25/17 07:40 03/25/17 07:40 Intake and Output: 03/25/17 03/25/17 06:59 18:59 Intake Total 560 Output Total 750 Balance -190 - Medications Medications: Current Medications Aspirin (Ecotrin) 81 mg PO DAILY [facility] Last Admin: 03/25/17 09:33 Dose: 81 mg Ciprofloxacin (Cipro) 250 mg PO BID [facility] Last Admin: 03/25/17 09:34 Dose: 250 mg Clopidogrel Bisulfate (Plavix) 75 mg PO DAILY [facility] Last Admin: 03/25/17 09:34 Dose: 75 mg Enoxaparin Sodium (Lovenox) 40 mg SC DAILY [facility] Last Admin: 03/25/17 09:33 Dose: 40 mg Famotidine (Pepcid) 20 mg PO DAILY [facility] Last Admin: 03/25/17 09:33 Dose: 20 mg Hydralazine HCl (Apresoline) 10 mg IVP Q6H PRN PRN Reason: For SBP >180 Last Admin: 02/26/17 23:58 Dose: 10 mg Hydralazine HCl (Apresoline) 50 mg PO QID [facility] Last Admin: 03/25/17 09:34 Dose: 50 mg Sodium Chloride (Sodium Chloride 0.45%) 1,000 mls @ 40 mls/hr IV .Q24H [facility] Last Admin: 03/24/17 22:05 Dose: 40 mls/hr Insulin Aspart (Novolog Mix 70/30 (70/30 Units/Ml)) 15 units SC BIDAC [facility] Last Admin: 03/25/17 08:35 Dose: 15 units Insulin Aspart (Novolog) 0 unit SC ACHS [facility] PRN Reason: Protocol Last Admin: 03/25/17 08:32 Dose: 2 unit Labetalol HCl (Trandate) 200 mg PO BID [facility] Last Admin: 03/25/17 09:34 Dose: 200 mg Lisinopril (Zestril) 20 mg PO DAILY [facility] Last Admin: 03/25/17 09:34 Dose: 20 mg Metformin HCl (Glucophage) 500 mg PO BIDCC [facility] Last Admin: 03/25/17 08:36 Dose: 500 mg Rosuvastatin Calcium (Crestor) 40 mg PO HS [facility] Last Admin: 03/24/17 21:20 Dose: 40 mg Tamsulosin HCl (Flomax) 0.4 mg PO DAILY [facility] Last Admin: 03/25/17 09:34 Dose: 0.4 mg - Labs Labs: 03/24/17 07:47 03/24/17 07:47 PT 12.0 SECONDS (9.7-12.2) 02/24/17 11:48 INR 1.1 02/24/17 11:48 APTT 24 SECONDS (21-34) 02/24/17 11:48 - Constitutional Appears: Well, Non-toxic, No Acute Distress - Head Exam Head Exam: ATRAUMATIC, NORMAL INSPECTION, NORMOCEPHALIC - Eye Exam Eye Exam: EOMI, Normal appearance, PERRL - ENT Exam ENT Exam: Mucous Membranes Moist, Normal Exam - Neck Exam Neck Exam: Normal Inspection. absent: Lymphadenopathy, Tenderness - Respiratory Exam Respiratory Exam: Clear to Ausculation Bilateral, NORMAL BREATHING PATTERN. absent: Rales, Rhonchi, Wheezes, Respiratory Distress, Stridor - Cardiovascular Exam Cardiovascular Exam: REGULAR RHYTHM, RRR, +S1, +S2. absent: Gallop, Rubs, Murmur - GI/Abdominal Exam GI & Abdominal Exam: Soft, Normal Bowel Sounds. absent: Firm, Guarding, Rigid, Tenderness - Extremities Exam Extremities Exam: Normal Inspection. absent: Full ROM Additional comments: No movement on right upper and lower extremities - Back Exam Back Exam: NORMAL INSPECTION. absent: rash noted - Neurological Exam Neurological Exam: Alert, Awake, Oriented x3 Neuro motor strength exam: Left Upper Extremity: 4, Right Upper Extremity: 0, Left Lower Extremity: 4, Right Lower Extremity: 0 - Psychiatric Exam Psychiatric exam: Normal Affect, Normal Mood - Skin Skin Exam: Intact, Normal Color, Warm Assessment and Plan (1) Ischemic stroke Assessment & Plan: 03/25: No changes from before. No improvement or change of the right upper and lower extremity weakness. Swallow evaluation done and recommends mechanical soft bite size food and thin liquids. 03/21: Neurologic assessment: aphasic speach, flaccid right upper and lower extremity muscle strength. 03/20: Patient seen by PT and given score of 5 on the Modified [place] Scale: severe disability; bedridden, incontinent/requiring constant nsg care. Patient moved out of bed to chair with cheng steady. 02/24: * ROMIs negative x 3, * EKG- NSR w possible atrial enlargement. * Echo- EF is 65-70%. Mild aortic regurgitation; LV systolic function is normal ; hypokinesis in septal wall. Refer to complete report. As per Dr. Mccormick, BP SBP btwn 130-140 mmHg, ASA 81 mg PO daily and Plavix 75 mg PO daily, Crestor 40 mg PO HS since patient passed swallow eval HgbA1C 11.2, FLP elevated, TSH 1.7 02/26:Head, Neck MRA-Complete occlusion of left internal carotid and mild occlusive disease of right internal carotid. Per Surgery ( Dr. Choi) no surgical intervention at this time. Radiologist Dr. Khan called to confirm occlusive findings. 03/05:Head CT- redemonstrates large MCA territory infarct with mild surrounding mass effect . No evidence of hemorrhage or new infarcts. Continue to encourage movement with help from Physical Therapy. 03/13: Patient moved from bed to chair with max assist and put back to bed after an hour with max assist. Modified [place] scale: 5, severe disability; bedridden, incontinent/ requiring constant nursing care. Patient has low PO food intake. Seen by route driver on 03/08 and recommended Boost glucose control supplementation. Continue boost and await new recommendations. continue PT Status: Acute (2) Acute kidney injury Assessment & Plan: 09/24 NS stopped (03/25) because tolerating oral intake Creatinine decreased to 1.2. Status: Acute (3) Urinary retention Assessment & Plan: 03/25: Bennett taken out, voiding trial 03/22 and 03/21: no lasix given 03/19: bennett catheter, lasix 20 mg one time dose given Retaining urine no 03/11 in AM- bladder scan 680ml so patient straight catheterized. Repeat bladder scan 150. Pt continued retaining urine and bennett placed. Bennett inserted 03/14. Flomax .4mg once daily started. Dr. Valdez evaluated patient on 03/14 and recommends keeping patient on bennett and encouraging patient to try to urinate more often. Continue patient on Cipro 250 mg PO BID Status: Acute (4) Elevated transaminase level Assessment & Plan: 03/21: decreased to AST:36, ALT: 43 monitor Status: Acute (5) Hypertension Assessment & Plan: 03/23: elevated bp, lasix x1 given 03/21: blood pressure stable Continue Labetalol 200 mg PO BID (switched from 100 mg PO TID) which is better controlling blood pressure Lisinopril 20mg PO changed from daily to HS (03/25/17); Hydralazine 50 mg QID, Hydralazine 10 mg IV Q6 PRN if SBP above 180 Monitor BP Status: Acute (6) Diabetes Assessment & Plan: Accucheck. ISS ACHS. HgbA1C 11.2, Novolog Mix 70/30 15 units BIDAC daily. Metformin 500 mg PO BIDCC, Cont to monitor. Status: Acute (7) UTI (urinary tract infection) Assessment & Plan: No fevers or white count noted No apparent change in mentation Positive UA on 02/28, negative UA on 03/09 UC: sensitive to ceftriaxone. Ceftriaxone started on 02/28 and stopped on 03/10. Status: Resolved (8) Prophylactic measure Assessment & Plan: Pepcid 20 mg PO BID. ASA 81mg. Lovenox 40 sc daily. SCDs. Continue with PT/OT daily to maximize strength. Patient is maximum assist. Mouth care. Status: Acute <Jad Miranda - Last Filed: 03/25/17 18:14> Objective - Vital Signs/Intake and Output Vital Signs (last 24 hours): Temp Pulse Resp BP Pulse Ox 98 F 69 18 147/68 98 03/25/17 16:00 03/25/17 16:00 03/25/17 16:00 03/25/17 16:00 03/25/17 16:00 Intake and Output: 03/25/17 03/25/17 06:59 18:59 Intake Total 560 340 Output Total 750 600 Balance -190 -260 - Medications Medications: Current Medications Aspirin (Ecotrin) 81 mg PO DAILY [facility] Last Admin: 03/25/17 09:33 Dose: 81 mg Ciprofloxacin (Cipro) 250 mg PO BID [facility] Last Admin: 03/25/17 09:34 Dose: 250 mg Clopidogrel Bisulfate (Plavix) 75 mg PO DAILY [facility] Last Admin: 03/25/17 09:34 Dose: 75 mg Enoxaparin Sodium (Lovenox) 40 mg SC DAILY [facility] Last Admin: 03/25/17 09:33 Dose: 40 mg Famotidine (Pepcid) 20 mg PO DAILY [facility] Last Admin: 03/25/17 09:33 Dose: 20 mg Hydralazine HCl (Apresoline) 10 mg IVP Q6H PRN PRN Reason: For SBP >180 Last Admin: 02/26/17 23:58 Dose: 10 mg Hydralazine HCl (Apresoline) 50 mg PO QID [facility] Last Admin: 03/25/17 13:54 Dose: 50 mg Insulin Aspart (Novolog Mix 70/30 (70/30 Units/Ml)) 15 units SC BIDAC [facility] Last Admin: 03/25/17 08:35 Dose: 15 units Insulin Aspart (Novolog) 0 unit SC ACHS [facility] PRN Reason: Protocol Last Admin: 03/25/17 08:32 Dose: 2 unit Labetalol HCl (Trandate) 200 mg PO BID [facility] Last Admin: 03/25/17 09:34 Dose: 200 mg Lisinopril (Zestril) 20 mg PO HS [facility] Metformin HCl (Glucophage) 500 mg PO BIDCC [facility] Last Admin: 03/25/17 08:36 Dose: 500 mg Rosuvastatin Calcium (Crestor) 40 mg PO HS [facility] Last Admin: 03/24/17 21:20 Dose: 40 mg Tamsulosin HCl (Flomax) 0.4 mg PO DAILY [facility] Last Admin: 03/25/17 09:34 Dose: 0.4 mg - Labs Labs: 03/24/17 07:47 03/24/17 07:47 PT 12.0 SECONDS (9.7-12.2) 02/24/17 11:48 INR 1.1 02/24/17 11:48 APTT 24 SECONDS (21-34) 02/24/17 11:48 Attending/Attestation - Attestation I have personally seen and examined this patient.: Yes I have fully participated in the care of the patient.: Yes I have reviewed all pertinent clinical information, including history, physical exam and plan: Yes Notes (Text): 03/25/17 18:13 Patient was seen and examined at bedside with the resident Patient is awake alert but noncommunicative Patient's friend is at bedside Discussed with the patient's friend about the discharge disposition We will discuss with case management regarding discharge planning Continue current medical management and continue physical therapy I agree with the assessment and plan documented by the resident.
--- NOTE | 2017-03-26 00:17 | CP.PCM.PN ---
<Zahira Abraham - Last Filed: 03/26/17 00:14> Subjective - Date & Time of Evaluation Date of Evaluation: 03/26/17 Time of Evaluation: 00:05 - Subjective Subjective: Medicine Note For Dr. Miranda, Patient was seen and examined at bedside. Resting comfortably in bed. No acute complaints. ROS limited due to patients condition. Objective - Vital Signs/Intake and Output Vital Signs (last 24 hours): Temp Pulse Resp BP Pulse Ox 98 F 85 20 152/71 H 98 03/25/17 18:31 03/25/17 18:31 03/25/17 18:31 03/25/17 18:31 03/25/17 18:31 Intake and Output: 03/25/17 03/26/17 18:59 06:59 Intake Total 340 Output Total 600 Balance -260 - Medications Medications: Current Medications Aspirin (Ecotrin) 81 mg PO DAILY [facility] Last Admin: 03/25/17 09:33 Dose: 81 mg Ciprofloxacin (Cipro) 250 mg PO BID [facility] Last Admin: 03/25/17 18:34 Dose: 250 mg Clopidogrel Bisulfate (Plavix) 75 mg PO DAILY [facility] Last Admin: 03/25/17 09:34 Dose: 75 mg Enoxaparin Sodium (Lovenox) 40 mg SC DAILY [facility] Last Admin: 03/25/17 09:33 Dose: 40 mg Famotidine (Pepcid) 20 mg PO DAILY [facility] Last Admin: 03/25/17 09:33 Dose: 20 mg Hydralazine HCl (Apresoline) 10 mg IVP Q6H PRN PRN Reason: For SBP >180 Last Admin: 02/26/17 23:58 Dose: 10 mg Hydralazine HCl (Apresoline) 50 mg PO QID [facility] Last Admin: 03/25/17 22:48 Dose: 50 mg Insulin Aspart (Novolog Mix 70/30 (70/30 Units/Ml)) 15 units SC BIDAC [facility] Last Admin: 03/25/17 17:30 Dose: Not Given Insulin Aspart (Novolog) 0 unit SC ACHS [facility] PRN Reason: Protocol Labetalol HCl (Trandate) 200 mg PO BID [facility] Last Admin: 03/25/17 18:34 Dose: 200 mg Lisinopril (Zestril) 20 mg PO HS [facility] Last Admin: 03/25/17 22:36 Dose: 20 mg Metformin HCl (Glucophage) 500 mg PO BIDCC [facility] Last Admin: 03/25/17 18:36 Dose: Not Given Rosuvastatin Calcium (Crestor) 40 mg PO HS [facility] Last Admin: 03/25/17 22:36 Dose: 40 mg Tamsulosin HCl (Flomax) 0.4 mg PO DAILY [facility] Last Admin: 03/25/17 09:34 Dose: 0.4 mg - Labs Labs: 03/24/17 07:47 03/24/17 07:47 PT 12.0 SECONDS (9.7-12.2) 02/24/17 11:48 INR 1.1 02/24/17 11:48 APTT 24 SECONDS (21-34) 02/24/17 11:48 - Constitutional Appears: No Acute Distress - Head Exam Head Exam: NORMAL INSPECTION, NORMOCEPHALIC - Eye Exam Eye Exam: Normal appearance Pupil Exam: NORMAL ACCOMODATION - ENT Exam ENT Exam: Mucous Membranes Moist - Respiratory Exam Respiratory Exam: Clear to Ausculation Bilateral, NORMAL BREATHING PATTERN. absent: Wheezes - Cardiovascular Exam Cardiovascular Exam: REGULAR RHYTHM, RRR - GI/Abdominal Exam GI & Abdominal Exam: Soft. absent: Distended, Tenderness, Normal Bowel Sounds - Extremities Exam Extremities Exam: Normal Inspection. absent: Pedal Edema, Tenderness Additional comments: No movement on right upper and lower extremities - Neurological Exam Neurological Exam: Alert, Awake, Oriented x3 - Skin Skin Exam: Dry, Intact, Normal Color, Warm Assessment and Plan - Assessment and Plan (Free Text) Plan: (1) Ischemic stroke Assessment & Plan: 03/25: No changes from before. No improvement or change of the right upper and lower extremity weakness. Swallow evaluation done and recommends mechanical soft bite size food and thin liquids. 03/21: Neurologic assessment: aphasic speach, flaccid right upper and lower extremity muscle strength. 03/20: Patient seen by PT and given score of 5 on the Modified Graham Scale: severe disability; bedridden, incontinent/requiring constant nsg care. Patient moved out of bed to chair with cheng steady. 02/24: * ROMIs negative x 3, * EKG- NSR w possible atrial enlargement. * Echo- EF is 65-70%. Mild aortic regurgitation; LV systolic function is normal ; hypokinesis in septal wall. Refer to complete report. As per Dr. Mccormick, BP SBP btwn 130-140 mmHg, ASA 81 mg PO daily and Plavix 75 mg PO daily, Crestor 40 mg PO HS since patient passed swallow eval HgbA1C 11.2, FLP elevated, TSH 1.7 02/26:Head, Neck MRA-Complete occlusion of left internal carotid and mild occlusive disease of right internal carotid. Per Surgery ( Dr. Choi) no surgical intervention at this time. Radiologist Dr. Khan called to confirm occlusive findings. 03/05:Head CT- redemonstrates large MCA territory infarct with mild surrounding mass effect . No evidence of hemorrhage or new infarcts. Continue to encourage movement with help from Physical Therapy. 03/13: Patient moved from bed to chair with max assist and put back to bed after an hour with max assist. Modified Graham scale: 5, severe disability; bedridden, incontinent/ requiring constant nursing care. Patient has low PO food intake. Seen by integration engineer on 03/08 and recommended Boost glucose control supplementation. Continue boost and await new recommendations. continue PT Status: Acute (2) Acute kidney injury Assessment & Plan: 09/24 NS stopped (03/25) because tolerating oral intake Creatinine decreased to 1.2. Status: Acute (3) Urinary retention Assessment & Plan: 03/25: Bennett taken out, voiding trial 03/22 and 03/21: no lasix given 03/19: bennett catheter, lasix 20 mg one time dose given Retaining urine no 03/11 in AM- bladder scan 680ml so patient straight catheterized. Repeat bladder scan 150. Pt continued retaining urine and bennett placed. Bennett inserted 03/14. Flomax .4mg once daily started. Dr. Valdez evaluated patient on 03/14 and recommends keeping patient on bennett and encouraging patient to try to urinate more often. Continue patient on Cipro 250 mg PO BID Status: Acute (4) Elevated transaminase level Assessment & Plan: 03/21: decreased to AST:36, ALT: 43 monitor Status: Acute (5) Hypertension Assessment & Plan: 03/23: elevated bp, lasix x1 given 03/21: blood pressure stable Continue Labetalol 200 mg PO BID (switched from 100 mg PO TID) which is better controlling blood pressure Lisinopril 20mg PO changed from daily to HS (03/25/17); Hydralazine 50 mg QID, Hydralazine 10 mg IV Q6 PRN if SBP above 180 Monitor BP Status: Acute (6) Diabetes Assessment & Plan: Accucheck. ISS ACHS. HgbA1C 11.2, Novolog Mix 70/30 15 units BIDAC daily. Metformin 500 mg PO BIDCC, Cont to monitor. Insulin 15u SC BIDAC held because of low blood sugars, monitor. ISS to low coverage. Status: Acute (7) UTI (urinary tract infection) Assessment & Plan: No fevers or white count noted No apparent change in mentation Positive UA on 02/28, negative UA on 03/09 UC: sensitive to ceftriaxone. Ceftriaxone started on 02/28 and stopped on 03/10. Status: Resolved (8) Prophylactic measure Assessment & Plan: Pepcid 20 mg PO BID. ASA 81mg. Lovenox 40 sc daily. SCDs. Continue with PT/OT daily to maximize strength. Patient is maximum assist. Mouth care. Status: Acute <Jad Miranda - Last Filed: 03/27/17 15:16> Objective - Vital Signs/Intake and Output Vital Signs (last 24 hours): Temp Pulse Resp BP Pulse Ox 97.9 F 79 20 160/70 H 99 03/27/17 07:10 03/27/17 07:10 03/27/17 07:10 03/27/17 07:10 03/27/17 07:10 Intake and Output: 03/27/17 03/27/17 06:59 18:59 Intake Total 420 Balance 420 - Medications Medications: Current Medications Aspirin (Ecotrin) 81 mg PO DAILY [facility] Last Admin: 03/27/17 09:07 Dose: 81 mg Ciprofloxacin (Cipro) 250 mg PO BID [facility] Last Admin: 03/27/17 09:07 Dose: 250 mg Clopidogrel Bisulfate (Plavix) 75 mg PO DAILY [facility] Last Admin: 03/27/17 09:07 Dose: 75 mg Enoxaparin Sodium (Lovenox) 40 mg SC DAILY [facility] Last Admin: 03/27/17 09:08 Dose: 40 mg Famotidine (Pepcid) 20 mg PO DAILY [facility] Last Admin: 03/27/17 09:07 Dose: 20 mg Hydralazine HCl (Apresoline) 10 mg IVP Q6H PRN PRN Reason: For SBP >180 Last Admin: 02/26/17 23:58 Dose: 10 mg Hydralazine HCl (Apresoline) 50 mg PO QID [facility] Last Admin: 03/27/17 13:23 Dose: 50 mg Insulin Aspart (Novolog Mix 70/30 (70/30 Units/Ml)) 15 units SC BIDAC [facility] Last Admin: 03/25/17 17:30 Dose: Not Given Insulin Aspart (Novolog) 0 unit SC ACHS [facility] PRN Reason: Protocol Last Admin: 03/27/17 12:55 Dose: 3 unit Labetalol HCl (Trandate) 200 mg PO BID [facility] Last Admin: 03/27/17 09:07 Dose: 200 mg Lisinopril (Zestril) 20 mg PO HS [facility] Last Admin: 03/26/17 22:08 Dose: 20 mg Metformin HCl (Glucophage) 500 mg PO BIDCC [facility] Last Admin: 03/27/17 08:17 Dose: 500 mg Rosuvastatin Calcium (Crestor) 40 mg PO HS [facility] Last Admin: 03/26/17 22:08 Dose: 40 mg Tamsulosin HCl (Flomax) 0.4 mg PO DAILY [facility] Last Admin: 03/27/17 09:08 Dose: 0.4 mg - Labs Labs: 03/27/17 07:17 03/27/17 07:14 PT 12.0 SECONDS (9.7-12.2) 02/24/17 11:48 INR 1.1 02/24/17 11:48 APTT 24 SECONDS (21-34) 02/24/17 11:48 Attending/Attestation - Attestation I have personally seen and examined this patient.: Yes I have fully participated in the care of the patient.: Yes I have reviewed all pertinent clinical information, including history, physical exam and plan: Yes Notes (Text): 03/27/17 15:16 Patient was seen and examined at bedside Continue current medical management and continue physical therapy daily Discussed the plan of care with the resident. Agree with history and physical and assessment/plan by the resident.
[2017-03-26] MEDS: (Novolog) Insulin Aspart, Recombinant 100 u/ml 10 ml vial SC SCH ×4 (07:38→22:08)
[2017-03-26 08:23] LABS: BASO # 0.1 K/uL (0.0-0.2); BASO % 0.6 % (0.0-2.0); EOS # 0.5 K/uL (0.0-0.7); EOS % 5.5 % (0.0-4.0); HEMOGLOBIN 10.6 g/dL (11.0-16.0); LYMPH # 2.1 K/uL (1.0-4.3); LYMPH % 24.9 % (20.0-40.0); MEAN CELL VOLUME 84.9 fL (81.0-99.0); MEAN CORPUSCULAR HEMOGLOBIN 27.9 pg (27.0-31.0); MEAN CORPUSCULAR HGB CONC 32.8 g/dL (33.0-37.0); MEAN PLATELET VOLUME 8.9 fL (7.2-11.7); MONO # 0.6 K/uL (0.0-0.8); MONO % 7.7 % (0.0-10.0); NEUT # 5.1 K/uL (1.8-7.0); NEUT % 61.3 % (50.0-75.0); RBC 3.79 Mil/uL (3.80-5.20); RED CELL DISTRIBUTION WIDTH 14.8 % (11.5-14.5); WHITE BLOOD COUNT 8.3 K/uL (4.8-10.8)
[2017-03-26 08:40] LABS: ALBUMIN 2.9 g/dL (3.5-5.0)
[2017-03-26 08:43] LABS: ALB/GLOB RATIO 0.9 (1.0-2.1)
[2017-03-26 08:45] LABS: MAGNESIUM 1.7 mg/dL (1.6-2.3)
[2017-03-26] MEDS: Enoxaparin 40 mg Syringe SC SCH (09:20)
[2017-03-27 07:45] LABS: BASO # 0.1 K/uL (0.0-0.2); BASO % 0.9 % (0.0-2.0); EOS # 0.5 K/uL (0.0-0.7); EOS % 5.7 % (0.0-4.0); HEMOGLOBIN 10.9 g/dL (11.0-16.0); LYMPH # 2.7 K/uL (1.0-4.3); LYMPH % 30.8 % (20.0-40.0); MEAN CORPUSCULAR HEMOGLOBIN 28.1 pg (27.0-31.0); MEAN CORPUSCULAR HGB CONC 33.1 g/dL (33.0-37.0); MEAN PLATELET VOLUME 8.8 fL (7.2-11.7); MONO # 0.7 K/uL (0.0-0.8); MONO % 7.5 % (0.0-10.0); NEUT # 4.8 K/uL (1.8-7.0); NEUT % 55.1 % (50.0-75.0); RBC 3.87 Mil/uL (3.80-5.20); RED CELL DISTRIBUTION WIDTH 14.7 % (11.5-14.5); WHITE BLOOD COUNT 8.7 K/uL (4.8-10.8)
[2017-03-27] MEDS: (Novolog) Insulin Aspart, Recombinant 100 u/ml 10 ml vial SC SCH ×4 (08:17→21:55)
[2017-03-27 08:25] LABS: ALBUMIN 3.1 g/dL (3.5-5.0)
[2017-03-27 08:28] LABS: ALB/GLOB RATIO 0.9 (1.0-2.1)
[2017-03-27 08:29] LABS: CALCIUM 9.4 mg/dl (8.6-10.4); MAGNESIUM 1.8 mg/dL (1.6-2.3)
[2017-03-27] MEDS: Enoxaparin 40 mg Syringe SC SCH (09:08)
--- NOTE | 2017-03-27 14:00 | CP.PCM.PN ---
<Sherlyn Zaidi - Last Filed: 03/27/17 15:09> Subjective - Date & Time of Evaluation Date of Evaluation: 03/27/17 Time of Evaluation: 07:00 - Subjective Subjective: PGY1- Medicine Note- Dr. Miranda's service Patient seen and examined at bedside and is in no acute distress. Patient able to move her right lower extremity more today but cannot move her right upper extremity. Patient still only responds with "no or okay" and by shaking her head. Patient had bennett catheter removed two days ago and had to be straight catheterized once yesterday. No acute complaints. ROS limited due to patients condition. Objective - Vital Signs/Intake and Output Vital Signs (last 24 hours): Temp Pulse Resp BP Pulse Ox 97.9 F 79 20 160/70 H 99 03/27/17 07:10 03/27/17 07:10 03/27/17 07:10 03/27/17 07:10 03/27/17 07:10 - Medications Medications: Current Medications Aspirin (Ecotrin) 81 mg PO DAILY [facility] Last Admin: 03/27/17 09:07 Dose: 81 mg Ciprofloxacin (Cipro) 250 mg PO BID [facility] Last Admin: 03/27/17 09:07 Dose: 250 mg Clopidogrel Bisulfate (Plavix) 75 mg PO DAILY [facility] Last Admin: 03/27/17 09:07 Dose: 75 mg Enoxaparin Sodium (Lovenox) 40 mg SC DAILY [facility] Last Admin: 03/27/17 09:08 Dose: 40 mg Famotidine (Pepcid) 20 mg PO DAILY [facility] Last Admin: 03/27/17 09:07 Dose: 20 mg Hydralazine HCl (Apresoline) 10 mg IVP Q6H PRN PRN Reason: For SBP >180 Last Admin: 02/26/17 23:58 Dose: 10 mg Hydralazine HCl (Apresoline) 50 mg PO QID [facility] Last Admin: 03/27/17 13:23 Dose: 50 mg Insulin Aspart (Novolog Mix 70/30 (70/30 Units/Ml)) 15 units SC BIDAC [facility] Last Admin: 03/25/17 17:30 Dose: Not Given Insulin Aspart (Novolog) 0 unit SC ACHS [facility] PRN Reason: Protocol Last Admin: 03/27/17 12:55 Dose: 3 unit Labetalol HCl (Trandate) 200 mg PO BID [facility] Last Admin: 03/27/17 09:07 Dose: 200 mg Lisinopril (Zestril) 20 mg PO [facility] Last Admin: 03/26/17 22:08 Dose: [facility] Last Admin: 03/27/17 08:17 Dose: 500 mg Rosuvastatin Calcium (Crestor) 40 mg PO [facility] Last Admin: 03/26/17 22:08 Dose: 40 mg Tamsulosin HCl (Flomax) 0.4 mg PO DAILY [facility] Last Admin: 03/27/17 09:08 Dose: 0.4 mg - Labs Labs: 03/27/17 07:17 03/27/17 07:14 PT 12.0 SECONDS (9.7-12.2) 02/24/17 11:48 INR 1.1 02/24/17 11:48 APTT 24 SECONDS (21-34) 02/24/17 11:48 - Constitutional Appears: Well, Non-toxic, No Acute Distress - Head Exam Head Exam: ATRAUMATIC, NORMAL INSPECTION, NORMOCEPHALIC - Eye Exam Eye Exam: EOMI, Normal appearance, PERRL - ENT Exam ENT Exam: Mucous Membranes Moist, Normal Exam - Neck Exam Neck Exam: Full ROM, Normal Inspection. absent: Lymphadenopathy - Respiratory Exam Respiratory Exam: Clear to Ausculation Bilateral, NORMAL BREATHING PATTERN. absent: Rales, Rhonchi, Wheezes, Stridor - Cardiovascular Exam Cardiovascular Exam: REGULAR RHYTHM, RRR, +S1, +S2. absent: Murmur - GI/Abdominal Exam GI & Abdominal Exam: Soft, Normal Bowel Sounds. absent: Distended, Firm, Guarding, Rigid, Tenderness - Extremities Exam Extremities Exam: Normal Inspection. absent: Full ROM Additional comments: right upper extremity has no motion right lower extremity has improved motion and strength - Back Exam Back Exam: NORMAL INSPECTION. absent: rash noted - Neurological Exam Neurological Exam: Alert, Awake, Oriented x3 Neuro motor strength exam: Left Upper Extremity: 5, Right Upper Extremity: 0, Left Lower Extremity: 5, Right Lower Extremity: 3 - Psychiatric Exam Psychiatric exam: Normal Affect, Normal Mood - Skin Skin Exam: Intact, Normal Color, Warm Assessment and Plan (1) Ischemic stroke Assessment & Plan: 03/27: increased movement in right lower extremity, right upper extremity has no movement 03/25: No changes from before. No improvement or change of the right upper and lower extremity weakness. Swallow evaluation done and recommends mechanical soft bite size food and thin liquids. 03/21: Neurologic assessment: aphasic speach, flaccid right upper and lower extremity muscle strength. 03/20: Patient seen by PT and given score of 5 on the Modified Ceiba Scale: severe disability; bedridden, incontinent/requiring constant nsg care. Patient moved out of bed to chair with cheng steady. 02/24: * ROMIs negative x 3, * EKG- NSR w possible atrial enlargement. * Echo- EF is 65-70%. Mild aortic regurgitation; LV systolic function is normal ; hypokinesis in septal wall. Refer to complete report. As per Dr. Mccormick, BP SBP btwn 130-140 mmHg, ASA 81 mg PO daily and Plavix 75 mg PO daily, Crestor 40 mg PO HS since patient passed swallow eval HgbA1C 11.2, FLP elevated, TSH 1.7 02/26:Head, Neck MRA-Complete occlusion of left internal carotid and mild occlusive disease of right internal carotid. Per Surgery ( Dr. Choi) no surgical intervention at this time. Radiologist Dr. Khan called to confirm occlusive findings. 03/05:Head CT- redemonstrates large MCA territory infarct with mild surrounding mass effect . No evidence of hemorrhage or new infarcts. Continue to encourage movement with help from Physical Therapy. 03/13: Patient moved from bed to chair with max assist and put back to bed after an hour with max assist. Modified Ceiba scale: 5, severe disability; bedridden, incontinent/ requiring constant nursing care. Patient has low PO food intake. Seen by smoke tester on 03/08 and recommended Boost glucose control supplementation. Continue boost and await new recommendations. continue PT Status: Acute (2) Acute kidney injury Assessment & Plan: 09/24 NS stopped (03/25) because tolerating oral intake Creatinine stable at 1.2. Status: Acute (3) Urinary retention Assessment & Plan: 03/27: bladder scan done, 195 cc, nursing communication put in to put patient on bed valentine q3h to encourage urination. 03/26: 635am: Bladder scan done, 511ml so straight cath performed with approx 500 cc of clear yellow fluid obtained 03/25: Bennett taken out, voiding trial 03/22 and 03/21: no lasix given 03/19: bennett catheter, lasix 20 mg one time dose given Retaining urine no 03/11 in AM- bladder scan 680ml so patient straight catheterized. Repeat bladder scan 150. Pt continued retaining urine and bennett placed. Bennett inserted 03/14. Flomax .4mg once daily started. Dr. Valdez evaluated patient on 03/14 and recommends keeping patient on bennett and encouraging patient to try to urinate more often. Continue patient on Cipro 250 mg PO BID Status: Acute (4) Elevated transaminase level Assessment & Plan: 02/25: AST and ALT: 38, 38 Status: Acute (5) Hypertension Assessment & Plan: 03/27: bp-160/70 03/23: elevated bp, lasix x1 given 03/21: blood pressure stable Continue Labetalol 200 mg PO BID (switched from 100 mg PO TID) which is better controlling blood pressure Lisinopril 20mg PO changed from daily to HS (03/25/17); Hydralazine 50 mg QID, Hydralazine 10 mg IV Q6 PRN if SBP above 180 Monitor BP Status: Acute (6) Diabetes Assessment & Plan: Accucheck. ISS ACHS. HgbA1C 11.2, Novolog Mix 70/30 15 units BIDAC daily. Metformin 500 mg PO BIDCC, Cont to monitor. Insulin 15u SC BIDAC held because of low blood sugars, monitor. ISS to low coverage. Status: Acute (7) UTI (urinary tract infection) Assessment & Plan: No fevers or white count noted No apparent change in mentation Positive UA on 02/28, negative UA on 03/09 UC: sensitive to ceftriaxone. Ceftriaxone started on 02/28 and stopped on 03/10. Status: Resolved (8) Prophylactic measure Assessment & Plan: Pepcid 20 mg PO BID. ASA 81mg. Lovenox 40 sc daily. SCDs. Continue with PT/OT daily to maximize strength. Patient is maximum assist. Mouth care. Status: Acute <Jad Miranda - Last Filed: 03/27/17 18:40> Objective - Vital Signs/Intake and Output Vital Signs (last 24 hours): Temp Pulse Resp BP Pulse Ox 97.9 F 71 20 104/65 99 03/27/17 07:10 03/27/17 18:12 03/27/17 18:12 03/27/17 18:12 03/27/17 07:10 Intake and Output: 03/27/17 03/27/17 06:59 18:59 Intake Total 420 Balance 420 - Medications Medications: Current Medications Aspirin (Ecotrin) 81 mg PO DAILY [facility] Last Admin: 03/27/17 09:07 Dose: 81 mg Ciprofloxacin (Cipro) 250 mg PO BID [facility] Last Admin: 03/27/17 18:11 Dose: 250 mg Clopidogrel Bisulfate (Plavix) 75 mg PO DAILY [facility] Last Admin: 03/27/17 09:07 Dose: 75 mg Enoxaparin Sodium (Lovenox) 40 mg SC DAILY [facility] Last Admin: 03/27/17 09:08 Dose: 40 mg Famotidine (Pepcid) 20 mg PO DAILY [facility] Last Admin: 03/27/17 09:07 Dose: 20 mg Hydralazine HCl (Apresoline) 10 mg IVP Q6H PRN PRN Reason: For SBP >180 Last Admin: 02/26/17 23:58 Dose: 10 mg Hydralazine HCl (Apresoline) 50 mg PO QID [facility] Last Admin: 03/27/17 18:11 Dose: 50 mg Insulin Aspart (Novolog Mix 70/30 (70/30 Units/Ml)) 15 units SC BIDAC [facility] Last Admin: 03/25/17 17:30 Dose: Not Given Insulin Aspart (Novolog) 0 unit SC ACHS [facility] PRN Reason: Protocol Last Admin: 03/27/17 18:11 Dose: Not Given Labetalol HCl (Trandate) 200 mg PO BID [facility] Last Admin: 03/27/17 18:11 Dose: 200 mg Lisinopril (Zestril) 20 mg PO HS [facility] Last Admin: 03/26/17 22:08 Dose: 20 mg Metformin HCl (Glucophage) 500 mg PO BIDCC [facility] Last Admin: 03/27/17 18:11 Dose: 500 mg Rosuvastatin Calcium (Crestor) 40 mg PO HS [facility] Last Admin: 03/26/17 22:08 Dose: 40 mg Tamsulosin HCl (Flomax) 0.4 mg PO DAILY [facility] Last Admin: 03/27/17 09:08 Dose: 0.4 mg - Labs Labs: 03/27/17 07:17 03/27/17 07:14 PT 12.0 SECONDS (9.7-12.2) 02/24/17 11:48 INR 1.1 02/24/17 11:48 APTT 24 SECONDS (21-34) 02/24/17 11:48 Attending/Attestation - Attestation I have personally seen and examined this patient.: Yes I have fully participated in the care of the patient.: Yes I have reviewed all pertinent clinical information, including history, physical exam and plan: Yes
--- NOTE | 2017-03-28 06:22 | CP.PCM.PN ---
<Sherlyn Zaidi - Last Filed: 03/28/17 17:55> Subjective - Date & Time of Evaluation Date of Evaluation: 03/28/17 Time of Evaluation: 07:00 - Subjective Subjective: PGY1- Medicine Note- Dr. Miranda's service Patient seen and examined at bedside and is in no acute distress. Patient bladder scanned in morning and had 600 ml of urine. Patient encouraged to urinate in bed valentine and urinated about 100cc. Patient put on bed valentine again a few hours later and was able to urinate some more. Patient able to move her right lower extremity more today but cannot move her right upper extremity. Patient still only responds with "no or okay" and by shaking her head. No acute complaints. ROS limited due to patients condition. Objective - Vital Signs/Intake and Output Vital Signs (last 24 hours): Temp Pulse Resp BP Pulse Ox 98.3 F 73 20 131/74 20 L 03/27/17 23:40 03/27/17 23:40 03/27/17 23:40 03/27/17 23:40 03/27/17 23:40 Intake and Output: 03/27/17 03/28/17 18:59 06:59 Intake Total 420 380 Balance 420 380 - Medications Medications: Current Medications Aspirin (Ecotrin) 81 mg PO DAILY [facility] Last Admin: 03/27/17 09:07 Dose: 81 mg Ciprofloxacin (Cipro) 250 mg PO BID [facility] Last Admin: 03/27/17 18:11 Dose: 250 mg Clopidogrel Bisulfate (Plavix) 75 mg PO DAILY [facility] Last Admin: 03/27/17 09:07 Dose: 75 mg Enoxaparin Sodium (Lovenox) 40 mg SC DAILY [facility] Last Admin: 03/27/17 09:08 Dose: 40 mg Famotidine (Pepcid) 20 mg PO DAILY [facility] Last Admin: 03/27/17 09:07 Dose: 20 mg Hydralazine HCl (Apresoline) 10 mg IVP Q6H PRN PRN Reason: For SBP >180 Last Admin: 02/26/17 23:58 Dose: 10 mg Hydralazine HCl (Apresoline) 50 mg PO QID [facility] Last Admin: 03/27/17 21:53 Dose: 50 mg Insulin Aspart (Novolog Mix 70/30 (70/30 Units/Ml)) [facility] Last Admin: 03/25/17 17:30 Dose: Not Given Insulin Aspart (Novolog) 0 unit SC ACHS [facility] PRN Reason: Protocol Last Admin: 03/27/17 21:55 Dose: Not Given Labetalol HCl (Trandate) 200 mg PO BID [facility] Last Admin: 03/27/17 18:11 Dose: 200 mg Lisinopril (Zestril) 20 mg PO HS [facility] Last Admin: 03/27/17 21:53 Dose: 20 mg Metformin HCl (Glucophage) 500 mg PO BIDCC [facility] Last Admin: 03/27/17 18:11 Dose: 500 mg Rosuvastatin Calcium (Crestor) 40 mg PO HS [facility] Last Admin: 03/27/17 21:53 Dose: 40 mg Tamsulosin HCl (Flomax) 0.4 mg PO DAILY [facility] Last Admin: 03/27/17 09:08 Dose: 0.4 mg - Labs Labs: 03/27/17 07:17 03/27/17 07:14 PT 12.0 SECONDS (9.7-12.2) 02/24/17 11:48 INR 1.1 02/24/17 11:48 APTT 24 SECONDS (21-34) 02/24/17 11:48 - Constitutional Appears: Well, Non-toxic, No Acute Distress - Head Exam Head Exam: ATRAUMATIC, NORMAL INSPECTION, NORMOCEPHALIC - Eye Exam Eye Exam: EOMI, Normal appearance, PERRL - ENT Exam ENT Exam: Mucous Membranes Dry - Neck Exam Neck Exam: Full ROM, Normal Inspection. absent: Lymphadenopathy - Cardiovascular Exam Cardiovascular Exam: REGULAR RHYTHM, RRR, +S1, +S2. absent: Gallop, Rubs, Murmur - GI/Abdominal Exam GI & Abdominal Exam: Soft, Normal Bowel Sounds. absent: Distended, Firm, Guarding, Rigid, Tenderness - Extremities Exam Extremities Exam: Normal Capillary Refill, Normal Inspection. absent: Joint Swelling, Pedal Edema Additional comments: right side upper extremity no movement, right side lower extremity minimal movement - Back Exam Back Exam: NORMAL INSPECTION. absent: rash noted - Neurological Exam Neurological Exam: Alert, Awake, Oriented x3 Neuro motor strength exam: Left Upper Extremity: 5, Right Upper Extremity: 0, Left Lower Extremity: 5, Right Lower Extremity: 3 - Psychiatric Exam Psychiatric exam: Normal Affect, Normal Mood - Skin Skin Exam: Intact, Normal Color, Warm Assessment and Plan (1) Ischemic stroke Assessment & Plan: 03/27: increased movement in right lower extremity, right upper extremity has no movement 03/25: No changes from before. No improvement or change of the right upper and lower extremity weakness. Swallow evaluation done and recommends mechanical soft bite size food and thin liquids. 03/21: Neurologic assessment: aphasic speach, flaccid right upper and lower extremity muscle strength. 03/20: Patient seen by PT and given score of 5 on the Modified Linden Scale: severe disability; bedridden, incontinent/requiring constant nsg care. Patient moved out of bed to chair with cheng steady. 02/24: * ROMIs negative x 3, * EKG- NSR w possible atrial enlargement. * Echo- EF is 65-70%. Mild aortic regurgitation; LV systolic function is normal ; hypokinesis in septal wall. Refer to complete report. As per Dr. Mccormick, BP SBP btwn 130-140 mmHg, ASA 81 mg PO daily and Plavix 75 mg PO daily, Crestor 40 mg PO HS since patient passed swallow eval HgbA1C 11.2, FLP elevated, TSH 1.7 02/26:Head, Neck MRA-Complete occlusion of left internal carotid and mild occlusive disease of right internal carotid. Per Surgery ( Dr. Choi) no surgical intervention at this time. Radiologist Dr. Khan called to confirm occlusive findings. 03/05:Head CT- redemonstrates large MCA territory infarct with mild surrounding mass effect . No evidence of hemorrhage or new infarcts. Continue to encourage movement with help from Physical Therapy. 03/13: Patient moved from bed to chair with max assist and put back to bed after an hour with max assist. Modified Linden scale: 5, severe disability; bedridden, incontinent/ requiring constant nursing care. Patient has low PO food intake. Seen by art installer on 03/08 and recommended Boost glucose control supplementation. Continue boost and await new recommendations. continue PT Status: Acute (2) Urinary retention Assessment & Plan: 03/28: bladder can done, 600cc, patient put on bed valentine and urinated about 100cc, then urinated again on bed valentine a few hours later. Continue to encourage patient to urinate by placing on bed valentine every 3 hours. 03/27: bladder scan done, 195 cc, nursing communication put in to put patient on bed valentine q3h to encourage urination. 03/26: 635am: Bladder scan done, 511ml so straight cath performed with approx 500 cc of clear yellow fluid obtained 03/25: Bennett taken out, voiding trial 03/22 and 03/21: no lasix given 03/19: bennett catheter, lasix 20 mg one time dose given Retaining urine no 03/11 in AM- bladder scan 680ml so patient straight catheterized. Repeat bladder scan 150. Pt continued retaining urine and bennett placed. Bennett inserted 03/14. Flomax .4mg once daily started. Dr. Valdez evaluated patient on 03/14 and recommends keeping patient on bennett and encouraging patient to try to urinate more often. Continue patient on Cipro 250 mg PO BID Status: Acute (3) Acute kidney injury Assessment & Plan: 09/24 NS stopped (03/25) because tolerating oral intake Creatinine stable at 1.2. Status: Acute (4) Elevated transaminase level Assessment & Plan: 02/25: AST and ALT: 38, 38 Status: Acute (5) Hypertension Assessment & Plan: 03/27: bp-160/70 03/23: elevated bp, lasix x1 given 03/21: blood pressure stable Continue Labetalol 200 mg PO BID (switched from 100 mg PO TID) which is better controlling blood pressure Lisinopril 20mg PO changed from daily to HS (03/25/17); Hydralazine 50 mg QID, Hydralazine 10 mg IV Q6 PRN if SBP above 180 Monitor BP Status: Acute (6) Diabetes Assessment & Plan: Accucheck. ISS ACHS. HgbA1C 11.2, Novolog Mix 70/30 15 units BIDAC daily. Metformin 500 mg PO BIDCC, Cont to monitor. Insulin 15u SC BIDAC held because of low blood sugars, monitor. ISS to low coverage. Status: Acute (7) UTI (urinary tract infection) Assessment & Plan: No fevers or white count noted No apparent change in mentation Positive UA on 02/28, negative UA on 03/09 UC: sensitive to ceftriaxone. Ceftriaxone started on 02/28 and stopped on 03/10. Status: Resolved (8) Prophylactic measure Assessment & Plan: Pepcid 20 mg PO BID. ASA 81mg. Lovenox 40 sc daily. SCDs. Continue with PT/OT daily to maximize strength. Patient is maximum assist. Mouth care. Status: Acute <Jad Miranda M - Last Filed: 03/29/17 08:22> Objective - Vital Signs/Intake and Output Vital Signs (last 24 hours): Temp Pulse Resp BP Pulse Ox 98 F 73 20 133/66 97 03/28/17 23:35 03/28/17 23:35 03/28/17 23:35 03/28/17 23:35 03/28/17 23:35 Intake and Output: 03/29/17 03/29/17 06:59 18:59 Intake Total 440 Output Total 0 Balance 440 - Medications Medications: Current Medications Aspirin (Ecotrin) 81 mg PO DAILY [facility] Last Admin: 03/28/17 09:51 Dose: 81 mg Ciprofloxacin (Cipro) 250 mg PO BID [facility] Last Admin: 03/28/17 17:41 Dose: 250 mg Clopidogrel Bisulfate (Plavix) 75 mg PO DAILY [facility] Last Admin: 03/28/17 09:52 Dose: 75 mg Enoxaparin Sodium (Lovenox) 40 mg SC DAILY [facility] Last Admin: 03/28/17 09:51 Dose: 40 mg Famotidine (Pepcid) 20 mg PO DAILY [facility] Last Admin: 03/28/17 09:52 Dose: 20 mg Hydralazine HCl (Apresoline) 10 mg IVP Q6H PRN PRN Reason: For SBP >180 Last Admin: 02/26/17 23:58 Dose: 10 mg Hydralazine HCl (Apresoline) 50 mg PO QID [facility] Last Admin: 03/28/17 22:20 Dose: 50 mg Insulin Aspart (Novolog Mix 70/30 (70/30 Units/Ml)) 15 units SC BIDAC [facility] Last Admin: 03/25/17 17:30 Dose: Not Given Insulin Aspart (Novolog) 0 unit SC ACHS [facility] PRN Reason: Protocol Last Admin: 03/28/17 22:20 Dose: Not Given Labetalol HCl (Trandate) 200 mg PO BID [facility] Last Admin: 03/28/17 17:42 Dose: 200 mg Lisinopril (Zestril) 20 mg PO HS [facility] Last Admin: 03/28/17 22:20 Dose: 20 mg Metformin HCl (Glucophage) 500 mg PO BIDCC [facility] Last Admin: 03/28/17 17:41 Dose: 500 mg Rosuvastatin Calcium (Crestor) 40 mg PO HS [facility] Last Admin: 03/28/17 22:19 Dose: 40 mg Tamsulosin HCl (Flomax) 0.4 mg PO DAILY [facility] Last Admin: 03/28/17 09:51 Dose: 0.4 mg - Labs Labs: 03/27/17 07:17 03/27/17 07:14 PT 12.0 SECONDS (9.7-12.2) 02/24/17 11:48 INR 1.1 02/24/17 11:48 APTT 24 SECONDS (21-34) 02/24/17 11:48 Attending/Attestation - Attestation I have personally seen and examined this patient.: Yes I have fully participated in the care of the patient.: Yes I have reviewed all pertinent clinical information, including history, physical exam and plan: Yes Notes (Text): 03/29/17 08:21 Patient was seen and examined at bedside with the resident Patient is comfortable Continue physical therapy daily Encourage patient to urinate on bedpan frequently to obviate the need for straight catheter or Bennett's catheter Discussed the plan of care with the resident agree with the assessment and plan by the resident.
[2017-03-28] MEDS: (Novolog) Insulin Aspart, Recombinant 100 u/ml 10 ml vial SC SCH ×4 (08:35→22:20)
[2017-03-28] MEDS: Enoxaparin 40 mg Syringe SC SCH (09:51)
--- NOTE | 2017-03-29 08:08 | CP.PCM.PN ---
Addendum entered and electronically signed by Sherlyn Zaidi 03/29/17 15:49 : Physical Exam: - Constitutional Appears: Well, Non-toxic, No Acute Distress - Head Exam Head Exam: ATRAUMATIC, NORMAL INSPECTION, NORMOCEPHALIC - Eye Exam Eye Exam: EOMI, Normal appearance, PERRL - ENT Exam ENT Exam: Mucous Membranes Dry - Neck Exam Neck Exam: Full ROM, Normal Inspection. absent: Lymphadenopathy - Cardiovascular Exam Cardiovascular Exam: REGULAR RHYTHM, RRR, +S1, +S2. absent: Gallop, Rubs, Murmur - GI/Abdominal Exam GI & Abdominal Exam: Soft, Normal Bowel Sounds. absent: Distended, Firm, Guarding, Rigid, Tenderness - Extremities Exam Extremities Exam: Normal Capillary Refill, Normal Inspection. absent: Joint Swelling, Pedal Edema Additional comments: right side upper extremity no movement, right side lower extremity minimal movement - Back Exam Back Exam: NORMAL INSPECTION. absent: rash noted - Neurological Exam Neurological Exam: Alert, Awake, Oriented x3 Neuro motor strength exam: Left Upper Extremity: 5, Right Upper Extremity: 0, Left Lower Extremity: 5, Right Lower Extremity: 4 - Psychiatric Exam Psychiatric exam: Normal Affect, Normal Mood - Skin Skin Exam: Intact, Normal Color, Warm Original Note: <Sherlyn Zaidi - Last Filed: 03/29/17 15:15> Subjective - Date & Time of Evaluation Date of Evaluation: 03/29/17 Time of Evaluation: 07:00 - Subjective Subjective: PGY1- Medicine Note- Dr. Miranda's service Patient seen and examined at bedside and is in no acute distress. Patient bladder scanned in morning and had 600 ml of urine. Patient encouraged to urinate in bed valentine and urinated about 300 cc. Patient able to move her right lower extremity more today but cannot move her right upper extremity. Patient still only responds with "no or okay" and by shaking her head. No acute complaints. ROS limited due to patients condition. Objective - Vital Signs/Intake and Output Vital Signs (last 24 hours): Temp Pulse Resp BP Pulse Ox 98 F 73 20 133/66 97 03/28/17 23:35 03/28/17 23:35 03/28/17 23:35 03/28/17 23:35 03/28/17 23:35 Intake and Output: 03/29/17 03/29/17 06:59 18:59 Intake Total 440 Output Total 0 Balance 440 - Medications Medications: Current Medications Aspirin (Ecotrin) 81 mg PO DAILY [facility] Last Admin: 03/28/17 09:51 Dose: 81 mg Ciprofloxacin (Cipro) 250 mg PO BID [facility] Last Admin: 03/28/17 17:41 Dose: 250 mg Clopidogrel Bisulfate (Plavix) 75 mg PO DAILY [facility] Last Admin: 03/28/17 09:52 Dose: 75 mg Enoxaparin Sodium (Lovenox) 40 mg SC DAILY [facility] Last Admin: 03/28/17 09:51 Dose: 40 mg Famotidine (Pepcid) 20 mg PO DAILY [facility] Last Admin: 03/28/17 09:52 Dose: 20 mg Hydralazine HCl (Apresoline) 10 mg IVP Q6H PRN PRN Reason: For SBP >180 Last Admin: 02/26/17 23:58 Dose: 10 mg Hydralazine HCl (Apresoline) 50 mg PO QID [facility] Last Admin: 03/28/17 22:20 Dose: 50 mg Insulin Aspart (Novolog Mix 70/30 (70/30 Units/Ml)) 15 units SC BIDAC [facility] Last Admin: 03/25/17 17:30 Dose: Not Given Insulin Aspart (Novolog) [address] [facility] PRN Reason: Protocol Last Admin: 03/28/17 22:20 Dose: Not Given Labetalol HCl (Trandate) 200 mg PO BID [facility] Last Admin: 03/28/17 17:42 Dose: 200 mg Lisinopril (Zestril) 20 mg PO HS [facility] Last Admin: 03/28/17 22:20 Dose: 20 mg Metformin HCl (Glucophage) 500 mg PO BIDCC [facility] Last Admin: 03/28/17 17:41 Dose: 500 mg Rosuvastatin Calcium (Crestor) 40 mg PO HS [facility] Last Admin: 03/28/17 22:19 Dose: 40 mg Tamsulosin HCl (Flomax) 0.4 mg PO DAILY [facility] Last Admin: 03/28/17 09:51 Dose: 0.4 mg - Labs Labs: 03/27/17 07:17 03/27/17 07:14 PT 12.0 SECONDS (9.7-12.2) 02/24/17 11:48 INR 1.1 02/24/17 11:48 APTT 24 SECONDS (21-34) 02/24/17 11:48 Assessment and Plan (1) Ischemic stroke Assessment & Plan: 03/29: continues to have movement in right lower extremity, right upper extremity has no movement 03/27: increased movement in right lower extremity, right upper extremity has no movement 03/25: No changes from before. No improvement or change of the right upper and lower extremity weakness. Swallow evaluation done and recommends mechanical soft bite size food and thin liquids. 03/21: Neurologic assessment: aphasic speach, flaccid right upper and lower extremity muscle strength. 03/20: Patient seen by PT and given score of 5 on the Modified Albers Scale: severe disability; bedridden, incontinent/requiring constant nsg care. Patient moved out of bed to chair with cheng steady. 02/24: * ROMIs negative x 3, * EKG- NSR w possible atrial enlargement. * Echo- EF is 65-70%. Mild aortic regurgitation; LV systolic function is normal ; hypokinesis in septal wall. Refer to complete report. As per Dr. Mccormick, BP SBP btwn 130-140 mmHg, ASA 81 mg PO daily and Plavix 75 mg PO daily, Crestor 40 mg PO HS since patient passed swallow eval HgbA1C 11.2, FLP elevated, TSH 1.7 02/26:Head, Neck MRA-Complete occlusion of left internal carotid and mild occlusive disease of right internal carotid. Per Surgery ( Dr. Choi) no surgical intervention at this time. Radiologist Dr. Khan called to confirm occlusive findings. 03/05:Head CT- redemonstrates large MCA territory infarct with mild surrounding mass effect . No evidence of hemorrhage or new infarcts. Continue to encourage movement with help from Physical Therapy. 03/13: Patient moved from bed to chair with max assist and put back to bed after an hour with max assist. Modified Albers scale: 5, severe disability; bedridden, incontinent/ requiring constant nursing care. Patient has low PO food intake. Seen by set up mechanic crown assembly machine on 03/08 and recommended Boost glucose control supplementation. Continue boost and await new recommendations. continue PT Status: Acute (2) Urinary retention Assessment & Plan: 03/29: bladder scan done, 600cc, patient put on bed valentine and urinated about 300cc, continue to encourage urination with bed valentine 03/28: bladder can done, 600cc, patient put on bed valentine and urinated about 100cc, then urinated again on bed valentine a few hours later. Continue to encourage patient to urinate by placing on bed valentine every 3 hours. 03/27: bladder scan done, 195 cc, nursing communication put in to put patient on bed valentine q3h to encourage urination. 03/26: 635am: Bladder scan done, 511ml so straight cath performed with approx 500 cc of clear yellow fluid obtained 03/25: Bennett taken out, voiding trial 03/22 and 03/21: no lasix given 03/19: bennett catheter, lasix 20 mg one time dose given Retaining urine no 03/11 in AM- bladder scan 680ml so patient straight catheterized. Repeat bladder scan 150. Pt continued retaining urine and bennett placed. Bennett inserted 03/14. Flomax .4mg once daily started. Dr. Valdez evaluated patient on 03/14 and recommends keeping patient on bennett and encouraging patient to try to urinate more often. Continue patient on Cipro 250 mg PO BID Status: Acute (3) Acute kidney injury Assessment & Plan: 09/24 NS stopped (03/25) because tolerating oral intake Creatinine stable at 1.2. Status: Acute (4) Elevated transaminase level Assessment & Plan: 02/25: AST and ALT: 38, 38 Status: Acute (5) Hypertension Assessment & Plan: 03/27: bp-160/70 03/23: elevated bp, lasix x1 given 03/21: blood pressure stable Continue Labetalol 200 mg PO BID (switched from 100 mg PO TID) which is better controlling blood pressure Lisinopril 20mg PO changed from daily to HS (03/25/17); Hydralazine 50 mg QID, Hydralazine 10 mg IV Q6 PRN if SBP above 180 Monitor BP Status: Acute (6) Diabetes Assessment & Plan: Accucheck. ISS ACHS. HgbA1C 11.2, Novolog Mix 70/30 15 units BIDAC daily. Metformin 500 mg PO BIDCC, Cont to monitor. Insulin 15u SC BIDAC held because of low blood sugars, monitor. ISS to low coverage. Status: Acute (7) UTI (urinary tract infection) Assessment & Plan: No fevers or white count noted No apparent change in mentation Positive UA on 02/28, negative UA on 03/09 UC: sensitive to ceftriaxone. Ceftriaxone started on 02/28 and stopped on 03/10. Status: Resolved (8) Prophylactic measure Assessment & Plan: Pepcid 20 mg PO BID. ASA 81mg. Lovenox 40 sc daily. SCDs. Continue with PT/OT daily to maximize strength. Patient is maximum assist. Mouth care. Status: Acute <Jad Miranda M - Last Filed: 03/30/17 14:52> Objective - Vital Signs/Intake and Output Vital Signs (last 24 hours): Temp Pulse Resp BP Pulse Ox 97.5 F L 74 20 159/78 H 96 03/30/17 07:00 03/30/17 07:00 03/30/17 07:00 03/30/17 07:00 03/30/17 07:00 Intake and Output: 03/30/17 03/30/17 06:59 18:59 Intake Total 320 480 Balance 320 480 - Medications Medications: Current Medications Aspirin (Ecotrin) 81 mg PO DAILY [facility] Last Admin: 03/30/17 12:52 Dose: 81 mg Ciprofloxacin (Cipro) 250 mg PO BID [facility] Last Admin: 03/30/17 09:39 Dose: 250 mg Clopidogrel Bisulfate (Plavix) 75 mg PO DAILY [facility] Last Admin: 03/30/17 09:39 Dose: 75 mg Enoxaparin Sodium (Lovenox) 40 mg SC DAILY [facility] Last Admin: 03/30/17 09:40 Dose: 40 mg Famotidine (Pepcid) 20 mg PO DAILY [facility] Last Admin: 03/30/17 09:39 Dose: 20 mg Hydralazine HCl (Apresoline) 10 mg IVP Q6H PRN PRN Reason: For SBP >180 Last Admin: 02/26/17 23:58 Dose: 10 mg Hydralazine HCl (Apresoline) 50 mg PO QID [facility] Last Admin: 03/30/17 13:11 Dose: 50 mg Insulin Aspart (Novolog Mix 70/30 (70/30 Units/Ml)) 15 units SC BIDAC [facility] Last Admin: 03/25/17 17:30 Dose: Not Given Insulin Aspart (Novolog) 0 unit SC ACHS [facility] PRN Reason: Protocol Last Admin: 03/30/17 12:53 Dose: 2 unit Labetalol HCl (Trandate) 200 mg PO BID [facility] Last Admin: 03/30/17 09:38 Dose: 200 mg Lisinopril (Zestril) 20 mg PO HS [facility] Last Admin: 03/29/17 21:33 Dose: 20 mg Metformin HCl (Glucophage) 500 mg PO BIDCC [facility] Last Admin: 03/30/17 08:41 Dose: 500 mg Rosuvastatin Calcium (Crestor) 40 mg PO HS [facility] Last Admin: 03/29/17 21:33 Dose: 40 mg Tamsulosin HCl (Flomax) 0.4 mg PO DAILY [facility] Last Admin: 03/30/17 09:39 Dose: 0.4 mg - Labs Labs: 03/27/17 07:17 03/27/17 07:14 PT 12.0 SECONDS (9.7-12.2) 02/24/17 11:48 INR 1.1 02/24/17 11:48 APTT 24 SECONDS (21-34) 02/24/17 11:48 Attending/Attestation - Attestation I have personally seen and examined this patient.: Yes I have fully participated in the care of the patient.: Yes I have reviewed all pertinent clinical information, including history, physical exam and plan: Yes Notes (Text): 03/30/17 14:51 Patient was seen and examined at bedside with the resident Patient is awake alert not in any acute distress Continue current medical management Continue physical therapy Discharge planning is in progress I discussed the plan of care with the resident and agree with the assessment plan by the resident
[2017-03-29] MEDS: Enoxaparin 40 mg Syringe SC SCH (09:28)
[2017-03-29] MEDS: (Novolog) Insulin Aspart, Recombinant 100 u/ml 10 ml vial SC SCH ×4 (09:29→21:33)
--- NOTE | 2017-03-30 03:10 | CP.PCM.PN ---
<Amie Mcintosh - Last Filed: 03/30/17 02:48> Subjective - Date & Time of Evaluation Date of Evaluation: 03/30/17 Time of Evaluation: 02:49 - Subjective Subjective: Medicine Progress Note- Dr. Putnam Service Patient was seen and examined at bedside. Patient was pleasant and smiling. Patient was able to respond to review of systems and exam by saying "yes", "no" and nodding. Patient complains of right leg pain and inability to move it. 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 Patient denies having chest pain, palpitations, abdominal pain, and headaches. Objective - Vital Signs/Intake and Output Vital Signs (last 24 hours): Temp Pulse Resp BP Pulse Ox 98.1 F 73 20 110/69 97 03/29/17 23:35 03/29/17 23:35 03/29/17 23:35 03/29/17 23:35 03/29/17 23:35 Intake and Output: 03/29/17 03/30/17 18:59 06:59 Intake Total 262 320 Output Total 0 Balance 262 320 - Medications Medications: Current Medications Aspirin (Ecotrin) 81 mg PO DAILY [facility] Last Admin: 03/29/17 09:28 Dose: 81 mg Ciprofloxacin (Cipro) 250 mg PO BID [facility] Last Admin: 03/29/17 18:05 Dose: 250 mg Clopidogrel Bisulfate (Plavix) 75 mg PO DAILY [facility] Last Admin: 03/29/17 09:27 Dose: 75 mg Enoxaparin Sodium (Lovenox) 40 mg SC DAILY [facility] Last Admin: 03/29/17 09:28 Dose: 40 mg Famotidine (Pepcid) 20 mg PO DAILY [facility] Last Admin: 03/29/17 09:28 Dose: 20 mg Hydralazine HCl (Apresoline) 10 mg IVP Q6H PRN PRN Reason: For SBP >180 Last Admin: 02/26/17 23:58 Dose: 10 mg Hydralazine HCl (Apresoline) 50 mg PO QID [facility] Last Admin: 03/29/17 21:33 Dose: 50 mg Insulin Aspart (Novolog Mix 70/30 (70/30 Units/Ml)) 15 units SC BIDAC [facility] Last Admin: 03/25/17 17:30 Dose: Not Given Insulin Aspart (Novolog) 0 unit SC ACHS [facility] PRN Reason: Protocol Last Admin: 03/29/17 21:33 Dose: Not Given Labetalol HCl (Trandate) 200 mg PO BID [facility] Last Admin: 03/29/17 18:05 Dose: 200 mg Lisinopril (Zestril) 20 mg PO [facility] Last Admin: 03/29/17 21:33 Dose: 20 mg [facility] Last Admin: 03/29/17 18:05 Dose: 500 mg Rosuvastatin Calcium (Crestor) 40 mg PO [facility] Last Admin: 03/29/17 21:33 Dose: 40 mg Tamsulosin HCl (Flomax) 0.4 mg PO DAILY [facility] Last Admin: 03/28/17 09:51 Dose: 0.4 mg - Labs Labs: 03/27/17 07:17 03/27/17 07:14 PT 12.0 SECONDS (9.7-12.2) 02/24/17 11:48 INR 1.1 02/24/17 11:48 APTT 24 SECONDS (21-34) 02/24/17 11:48 - Constitutional Appears: No Acute Distress - Head Exam Head Exam: NORMAL INSPECTION, NORMOCEPHALIC - Eye Exam Eye Exam: EOMI, Normal appearance - ENT Exam ENT Exam: Mucous Membranes Moist - Neck Exam Neck Exam: Normal Inspection - Respiratory Exam Respiratory Exam: Clear to Ausculation Bilateral, NORMAL BREATHING PATTERN. absent: Rhonchi, Wheezes - Cardiovascular Exam Cardiovascular Exam: REGULAR RHYTHM, +S1, +S2. absent: Murmur - GI/Abdominal Exam GI & Abdominal Exam: Soft, Normal Bowel Sounds. absent: Tenderness - Extremities Exam Extremities Exam: Normal Inspection, Tenderness (with palpation b/l). absent: Pedal Edema - Neurological Exam Neurological Exam: Alert, Awake - Psychiatric Exam Psychiatric exam: Normal Affect, Normal Mood - Skin Skin Exam: Dry, Intact, Normal Color, Warm Assessment and Plan (1) Ischemic stroke Assessment & Plan: 03/29: continues to have movement in right lower extremity, right upper extremity has no movement 7/5: increased movement in right lower extremity, right upper extremity has no movement 7/3: No changes from before. No improvement or change of the right upper and lower extremity weakness. Swallow evaluation done and recommends mechanical soft bite size food and thin liquids. 03/21: Neurologic assessment: aphasic speach, flaccid right upper and lower extremity muscle strength. 03/20: Patient seen by PT and given score of 5 on the Modified Creston Scale: severe disability; bedridden, incontinent/requiring constant nsg care. Patient moved out of bed to chair with cheng steady. 02/24: * ROMIs negative x 3, * EKG- NSR w possible atrial enlargement. * Echo- EF is 65-70%. Mild aortic regurgitation; LV systolic function is normal ; hypokinesis in septal wall. Refer to complete report. As per Dr. Mccormick, BP SBP btwn 130-140 mmHg, ASA 81 mg PO daily and Plavix 75 mg PO daily, Crestor 40 mg PO HS since patient passed swallow eval HgbA1C 11.2, FLP elevated, TSH 1.7 02/26:Head, Neck MRA-Complete occlusion of left internal carotid and mild occlusive disease of right internal carotid. Per Surgery ( Dr. Choi) no surgical intervention at this time. Radiologist Dr. Khan called to confirm occlusive findings. 03/05:Head CT- redemonstrates large MCA territory infarct with mild surrounding mass effect . No evidence of hemorrhage or new infarcts. Continue to encourage movement with help from Physical Therapy. 03/13: Patient moved from bed to chair with max assist and put back to bed after an hour with max assist. Modified Antonio scale: 5, severe disability; bedridden, incontinent/ requiring constant nursing care. Patient has low PO food intake. Seen by project economist on 03/08 and recommended Boost glucose control supplementation. Continue boost and await new recommendations. continue PT Status: Acute (2) Urinary retention Assessment & Plan: Monitor I & Os 03/29: bladder scan done, 630cc, patient put on bed valentine and urinated about 300cc, continue to encourage urination with bed valentine 03/28: bladder can done, 600cc, patient put on bed valentine and urinated about 100cc, then urinated again on bed valentine a few hours later. Continue to encourage patient to urinate by placing on bed valentine every 3 hours. 03/27: bladder scan done, 195 cc, nursing communication put in to put patient on bed valentine q3h to encourage urination. 03/26: 635am: Bladder scan done, 511ml so straight cath performed with approx 500 cc of clear yellow fluid obtained 03/25: Bennett taken out, voiding trial 03/22 and 03/21: no lasix given 03/19: bennett catheter, lasix 20 mg one time dose given Retaining urine no 03/11 in AM- bladder scan 680ml so patient straight catheterized. Repeat bladder scan 150. Pt continued retaining urine and bennett placed. Bennett inserted 03/14. Flomax .4mg once daily started. Dr. Valdez evaluated patient on 03/14 and recommends keeping patient on bennett and encouraging patient to try to urinate more often. Continue patient on Cipro 250 mg PO BID Status: Acute (3) UTI (urinary tract infection) Assessment & Plan: No fevers or white count noted No apparent change in mentation Positive UA on 02/28, negative UA on 03/09 UC: sensitive to ceftriaxone. Ceftriaxone started on 02/28 and stopped on 03/10. Status: Acute (4) Acute kidney injury Assessment & Plan: 09/24 NS stopped (03/25) because tolerating oral intake Creatinine stable at 1.2. Status: Acute (5) Elevated transaminase level Assessment & Plan: AST and ALT: 03/27: 38, 38 03/26: 28, 40 03/24: 37, 39 03/23: 34, 47 Status: Acute (6) Hypertension Assessment & Plan: 03/29: 110/69 03/27: BP-160/70 03/23: elevated bp, lasix x1 given 03/21: blood pressure stable Continue Labetalol 200 mg PO BID (switched from 100 mg PO TID) which is better controlling blood pressure Lisinopril 20mg PO changed from daily to HS (03/25/17); Hydralazine 50 mg QID, Hydralazine 10 mg IV Q6 PRN if SBP above 180 Monitor BP Status: Acute (7) Diabetes Assessment & Plan: Accucheck. ISS ACHS. HgbA1C 11.2 Novolog Mix 70/30 15 units BIDAC daily. Metformin 500 mg PO BIDCC, Cont to monitor. Insulin 15u SC BIDAC held because of low blood sugars, monitor. ISS to low coverage. Status: Acute (8) Prophylactic measure Assessment & Plan: Pepcid 20 mg PO BID. ASA 81mg. Lovenox 40 sc daily. SCDs. Continue with PT/OT daily to maximize strength. Patient is maximum assist. Mouth care. Status: Acute <Ruben,Jad M - Last Filed: 03/30/17 18:25> Objective - Vital Signs/Intake and Output Vital Signs (last 24 hours): Temp Pulse Resp BP Pulse Ox 98.2 F 73 20 145/77 98 03/30/17 16:00 03/30/17 17:46 03/30/17 17:46 03/30/17 17:46 03/30/17 16:00 Intake and Output: 03/30/17 03/30/17 06:59 18:59 Intake Total 320 480 Balance 320 480 - Medications Medications: Current Medications Aspirin (Ecotrin) 81 mg PO DAILY [facility] Last Admin: 03/30/17 12:52 Dose: 81 mg Ciprofloxacin (Cipro) 250 mg PO BID [facility] Last Admin: 03/30/17 17:43 Dose: 250 mg Clopidogrel Bisulfate (Plavix) 75 mg PO DAILY [facility] Last Admin: 03/30/17 09:39 Dose: 75 mg Enoxaparin Sodium (Lovenox) 40 mg SC DAILY [facility] Last Admin: 03/30/17 09:40 Dose: 40 mg Famotidine (Pepcid) 20 mg PO DAILY [facility] Last Admin: 03/30/17 09:39 Dose: 20 mg Hydralazine HCl (Apresoline) 10 mg IVP Q6H PRN PRN Reason: For SBP >180 Last Admin: 02/26/17 23:58 Dose: 10 mg Hydralazine HCl (Apresoline) 50 mg PO QID [facility] Last Admin: 03/30/17 17:42 Dose: 50 mg Insulin Aspart (Novolog Mix 70/30 (70/30 Units/Ml)) 15 units SC BIDAC [facility] Last Admin: 03/25/17 17:30 Dose: Not Given Insulin Aspart (Novolog) 0 unit SC ACHS [facility] PRN Reason: Protocol Last Admin: 03/30/17 17:17 Dose: Not Given Labetalol HCl (Trandate) 200 mg PO BID [facility] Last Admin: 03/30/17 17:43 Dose: 200 mg Lisinopril (Zestril) 20 mg PO HS [facility] Last Admin: 03/29/17 21:33 Dose: 20 mg Metformin HCl (Glucophage) 500 mg PO BIDCC [facility] Last Admin: 03/30/17 17:43 Dose: 500 mg Rosuvastatin Calcium (Crestor) 40 mg PO HS [facility] Last Admin: 03/29/17 21:33 Dose: 40 mg Tamsulosin HCl (Flomax) 0.4 mg PO DAILY [facility] Last Admin: 03/30/17 09:39 Dose: 0.4 mg - Labs Labs: 03/27/17 07:17 03/27/17 07:14 PT 12.0 SECONDS (9.7-12.2) 02/24/17 11:48 INR 1.1 02/24/17 11:48 APTT 24 SECONDS (21-34) 02/24/17 11:48 Attending/Attestation - Attestation I have personally seen and examined this patient.: Yes I have fully participated in the care of the patient.: Yes I have reviewed all pertinent clinical information, including history, physical exam and plan: Yes Notes (Text): 03/30/17 18:24 Patient was seen and examined at bedside Patient appears comfortable Continue current medical management for acute CVA and continue physical therapy daily Discharge planning in progress Discussed with the resident and agree with the assessment plan documented.
[2017-03-30] MEDS: (Novolog) Insulin Aspart, Recombinant 100 u/ml 10 ml vial SC SCH ×4 (08:42→21:58)
[2017-03-30] MEDS: Enoxaparin 40 mg Syringe SC SCH (09:40)
--- NOTE | 2017-03-31 02:26 | CP.PCM.PN ---
<Amie Mcintosh - Last Filed: 03/31/17 02:23> Subjective - Date & Time of Evaluation Date of Evaluation: 03/31/17 Time of Evaluation: 02:23 - Subjective Subjective: Medicine Progress Note- Dr. Miranda Service Patient was seen and examined at bedside. Patient was resting in bed comfortably. Patient was able to respond to review of systems and exam by saying "yes", "no" and nodding. Patient has no complaints. Patient denies having chest pain, palpitations, abdominal pain, extremity pain and headaches. Objective - Vital Signs/Intake and Output Vital Signs (last 24 hours): Temp Pulse Resp BP Pulse Ox 97.3 F L 79 20 151/70 H 99 03/30/17 23:20 03/30/17 23:20 03/30/17 23:20 03/30/17 23:20 03/30/17 23:20 Intake and Output: 03/30/17 03/31/17 18:59 06:59 Intake Total 480 240 Balance 480 240 - Medications Medications: Current Medications Aspirin (Ecotrin) 81 mg PO DAILY [facility] Last Admin: 03/30/17 12:52 Dose: 81 mg Ciprofloxacin (Cipro) 250 mg PO BID [facility] Last Admin: 03/30/17 17:43 Dose: 250 mg Clopidogrel Bisulfate (Plavix) 75 mg PO DAILY [facility] Last Admin: 03/30/17 09:39 Dose: 75 mg Enoxaparin Sodium (Lovenox) 40 mg SC DAILY [facility] Last Admin: 03/30/17 09:40 Dose: 40 mg Famotidine (Pepcid) 20 mg PO DAILY [facility] Last Admin: 03/30/17 09:39 Dose: 20 mg Hydralazine HCl (Apresoline) 10 mg IVP Q6H PRN PRN Reason: For SBP >180 Last Admin: 02/26/17 23:58 Dose: 10 mg Hydralazine HCl (Apresoline) 50 mg PO QID [facility] Last Admin: 03/30/17 21:59 Dose: 50 mg Insulin Aspart (Novolog Mix 70/30 (70/30 Units/Ml)) 15 units SC BIDAC [facility] Last Admin: 03/25/17 17:30 Dose: Not Given Insulin Aspart (Novolog) 0 unit SC ACHS [facility] PRN Reason: Protocol Last Admin: 03/30/17 21:58 Dose: Not Given Labetalol HCl (Trandate) 200 mg PO BID [facility] Last Admin: 03/30/17 17:43 Dose: 200 mg Lisinopril (Zestril) 20 mg PO [facility] Last Admin: 03/30/17 21:59 Dose: 20 mg [facility]) [facility] Last Admin: 03/30/17 17:43 Dose: 500 mg Rosuvastatin Calcium (Crestor) 40 mg PO [facility] Last Admin: 03/30/17 21:59 Dose: 40 mg Tamsulosin HCl (Flomax) 0.4 mg PO DAILY [facility] Last Admin: 03/30/17 09:39 Dose: 0.4 mg - Labs Labs: 03/27/17 07:17 03/27/17 07:14 PT 12.0 SECONDS (9.7-12.2) 02/24/17 11:48 INR 1.1 02/24/17 11:48 APTT 24 SECONDS (21-34) 02/24/17 11:48 - Constitutional Appears: No Acute Distress - Head Exam Head Exam: NORMAL INSPECTION, NORMOCEPHALIC - Eye Exam Eye Exam: EOMI, Normal appearance - ENT Exam ENT Exam: Mucous Membranes Moist - Neck Exam Neck Exam: Full ROM, Normal Inspection - Respiratory Exam Respiratory Exam: Clear to Ausculation Bilateral, NORMAL BREATHING PATTERN. absent: Rhonchi, Wheezes - Cardiovascular Exam Cardiovascular Exam: REGULAR RHYTHM, +S1, +S2. absent: Murmur - GI/Abdominal Exam GI & Abdominal Exam: Soft, Normal Bowel Sounds. absent: Tenderness - Extremities Exam Extremities Exam: Normal Inspection, Tenderness (with palpation, R>L) - Neurological Exam Neurological Exam: Alert, Awake - Psychiatric Exam Psychiatric exam: Normal Affect, Normal Mood - Skin Skin Exam: Dry, Intact, Normal Color, Warm Assessment and Plan (1) Ischemic stroke Assessment & Plan: 03/29-03/31/17: continues to have movement in right lower extremity, right upper extremity has no movement 7/5: increased movement in right lower extremity, right upper extremity has no movement 7/3: No changes from before. No improvement or change of the right upper and lower extremity weakness. Swallow evaluation done and recommends mechanical soft bite size food and thin liquids. 03/21: Neurologic assessment: aphasic speach, flaccid right upper and lower extremity muscle strength. 03/20: Patient seen by PT and given score of 5 on the Modified Guy Scale: severe disability; bedridden, incontinent/requiring constant nsg care. Patient moved out of bed to chair with cheng steady. 02/24: * ROMIs negative x 3, * EKG- NSR w possible atrial enlargement. * Echo- EF is 65-70%. Mild aortic regurgitation; LV systolic function is normal ; hypokinesis in septal wall. Refer to complete report. As per Dr. Mccormick, BP SBP btwn 130-140 mmHg, ASA 81 mg PO daily and Plavix 75 mg PO daily, Crestor 40 mg PO HS since patient passed swallow eval HgbA1C 11.2, FLP elevated, TSH 1.7 02/26:Head, Neck MRA-Complete occlusion of left internal carotid and mild occlusive disease of right internal carotid. Per Surgery ( Dr. Choi) no surgical intervention at this time. Radiologist Dr. Khan called to confirm occlusive findings. 03/05:Head CT- redemonstrates large MCA territory infarct with mild surrounding mass effect . No evidence of hemorrhage or new infarcts. Continue to encourage movement with help from Physical Therapy. 03/13: Patient moved from bed to chair with max assist and put back to bed after an hour with max assist. Modified Guy scale: 5, severe disability; bedridden, incontinent/ requiring constant nursing care. 03/27/17: "Patient continues to present with R sided weakness which impacts functional independence; recommend continuous PT for progressive mobility training, strengthening, balance activities with emphasis on family training." Patient has low PO food intake. Seen by dyed yarn operator on 03/08 and recommended Boost glucose control supplementation. Continue boost and await new recommendations. continue PT Status: Acute (2) Urinary retention Assessment & Plan: Monitor I & Os 03/29: bladder scan done, 630cc, patient put on bed valentine and urinated about 300cc, continue to encourage urination with bed valentine 03/28: bladder can done, 600cc, patient put on bed valentine and urinated about 100cc, then urinated again on bed valentine a few hours later. Continue to encourage patient to urinate by placing on bed valentine every 3 hours. 03/27: bladder scan done, 195 cc, nursing communication put in to put patient on bed valentine q3h to encourage urination. 03/26: 635am: Bladder scan done, 511ml so straight cath performed with approx 500 cc of clear yellow fluid obtained 03/25: Bennett taken out, voiding trial 03/22 and 03/21: no lasix given 03/19: bennett catheter, lasix 20 mg one time dose given Retaining urine no 03/11 in AM- bladder scan 680ml so patient straight catheterized. Repeat bladder scan 150. Pt continued retaining urine and bennett placed. Bennett inserted 03/14. Flomax .4mg once daily started. Dr. Valdez evaluated patient on 03/14 and recommends keeping patient on bennett and encouraging patient to try to urinate more often. Continue patient on Cipro 250 mg PO BID Status: Acute (3) UTI (urinary tract infection) Assessment & Plan: No fevers or white count noted No apparent change in mentation Positive UA on 02/28, negative UA on 03/09 UC: sensitive to ceftriaxone. Ceftriaxone started on 02/28 and stopped on 03/10. Status: Acute (4) Acute kidney injury Assessment & Plan: 09/24 NS stopped (03/25) because tolerating oral intake Creatinine stable at 1.2. Status: Acute (5) Elevated transaminase level Assessment & Plan: AST and ALT: 03/27: 38, 38 03/26: 28, 40 03/24: 37, 39 03/23: 34, 47 Status: Acute (6) Hypertension Assessment & Plan: 03/30: 136/75, 151/70 03/29: 110/69 03/27: BP-160/70 03/23: elevated bp, lasix x1 given 03/21: blood pressure stable Continue Labetalol 200 mg PO BID (switched from 100 mg PO TID) which is better controlling blood pressure Lisinopril 20mg PO changed from daily to HS (03/25/17); Hydralazine 50 mg QID, Hydralazine 10 mg IV Q6 PRN if SBP above 180 Monitor BP Status: Acute (7) Diabetes Assessment & Plan: Accucheck. ISS ACHS. HgbA1C 11.2 Novolog Mix 70/30 15 units BIDAC daily. Metformin 500 mg PO BIDCC, Cont to monitor. Insulin 15u SC BIDAC held because of low blood sugars, monitor. ISS to low coverage. Status: Acute (8) Prophylactic measure Assessment & Plan: Pepcid 20 mg PO BID. ASA 81mg. Lovenox 40 sc daily. SCDs. Continue with PT/OT daily to maximize strength. Patient is maximum assist. Mouth care. Status: Acute <Jad Miranda - Last Filed: 03/31/17 13:56> Objective - Vital Signs/Intake and Output Vital Signs (last 24 hours): Temp Pulse Resp BP Pulse Ox 97.4 F L 78 20 149/74 98 03/31/17 08:48 03/31/17 08:48 03/31/17 08:48 03/31/17 08:48 03/31/17 08:48 Intake and Output: 03/31/17 03/31/17 06:59 18:59 Intake Total 240 Balance 240 - Medications Medications: Current Medications Aspirin (Ecotrin) 81 mg PO DAILY [facility] Last Admin: 03/31/17 09:06 Dose: 81 mg Ciprofloxacin (Cipro) 250 mg PO BID [facility] Last Admin: 03/31/17 09:06 Dose: 250 mg Clopidogrel Bisulfate (Plavix) 75 mg PO DAILY [facility] Last Admin: 03/31/17 09:06 Dose: 75 mg Enoxaparin Sodium (Lovenox) 40 mg SC DAILY [facility] Last Admin: 03/31/17 09:07 Dose: 40 mg Famotidine (Pepcid) 20 mg PO DAILY [facility] Last Admin: 03/31/17 09:06 Dose: 20 mg Hydralazine HCl (Apresoline) 10 mg IVP Q6H PRN PRN Reason: For SBP >180 Last Admin: 02/26/17 23:58 Dose: 10 mg Hydralazine HCl (Apresoline) 50 mg PO QID [facility] Last Admin: 03/31/17 13:05 Dose: 50 mg Insulin Aspart (Novolog Mix 70/30 (70/30 Units/Ml)) 15 units SC BIDAC [facility] Last Admin: 03/25/17 17:30 Dose: Not Given Insulin Aspart (Novolog) 0 unit SC ACHS [facility] PRN Reason: Protocol Last Admin: 03/31/17 12:29 Dose: 1 unit Labetalol HCl (Trandate) 200 mg PO BID [facility] Last Admin: 03/31/17 09:06 Dose: 200 mg Lisinopril (Zestril) 20 mg PO HS [facility] Last Admin: 07/08/17 21:59 Dose: 20 mg Metformin HCl (Glucophage) 500 mg PO BIDCC [facility] Last Admin: 03/31/17 08:27 Dose: 500 mg Rosuvastatin Calcium (Crestor) 40 mg PO HS [facility] Last Admin: 03/30/17 21:59 Dose: 40 mg Tamsulosin HCl (Flomax) 0.4 mg PO DAILY [facility] Last Admin: 03/31/17 09:06 Dose: 0.4 mg - Labs Labs: 03/31/17 08:05 03/31/17 08:05 PT 12.0 SECONDS (9.7-12.2) 02/24/17 11:48 INR 1.1 02/24/17 11:48 APTT 24 SECONDS (21-34) 02/24/17 11:48 Attending/Attestation - Attestation I have personally seen and examined this patient.: Yes I have fully participated in the care of the patient.: Yes I have reviewed all pertinent clinical information, including history, physical exam and plan: Yes Notes (Text): 03/31/17 13:55 Patient was seen and examined at bedside with the resident Patient has no new complaints Continue current medical management for acute CVA Continue physical therapy daily Discharge planning is in progress Discussed plan of care with the resident and agree with the patient's parents assessment/plan but the resident.
[2017-03-31] MEDS: (Novolog) Insulin Aspart, Recombinant 100 u/ml 10 ml vial SC SCH ×4 (08:27→22:38)
[2017-03-31 08:50] LABS: BASO # 0.1 K/uL (0.0-0.2); EOS # 0.7 K/uL (0.0-0.7); HEMOGLOBIN 10.8 g/dL (11.0-16.0); LYMPH # 2.4 K/uL (1.0-4.3); LYMPH % 24.3 % (20.0-40.0); MEAN CELL VOLUME 84.5 fL (81.0-99.0); MEAN CORPUSCULAR HEMOGLOBIN 27.6 pg (27.0-31.0); MEAN CORPUSCULAR HGB CONC 32.6 g/dL (33.0-37.0); MEAN PLATELET VOLUME 9.1 fL (7.2-11.7); MONO # 0.6 K/uL (0.0-0.8); MONO % 6.4 % (0.0-10.0); NEUT # 6.1 K/uL (1.8-7.0); NEUT % 61.3 % (50.0-75.0); NRBC % 0.1 % (0.0-2.0); RBC 3.92 Mil/uL (3.80-5.20); RED CELL DISTRIBUTION WIDTH 14.9 % (11.5-14.5)
[2017-03-31 08:51] LABS: ALBUMIN 3.2 g/dL (3.5-5.0)
[2017-03-31 08:55] LABS: CALCIUM 9.7 mg/dl (8.6-10.4); MAGNESIUM 1.8 mg/dL (1.6-2.3)
[2017-03-31] MEDS: Enoxaparin 40 mg Syringe SC SCH (09:07)
[2017-04-01 07:26] LABS: ALBUMIN 3.2 g/dL (3.5-5.0)
[2017-04-01 07:30] LABS: CALCIUM 9.4 mg/dl (8.6-10.4)
[2017-04-01 07:31] LABS: MAGNESIUM 1.8 mg/dL (1.6-2.3)
[2017-04-01 07:58] LABS: BASO # 0.1 K/uL (0.0-0.2); BASO % 0.7 % (0.0-2.0); EOS # 0.6 K/uL (0.0-0.7); EOS % 6.8 % (0.0-4.0); HEMOGLOBIN 10.9 g/dL (11.0-16.0); LYMPH # 2.5 K/uL (1.0-4.3); LYMPH % 30.4 % (20.0-40.0); MEAN CELL VOLUME 84.7 fL (81.0-99.0); MEAN CORPUSCULAR HGB CONC 33.1 g/dL (33.0-37.0); MEAN PLATELET VOLUME 8.8 fL (7.2-11.7); MONO # 0.5 K/uL (0.0-0.8); MONO % 6.4 % (0.0-10.0); NEUT # 4.6 K/uL (1.8-7.0); NEUT % 55.7 % (50.0-75.0); RBC 3.9 Mil/uL (3.80-5.20); RED CELL DISTRIBUTION WIDTH 14.8 % (11.5-14.5); WHITE BLOOD COUNT 8.2 K/uL (4.8-10.8)
[2017-04-01] MEDS: Enoxaparin 40 mg Syringe SC SCH (10:55)
[2017-04-01] MEDS: (Novolog) Insulin Aspart, Recombinant 100 u/ml 10 ml vial SC SCH ×4 (10:55→21:47)
--- NOTE | 2017-04-01 18:46 | CP.PCM.PN ---
<Amie Mcintosh - Last Filed: 04/01/17 18:43> Subjective - Date & Time of Evaluation Date of Evaluation: 04/01/17 Time of Evaluation: 18:44 - Subjective Subjective: Medicine Progress Note- Dr. Monique's Service Patient was seen and examined at bedsidein no acute distress. Patient was able to respond to review of systems and exam by saying "yes", "no" and nodding. Patient has no complaints. Patient denies having chest pain, palpitations, abdominal pain, extremity pain and headaches. Objective - Vital Signs/Intake and Output Vital Signs (last 24 hours): Temp Pulse Resp BP Pulse Ox 97.4 F L 72 20 140/77 99 04/01/17 15:55 04/01/17 15:55 04/01/17 15:55 04/01/17 15:55 04/01/17 15:55 Intake and Output: 04/01/17 04/01/17 06:59 18:59 Output Total 250 Balance -250 - Medications Medications: Current Medications Aspirin (Ecotrin) 81 mg PO DAILY [facility] Last Admin: 04/01/17 10:53 Dose: 81 mg Clopidogrel Bisulfate (Plavix) 75 mg PO DAILY [facility] Last Admin: 04/01/17 11:00 Dose: 75 mg Enoxaparin Sodium (Lovenox) 40 mg SC DAILY [facility] Last Admin: 04/01/17 10:55 Dose: 40 mg Famotidine (Pepcid) 20 mg PO DAILY [facility] Last Admin: 04/01/17 11:00 Dose: 20 mg Hydralazine HCl (Apresoline) 10 mg IVP Q6H PRN PRN Reason: For SBP >180 Last Admin: 02/26/17 23:58 Dose: 10 mg Hydralazine HCl (Apresoline) 50 mg PO QID [facility] Last Admin: 04/01/17 17:52 Dose: 50 mg Insulin Aspart (Novolog Mix 70/30 (70/30 Units/Ml)) 15 units SC BIDAC [facility] Last Admin: 03/25/17 17:30 Dose: Not Given Insulin Aspart (Novolog) 0 unit SC ACHS [facility] PRN Reason: Protocol Last Admin: 04/01/17 16:30 Dose: Not Given Labetalol HCl (Trandate) 200 mg PO BID [facility] Last Admin: 04/01/17 11:00 Dose: 200 mg Lisinopril (Zestril) 20 mg PO [facility] Last Admin: 03/31/17 23:07 Dose: 20 mg [facility] Last Admin: 04/01/17 17:51 Dose: 500 mg Rosuvastatin Calcium (Crestor) 40 mg PO [facility] Last Admin: 03/31/17 23:07 Dose: 40 mg Tamsulosin HCl (Flomax) 0.4 mg PO DAILY [facility] Last Admin: 04/01/17 10:53 Dose: 0.4 mg - Labs Labs: 04/01/17 07:07 04/01/17 07:07 PT 12.0 SECONDS (9.7-12.2) 02/24/17 11:48 INR 1.1 02/24/17 11:48 APTT 24 SECONDS (21-34) 02/24/17 11:48 - Constitutional Appears: No Acute Distress - Head Exam Head Exam: NORMAL INSPECTION, NORMOCEPHALIC - Eye Exam Eye Exam: EOMI, Normal appearance - ENT Exam ENT Exam: Mucous Membranes Moist - Neck Exam Neck Exam: Normal Inspection - Respiratory Exam Respiratory Exam: Clear to Ausculation Bilateral, NORMAL BREATHING PATTERN. absent: Rhonchi, Wheezes - Cardiovascular Exam Cardiovascular Exam: REGULAR RHYTHM, +S1, +S2. absent: Rubs, Murmur - GI/Abdominal Exam GI & Abdominal Exam: Soft, Normal Bowel Sounds. absent: Tenderness - Extremities Exam Extremities Exam: Normal Inspection, Tenderness. absent: Calf Tenderness, Pedal Edema - Neurological Exam Neuro motor strength exam: Left Upper Extremity: 5, Right Upper Extremity: 0, Left Lower Extremity: 5, Right Lower Extremity: 3 - Psychiatric Exam Psychiatric exam: Normal Affect, Normal Mood - Skin Skin Exam: Dry, Intact, Normal Color, Warm Assessment and Plan (1) Ischemic stroke Assessment & Plan: 03/29-04/01/17: continues to have movement in right lower extremity, right upper extremity has no movement 7: increased movement in right lower extremity, right upper extremity has no movement 7/3: No changes from before. No improvement or change of the right upper and lower extremity weakness. Swallow evaluation done and recommends mechanical soft bite size food and thin liquids. 03/21: Neurologic assessment: aphasic speach, flaccid right upper and lower extremity muscle strength. 03/20: Patient seen by PT and given score of 5 on the Modified Antonio Scale: severe disability; bedridden, incontinent/requiring constant nsg care. Patient moved out of bed to chair with cheng steady. 02/24: * ROMIs negative x 3, * EKG- NSR w possible atrial enlargement. * Echo- EF is 65-70%. Mild aortic regurgitation; LV systolic function is normal ; hypokinesis in septal wall. Refer to complete report. As per Dr. Mccormick, BP SBP btwn 130-140 mmHg, ASA 81 mg PO daily and Plavix 75 mg PO daily, Crestor 40 mg PO HS since patient passed swallow eval HgbA1C 11.2, FLP elevated, TSH 1.7 02/26:Head, Neck MRA-Complete occlusion of left internal carotid and mild occlusive disease of right internal carotid. Per Surgery ( Dr. Choi) no surgical intervention at this time. Radiologist Dr. Khan called to confirm occlusive findings. 03/05:Head CT- redemonstrates large MCA territory infarct with mild surrounding mass effect . No evidence of hemorrhage or new infarcts. Continue to encourage movement with help from Physical Therapy. 03/13: Patient moved from bed to chair with max assist and put back to bed after an hour with max assist. Modified [place] scale: 5, severe disability; bedridden, incontinent/ requiring constant nursing care. 03/27/17: "Patient continues to present with R sided weakness which impacts functional independence; recommend continuous PT for progressive mobility training, strengthening, balance activities with emphasis on family training." Patient has low PO food intake. Seen by rn procedures on 03/08 and recommended Boost glucose control supplementation. Continue boost and await new recommendations. continue PT Status: Acute (2) Urinary retention Assessment & Plan: Monitor I & Os 03/30: Bladder scan <20ml 03/29: bladder scan done, 630cc, patient put on bed valentine and urinated about 300cc, continue to encourage urination with bed valentine 03/28: bladder can done, 600cc, patient put on bed valentine and urinated about 100cc, then urinated again on bed valentine a few hours later. Continue to encourage patient to urinate by placing on bed valentine every 3 hours. 03/27: bladder scan done, 195 cc, nursing communication put in to put patient on bed valentine q3h to encourage urination. 03/26: 635am: Bladder scan done, 511ml so straight cath performed with approx 500 cc of clear yellow fluid obtained 03/25: Bennett taken out, voiding trial 03/22 and 03/21: no lasix given 03/19: bennett catheter, lasix 20 mg one time dose given Retaining urine no 03/11 in AM- bladder scan 680ml so patient straight catheterized. Repeat bladder scan 150. Pt continued retaining urine and bennett placed. Bennett inserted 03/14. Flomax .4mg once daily started. Dr. Valdez evaluated patient on 03/14 and recommends keeping patient on bennett and encouraging patient to try to urinate more often. Continue patient on Cipro 250 mg PO BID Status: Acute (3) UTI (urinary tract infection) Assessment & Plan: No fevers or white count noted No apparent change in mentation Positive UA on 02/28, negative UA on 03/09 UC: sensitive to ceftriaxone. Ceftriaxone started on 02/28 and stopped on 03/10. Status: Resolved (4) Acute kidney injury Assessment & Plan: 09/24 NS stopped (03/25) because tolerating oral intake Creatinine stable at 1.2.; on 04/01/17, Cr 1.3 Status: Acute (5) Elevated transaminase level Assessment & Plan: AST and ALT: 04/01: 54, 63 03/27: 38, 38 03/26: 28, 40 03/24: 37, 39 03/23: 34, 47 Status: Acute (6) Hypertension Assessment & Plan: 04/01: 144/70 03/30: 136/75, 151/70 03/29: 110/69 03/27: BP-160/70 03/23: elevated bp, lasix x1 given 03/21: blood pressure stable Continue Labetalol 200 mg PO BID (switched from 100 mg PO TID) which is better controlling blood pressure Lisinopril 20mg PO changed from daily to HS (03/25/17); Hydralazine 50 mg QID, Hydralazine 10 mg IV Q6 PRN if SBP above 180 Monitor BP Status: Acute (7) Diabetes Assessment & Plan: Accucheck. ISS ACHS. HgbA1C 11.2 Novolog Mix 70/30 15 units BIDAC daily. Metformin 500 mg PO [facility]ID[facility], Cont to monitor. Insulin 15u SC BIDAC held because of low blood sugars, monitor. ISS to low coverage. Status: Acute (8) Prophylactic measure Assessment & Plan: Pepcid 20 mg PO BID. ASA 81mg. Lovenox 40 sc daily. SCDs. Continue with PT/OT daily to maximize strength. Patient is maximum assist. Mouth care. Status: Acute <MoniqueDylan valentine H - Last Filed: 04/01/17 19:09> Objective - Vital Signs/Intake and Output Vital Signs (last 24 hours): Temp Pulse Resp BP Pulse Ox 97.4 F L 72 20 140/77 99 04/01/17 15:55 04/01/17 15:55 04/01/17 15:55 04/01/17 15:55 04/01/17 15:55 - Medications Medications: Current Medications Aspirin (Ecotrin) 81 mg PO DAILY [facility] Last Admin: 04/01/17 10:53 Dose: 81 mg Clopidogrel Bisulfate (Plavix) 75 mg PO DAILY [facility] Last Admin: 04/01/17 11:00 Dose: 75 mg Enoxaparin Sodium (Lovenox) 40 mg SC DAILY [facility] Last Admin: 04/01/17 10:55 Dose: 40 mg Famotidine (Pepcid) 20 mg PO DAILY [facility] Last Admin: 04/01/17 11:00 Dose: 20 mg Hydralazine HCl (Apresoline) 10 mg IVP Q6H PRN PRN Reason: For SBP >180 Last Admin: 02/26/17 23:58 Dose: 10 mg Hydralazine HCl (Apresoline) 50 mg PO QID [facility] Last Admin: 04/01/17 17:52 Dose: 50 mg Insulin Aspart (Novolog Mix 70/30 (70/30 Units/Ml)) 15 units SC BIDAC [facility] Last Admin: 03/25/17 17:30 Dose: Not Given Insulin Aspart (Novolog) 0 unit SC ACHS [facility] PRN Reason: Protocol Last Admin: 04/01/17 16:30 Dose: Not Given Labetalol HCl (Trandate) 200 mg PO BID [facility] Last Admin: 04/01/17 11:00 Dose: 200 mg Lisinopril (Zestril) 20 mg PO HS [facility] Last Admin: 03/31/17 23:07 Dose: 20 mg Metformin HCl (Glucophage) 500 mg PO [facility] Last Admin: 04/01/17 17:51 Dose: 500 mg Rosuvastatin Calcium (Crestor) 40 mg PO HS [facility] Last Admin: 03/31/17 23:07 Dose: 40 mg Tamsulosin HCl (Flomax) 0.4 mg PO DAILY [facility] Last Admin: 04/01/17 10:53 Dose: 0.4 mg - Labs Labs: 04/01/17 07:07 04/01/17 07:07 PT 12.0 SECONDS (9.7-12.2) 02/24/17 11:48 INR 1.1 02/24/17 11:48 APTT 24 SECONDS (21-34) 02/24/17 11:48 Attending/Attestation - Attestation I have personally seen and examined this patient.: Yes I have fully participated in the care of the patient.: Yes I have reviewed all pertinent clinical information, including history, physical exam and plan: Yes
[2017-04-02 06:39] LABS: ALBUMIN 3.2 g/dL (3.5-5.0)
[2017-04-02 06:43] LABS: MAGNESIUM 1.7 mg/dL (1.6-2.3)
[2017-04-02 06:50] LABS: BASO % 0.6 % (0.0-2.0); EOS # 0.5 K/uL (0.0-0.7); EOS % 6.1 % (0.0-4.0); HEMOGLOBIN 10.6 g/dL (11.0-16.0); LYMPH # 2.5 K/uL (1.0-4.3); LYMPH % 30.6 % (20.0-40.0); MEAN CELL VOLUME 84.8 fL (81.0-99.0); MEAN CORPUSCULAR HEMOGLOBIN 27.9 pg (27.0-31.0); MEAN CORPUSCULAR HGB CONC 32.9 g/dL (33.0-37.0); MEAN PLATELET VOLUME 8.8 fL (7.2-11.7); MONO # 0.6 K/uL (0.0-0.8); MONO % 7.3 % (0.0-10.0); NEUT # 4.5 K/uL (1.8-7.0); NEUT % 55.4 % (50.0-75.0); NRBC % 0.1 % (0.0-2.0); RBC 3.8 Mil/uL (3.80-5.20); RED CELL DISTRIBUTION WIDTH 14.6 % (11.5-14.5); WHITE BLOOD COUNT 8.1 K/uL (4.8-10.8)
[2017-04-02] MEDS: (Novolog) Insulin Aspart, Recombinant 100 u/ml 10 ml vial SC SCH ×4 (08:28→23:43)
[2017-04-02] MEDS: Enoxaparin 40 mg Syringe SC SCH (09:30)
--- NOTE | 2017-04-02 19:53 | CP.PCM.PN ---
<Amie Mcintosh - Last Filed: 04/02/17 19:50> Subjective - Date & Time of Evaluation Date of Evaluation: 04/02/17 Time of Evaluation: 19:50 - Subjective Subjective: Medicine Progress Note- Dr. Monique's Service Patient was seen and examined at bedside in no acute distress. As per nurse, patient has used bedpan and commode, and she had a bowel movement yesterday. Patient was able to respond to review of systems and exam by saying "yes", "no" and nodding. Patient has no complaints. Patient denies having chest pain, palpitations, abdominal pain, extremity pain and headaches. Objective - Vital Signs/Intake and Output Vital Signs (last 24 hours): Temp Pulse Resp BP Pulse Ox 97.6 F 77 20 120/71 97 04/02/17 15:00 04/02/17 15:00 04/02/17 15:00 04/02/17 15:00 04/02/17 15:00 Intake and Output: 04/02/17 04/03/17 18:59 06:59 Intake Total 450 Balance 450 - Medications Medications: Current Medications Aspirin (Ecotrin) 81 mg PO DAILY [facility] Last Admin: 04/02/17 09:29 Dose: 81 mg Clopidogrel Bisulfate (Plavix) 75 mg PO DAILY [facility] Last Admin: 04/02/17 09:29 Dose: 75 mg Enoxaparin Sodium (Lovenox) 40 mg SC DAILY [facility] Last Admin: 04/02/17 09:30 Dose: 40 mg Famotidine (Pepcid) 20 mg PO DAILY [facility] Last Admin: 04/02/17 09:29 Dose: 20 mg Hydralazine HCl (Apresoline) 10 mg IVP Q6H PRN PRN Reason: For SBP >180 Last Admin: 02/26/17 23:58 Dose: 10 mg Hydralazine HCl (Apresoline) 50 mg PO QID [facility] Last Admin: 04/02/17 17:30 Dose: 50 mg Insulin Aspart (Novolog Mix 70/30 (70/30 Units/Ml)) 15 units SC BIDAC [facility] Last Admin: 03/25/17 17:30 Dose: Not Given Insulin Aspart (Novolog) 0 unit SC ACHS [facility] PRN Reason: Protocol Last Admin: 04/02/17 17:29 Dose: 5 unit Labetalol HCl (Trandate) 200 mg PO BID [facility] Last Admin: 04/02/17 17:30 Dose: 200 mg Lisinopril (Zestril) 20 mg PO [facility] Last Admin: 04/01/17 21:51 Dose: 20 mg [facility] Last Admin: 04/02/17 17:30 Dose: 500 mg Rosuvastatin Calcium (Crestor) 40 mg PO [facility] Last Admin: 04/01/17 21:51 Dose: 40 mg Tamsulosin HCl (Flomax) 0.4 mg PO DAILY [facility] Last Admin: 04/02/17 09:29 Dose: 0.4 mg - Labs Labs: 04/02/17 06:11 04/02/17 06:11 PT 12.0 SECONDS (9.7-12.2) 02/24/17 11:48 INR 1.1 02/24/17 11:48 APTT 24 SECONDS (21-34) 02/24/17 11:48 - Constitutional Appears: No Acute Distress - Head Exam Head Exam: NORMAL INSPECTION, NORMOCEPHALIC - Eye Exam Eye Exam: EOMI, Normal appearance - ENT Exam ENT Exam: Mucous Membranes Moist - Neck Exam Neck Exam: Normal Inspection - Respiratory Exam Respiratory Exam: Clear to Ausculation Bilateral, NORMAL BREATHING PATTERN. absent: Rhonchi, Wheezes - Cardiovascular Exam Cardiovascular Exam: REGULAR RHYTHM, +S1, +S2. absent: Murmur - GI/Abdominal Exam GI & Abdominal Exam: Soft, Normal Bowel Sounds. absent: Tenderness - Extremities Exam Extremities Exam: Tenderness. absent: Full ROM, Pedal Edema - Neurological Exam Neurological Exam: Alert, Awake Neuro motor strength exam: Left Upper Extremity: 5, Right Upper Extremity: 0, Left Lower Extremity: 5, Right Lower Extremity: 3 - Psychiatric Exam Psychiatric exam: Normal Affect, Normal Mood - Skin Skin Exam: Dry, Intact, Normal Color, Warm Assessment and Plan (1) Ischemic stroke Assessment & Plan: 03/29-04/02/17: continues to have movement in right lower extremity, right upper extremity has no movement 7/5: increased movement in right lower extremity, right upper extremity has no movement 7/3: No changes from before. No improvement or change of the right upper and lower extremity weakness. Swallow evaluation done and recommends mechanical soft bite size food and thin liquids. 03/21: Neurologic assessment: aphasic speach, flaccid right upper and lower extremity muscle strength. 03/20: Patient seen by PT and given score of 5 on the Modified [place] Scale: severe disability; bedridden, incontinent/requiring constant nsg care. Patient moved out of bed to chair with cheng steady. 02/24: * ROMIs negative x 3, * EKG- NSR w possible atrial enlargement. * Echo- EF is 65-70%. Mild aortic regurgitation; LV systolic function is normal ; hypokinesis in septal wall. Refer to complete report. As per Dr. Mccormick, BP SBP btwn 130-140 mmHg, ASA 81 mg PO daily and Plavix 75 mg PO daily, Crestor 40 mg PO HS since patient passed swallow eval HgbA1C 11.2, FLP elevated, TSH 1.7 02/26:Head, Neck MRA-Complete occlusion of left internal carotid and mild occlusive disease of right internal carotid. Per Surgery ( Dr. Choi) no surgical intervention at this time. Radiologist Dr. Khan called to confirm occlusive findings. 03/05:Head CT- redemonstrates large MCA territory infarct with mild surrounding mass effect . No evidence of hemorrhage or new infarcts. Continue to encourage movement with help from Physical Therapy. 03/13: Patient moved from bed to chair with max assist and put back to bed after an hour with max assist. Modified [place] scale: 5, severe disability; bedridden, incontinent/ requiring constant nursing care. 03/27/17: "Patient continues to present with R sided weakness which impacts functional independence; recommend continuous PT for progressive mobility training, strengthening, balance activities with emphasis on family training." Patient has low PO food intake. Seen by undercollar baster on 03/08 and recommended Boost glucose control supplementation. Continue boost and await new recommendations. continue PT Status: Acute (2) Urinary retention Assessment & Plan: Monitor I & Os As per nurse, with audiology assistant, patient has used bed valentine and commode as needed. 03/30: Bladder scan <20ml 03/29: bladder scan done, 630cc, patient put on bed valentine and urinated about 300cc, continue to encourage urination with bed valentine 03/28: bladder can done, 600cc, patient put on bed valentine and urinated about 100cc, then urinated again on bed valentine a few hours later. Continue to encourage patient to urinate by placing on bed valentine every 3 hours. 03/27: bladder scan done, 195 cc, nursing communication put in to put patient on bed valentine q3h to encourage urination. 03/26: 635am: Bladder scan done, 511ml so straight cath performed with approx 500 cc of clear yellow fluid obtained 03/25: Bennett taken out, voiding trial 03/22 and 03/21: no lasix given 03/19: bennett catheter, lasix 20 mg one time dose given Retaining urine no 03/11 in AM- bladder scan 680ml so patient straight catheterized. Repeat bladder scan 150. Pt continued retaining urine and bennett placed. Bennett inserted 03/14. Flomax .4mg once daily started. Dr. Valdez evaluated patient on 03/14 and recommends keeping patient on bennett and encouraging patient to try to urinate more often. Continue patient on Cipro 250 mg PO BID Status: Acute (3) UTI (urinary tract infection) Assessment & Plan: No fevers or white count noted No apparent change in mentation Positive UA on 02/28, negative UA on 03/09 UC: sensitive to ceftriaxone. Ceftriaxone started on 02/28 and stopped on 03/10. Status: Resolved (4) Acute kidney injury Assessment & Plan: 09/24 NS stopped (03/25) because tolerating oral intake Creatinine stable at 1.2.; on 04/01/17, Cr 1.3 Status: Acute (5) Elevated transaminase level Assessment & Plan: AST and ALT: 04/02: 51, 61 04/01: 54, 63 03/27: 38, 38 03/26: 28, 40 03/24: 37, 39 03/23: 34, 47 Status: Acute (6) Hypertension Assessment & Plan: 04/01: 144/70 03/30: 136/75, 151/70 03/29: 110/69 03/27: BP-160/70 03/23: elevated bp, lasix x1 given 03/21: blood pressure stable Continue Labetalol 200 mg PO BID (switched from 100 mg PO TID) which is better controlling blood pressure Lisinopril 20mg PO changed from daily to HS (03/25/17); Hydralazine 50 mg QID, Hydralazine 10 mg IV Q6 PRN if SBP above 180 Monitor BP Status: Acute (7) Diabetes Assessment & Plan: Accucheck. ISS ACHS. HgbA1C 11.2 Novolog Mix 70/30 15 units BIDAC daily. Metformin 500 mg PO BIDCC, Cont to monitor. Insulin 15u SC BIDAC held because of low blood sugars, monitor. ISS to low coverage. Status: Acute (8) Prophylactic measure Assessment & Plan: Pepcid 20 mg PO BID. ASA 81mg. Lovenox 40 sc daily. SCDs. Continue with PT/OT daily to maximize strength. Patient is maximum assist. Mouth care. Status: Acute <Dylan Monique H - Last Filed: 04/03/17 07:03> Objective - Vital Signs/Intake and Output Vital Signs (last 24 hours): Temp Pulse Resp BP Pulse Ox 97.8 F 71 20 114/58 L 99 04/02/17 23:35 04/02/17 23:35 04/02/17 23:35 04/02/17 23:35 04/02/17 23:35 Intake and Output: 04/03/17 04/03/17 06:59 18:59 Intake Total 240 Balance 240 - Medications Medications: Current Medications Aspirin (Ecotrin) 81 mg PO DAILY [facility] Last Admin: 04/02/17 09:29 Dose: 81 mg Clopidogrel Bisulfate (Plavix) 75 mg PO DAILY [facility] Last Admin: 04/02/17 09:29 Dose: 75 mg Enoxaparin Sodium (Lovenox) 40 mg SC DAILY [facility] Last Admin: 04/02/17 09:30 Dose: 40 mg Famotidine (Pepcid) 20 mg PO DAILY [facility] Last Admin: 04/02/17 09:29 Dose: 20 mg Hydralazine HCl (Apresoline) 10 mg IVP Q6H PRN PRN Reason: For SBP >180 Last Admin: 02/26/17 23:58 Dose: 10 mg Hydralazine HCl (Apresoline) 50 mg PO QID [facility] Last Admin: 04/02/17 21:45 Dose: 50 mg Insulin Aspart (Novolog Mix 70/30 (70/30 Units/Ml)) 15 units SC BIDAC [facility] Last Admin: 03/25/17 17:30 Dose: Not Given Insulin Aspart (Novolog) 0 unit SC ACHS [facility] PRN Reason: Protocol Last Admin: 04/02/17 23:43 Dose: Not Given Labetalol HCl (Trandate) 200 mg PO BID [facility] Last Admin: 04/02/17 17:30 Dose: 200 mg Lisinopril (Zestril) 20 mg PO HS [facility] Last Admin: 04/02/17 21:45 Dose: 20 mg Metformin HCl (Glucophage) 500 mg PO BIDCC [facility] Last Admin: 04/02/17 17:30 Dose: 500 mg Rosuvastatin Calcium (Crestor) 40 mg PO HS [facility] Last Admin: 04/02/17 21:44 Dose: 40 mg Tamsulosin HCl (Flomax) 0.4 mg PO DAILY [facility] Last Admin: 04/02/17 09:29 Dose: 0.4 mg - Labs Labs: 04/02/17 06:11 04/02/17 06:11 PT 12.0 SECONDS (9.7-12.2) 02/24/17 11:48 INR 1.1 02/24/17 11:48 APTT 24 SECONDS (21-34) 02/24/17 11:48 Attending/Attestation - Attestation I have personally seen and examined this patient.: Yes I have fully participated in the care of the patient.: Yes I have reviewed all pertinent clinical information, including history, physical exam and plan: Yes Notes (Text): 04/03/17 07:01 Medical attending: Patient was seen and examined, situation is mostly the same with the only notable change being in the right lower extremity. She does have some minimal movement in the right leg with elevation and minmal flexion of the knee thank you Dylan Monique
--- NOTE | 2017-04-03 07:25 | CP.PCM.PN ---
Subjective - Date & Time of Evaluation Date of Evaluation: 04/03/17 Time of Evaluation: 07:23 - Subjective Subjective: Medicine Progress Note- Dr. Monique's Service Patient was seen and examined at bedside in no acute distress. Patient was resting comfortably in bed. Patient was able to respond to ROS by nodding her head yes and no. Patient was able to slightly move her right lower extremity but not her right upper extremity. Patient denies having chest pain, abdominal pain, leg pain, and headaches. Objective - Vital Signs/Intake and Output Vital Signs (last 24 hours): Temp Pulse Resp BP Pulse Ox 97.8 F 71 20 114/58 L 99 04/02/17 23:35 04/02/17 23:35 04/02/17 23:35 04/02/17 23:35 04/02/17 23:35 Intake and Output: 04/03/17 04/03/17 06:59 18:59 Intake Total 240 Balance 240 - Medications Medications: Current Medications Aspirin (Ecotrin) 81 mg PO DAILY [facility] Last Admin: 04/02/17 09:29 Dose: 81 mg Clopidogrel Bisulfate (Plavix) 75 mg PO DAILY [facility] Last Admin: 04/02/17 09:29 Dose: 75 mg Enoxaparin Sodium (Lovenox) 40 mg SC DAILY [facility] Last Admin: 04/02/17 09:30 Dose: 40 mg Famotidine (Pepcid) 20 mg PO DAILY [facility] Last Admin: 04/02/17 09:29 Dose: 20 mg Hydralazine HCl (Apresoline) 10 mg IVP Q6H PRN PRN Reason: For SBP >180 Last Admin: 02/26/17 23:58 Dose: 10 mg Hydralazine HCl (Apresoline) 50 mg PO QID [facility] Last Admin: 04/02/17 21:45 Dose: 50 mg Insulin Aspart (Novolog Mix 70/30 (70/30 Units/Ml)) 15 units SC BIDAC [facility] Last Admin: 03/25/17 17:30 Dose: Not Given Insulin Aspart (Novolog) 0 unit SC ACHS [facility] PRN Reason: Protocol Last Admin: 04/02/17 23:43 Dose: Not Given Labetalol HCl (Trandate) 200 mg PO BID [facility] Last Admin: 04/02/17 17:30 Dose: 200 mg Lisinopril (Zestril) 20 mg PO HS [facility] Last Admin: 04/02/17 21:45 Dose: 20 mg [facility] Admin: 04/02/17 17:30 Dose: 500 mg Rosuvastatin Calcium (Crestor) 40 mg PO [facility] Last Admin: 04/02/17 21:44 Dose: 40 mg Tamsulosin HCl (Flomax) 0.4 mg PO DAILY [facility] Last Admin: 04/02/17 09:29 Dose: 0.4 mg - Labs Labs: 04/02/17 06:11 04/02/17 06:11 PT 12.0 SECONDS (9.7-12.2) 02/24/17 11:48 INR 1.1 02/24/17 11:48 APTT 24 SECONDS (21-34) 02/24/17 11:48 - Constitutional Appears: No Acute Distress - Head Exam Head Exam: NORMAL INSPECTION, NORMOCEPHALIC - Eye Exam Eye Exam: EOMI, Normal appearance - ENT Exam ENT Exam: Mucous Membranes Moist - Neck Exam Neck Exam: Normal Inspection - Respiratory Exam Respiratory Exam: Clear to Ausculation Bilateral, NORMAL BREATHING PATTERN. absent: Rhonchi, Wheezes - Cardiovascular Exam Cardiovascular Exam: REGULAR RHYTHM, +S1, +S2. absent: Rubs, Murmur - GI/Abdominal Exam GI & Abdominal Exam: Soft, Normal Bowel Sounds. absent: Tenderness - Extremities Exam Extremities Exam: Normal Inspection (minimal movement in RLE, no movement in RUE ), Tenderness (with palpation of right LE). absent: Pedal Edema - Neurological Exam Neurological Exam: Alert, Awake Neuro motor strength exam: Left Upper Extremity: 5, Right Upper Extremity: 0, Left Lower Extremity: 5, Right Lower Extremity: 4 - Psychiatric Exam Psychiatric exam: Normal Affect, Normal Mood - Skin Skin Exam: Dry, Intact, Normal Color, Warm Assessment and Plan (1) Ischemic stroke Assessment & Plan: 03/29-04/02/17: continues to have movement in right lower extremity, right upper extremity has no movement 7/5: increased movement in right lower extremity, right upper extremity has no movement 7/3: No changes from before. No improvement or change of the right upper and lower extremity weakness. Swallow evaluation done and recommends mechanical soft bite size food and thin liquids. 03/21: Neurologic assessment: aphasic speach, flaccid right upper and lower extremity muscle strength. 03/20: Patient seen by PT and given score of 5 on the Modified Lanier Scale: severe disability; bedridden, incontinent/requiring constant nsg care. Patient moved out of bed to chair with cheng steady. 02/24: * ROMIs negative x 3, * EKG- NSR w possible atrial enlargement. * Echo- EF is 65-70%. Mild aortic regurgitation; LV systolic function is normal ; hypokinesis in septal wall. Refer to complete report. As per Dr. Mccormick, BP SBP btwn 130-140 mmHg, ASA 81 mg PO daily and Plavix 75 mg PO daily, Crestor 40 mg PO HS since patient passed swallow eval HgbA1C 11.2, FLP elevated, TSH 1.7 02/26:Head, Neck MRA-Complete occlusion of left internal carotid and mild occlusive disease of right internal carotid. Per Surgery ( Dr. Choi) no surgical intervention at this time. Radiologist Dr. Khan called to confirm occlusive findings. 03/05:Head CT- redemonstrates large MCA territory infarct with mild surrounding mass effect . No evidence of hemorrhage or new infarcts. Continue to encourage movement with help from Physical Therapy. 03/13: Patient moved from bed to chair with max assist and put back to bed after an hour with max assist. Modified Lanier scale: 5, severe disability; bedridden, incontinent/ requiring constant nursing care. 03/27/17: "Patient continues to present with R sided weakness which impacts functional independence; recommend continuous PT for progressive mobility training, strengthening, balance activities with emphasis on family training." Patient has low PO food intake. Seen by director software on 03/08 and recommended Boost glucose control supplementation. Continue boost and await new recommendations. continue PT Status: Acute (2) Urinary retention Assessment & Plan: Monitor I & Os As per nurse, with construction project assistant, patient has used bed valentine and commode as needed. 03/30: Bladder scan <20ml 03/29: bladder scan done, 630cc, patient put on bed valentine and urinated about 300cc, continue to encourage urination with bed valentine 03/28: bladder can done, 600cc, patient put on bed valentine and urinated about 100cc, then urinated again on bed valentine a few hours later. Continue to encourage patient to urinate by placing on bed valentine every 3 hours. 03/27: bladder scan done, 195 cc, nursing communication put in to put patient on bed valentine q3h to encourage urination. 03/26: 635am: Bladder scan done, 511ml so straight cath performed with approx 500 cc of clear yellow fluid obtained 03/25: Bennett taken out, voiding trial 03/22 and 03/21: no lasix given 03/19: bennett catheter, lasix 20 mg one time dose given Retaining urine no 03/11 in AM- bladder scan 680ml so patient straight catheterized. Repeat bladder scan 150. Pt continued retaining urine and bennett placed. Bennett inserted 03/14. Flomax .4mg once daily started. Dr. Valdez evaluated patient on 03/14 and recommends keeping patient on bennett and encouraging patient to try to urinate more often. Continue patient on Cipro 250 mg PO BID Status: Acute (3) UTI (urinary tract infection) Assessment & Plan: No fevers or white count noted No apparent change in mentation Positive UA on 02/28, negative UA on 03/09 UC: sensitive to ceftriaxone. Ceftriaxone started on 02/28 and stopped on 03/10. Status: Resolved (4) Acute kidney injury Assessment & Plan: 09/24 NS stopped (03/25) because tolerating oral intake Creatinine stable at 1.2.; on 04/01/17, Cr 1.3 Status: Acute (5) Elevated transaminase level Assessment & Plan: AST and ALT: 04/03: 42/59 04/02: 51, 61 04/01: 54, 63 03/27: 38, 38 03/26: 28, 40 03/24: 37, 39 03/23: 34, 47 Status: Acute (6) Hypertension Assessment & Plan: 04/03: 149/69 04/01: 144/70 03/30: 136/75, 151/70 03/29: 110/69 03/27: BP-160/70 03/23: elevated bp, lasix x1 given 03/21: blood pressure stable Continue Labetalol 200 mg PO BID (switched from 100 mg PO TID) which is better controlling blood pressure Lisinopril 20mg PO changed from daily to HS (03/25/17); Hydralazine 50 mg QID, Hydralazine 10 mg IV Q6 PRN if SBP above 180 Monitor BP Status: Acute (7) Diabetes Assessment & Plan: Accucheck. ISS ACHS. HgbA1C 11.2 Novolog Mix 70/30 15 units BIDAC daily. Metformin 500 mg PO BIDCC, Cont to monitor. Insulin 15u SC BIDAC held because of low blood sugars, monitor. ISS to low coverage. Status: Acute (8) Prophylactic measure Assessment & Plan: Pepcid 20 mg PO BID. ASA 81mg. Lovenox 40 sc daily. SCDs. Continue with PT/OT daily to maximize strength. Patient is maximum assist. Mouth care. Status: Acute
[2017-04-03 07:29] LABS: BASO # 0.1 K/uL (0.0-0.2); BASO % 0.8 % (0.0-2.0); EOS # 0.4 K/uL (0.0-0.7); HEMOGLOBIN 10.6 g/dL (11.0-16.0); LYMPH # 3.1 K/uL (1.0-4.3); LYMPH % 34.2 % (20.0-40.0); MEAN CELL VOLUME 85.2 fL (81.0-99.0); MEAN CORPUSCULAR HEMOGLOBIN 27.7 pg (27.0-31.0); MEAN CORPUSCULAR HGB CONC 32.5 g/dL (33.0-37.0); MEAN PLATELET VOLUME 8.8 fL (7.2-11.7); MONO # 0.6 K/uL (0.0-0.8); MONO % 7.1 % (0.0-10.0); NEUT # 4.7 K/uL (1.8-7.0); NEUT % 52.9 % (50.0-75.0); RBC 3.83 Mil/uL (3.80-5.20); RED CELL DISTRIBUTION WIDTH 14.9 % (11.5-14.5); WHITE BLOOD COUNT 8.9 K/uL (4.8-10.8)
[2017-04-03 07:31] LABS: ALBUMIN 3.4 g/dL (3.5-5.0)
[2017-04-03 07:34] LABS: ALB/GLOB RATIO 1.1 (1.0-2.1)
[2017-04-03 07:35] LABS: CALCIUM 9.5 mg/dl (8.6-10.4); MAGNESIUM 1.8 mg/dL (1.6-2.3)
[2017-04-03] MEDS: (Novolog) Insulin Aspart, Recombinant 100 u/ml 10 ml vial SC SCH ×4 (08:23→22:27)
[2017-04-03] MEDS: Enoxaparin 40 mg Syringe SC SCH (10:44)
[2017-04-04 06:59] LABS: ALBUMIN 3.3 g/dL (3.5-5.0)
[2017-04-04 07:01] LABS: BASO # 0.1 K/uL (0.0-0.2); BASO % 0.6 % (0.0-2.0); EOS # 0.5 K/uL (0.0-0.7); EOS % 4.9 % (0.0-4.0); HEMOGLOBIN 10.3 g/dL (11.0-16.0); LYMPH # 2.9 K/uL (1.0-4.3); LYMPH % 31.1 % (20.0-40.0); MEAN CELL VOLUME 84.8 fL (81.0-99.0); MEAN CORPUSCULAR HEMOGLOBIN 27.6 pg (27.0-31.0); MEAN CORPUSCULAR HGB CONC 32.6 g/dL (33.0-37.0); MEAN PLATELET VOLUME 8.6 fL (7.2-11.7); MONO # 0.7 K/uL (0.0-0.8); MONO % 7.1 % (0.0-10.0); NEUT # 5.3 K/uL (1.8-7.0); NEUT % 56.3 % (50.0-75.0); RBC 3.73 Mil/uL (3.80-5.20); RED CELL DISTRIBUTION WIDTH 14.9 % (11.5-14.5); WHITE BLOOD COUNT 9.4 K/uL (4.8-10.8)
[2017-04-04 07:03] LABS: CALCIUM 9.3 mg/dl (8.6-10.4); MAGNESIUM 1.7 mg/dL (1.6-2.3)
[2017-04-04 07:12] LABS: ALB/GLOB RATIO 1.1 (1.0-2.1)
[2017-04-04] MEDS: (Novolog) Insulin Aspart, Recombinant 100 u/ml 10 ml vial SC SCH ×4 (08:30→21:03)
--- NOTE | 2017-04-04 09:05 | CP.PCM.PN ---
<Amie Mcintosh - Last Filed: 04/04/17 16:30> Subjective - Date & Time of Evaluation Date of Evaluation: 04/04/17 Time of Evaluation: 09:03 - Subjective Subjective: Medicine Progress Note- Dr. Monique's Service Patient was seen and examined at bedside in no acute distress. Patient was resting comfortably in bed. Patient was able to respond to ROS by nodding her head yes and no. Patient's movement of right lower extremity was less today than yesterday. Patient denies having chest pain, abdominal pain, leg pain, and headaches. Objective - Vital Signs/Intake and Output Vital Signs (last 24 hours): Temp Pulse Resp BP Pulse Ox 97.8 F 76 20 124/65 96 04/04/17 08:15 04/04/17 08:15 04/04/17 08:15 04/04/17 08:15 04/04/17 08:15 - Medications Medications: Current Medications Aspirin (Ecotrin) 81 mg PO DAILY [facility] Last Admin: 04/03/17 10:43 Dose: 81 mg Clopidogrel Bisulfate (Plavix) 75 mg PO DAILY [facility] Last Admin: 04/03/17 10:43 Dose: 75 mg Enoxaparin Sodium (Lovenox) 40 mg SC DAILY [facility] Last Admin: 04/03/17 10:44 Dose: 40 mg Famotidine (Pepcid) 20 mg PO DAILY [facility] Last Admin: 04/03/17 10:43 Dose: 20 mg Hydralazine HCl (Apresoline) 10 mg IVP Q6H PRN PRN Reason: For SBP >180 Last Admin: 02/26/17 23:58 Dose: 10 mg Hydralazine HCl (Apresoline) 50 mg PO QID [facility] Last Admin: 04/03/17 22:26 Dose: 50 mg Insulin Aspart (Novolog Mix 70/30 (70/30 Units/Ml)) 15 units SC BIDAC [facility] Last Admin: 03/25/17 17:30 Dose: Not Given Insulin Aspart (Novolog) 0 unit SC ACHS [facility] PRN Reason: Protocol Last Admin: 04/03/17 22:27 Dose: Not Given Labetalol HCl (Trandate) 200 mg PO BID [facility] Last Admin: 04/03/17 18:35 Dose: 200 mg Lisinopril (Zestril) 20 mg PO HS [facility] Last Admin: 04/03/17 22:29 Dose: 20 mg Metformin HCl (Glucophage) 500 mg PO BIDCC [facility] Last Admin: 04/03/17 18:34 Dose: 500 mg Rosuvastatin Calcium (Crestor) 40 mg PO [facility] Last Admin: 04/03/17 22:26 Dose: 40 mg Tamsulosin HCl (Flomax) 0.4 mg PO DAILY [facility] Last Admin: 04/03/17 10:43 Dose: 0.4 mg - Labs Labs: 04/04/17 06:37 04/04/17 06:37 PT 12.0 SECONDS (9.7-12.2) 02/24/17 11:48 INR 1.1 02/24/17 11:48 APTT 24 SECONDS (21-34) 02/24/17 11:48 - Constitutional Appears: No Acute Distress - Head Exam Head Exam: NORMAL INSPECTION, NORMOCEPHALIC - Eye Exam Eye Exam: EOMI, Normal appearance - ENT Exam ENT Exam: Mucous Membranes Moist - Neck Exam Neck Exam: Normal Inspection - Respiratory Exam Respiratory Exam: Clear to Ausculation Bilateral, NORMAL BREATHING PATTERN. absent: Rhonchi, Wheezes - Cardiovascular Exam Cardiovascular Exam: REGULAR RHYTHM, +S1, +S2 - GI/Abdominal Exam GI & Abdominal Exam: Soft, Normal Bowel Sounds. absent: Tenderness - Extremities Exam Extremities Exam: Normal Inspection, Tenderness (R>L). absent: Pedal Edema - Neurological Exam Neurological Exam: Alert, Awake, Oriented x3 - Psychiatric Exam Psychiatric exam: Normal Affect, Normal Mood - Skin Skin Exam: Dry, Intact, Normal Color, Warm Assessment and Plan (1) Ischemic stroke Assessment & Plan: 03/29-04/02/17: continues to have movement in right lower extremity, right upper extremity has no movement 7/5: increased movement in right lower extremity, right upper extremity has no movement 7/3: No changes from before. No improvement or change of the right upper and lower extremity weakness. Swallow evaluation done and recommends mechanical soft bite size food and thin liquids. 03/21: Neurologic assessment: aphasic speach, flaccid right upper and lower extremity muscle strength. 03/20: Patient seen by PT and given score of 5 on the Modified Antonio Scale: severe disability; bedridden, incontinent/requiring constant nsg care. Patient moved out of bed to chair with cheng steady. 02/24: * ROMIs negative x 3, * EKG- NSR w possible atrial enlargement. * Echo- EF is 65-70%. Mild aortic regurgitation; LV systolic function is normal ; hypokinesis in septal wall. Refer to complete report. As per Dr. Mccormick, BP SBP btwn 130-140 mmHg, ASA 81 mg PO daily and Plavix 75 mg PO daily, Crestor 40 mg PO HS since patient passed swallow eval HgbA1C 11.2, FLP elevated, TSH 1.7 02/26:Head, Neck MRA-Complete occlusion of left internal carotid and mild occlusive disease of right internal carotid. Per Surgery ( Dr. Choi) no surgical intervention at this time. Radiologist Dr. Khan called to confirm occlusive findings. 03/05:Head CT- redemonstrates large MCA territory infarct with mild surrounding mass effect . No evidence of hemorrhage or new infarcts. Continue to encourage movement with help from Physical Therapy. 03/13: Patient moved from bed to chair with max assist and put back to bed after an hour with max assist. Modified [place] scale: 5, severe disability; bedridden, incontinent/ requiring constant nursing care. 03/27/17: "Patient continues to present with R sided weakness which impacts functional independence; recommend continuous PT for progressive mobility training, strengthening, balance activities with emphasis on family training." Patient has low PO food intake. Seen by carpet loom fixer on 03/08 and recommended Boost glucose control supplementation. Continue boost and await new recommendations. continue PT B/L LE extremity pain--> F/U LE venous doppler (04/04/17) Status: Acute (2) Urinary retention Assessment & Plan: Monitor I & Os As per nurse, with stylist assistant, patient has used bed valentine and commode as needed. 03/30: Bladder scan <20ml 03/29: bladder scan done, 630cc, patient put on bed valentine and urinated about 300cc, continue to encourage urination with bed valentine 03/28: bladder can done, 600cc, patient put on bed valentine and urinated about 100cc, then urinated again on bed valentine a few hours later. Continue to encourage patient to urinate by placing on bed valentine every 3 hours. 03/27: bladder scan done, 195 cc, nursing communication put in to put patient on bed valentine q3h to encourage urination. 03/26: 635am: Bladder scan done, 511ml so straight cath performed with approx 500 cc of clear yellow fluid obtained 03/25: Bennett taken out, voiding trial 03/22 and 03/21: no lasix given 03/19: bennett catheter, lasix 20 mg one time dose given Retaining urine no 03/11 in AM- bladder scan 680ml so patient straight catheterized. Repeat bladder scan 150. Pt continued retaining urine and bennett placed. Bennett inserted 03/14. Flomax .4mg once daily started. Dr. Valdez evaluated patient on 03/14 and recommends keeping patient on bennett and encouraging patient to try to urinate more often. Continue patient on Cipro 250 mg PO BID Status: Acute (3) UTI (urinary tract infection) Assessment & Plan: No fevers or white count noted No apparent change in mentation Positive UA on 02/28, negative UA on 03/09 UC: sensitive to ceftriaxone. Ceftriaxone started on 02/28 and stopped on 03/10. Status: Resolved (4) Acute kidney injury Assessment & Plan: 2 NS stopped (03/25) because tolerating oral intake Creatinine stable at 1.2.; on 04/01/17, Cr 1.3 Status: Acute (5) Elevated transaminase level Assessment & Plan: AST and ALT: 04/04: 42/59 04/03: 42/59 04/02: 51, 61 04/01: 54, 63 03/27: 38, 38 03/26: 28, 40 03/24: 37, 39 03/23: 34, 47 Status: Acute (6) Hypertension Assessment & Plan: 04/04: 124/65 04/03: 149/69 04/01: 144/70 03/30: 136/75, 151/70 03/29: 110/69 03/27: BP-160/70 03/23: elevated bp, lasix x1 given 03/21: blood pressure stable Continue Labetalol 200 mg PO BID (switched from 100 mg PO TID) which is better controlling blood pressure Lisinopril 20mg PO changed from daily to HS (03/25/17); Hydralazine 50 mg QID, Hydralazine 10 mg IV Q6 PRN if SBP above 180 Monitor BP Status: Acute (7) Diabetes Assessment & Plan: Accucheck. ISS ACHS. HgbA1C 11.2 Novolog Mix 70/30 15 units BIDAC daily. Metformin 500 mg PO BIDCC, Cont to monitor. Insulin 15u SC BIDAC held because of low blood sugars, monitor. ISS to low coverage. Status: Acute (8) Prophylactic measure Assessment & Plan: Pepcid 20 mg PO BID. ASA 81mg. Lovenox 40 sc daily. SCDs. Continue with PT/OT daily to maximize strength. Patient is maximum assist. Mouth care. Status: Acute <Dylan Monique H - Last Filed: 04/04/17 17:37> Objective - Vital Signs/Intake and Output Vital Signs (last 24 hours): Temp Pulse Resp BP Pulse Ox 98 F 73 18 131/74 98 04/04/17 15:42 04/04/17 15:42 04/04/17 15:42 04/04/17 15:42 04/04/17 15:42 Intake and Output: 04/04/17 04/04/17 06:59 18:59 Intake Total 450 Balance 450 - Medications Medications: Current Medications Aspirin (Ecotrin) 81 mg PO DAILY [facility] Last Admin: 04/04/17 09:51 Dose: 81 mg Clopidogrel Bisulfate (Plavix) 75 mg PO DAILY [facility] Last Admin: 04/04/17 09:51 Dose: 75 mg Enoxaparin Sodium (Lovenox) 40 mg SC DAILY [facility] Last Admin: 04/04/17 09:50 Dose: 40 mg Famotidine (Pepcid) 20 mg PO DAILY [facility] Last Admin: 04/04/17 09:51 Dose: 20 mg Hydralazine HCl (Apresoline) 10 mg IVP Q6H PRN PRN Reason: For SBP >180 Last Admin: 02/26/17 23:58 Dose: 10 mg Hydralazine HCl (Apresoline) 50 mg PO QID [facility] Last Admin: 04/04/17 13:39 Dose: 50 mg Insulin Aspart (Novolog Mix 70/30 (70/30 Units/Ml)) 15 units SC BIDAC [facility] Last Admin: 03/25/17 17:30 Dose: Not Given Insulin Aspart (Novolog) 0 unit SC ACHS [facility] PRN Reason: Protocol Last Admin: 04/04/17 16:36 Dose: Not Given Labetalol HCl (Trandate) 200 mg PO BID [facility] Last Admin: 04/04/17 09:50 Dose: 200 mg Lisinopril (Zestril) 20 mg PO [facility] Last Admin: 04/03/17 22:29 Dose: 20 mg Metformin HCl (Glucophage) 500 mg PO BIDCC [facility] Last Admin: 04/04/17 08:30 Dose: 500 mg Rosuvastatin Calcium (Crestor) 40 mg PO HS [facility] Last Admin: 04/03/17 22:26 Dose: 40 mg Tamsulosin HCl (Flomax) 0.4 mg PO DAILY [facility] Last Admin: 04/04/17 09:51 Dose: 0.4 mg - Labs Labs: 04/04/17 06:37 04/04/17 06:37 PT 12.0 SECONDS (9.7-12.2) 02/24/17 11:48 INR 1.1 02/24/17 11:48 APTT 24 SECONDS (21-34) 02/24/17 11:48 Attending/Attestation - Attestation I have personally seen and examined this patient.: Yes I have fully participated in the care of the patient.: Yes I have reviewed all pertinent clinical information, including history, physical exam and plan: Yes Notes (Text): 04/04/17 17:36 Medical Attending: Patient was seen and examined by me. Situation mostly unchanged from previous. She reported pain in the right lower extremity - will check venous dopplers for potential DVT thank you Dylan Monique
[2017-04-04] MEDS: Enoxaparin 40 mg Syringe SC SCH (09:50)
[2017-04-05 07:32] LABS: BASO # 0.1 K/uL (0.0-0.2); BASO % 0.8 % (0.0-2.0); EOS # 0.5 K/uL (0.0-0.7); EOS % 5.3 % (0.0-4.0); HEMOGLOBIN 10.7 g/dL (11.0-16.0); LYMPH # 2.7 K/uL (1.0-4.3); LYMPH % 28.6 % (20.0-40.0); MEAN CELL VOLUME 84.8 fL (81.0-99.0); MEAN CORPUSCULAR HEMOGLOBIN 28.1 pg (27.0-31.0); MEAN CORPUSCULAR HGB CONC 33.2 g/dL (33.0-37.0); MEAN PLATELET VOLUME 8.8 fL (7.2-11.7); MONO # 0.7 K/uL (0.0-0.8); NEUT # 5.5 K/uL (1.8-7.0); NEUT % 58.3 % (50.0-75.0); RBC 3.79 Mil/uL (3.80-5.20); RED CELL DISTRIBUTION WIDTH 14.8 % (11.5-14.5); WHITE BLOOD COUNT 9.5 K/uL (4.8-10.8)
[2017-04-05 07:37] LABS: ALBUMIN 3.4 g/dL (3.5-5.0); CALCIUM 9.4 mg/dl (8.6-10.4); MAGNESIUM 1.7 mg/dL (1.6-2.3)
[2017-04-05] MEDS: (Novolog) Insulin Aspart, Recombinant 100 u/ml 10 ml vial SC SCH ×4 (08:20→22:05)
--- NOTE | 2017-04-05 09:14 | CP.PCM.PN ---
<Amie Mcintosh - Last Filed: 04/05/17 13:27> Subjective - Date & Time of Evaluation Date of Evaluation: 04/05/17 Time of Evaluation: 09:11 - Subjective Subjective: Medicine Progress Note- Dr. Monique's Service Patient was seen and examined at bedside in no acute distress. Patient was resting comfortably in bed. Patient was able to respond to ROS by nodding her head yes and no. Patient reports her legs are painful, the right more than the left. Patient denies having chest pain, abdominal pain, leg pain, and headaches. Objective - Vital Signs/Intake and Output Vital Signs (last 24 hours): Temp Pulse Resp BP Pulse Ox 98.0 F 73 20 148/76 99 04/05/17 07:53 04/05/17 07:53 04/05/17 07:53 04/05/17 07:53 04/05/17 07:53 Intake and Output: 04/05/17 04/05/17 06:59 18:59 Intake Total 240 Balance 240 - Medications Medications: Current Medications Aspirin (Ecotrin) 81 mg PO DAILY [facility] Last Admin: 04/04/17 09:51 Dose: 81 mg Clopidogrel Bisulfate (Plavix) 75 mg PO DAILY [facility] Last Admin: 04/04/17 09:51 Dose: 75 mg Enoxaparin Sodium (Lovenox) 40 mg SC DAILY [facility] Last Admin: 04/04/17 09:50 Dose: 40 mg Famotidine (Pepcid) 20 mg PO DAILY [facility] Last Admin: 04/04/17 09:51 Dose: 20 mg Hydralazine HCl (Apresoline) 10 mg IVP Q6H PRN PRN Reason: For SBP >180 Last Admin: 02/26/17 23:58 Dose: 10 mg Hydralazine HCl (Apresoline) 50 mg PO QID [facility] Last Admin: 04/04/17 21:40 Dose: 50 mg Insulin Aspart (Novolog Mix 70/30 (70/30 Units/Ml)) 15 units SC BIDAC [facility] Last Admin: 03/25/17 17:30 Dose: Not Given Insulin Aspart (Novolog) 0 unit SC ACHS [facility] PRN Reason: Protocol Last Admin: 04/05/17 08:20 Dose: 1 unit Labetalol HCl (Trandate) 200 mg PO BID [facility] Last Admin: 04/04/17 17:39 Dose: 200 mg Lisinopril (Zestril) 20 mg PO [facility] Last Admin: 04/04/17 21:39 Dose: 20 mg Metformin HCl (Glucophage) 500 mg PO BIDCC [facility] Last Admin: 04/05/17 08:20 Dose: 500 mg Rosuvastatin Calcium (Crestor) 40 mg PO [facility] Last Admin: 04/04/17 21:39 Dose: 40 mg Tamsulosin HCl (Flomax) 0.4 mg PO DAILY [facility] Last Admin: 04/04/17 09:51 Dose: 0.4 mg - Labs Labs: 04/05/17 07:05 04/05/17 07:05 PT 12.0 SECONDS (9.7-12.2) 02/24/17 11:48 INR 1.1 02/24/17 11:48 APTT 24 SECONDS (21-34) 02/24/17 11:48 - Constitutional Appears: No Acute Distress - Head Exam Head Exam: NORMAL INSPECTION, NORMOCEPHALIC - Eye Exam Eye Exam: EOMI, Normal appearance - ENT Exam ENT Exam: Mucous Membranes Moist - Neck Exam Neck Exam: Normal Inspection - Respiratory Exam Respiratory Exam: Clear to Ausculation Bilateral, NORMAL BREATHING PATTERN. absent: Rhonchi, Wheezes - Cardiovascular Exam Cardiovascular Exam: REGULAR RHYTHM, +S1, +S2 - GI/Abdominal Exam GI & Abdominal Exam: Soft, Normal Bowel Sounds. absent: Tenderness - Extremities Exam Extremities Exam: Pedal Edema, Tenderness - Neurological Exam Neurological Exam: Alert, Awake Neuro motor strength exam: Left Upper Extremity: 5, Right Upper Extremity: 0, Left Lower Extremity: 5, Right Lower Extremity: 3 - Psychiatric Exam Psychiatric exam: Normal Affect, Normal Mood - Skin Skin Exam: Dry, Intact, Normal Color, Warm Assessment and Plan (1) Ischemic stroke Assessment & Plan: 04/03 - 04/04/17: less movement in right LE, and no movement in right UE 03/29-04/02/17: continues to have movement in right lower extremity, right upper extremity has no movement 7/5: increased movement in right lower extremity, right upper extremity has no movement 7/3: No changes from before. No improvement or change of the right upper and lower extremity weakness. Swallow evaluation done and recommends mechanical soft bite size food and thin liquids. 03/21: Neurologic assessment: aphasic speach, flaccid right upper and lower extremity muscle strength. 03/20: Patient seen by PT and given score of 5 on the Modified Antonio Scale: severe disability; bedridden, incontinent/requiring constant nsg care. Patient moved out of bed to chair with cheng steady. 02/24: * ROMIs negative x 3, * EKG- NSR w possible atrial enlargement. * Echo- EF is 65-70%. Mild aortic regurgitation; LV systolic function is normal ; hypokinesis in septal wall. Refer to complete report. As per Dr. Mccormick, BP SBP btwn 130-140 mmHg, ASA 81 mg PO daily and Plavix 75 mg PO daily, Crestor 40 mg PO HS since patient passed swallow eval HgbA1C 11.2, FLP elevated, TSH 1.7 02/26:Head, Neck MRA-Complete occlusion of left internal carotid and mild occlusive disease of right internal carotid. Per Surgery ( Dr. Choi) no surgical intervention at this time. Radiologist Dr. Khan called to confirm occlusive findings. 03/05:Head CT- redemonstrates large MCA territory infarct with mild surrounding mass effect . No evidence of hemorrhage or new infarcts. Continue to encourage movement with help from Physical Therapy. 03/13: Patient moved from bed to chair with max assist and put back to bed after an hour with max assist. Modified Antonio scale: 5, severe disability; bedridden, incontinent/ requiring constant nursing care. 03/27/17: "Patient continues to present with R sided weakness which impacts functional independence; recommend continuous PT for progressive mobility training, strengthening, balance activities with emphasis on family training." Patient has low PO food intake. Seen by braided rug maker on 03/08 and recommended Boost glucose control supplementation. Continue boost and await new recommendations. continue PT B/L LE extremity pain--> LE venous doppler (04/04/17)--> no abnormal findings Status: Acute (2) Urinary retention Assessment & Plan: Monitor I & Os As per nurse, with public health training assistant, patient has used bed valentine and commode as needed. 03/30: Bladder scan <20ml 03/29: bladder scan done, 630cc, patient put on bed valentine and urinated about 300cc, continue to encourage urination with bed valentine 03/28: bladder can done, 600cc, patient put on bed valentine and urinated about 100cc, then urinated again on bed valentine a few hours later. Continue to encourage patient to urinate by placing on bed valentine every 3 hours. 03/27: bladder scan done, 195 cc, nursing communication put in to put patient on bed valentine q3h to encourage urination. 03/26: 635am: Bladder scan done, 511ml so straight cath performed with approx 500 cc of clear yellow fluid obtained 03/25: Bennett taken out, voiding trial 03/22 and 03/21: no lasix given 03/19: bennett catheter, lasix 20 mg one time dose given Retaining urine no 03/11 in AM- bladder scan 680ml so patient straight catheterized. Repeat bladder scan 150. Pt continued retaining urine and bennett placed. Bennett inserted 03/14. Flomax .4mg once daily started. Dr. Valdez evaluated patient on 03/14 and recommends keeping patient on bennett and encouraging patient to try to urinate more often. Continue patient on Cipro 250 mg PO BID Status: Acute (3) UTI (urinary tract infection) Assessment & Plan: No fevers or white count noted No apparent change in mentation Positive UA on 02/28, negative UA on 03/09 UC: sensitive to ceftriaxone. Ceftriaxone started on 02/28 and stopped on 03/10. Status: Resolved (4) Acute kidney injury Assessment & Plan: 09/24 NS stopped (03/25) because tolerating oral intake Creatinine stable at 1.2.; on 04/01/17, Cr 1.3 Status: Acute (5) Elevated transaminase level Assessment & Plan: AST and ALT: 04/04: 45, 60 04/03: 42/59 04/02: 51, 61 04/01: 54, 63 03/27: 38, 38 03/26: 28, 40 03/24: 37, 39 03/23: 34, 47 Status: Acute (6) Hypertension Assessment & Plan: 04/04: 148/76 04/03: 149/69 04/01: 144/70 03/30: 136/75, 151/70 03/29: 110/69 03/27: BP-160/70 03/23: elevated bp, lasix x1 given 03/21: blood pressure stable Continue Labetalol 200 mg PO BID (switched from 100 mg PO TID) which is better controlling blood pressure Lisinopril 20mg PO changed from daily to HS (03/25/17); Hydralazine 50 mg QID, Hydralazine 10 mg IV Q6 PRN if SBP above 180 Monitor BP Status: Acute (7) Diabetes Assessment & Plan: Accucheck. ISS ACHS. HgbA1C 11.2 Novolog Mix 70/30 15 units BIDAC daily. Metformin 500 mg PO BIDCC, Cont to monitor. Insulin 15u SC BIDAC held because of low blood sugars, monitor. ISS to low coverage. Status: Acute (8) Prophylactic measure Assessment & Plan: Pepcid 20 mg PO BID. ASA 81mg. Lovenox 40 sc daily. SCDs. Continue with PT/OT daily to maximize strength. Patient is maximum assist. Mouth care. Status: Acute <Dylan Monique H - Last Filed: 04/05/17 14:36> Objective - Vital Signs/Intake and Output Vital Signs (last 24 hours): Temp Pulse Resp BP Pulse Ox 98.0 F 76 20 106/72 99 04/05/17 07:53 04/05/17 13:25 04/05/17 07:53 04/05/17 13:25 04/05/17 07:53 Intake and Output: 04/05/17 04/05/17 06:59 18:59 Intake Total 240 Balance 240 - Medications Medications: Current Medications Aspirin (Ecotrin) 81 mg PO DAILY [facility] Last Admin: 04/05/17 10:14 Dose: 81 mg Clopidogrel Bisulfate (Plavix) 75 mg PO DAILY [facility] Last Admin: 04/05/17 10:14 Dose: 75 mg Enoxaparin Sodium (Lovenox) 40 mg SC DAILY [facility] Last Admin: 04/05/17 10:14 Dose: 40 mg Famotidine (Pepcid) 20 mg PO DAILY [facility] Last Admin: 04/05/17 10:15 Dose: 20 mg Hydralazine HCl (Apresoline) 10 mg IVP Q6H PRN PRN Reason: For SBP >180 Last Admin: 02/26/17 23:58 Dose: 10 mg Hydralazine HCl (Apresoline) 50 mg PO QID [facility] Last Admin: 04/05/17 13:26 Dose: Not Given Insulin Aspart (Novolog Mix 70/30 (70/30 Units/Ml)) 15 units SC BIDAC [facility] Last Admin: 03/25/17 17:30 Dose: Not Given Insulin Aspart (Novolog) 0 unit SC ACHS [facility] PRN Reason: Protocol Last Admin: 04/05/17 12:00 Dose: 2 unit Labetalol HCl (Trandate) 200 mg PO BID [facility] Last Admin: 04/05/17 10:15 Dose: 200 mg Lisinopril (Zestril) 20 mg PO HS [facility] Last Admin: 04/04/17 21:39 Dose: 20 mg Metformin HCl (Glucophage) 500 mg PO BIDCC [facility] Last Admin: 04/05/17 08:20 Dose: 500 mg Rosuvastatin Calcium (Crestor) 40 mg PO HS [facility] Last Admin: 04/04/17 21:39 Dose: 40 mg Tamsulosin HCl (Flomax) 0.4 mg PO DAILY [facility] Last Admin: 04/05/17 10:14 Dose: 0.4 mg - Labs Labs: 04/05/17 07:05 04/05/17 07:05 PT 12.0 SECONDS (9.7-12.2) 02/24/17 11:48 INR 1.1 02/24/17 11:48 APTT 24 SECONDS (21-34) 02/24/17 11:48 Attending/Attestation - Attestation I have personally seen and examined this patient.: Yes I have fully participated in the care of the patient.: Yes I have reviewed all pertinent clinical information, including history, physical exam and plan: Yes Notes (Text): 04/05/17 14:35 Medical attending: Patient was seen and examined by me, agrees the above note by medical administrative. She was later brought down from the venous Doppler of right lower extremity she's been having a lot of pain in that lower extremity. Previously she was having some movement and that side. Supposedly a family member will be trying to come and visit the patient on the , hopefully the patient will be able to be discharged that point however that remains to be seen Thank you very much, Dylan Monique
[2017-04-05] MEDS: Enoxaparin 40 mg Syringe SC SCH (10:14)
--- NOTE | 2017-04-06 00:02 | CP.PCM.PN ---
<Renaldo Mercado E - Last Filed: 04/06/17 09:13> Subjective - Date & Time of Evaluation Date of Evaluation: 04/06/17 Time of Evaluation: 01:25 - Subjective Subjective: Medicine note (PGY1): Dr. Monique's service Patient was seen and examined at bedside. Patient was resting comfortably in her bed watching TV. Patient is the same with very minimal verbal response but was able to nod yes or no to ROS questions. She denies chest pain, sob, fever, chills, nausea and vomiting. Objective - Vital Signs/Intake and Output Vital Signs (last 24 hours): Temp Pulse Resp BP Pulse Ox 98.2 F 74 20 144/72 99 04/05/17 23:20 04/05/17 23:20 04/05/17 23:20 04/05/17 23:20 04/05/17 23:20 - Medications Medications: Current Medications Aspirin (Ecotrin) 81 mg PO DAILY [facility] Last Admin: 04/05/17 10:14 Dose: 81 mg Clopidogrel Bisulfate (Plavix) 75 mg PO DAILY [facility] Last Admin: 04/05/17 10:14 Dose: 75 mg Enoxaparin Sodium (Lovenox) 40 mg SC DAILY [facility] Last Admin: 04/05/17 10:14 Dose: 40 mg Famotidine (Pepcid) 20 mg PO DAILY [facility] Last Admin: 04/05/17 10:15 Dose: 20 mg Hydralazine HCl (Apresoline) 10 mg IVP Q6H PRN PRN Reason: For SBP >180 Last Admin: 02/26/17 23:58 Dose: 10 mg Hydralazine HCl (Apresoline) 50 mg PO QID [facility] Last Admin: 04/05/17 22:03 Dose: 50 mg Insulin Aspart (Novolog Mix 70/30 (70/30 Units/Ml)) 15 units SC BIDAC [facility] Last Admin: 03/25/17 17:30 Dose: Not Given Insulin Aspart (Novolog) 0 unit SC ACHS [facility] PRN Reason: Protocol Last Admin: 04/05/17 22:05 Dose: Not Given Labetalol HCl (Trandate) 200 mg PO BID [facility] Last Admin: 04/05/17 17:47 Dose: 200 mg Lisinopril (Zestril) 20 mg PO HS [facility] Last Admin: 04/05/17 22:05 Dose: 20 mg Metformin HCl (Glucophage) 500 mg PO BIDCC [facility] Last Admin: 04/05/17 17:44 Dose: 500 mg Rosuvastatin Calcium (Crestor) 40 mg PO HS [facility] Last Admin: 04/05/17 22:03 Dose: 40 mg Tamsulosin HCl (Flomax) 0.4 mg PO DAILY [facility] Last Admin: 04/05/17 10:14 Dose: 0.4 mg - Labs Labs: 04/05/17 07:05 04/05/17 07:05 PT 12.0 SECONDS (9.7-12.2) 02/24/17 11:48 INR 1.1 02/24/17 11:48 APTT 24 SECONDS (21-34) 02/24/17 11:48 - Constitutional Appears: Well, No Acute Distress - Head Exam Head Exam: ATRAUMATIC - Eye Exam Eye Exam: EOMI, Normal appearance - ENT Exam ENT Exam: Mucous Membranes Moist, Normal Exam - Respiratory Exam Respiratory Exam: Clear to Ausculation Bilateral, NORMAL BREATHING PATTERN - Cardiovascular Exam Cardiovascular Exam: REGULAR RHYTHM, +S1, +S2 - GI/Abdominal Exam GI & Abdominal Exam: Soft, Normal Bowel Sounds Assessment and Plan (1) Ischemic stroke Assessment & Plan: Stable 04/03 - 04/04/17: less movement in right LE, and no movement in right UE 03/29-04/02/17: continues to have movement in right lower extremity, right upper extremity has no movement 7: increased movement in right lower extremity, right upper extremity has no movement 7/: No changes from before. No improvement or change of the right upper and lower extremity weakness. Swallow evaluation done and recommends mechanical soft bite size food and thin liquids. 03/21: Neurologic assessment: aphasic speach, flaccid right upper and lower extremity muscle strength. 03/20: Patient seen by PT and given score of 5 on the Modified [place] Scale: severe disability; bedridden, incontinent/requiring constant nsg care. Patient moved out of bed to chair with cheng steady. 02/24: * ROMIs negative x 3, * EKG- NSR w possible atrial enlargement. * Echo- EF is 65-70%. Mild aortic regurgitation; LV systolic function is normal ; hypokinesis in septal wall. Refer to complete report. As per Dr. Jace, BP SBP btwn 130-140 mmHg, ASA 81 mg PO daily and Plavix 75 mg PO daily, Crestor 40 mg PO HS since patient passed swallow eval HgbA1C 11.2, FLP elevated, TSH 1.7 02/26:Head, Neck MRA-Complete occlusion of left internal carotid and mild occlusive disease of right internal carotid. Per Surgery ( Dr. Choi) no surgical intervention at this time. Radiologist Dr. Khan called to confirm occlusive findings. 03/05:Head CT- redemonstrates large MCA territory infarct with mild surrounding mass effect . No evidence of hemorrhage or new infarcts. Continue to encourage movement with help from Physical Therapy. 03/13: Patient moved from bed to chair with max assist and put back to bed after an hour with max assist. Modified Antonio scale: 5, severe disability; bedridden, incontinent/ requiring constant nursing care. 03/27/17: "Patient continues to present with R sided weakness which impacts functional independence; recommend continuous PT for progressive mobility training, strengthening, balance activities with emphasis on family training." Patient has low PO food intake. Seen by headstart teacher on 03/08 and recommended Boost glucose control supplementation. Continue boost and await new recommendations. continue PT B/L LE extremity pain--> LE venous doppler (04/04/17)--> no abnormal findings Status: Acute (2) Urinary retention Assessment & Plan: Monitor I & Os As per nurse, with bilingual medical assistant, patient has used bed valentine and commode as needed. 03/30: Bladder scan <20ml 03/29: bladder scan done, 630cc, patient put on bed valentine and urinated about 300cc, continue to encourage urination with bed valentine 03/28: bladder can done, 600cc, patient put on bed valentine and urinated about 100cc, then urinated again on bed valentine a few hours later. Continue to encourage patient to urinate by placing on bed valentine every 3 hours. 03/27: bladder scan done, 195 cc, nursing communication put in to put patient on bed valentine q3h to encourage urination. 03/26: 635am: Bladder scan done, 511ml so straight cath performed with approx 500 cc of clear yellow fluid obtained 03/25: Bennett taken out, voiding trial 03/22 and 03/21: no lasix given 03/19: ebnnett catheter, lasix 20 mg one time dose given Retaining urine no 03/11 in AM- bladder scan 680ml so patient straight catheterized. Repeat bladder scan 150. Pt continued retaining urine and bennett placed. Bennett inserted 03/14. Flomax .4mg once daily started. Dr. Valdez evaluated patient on 03/14 and recommends keeping patient on bennett and encouraging patient to try to urinate more often. Continue patient on Cipro 250 mg PO BID: stopped 03/31/17 Status: Acute (3) Hypertension Assessment & Plan: 04/04: 148/76 04/03: 149/69 04/01: 144/70 03/30: 136/75, 151/70 03/29: 110/69 03/27: BP-160/70 03/23: elevated bp, lasix x1 given 03/21: blood pressure stable Continue Labetalol 200 mg PO BID (switched from 100 mg PO TID) which is better controlling blood pressure Lisinopril 20mg PO changed from daily to HS (03/25/17); Hydralazine 50 mg QID, Hydralazine 10 mg IV Q6 PRN if SBP above 180 Monitor BP Status: Acute (4) Diabetes Assessment & Plan: Accucheck. ISS ACHS. HgbA1C 11.2 Novolog Mix 70/30 15 units BIDAC daily. Metformin 500 mg PO BIDCC, Cont to monitor. Insulin 15u SC BIDAC held because of low blood sugars, monitor. ISS to low coverage. Status: Acute (5) Prophylactic measure Assessment & Plan: Pepcid 20 mg PO BID. ASA 81mg. Lovenox 40 sc daily. SCDs. Continue with PT/OT daily to maximize strength. Patient is maximum assist. Mouth care. Status: Acute <Dylan Monique H - Last Filed: 04/06/17 09:51> Objective - Vital Signs/Intake and Output Vital Signs (last 24 hours): Temp Pulse Resp BP Pulse Ox 97.7 F 74 18 155/71 H 98 04/06/17 07:20 04/06/17 07:20 04/06/17 07:20 04/06/17 07:20 04/06/17 07:20 - Medications Medications: Current Medications Aspirin (Ecotrin) 81 mg PO DAILY [facility] Last Admin: 04/05/17 10:14 Dose: 81 mg Clopidogrel Bisulfate (Plavix) 75 mg PO DAILY [facility] Last Admin: 04/05/17 10:14 Dose: 75 mg Enoxaparin Sodium (Lovenox) 40 mg SC DAILY [facility] Last Admin: 04/05/17 10:14 Dose: 40 mg Famotidine (Pepcid) 20 mg PO DAILY [facility] Last Admin: 04/05/17 10:15 Dose: 20 mg Hydralazine HCl (Apresoline) 10 mg IVP Q6H PRN PRN Reason: For SBP >180 Last Admin: 02/26/17 23:58 Dose: 10 mg Hydralazine HCl (Apresoline) 50 mg PO QID [facility] Last Admin: 04/05/17 22:03 Dose: 50 mg Insulin Aspart (Novolog Mix 70/30 (70/30 Units/Ml)) 15 units SC BIDAC [facility] Last Admin: 03/25/17 17:30 Dose: Not Given Insulin Aspart (Novolog) 0 unit SC ACHS [facility] PRN Reason: Protocol Last Admin: 04/05/17 22:05 Dose: Not Given Labetalol HCl (Trandate) 200 mg PO BID [facility] Last Admin: 04/05/17 17:47 Dose: 200 mg Lisinopril (Zestril) 20 mg PO HS [facility] Last Admin: 04/05/17 22:05 Dose: 20 mg Metformin HCl (Glucophage) 500 mg PO BIDCC [facility] Last Admin: 04/05/17 17:44 Dose: 500 mg Rosuvastatin Calcium (Crestor) 40 mg PO HS [facility] Last Admin: 04/05/17 22:03 Dose: 40 mg Tamsulosin HCl (Flomax) 0.4 mg PO DAILY [facility] Last Admin: 04/05/17 10:14 Dose: 0.4 mg - Labs Labs: 04/06/17 08:17 04/06/17 08:17 PT 12.0 SECONDS (9.7-12.2) 02/24/17 11:48 INR 1.1 02/24/17 11:48 APTT 24 SECONDS (21-34) 02/24/17 11:48 Attending/Attestation - Attestation I have personally seen and examined this patient.: Yes I have fully participated in the care of the patient.: Yes I have reviewed all pertinent clinical information, including history, physical exam and plan: Yes Notes (Text): Medical Attending: Patient was seen and examined by me, agree with the above note by the resident. The patient had a lower extremity dopplers done yesterday and they are negative for DVT. Today she was able to minimally elevate the right leg. Unable to move the right upper extremity. thank you Dylan Monique
[2017-04-06] MEDS: (Novolog) Insulin Aspart, Recombinant 100 u/ml 10 ml vial SC SCH ×4 (08:00→22:00)
[2017-04-06 08:38] LABS: BASO # 0.1 K/uL (0.0-0.2); BASO % 0.7 % (0.0-2.0); EOS # 0.4 K/uL (0.0-0.7); EOS % 5.4 % (0.0-4.0); HEMOGLOBIN 10.7 g/dL (11.0-16.0); LYMPH # 2.4 K/uL (1.0-4.3); LYMPH % 30.5 % (20.0-40.0); MEAN CELL VOLUME 84.8 fL (81.0-99.0); MEAN CORPUSCULAR HEMOGLOBIN 27.8 pg (27.0-31.0); MEAN CORPUSCULAR HGB CONC 32.8 g/dL (33.0-37.0); MEAN PLATELET VOLUME 8.7 fL (7.2-11.7); MONO # 0.5 K/uL (0.0-0.8); MONO % 6.5 % (0.0-10.0); NEUT # 4.5 K/uL (1.8-7.0); NEUT % 56.9 % (50.0-75.0); RBC 3.84 Mil/uL (3.80-5.20); RED CELL DISTRIBUTION WIDTH 15.1 % (11.5-14.5); WHITE BLOOD COUNT 7.9 K/uL (4.8-10.8)
[2017-04-06 08:50] LABS: ALBUMIN 3.4 g/dL (3.5-5.0)
[2017-04-06 08:53] LABS: ALB/GLOB RATIO 1.1 (1.0-2.1); CALCIUM 9.7 mg/dl (8.6-10.4); MAGNESIUM 1.8 mg/dL (1.6-2.3)
[2017-04-06] MEDS: Enoxaparin 40 mg Syringe SC SCH (10:30)
--- NOTE | 2017-04-07 00:06 | CP.PCM.PN ---
<Renaldo Mercado - Last Filed: 04/07/17 01:09> Subjective - Date & Time of Evaluation Date of Evaluation: 04/07/17 Time of Evaluation: 00:15 - Subjective Subjective: Medicine note (PGY1): Dr. Monique's service Patient was seen and examined at bedside. Patient was resting comfortably in her bed. Patient is clinically the same with very minimal verbal response but was able to nod yes or no to ROS questions. She denies chest pain, sob, fever, chills, nausea and vomiting. Objective - Vital Signs/Intake and Output Vital Signs (last 24 hours): Temp Pulse Resp BP Pulse Ox 98.3 F 96 H 20 136/74 98 04/06/17 15:27 04/06/17 15:27 04/06/17 15:27 04/06/17 15:27 04/06/17 15:27 - Medications Medications: Current Medications Aspirin (Ecotrin) 81 mg PO DAILY [facility] Last Admin: 04/06/17 10:29 Dose: 81 mg Clopidogrel Bisulfate (Plavix) 75 mg PO DAILY [facility] Last Admin: 04/06/17 10:30 Dose: 75 mg Enoxaparin Sodium (Lovenox) 40 mg SC DAILY [facility] Last Admin: 04/06/17 10:30 Dose: 40 mg Famotidine (Pepcid) 20 mg PO DAILY [facility] Last Admin: 04/06/17 10:29 Dose: 20 mg Hydralazine HCl (Apresoline) 10 mg IVP Q6H PRN PRN Reason: For SBP >180 Last Admin: 02/26/17 23:58 Dose: 10 mg Hydralazine HCl (Apresoline) 50 mg PO QID [facility] Last Admin: 04/06/17 21:18 Dose: 50 mg Insulin Aspart (Novolog Mix 70/30 (70/30 Units/Ml)) 15 units SC BIDAC [facility] Last Admin: 03/25/17 17:30 Dose: Not Given Insulin Aspart (Novolog) 0 unit SC ACHS [facility] PRN Reason: Protocol Last Admin: 04/06/17 22:00 Dose: Not Given Labetalol HCl (Trandate) 200 mg PO BID [facility] Last Admin: 04/06/17 18:56 Dose: 200 mg Lisinopril (Zestril) 20 mg PO HS [facility] Last Admin: 04/06/17 21:12 Dose: 20 mg Metformin HCl (Glucophage) 500 mg PO BIDCC [facility] Last Admin: 04/06/17 18:57 Dose: 500 mg Rosuvastatin Calcium (Crestor) 40 mg PO HS [facility] Last Admin: 04/06/17 21:12 Dose: 40 mg Tamsulosin HCl (Flomax) 0.4 mg PO DAILY [facility] Last Admin: 04/06/17 10:31 Dose: 0.4 mg - Labs Labs: 04/06/17 08:17 04/06/17 08:17 PT 12.0 SECONDS (9.7-12.2) 02/24/17 11:48 INR 1.1 02/24/17 11:48 APTT 24 SECONDS (21-34) 02/24/17 11:48 - Constitutional Appears: Well - Head Exam Head Exam: ATRAUMATIC - Eye Exam Eye Exam: EOMI, Normal appearance - ENT Exam ENT Exam: Mucous Membranes Moist, Normal Exam - Respiratory Exam Respiratory Exam: Clear to Ausculation Bilateral, NORMAL BREATHING PATTERN - Cardiovascular Exam Cardiovascular Exam: REGULAR RHYTHM, +S1, +S2 - GI/Abdominal Exam GI & Abdominal Exam: Soft, Normal Bowel Sounds - Extremities Exam Extremities Exam: Normal Inspection - Neurological Exam Neurological Exam: Alert, Awake - Psychiatric Exam Psychiatric exam: Normal Affect, Normal Mood - Skin Skin Exam: Dry, Normal Color, Warm Assessment and Plan (1) Ischemic stroke Assessment & Plan: Stable 04/03 - 04/04/17: less movement in right LE, and no movement in right UE 03/29-04/02/17: continues to have movement in right lower extremity, right upper extremity has no movement 03/27: increased movement in right lower extremity, right upper extremity has no movement 03/25: No changes from before. No improvement or change of the right upper and lower extremity weakness. Swallow evaluation done and recommends mechanical soft bite size food and thin liquids. 03/21: Neurologic assessment: aphasic speach, flaccid right upper and lower extremity muscle strength. 03/20: Patient seen by PT and given score of 5 on the Modified [place] Scale: severe disability; bedridden, incontinent/requiring constant nsg care. Patient moved out of bed to chair with cheng steady. 02/24: * ROMIs negative x 3, * EKG- NSR w possible atrial enlargement. * Echo- EF is 65-70%. Mild aortic regurgitation; LV systolic function is normal ; hypokinesis in septal wall. Refer to complete report. As per Dr. Mccormick, BP SBP btwn 130-140 mmHg, ASA 81 mg PO daily and Plavix 75 mg PO daily, Crestor 40 mg PO HS since patient passed swallow eval HgbA1C 11.2, FLP elevated, TSH 1.7 02/26:Head, Neck MRA-Complete occlusion of left internal carotid and mild occlusive disease of right internal carotid. Per Surgery ( Dr. Choi) no surgical intervention at this time. Radiologist Dr. Khan called to confirm occlusive findings. 03/05:Head CT- redemonstrates large MCA territory infarct with mild surrounding mass effect . No evidence of hemorrhage or new infarcts. Continue to encourage movement with help from Physical Therapy. 03/13: Patient moved from bed to chair with max assist and put back to bed after an hour with max assist. Modified [place] scale: 5, severe disability; bedridden, incontinent/ requiring constant nursing care. 03/27/17: "Patient continues to present with R sided weakness which impacts functional independence; recommend continuous PT for progressive mobility training, strengthening, balance activities with emphasis on family training." Patient has low PO food intake. Seen by manager metal on 03/08 and recommended Boost glucose control supplementation. Continue boost and await new recommendations. continue PT B/L LE extremity pain--> LE venous doppler (04/04/17)--> no abnormal findings Status: Acute (2) Urinary retention Assessment & Plan: Resolved, stable Monitor I & Os As per nurse, with registered dental assistant, patient has used bed valentine and commode as needed. 03/30: Bladder scan <20ml 03/29: bladder scan done, 630cc, patient put on bed valentine and urinated about 300cc, continue to encourage urination with bed valentine 03/28: bladder can done, 600cc, patient put on bed valentine and urinated about 100cc, then urinated again on bed valentine a few hours later. Continue to encourage patient to urinate by placing on bed valentine every 3 hours. 03/27: bladder scan done, 195 cc, nursing communication put in to put patient on bed valentine q3h to encourage urination. 03/26: 635am: Bladder scan done, 511ml so straight cath performed with approx 500 cc of clear yellow fluid obtained 03/25: Bennett taken out, voiding trial 03/22 and 03/21: no lasix given 03/19: bennett catheter, lasix 20 mg one time dose given Retaining urine no 03/11 in AM- bladder scan 680ml so patient straight catheterized. Repeat bladder scan 150. Pt continued retaining urine and bennett placed. Bennett inserted 03/14. Flomax .4mg once daily started. Dr. Valdez evaluated patient on 03/14 and recommends keeping patient on bennett and encouraging patient to try to urinate more often. Continue patient on Cipro 250 mg PO BID: stopped 03/31/17 Status: Acute (3) Hypertension Assessment & Plan: Controlled 04/06:136/74 04/05: 144/72 04/04: 148/76 04/03: 149/69 04/01: 144/70 03/30: 136/75, 151/70 03/29: 110/69 03/27: BP-160/70 03/23: elevated bp, lasix x1 given 03/21: blood pressure stable Continue Labetalol 200 mg PO BID (switched from 100 mg PO TID) which is better controlling blood pressure Lisinopril 20mg PO changed from daily to HS (03/25/17); Hydralazine 50 mg QID, Hydralazine 10 mg IV Q6 PRN if SBP above 180 Monitor BP Status: Acute (4) Diabetes Assessment & Plan: Goal <200 Accucheck. ISS ACHS. HgbA1C 11.2 Novolog Mix 70/30 15 units BIDAC daily. Metformin 500 mg PO BIDCC, Cont to monitor. Insulin 15u SC BIDAC held because of low blood sugars, monitor. ISS to low coverage Status: Acute (5) Prophylactic measure Assessment & Plan: Pepcid 20 mg PO BID. ASA 81mg. Lovenox 40 sc daily. SCDs. Continue with PT/OT daily to maximize strength. Patient is maximum assist. Mouth care. Status: Acute <Dylan Monique H - Last Filed: 04/07/17 09:32> Objective - Vital Signs/Intake and Output Vital Signs (last 24 hours): Temp Pulse Resp BP Pulse Ox 97.9 F 81 18 162/70 H 100 04/07/17 07:25 04/07/17 07:25 04/07/17 07:25 04/07/17 07:25 04/07/17 07:25 Intake and Output: 04/07/17 04/07/17 06:59 18:59 Intake Total 100 Balance 100 - Medications Medications: Current Medications Aspirin (Ecotrin) 81 mg PO DAILY [facility] Last Admin: 04/06/17 10:29 Dose: 81 mg Clopidogrel Bisulfate (Plavix) 75 mg PO DAILY [facility] Last Admin: 04/06/17 10:30 Dose: 75 mg Enoxaparin Sodium (Lovenox) 40 mg SC DAILY [facility] Last Admin: 04/06/17 10:30 Dose: 40 mg Famotidine (Pepcid) 20 mg PO DAILY [facility] Last Admin: 04/06/17 10:29 Dose: 20 mg Hydralazine HCl (Apresoline) 10 mg IVP Q6H PRN PRN Reason: For SBP >180 Last Admin: 02/26/17 23:58 Dose: 10 mg Hydralazine HCl (Apresoline) 50 mg PO QID [facility] Last Admin: 04/06/17 21:18 Dose: 50 mg Insulin Aspart (Novolog Mix 70/30 (70/30 Units/Ml)) 15 units SC BIDAC [facility] Last Admin: 03/25/17 17:30 Dose: Not Given Insulin Aspart (Novolog) 0 unit SC ACHS [facility] PRN Reason: Protocol Last Admin: 04/07/17 08:37 Dose: 2 unit Labetalol HCl (Trandate) 200 mg PO BID [facility] Last Admin: 04/06/17 18:56 Dose: 200 mg Lisinopril (Zestril) 20 mg PO HS [facility] Last Admin: 04/06/17 21:12 Dose: 20 mg Metformin HCl (Glucophage) 500 mg PO BIDCC [facility] Last Admin: 04/07/17 08:41 Dose: 500 mg Rosuvastatin Calcium (Crestor) 40 mg PO HS [facility] Last Admin: 04/06/17 21:12 Dose: 40 mg Tamsulosin HCl (Flomax) 0.4 mg PO DAILY [facility] Last Admin: 04/06/17 10:31 Dose: 0.4 mg - Labs Labs: 04/06/17 08:17 04/06/17 08:17 PT 12.0 SECONDS (9.7-12.2) 02/24/17 11:48 INR 1.1 02/24/17 11:48 APTT 24 SECONDS (21-34) 02/24/17 11:48 Attending/Attestation - Attestation I have personally seen and examined this patient.: Yes I have fully participated in the care of the patient.: Yes I have reviewed all pertinent clinical information, including history, physical exam and plan: Yes Notes (Text): Medical Attending: Patient was seen and examined by me. Agree with the above note by the resident. I don't have much new news to report. BP is relatively stable. The lower extremity doppler was negative for DVT. Supposedly there is a family member comming on 04/11 to see if she could be moved [place] to [place]. This remains to be seen. thank you Dylan Monique
[2017-04-07] MEDS: (Novolog) Insulin Aspart, Recombinant 100 u/ml 10 ml vial SC SCH ×4 (08:37→22:10)
[2017-04-07] MEDS: Enoxaparin 40 mg Syringe SC SCH (10:07)
[2017-04-08 07:36] LABS: ALBUMIN 3.2 g/dL (3.5-5.0)
[2017-04-08 07:39] LABS: CALCIUM 9.6 mg/dl (8.6-10.4)
[2017-04-08 07:40] LABS: BASO # 0.1 K/uL (0.0-0.2); BASO % 1.1 % (0.0-2.0); EOS # 0.4 K/uL (0.0-0.7); EOS % 4.5 % (0.0-4.0); HEMOGLOBIN 10.2 g/dL (11.0-16.0); LYMPH # 3.2 K/uL (1.0-4.3); LYMPH % 35.5 % (20.0-40.0); MAGNESIUM 1.8 mg/dL (1.6-2.3); MEAN CELL VOLUME 84.8 fL (81.0-99.0); MEAN CORPUSCULAR HEMOGLOBIN 27.4 pg (27.0-31.0); MEAN CORPUSCULAR HGB CONC 32.3 g/dL (33.0-37.0); MEAN PLATELET VOLUME 8.9 fL (7.2-11.7); MONO # 0.7 K/uL (0.0-0.8); MONO % 7.4 % (0.0-10.0); NEUT # 4.6 K/uL (1.8-7.0); NEUT % 51.5 % (50.0-75.0); NRBC % 0.1 % (0.0-2.0); RBC 3.71 Mil/uL (3.80-5.20); RED CELL DISTRIBUTION WIDTH 15.1 % (11.5-14.5); WHITE BLOOD COUNT 8.9 K/uL (4.8-10.8)
[2017-04-08] MEDS: (Novolog) Insulin Aspart, Recombinant 100 u/ml 10 ml vial SC SCH ×4 (08:21→21:51)
[2017-04-08] MEDS ORDERED: (Novolog Mix 70/30) Insulin Aspart/Insulin Aspar 100 units/ml SC SCH (11:32)
--- NOTE | 2017-04-08 11:42 | CP.PCM.PN ---
<Renaldo Mercado - Last Filed: 04/08/17 17:11> Subjective - Date & Time of Evaluation Date of Evaluation: 04/08/17 Time of Evaluation: 07:10 - Subjective Subjective: Medicine Note (PGY 1): Dr. Miranda's service Patient was seen and examined at bedside. Patient was resting comfortably in her bed. Patient had no new complaints and denies chest pain, sob, abdominal pain, nausea, vomiting, fever and chills. Patient continues to report leg tenderness , however recent doppler scan has been negative. Patient is tolerating diet and working with PT. As per nursing, patient is retains urine, however, recent bladder scan is WNL. Objective - Vital Signs/Intake and Output Vital Signs (last 24 hours): Temp Pulse Resp BP Pulse Ox 97.7 F 73 18 154/72 H 97 04/08/17 07:15 04/08/17 07:15 04/08/17 07:15 04/08/17 07:15 04/08/17 07:15 - Medications Medications: Current Medications Aspirin (Ecotrin) 81 mg PO DAILY [facility] Last Admin: 04/08/17 09:04 Dose: 81 mg Clopidogrel Bisulfate (Plavix) 75 mg PO DAILY [facility] Last Admin: 04/08/17 09:04 Dose: 75 mg Famotidine (Pepcid) 20 mg PO DAILY [facility] Last Admin: 04/08/17 09:03 Dose: 20 mg Hydralazine HCl (Apresoline) 10 mg IVP Q6H PRN PRN Reason: For SBP >180 Last Admin: 02/26/17 23:58 Dose: 10 mg Hydralazine HCl (Apresoline) 50 mg PO QID [facility] Last Admin: 04/08/17 09:04 Dose: 50 mg Sodium Chloride (Sodium Chloride 0.45%) 1,000 mls @ 75 mls/hr IV .[id number] [facility] Insulin Aspart (Novolog) 0 unit SC ACHS [facility] PRN Reason: Protocol Last Admin: 04/08/17 08:21 Dose: 1 unit Insulin Aspart (Novolog Mix 70/30 (70/30 Units/Ml)) 17 units SC BIDAC [facility] Labetalol HCl (Trandate) 200 mg PO BID [facility] Last Admin: 04/08/17 09:04 Dose: 200 mg Lisinopril (Zestril) 20 mg PO [facility] Last Admin: 04/07/17 22:10 Dose: 20 mg [facility] Last Admin: 04/08/17 08:21 Dose: 500 mg Rosuvastatin Calcium (Crestor) 40 mg PO [facility] Last Admin: 04/07/17 22:10 Dose: 40 mg Tamsulosin HCl (Flomax) 0.4 mg PO DAILY [facility] Last Admin: 04/08/17 09:04 Dose: 0.4 mg - Labs Labs: 04/08/17 06:58 04/08/17 06:58 PT 12.0 SECONDS (9.7-12.2) 02/24/17 11:48 INR 1.1 02/24/17 11:48 APTT 24 SECONDS (21-34) 02/24/17 11:48 - Constitutional Appears: Well, No Acute Distress - Head Exam Head Exam: ATRAUMATIC, NORMAL INSPECTION - Eye Exam Eye Exam: EOMI, Normal appearance - ENT Exam ENT Exam: Mucous Membranes Moist, Normal Exam - Respiratory Exam Respiratory Exam: Clear to Ausculation Bilateral, NORMAL BREATHING PATTERN - Cardiovascular Exam Cardiovascular Exam: REGULAR RHYTHM, +S1, +S2 - GI/Abdominal Exam GI & Abdominal Exam: Soft, Normal Bowel Sounds - Extremities Exam Extremities Exam: Normal Inspection, Tenderness - Neurological Exam Neurological Exam: Alert, Awake - Psychiatric Exam Psychiatric exam: Normal Affect, Normal Mood - Skin Skin Exam: Dry, Normal Color, Warm Assessment and Plan (1) Ischemic stroke Assessment & Plan: Stable 04/08: very minimal movement in the right UE and LE 04/03 - 04/04/17: less movement in right LE, and no movement in right UE 03/29-04/02/17: continues to have movement in right lower extremity, right upper extremity has no movement 03/27: increased movement in right lower extremity, right upper extremity has no movement 03/25: No changes from before. No improvement or change of the right upper and lower extremity weakness. Swallow evaluation done and recommends mechanical soft bite size food and thin liquids. 03/21: Neurologic assessment: aphasic speach, flaccid right upper and lower extremity muscle strength. 03/20: Patient seen by PT and given score of 5 on the Modified [place] Scale: severe disability; bedridden, incontinent/requiring constant nsg care. Patient moved out of bed to chair with cheng steady. 02/24: * ROMIs negative x 3, * EKG- NSR w possible atrial enlargement. * Echo- EF is 65-70%. Mild aortic regurgitation; LV systolic function is normal ; hypokinesis in septal wall. Refer to complete report. As per Dr. Mccormick, BP SBP btwn 130-140 mmHg, ASA 81 mg PO daily and Plavix 75 mg PO daily, Crestor 40 mg PO HS since patient passed swallow eval HgbA1C 11.2, FLP elevated, TSH 1.7 02/26:Head, Neck MRA-Complete occlusion of left internal carotid and mild occlusive disease of right internal carotid. Per Surgery ( Dr. Choi) no surgical intervention at this time. Radiologist Dr. Khan called to confirm occlusive findings. 03/05:Head CT- redemonstrates large MCA territory infarct with mild surrounding mass effect . No evidence of hemorrhage or new infarcts. Continue to encourage movement with help from Physical Therapy. 03/13: Patient moved from bed to chair with max assist and put back to bed after an hour with max assist. Modified [place] scale: 5, severe disability; bedridden, incontinent/ requiring constant nursing care. 03/27/17: "Patient continues to present with R sided weakness which impacts functional independence; recommend continuous PT for progressive mobility training, strengthening, balance activities with emphasis on family training." Patient has low PO food intake. Seen by tow truck operator on 03/08 and recommended Boost glucose control supplementation. Continue boost and await new recommendations. continue PT B/L LE extremity pain--> LE venous doppler (04/04/17)--> no abnormal findings Status: Acute (2) Urinary retention Assessment & Plan: Resolved, stable Monitor I & Os Recent bladder scan has been within normal limit As per nurse, with therapy assistant, patient has used bed valentine and commode as needed. 03/30: Bladder scan <20ml 03/29: bladder scan done, 630cc, patient put on bed valentine and urinated about 300cc, continue to encourage urination with bed valentine 03/28: bladder can done, 600cc, patient put on bed valentine and urinated about 100cc, then urinated again on bed valentine a few hours later. Continue to encourage patient to urinate by placing on bed valentine every 3 hours. 03/27: bladder scan done, 195 cc, nursing communication put in to put patient on bed valentine q3h to encourage urination. 03/26: 635am: Bladder scan done, 511ml so straight cath performed with approx 500 cc of clear yellow fluid obtained 03/25: Bennett taken out, voiding trial 03/22 and 03/21: no lasix given 03/19: bennett catheter, lasix 20 mg one time dose given Retaining urine no 03/11 in AM- bladder scan 680ml so patient straight catheterized. Repeat bladder scan 150. Pt continued retaining urine and bennett placed. Bennett inserted 03/14. Flomax .4mg once daily started. Dr. Valdez evaluated patient on 03/14 and recommends keeping patient on bennett and encouraging patient to try to urinate more often. Continue patient on Cipro 250 mg PO BID: stopped 03/31/17 Status: Acute (3) Acute kidney injury Assessment & Plan: BUN/CR: 32/1.3 * Started on 1/2NS @ 100MLS/HR Status: Acute (4) Hypertension Assessment & Plan: Controlled 04/06:136/74 04/05: 144/72 04/04: 148/76 04/03: 149/69 04/01: 144/70 03/30: 136/75, 151/70 03/29: 110/69 03/27: BP-160/70 03/23: elevated bp, lasix x1 given 03/21: blood pressure stable Continue Labetalol 200 mg PO BID (switched from 100 mg PO TID) which is better controlling blood pressure Lisinopril 20mg PO changed from daily to HS (03/25/17); Hydralazine 50 mg QID, Hydralazine 10 mg IV Q6 PRN if SBP above 180 Monitor BP Status: Acute (5) Diabetes Assessment & Plan: Goal <200 Accucheck. ISS ACHS. HgbA1C 11.2 Novolog Mix 70/30 15 units BIDAC daily---> adjusted to 17 units (04/08/17) Metformin 500 mg PO BIDCC, Cont to monitor. Insulin 15u SC BIDAC held because of low blood sugars, monitor. ISS to low coverage Status: Acute (6) Prophylactic measure Assessment & Plan: Pepcid 20 mg PO BID. ASA 81mg. Lovenox 40 sc daily. SCDs. Continue with PT/OT daily to maximize strength. Patient is maximum assist. Mouth care. Patient will be visiting from the [facility] on April 11 and then possible discharge. Status: Acute <Jad Miranda M - Last Filed: 04/10/17 16:41> Objective - Vital Signs/Intake and Output Vital Signs (last 24 hours): Temp Pulse Resp BP Pulse Ox 97.6 F 69 20 136/84 98 04/09/17 16:00 04/09/17 16:00 04/09/17 16:00 04/09/17 16:00 04/09/17 16:00 Intake and Output: 04/09/17 04/09/17 06:59 18:59 Intake Total 900 Balance 900 - Medications Medications: Current Medications Acetaminophen (Tylenol 325mg Tab) 650 mg PO Q6 PRN PRN Reason: Pain, moderate (4-7) Aspirin (Ecotrin) 81 mg PO DAILY [facility] Last Admin: 04/09/17 10:47 Dose: 81 mg Clopidogrel Bisulfate (Plavix) 75 mg PO DAILY [facility] Last Admin: 04/09/17 10:48 Dose: 75 mg Enoxaparin Sodium (Lovenox) 40 mg SC DAILY [facility] Last Admin: 04/09/17 10:51 Dose: 40 mg Famotidine (Pepcid) 20 mg PO DAILY [facility] Last Admin: 04/09/17 10:48 Dose: 20 mg Hydralazine HCl (Apresoline) 10 mg IVP Q6H PRN PRN Reason: For SBP >180 Last Admin: 02/26/17 23:58 Dose: 10 mg Hydralazine HCl (Apresoline) 50 mg PO QID [facility] Last Admin: 04/09/17 13:02 Dose: 50 mg Sodium Chloride (Sodium Chloride 0.45%) 1,000 mls @ 100 mls/hr IV .Q10H [facility] Last Admin: 04/09/17 13:05 Dose: 100 mls/hr Insulin Aspart (Novolog) 0 unit SC ACHS [facility] PRN Reason: Protocol Last Admin: 04/09/17 16:02 Dose: Not Given Insulin Aspart (Novolog Mix 70/30 (70/30 Units/Ml)) 17 units SC BID [facility] Last Admin: 04/09/17 10:58 Dose: 17 units Labetalol HCl (Trandate) 200 mg PO BID [facility] Last Admin: 04/09/17 10:52 Dose: 200 mg Lisinopril (Zestril) 20 mg PO HS [facility] Last Admin: 04/08/17 22:22 Dose: 20 mg Metformin HCl (Glucophage) 500 mg PO BIDCC [facility] Last Admin: 04/09/17 10:48 Dose: 500 mg Rosuvastatin Calcium (Crestor) 40 mg PO HS [facility] Last Admin: 04/08/17 22:22 Dose: 40 mg Tamsulosin HCl (Flomax) 0.4 mg PO DAILY [facility] Last Admin: 04/09/17 10:47 Dose: 0.4 mg - Labs Labs: 04/08/17 06:58 04/08/17 06:58 PT 12.0 SECONDS (9.7-12.2) 02/24/17 11:48 INR 1.1 02/24/17 11:48 APTT 24 SECONDS (21-34) 02/24/17 11:48 Attending/Attestation - Attestation I have personally seen and examined this patient.: Yes I have fully participated in the care of the patient.: Yes I have reviewed all pertinent clinical information, including history, physical exam and plan: Yes Notes (Text): 04/10/17 16:40 Patient was seen and examined at bedside Patient is nonverbal Slight improvement in the motor strength in the right lower extremity. Continue physical therapy daily Continue current medical management Discharge planning in progress Discussed the plan of care with the resident and agree with the assessment and plan documented
[2017-04-08] MEDS ORDERED: Sodium Chloride 0.45% 1,000 ML IV SCH (11:45)
--- NOTE | 2017-04-08 13:18 | VASCLAB ---
PROCEDURE: Lower Extremity Venous Duplex Exam. HISTORY: leg pain PRIORS: None. TECHNIQUE: Bilateral common femoral, femoral, popliteal and posterior tibial, peroneal and great saphenous veins were evaluated. Flow was assessed with color Doppler, compressibility, assessment of phasic flow and augmentation response. Report prepared by WILBER Rose, RVT FINDINGS: RIGHT: 1. Common Femoral Vein: 1.1. Compressibility - Fully compressible: Thrombus - None : Flow - Phasic: Augmentation -Normal: Reflux - None. 2. Femoral Vein: 2.1. Compressibility - Fully compressible: Thrombus - None : Flow - Phasic: Augmentation -Normal: Reflux - None. 3. Popliteal Vein: 3.1. Compressibility - Fully compressible: Thrombus - None : Flow - Phasic: Augmentation -Normal: Reflux - None. 4. Posterior Tibial Vein: 4.1. Compressibility - Fully compressible: Thrombus - None: Flow - Phasic: Augmentation -Normal: Reflux - None. 5. Peroneal Vein: 5.1. Compressibility - Fully compressible: Thrombus - None: Flow - Phasic: Augmentation -Normal: Reflux - None. 6. Great Saphenous Vein: 6.1. Compressibility - Fully compressible: Thrombus - None: Flow - Phasic: Augmentation - Normal: Reflux - None. LEFT: 1. Common Femoral Vein: 1.1. Compressibility - Fully compressible: Thrombus - None: Flow - Phasic: Augmentation -Normal: Reflux - None. 2. Femoral Vein: 2.1. Compressibility - Fully compressible: Thrombus - None: Flow - Phasic: Augmentation -Normal: Reflux - None. 3. Popliteal Vein: 3.1. Compressibility - Fully compressible: Thrombus - None : Flow - Phasic: Augmentation -Normal: Reflux - None. 4. Posterior Tibial Vein: 4.1. Compressibility - Fully compressible: Thrombus - None: Flow - Phasic: Augmentation -Normal: Reflux - None. 5. Peroneal Vein: 5.1. Compressibility - Fully compressible: Thrombus - None: Flow - Phasic: Augmentation -Normal: Reflux - None. 6. Great Saphenous Vein: 6.1. Compressibility - Fully compressible: Thrombus - None: Flow - Phasic: Augmentation - Normal: Reflux - None. OTHER FINDINGS: Right: None significant. Left: None significant. IMPRESSION: Right: No evidence of deep or superficial vein thrombosis of the right lower extremity. Normal valve function noted of the right side. Left: No evidence of deep or superficial vein thrombosis of the left lower extremity. Normal valve function noted of the left side.
[2017-04-08] MEDS: Sodium Chloride 0.45% 1,000 ML IV SCH (21:51)
[2017-04-09] MEDS: Sodium Chloride 0.45% 1,000 ML IV SCH ×2 (00:23→13:05)
[2017-04-09] MEDS: (Novolog) Insulin Aspart, Recombinant 100 u/ml 10 ml vial SC SCH ×4 (08:00→21:53)
[2017-04-09] MEDS: Enoxaparin 40 mg Syringe SC SCH (10:51)
[2017-04-09] MEDS: (Novolog Mix 70/30) Insulin Aspart/Insulin Aspar 100 units/ml SC SCH ×2 (10:58→17:42)
--- NOTE | 2017-04-09 16:20 | CP.PCM.PN ---
<Renaldo Mercado - Last Filed: 04/09/17 16:31> Subjective - Date & Time of Evaluation Date of Evaluation: 04/09/17 Time of Evaluation: 07:05 - Subjective Subjective: Medicine note (PGY 1): Dr. Miranda's service Patient was seen and examined at bedside. Patient was resting comfortably in her bed. Patient had no new complaints and denies chest pain, sob, abdominal pain, nausea, vomiting, fever and chills. Patient still continues to report leg tenderness, however recent doppler scan has been negative. Objective - Vital Signs/Intake and Output Vital Signs (last 24 hours): Temp Pulse Resp BP Pulse Ox 97.1 F L 73 17 146/77 96 04/09/17 08:10 04/09/17 08:10 04/09/17 08:10 04/09/17 08:10 04/09/17 08:10 Intake and Output: 04/09/17 04/09/17 06:59 18:59 Intake Total 900 Balance 900 - Medications Medications: Current Medications Acetaminophen (Tylenol 325mg Tab) 650 mg PO Q6 PRN PRN Reason: Pain, moderate (4-7) Aspirin (Ecotrin) 81 mg PO DAILY [facility] Last Admin: 04/09/17 10:47 Dose: 81 mg Clopidogrel Bisulfate (Plavix) 75 mg PO DAILY [facility] Last Admin: 04/09/17 10:48 Dose: 75 mg Enoxaparin Sodium (Lovenox) 40 mg SC DAILY [facility] Last Admin: 04/09/17 10:51 Dose: 40 mg Famotidine (Pepcid) 20 mg PO DAILY [facility] Last Admin: 04/09/17 10:48 Dose: 20 mg Hydralazine HCl (Apresoline) 10 mg IVP Q6H PRN PRN Reason: For SBP >180 Last Admin: 02/26/17 23:58 Dose: 10 mg Hydralazine HCl (Apresoline) 50 mg PO QID [facility] Last Admin: 04/09/17 13:02 Dose: 50 mg Sodium Chloride (Sodium Chloride 0.45%) 1,000 mls @ 100 mls/hr IV .Q10H [facility] Last Admin: 04/09/17 13:05 Dose: 100 mls/hr Insulin Aspart (Novolog) 0 unit SC ACHS [facility] PRN Reason: Protocol Last Admin: 04/09/17 16:02 Dose: Not Given Insulin Aspart (Novolog Mix 70/30 (70/30 Units/Ml)) 17 units SC BID [facility] Last Admin: 04/09/17 10:58 Dose: 17 units Labetalol HCl (Trandate) 200 mg PO BID [facility] Last Admin: 04/09/17 10:52 Dose: 200 mg Lisinopril (Zestril) 20 mg PO HS [facility] Last Admin: 04/08/17 22:22 Dose: 20 mg [facility] Last Admin: 04/09/17 10:48 Dose: 500 mg Rosuvastatin Calcium (Crestor) 40 mg PO HS [facility] Last Admin: 04/08/17 22:22 Dose: 40 mg Tamsulosin HCl (Flomax) 0.4 mg PO DAILY [facility] Last Admin: 04/09/17 10:47 Dose: 0.4 mg - Labs Labs: 04/08/17 06:58 04/08/17 06:58 PT 12.0 SECONDS (9.7-12.2) 02/24/17 11:48 INR 1.1 02/24/17 11:48 APTT 24 SECONDS (21-34) 02/24/17 11:48 - Constitutional Appears: Well, No Acute Distress - Head Exam Head Exam: ATRAUMATIC - Eye Exam Eye Exam: EOMI, Normal appearance - ENT Exam ENT Exam: Mucous Membranes Moist, Normal Exam - Respiratory Exam Respiratory Exam: Clear to Ausculation Bilateral, NORMAL BREATHING PATTERN - Cardiovascular Exam Cardiovascular Exam: REGULAR RHYTHM, +S1, +S2 - GI/Abdominal Exam GI & Abdominal Exam: Soft, Normal Bowel Sounds - Extremities Exam Extremities Exam: Tenderness - Neurological Exam Neurological Exam: Alert, Awake - Psychiatric Exam Psychiatric exam: Normal Affect, Normal Mood - Skin Skin Exam: Dry, Normal Color, Warm Assessment and Plan (1) Ischemic stroke Assessment & Plan: Stable 04/08: very minimal movement in the right UE and LE 04/03 - 04/04/17: less movement in right LE, and no movement in right UE 03/29-04/02/17: continues to have movement in right lower extremity, right upper extremity has no movement 7/5: increased movement in right lower extremity, right upper extremity has no movement 7/3: No changes from before. No improvement or change of the right upper and lower extremity weakness. Swallow evaluation done and recommends mechanical soft bite size food and thin liquids. 03/21: Neurologic assessment: aphasic speach, flaccid right upper and lower extremity muscle strength. 03/20: Patient seen by PT and given score of 5 on the Modified Greene Scale: severe disability; bedridden, incontinent/requiring constant nsg care. Patient moved out of bed to chair with cheng steady. 02/24: * ROMIs negative x 3, * EKG- NSR w possible atrial enlargement. * Echo- EF is 65-70%. Mild aortic regurgitation; LV systolic function is normal ; hypokinesis in septal wall. Refer to complete report. As per Dr. Mccormick, BP SBP btwn 130-140 mmHg, ASA 81 mg PO daily and Plavix 75 mg PO daily, Crestor 40 mg PO HS since patient passed swallow eval HgbA1C 11.2, FLP elevated, TSH 1.7 02/26:Head, Neck MRA-Complete occlusion of left internal carotid and mild occlusive disease of right internal carotid. Per Surgery ( Dr. Choi) no surgical intervention at this time. Radiologist Dr. Khan called to confirm occlusive findings. 03/05:Head CT- redemonstrates large MCA territory infarct with mild surrounding mass effect . No evidence of hemorrhage or new infarcts. Continue to encourage movement with help from Physical Therapy. 03/13: Patient moved from bed to chair with max assist and put back to bed after an hour with max assist. Modified Antonio scale: 5, severe disability; bedridden, incontinent/ requiring constant nursing care. 03/27/17: "Patient continues to present with R sided weakness which impacts functional independence; recommend continuous PT for progressive mobility training, strengthening, balance activities with emphasis on family training." Patient has low PO food intake. Seen by assembler surgical garment on 03/08 and recommended Boost glucose control supplementation. Continue boost and await new recommendations. continue PT B/L LE extremity pain--> LE venous doppler (04/04/17)--> no abnormal findings * Possibly secondary to central post-stroke pain * Acetaminophen 650mg PO Q6h prn Status: Acute (2) Leg pain, bilateral Assessment & Plan: R>L LE venous doppler (04/04/17)--> no abnormal findings Possibly secondary to central post-stroke pain * Acetaminophen 650mg PO Q6h prn for pain control Status: Acute (3) Urinary retention Assessment & Plan: Resolved, stable Monitor I & Os Recent bladder scan has been within normal limit As per nurse, with virtual assistant for advertisers, patient has used bed valentine and commode as needed. 03/30: Bladder scan <20ml 03/29: bladder scan done, 630cc, patient put on bed valentine and urinated about 300cc, continue to encourage urination with bed valentine 03/28: bladder can done, 600cc, patient put on bed valentine and urinated about 100cc, then urinated again on bed valentine a few hours later. Continue to encourage patient to urinate by placing on bed valentine every 3 hours. 03/27: bladder scan done, 195 cc, nursing communication put in to put patient on bed valentine q3h to encourage urination. 03/26: 635am: Bladder scan done, 511ml so straight cath performed with approx 500 cc of clear yellow fluid obtained 03/25: Bennett taken out, voiding trial 03/22 and 03/21: no lasix given 03/19: bennett catheter, lasix 20 mg one time dose given Retaining urine no 03/11 in AM- bladder scan 680ml so patient straight catheterized. Repeat bladder scan 150. Pt continued retaining urine and bennett placed. Bennett inserted 03/14. Flomax .4mg once daily started. Dr. Valdez evaluated patient on 03/14 and recommends keeping patient on bennett and encouraging patient to try to urinate more often. Continue patient on Cipro 250 mg PO BID: stopped 03/31/17 Status: Acute (4) Acute kidney injury Assessment & Plan: BUN/CR: 32/1.3 * Started on 1/2NS @ 100MLS/HR * Monitor with BUN/CR Status: Acute (5) Hypertension Assessment & Plan: Stable Controlled 04/06:136/74 04/05: 144/72 04/04: 148/76 04/03: 149/69 04/01: 144/70 03/30: 136/75, 151/70 03/29: 110/69 03/27: BP-160/70 03/23: elevated bp, lasix x1 given 03/21: blood pressure stable Continue Labetalol 200 mg PO BID (switched from 100 mg PO TID) which is better controlling blood pressure Lisinopril 20mg PO changed from daily to HS (03/25/17); Hydralazine 50 mg QID, Hydralazine 10 mg IV Q6 PRN if SBP above 180 Monitor BP Status: Acute (6) Diabetes Assessment & Plan: Goal <200 Accucheck. ISS ACHS. HgbA1C 11.2 Novolog Mix 70/30 15 units BIDAC daily---> adjusted to 17 units (04/08/17) Metformin 500 mg PO BIDCC, Cont to monitor. Insulin 15u SC BIDAC held because of low blood sugars, monitor. ISS to low coverage Status: Acute (7) Prophylactic measure Assessment & Plan: Pepcid 20 mg PO BID. ASA 81mg. Lovenox 40 sc daily. SCDs. Continue with PT/OT daily to maximize strength. Patient is maximum assist. Status: Acute <Jad Miranda M - Last Filed: 04/10/17 16:20> Objective - Vital Signs/Intake and Output Vital Signs (last 24 hours): Temp Pulse Resp BP Pulse Ox 97.6 F 69 20 120/69 98 04/10/17 16:03 04/10/17 16:03 04/10/17 16:03 04/10/17 16:03 04/10/17 16:03 Intake and Output: 04/10/17 04/10/17 06:59 18:59 Intake Total 1200 1180 Balance 1200 1180 - Medications Medications: Current Medications Acetaminophen (Tylenol 325mg Tab) 650 mg PO Q6 PRN PRN Reason: Pain, moderate (4-7) Aspirin (Ecotrin) 81 mg PO DAILY [facility] Last Admin: 04/10/17 10:31 Dose: 81 mg Clopidogrel Bisulfate (Plavix) 75 mg PO DAILY [facility] Last Admin: 04/10/17 10:31 Dose: 75 mg Enoxaparin Sodium (Lovenox) 40 mg SC DAILY [facility] Last Admin: 04/10/17 10:32 Dose: 40 mg Famotidine (Pepcid) 20 mg PO DAILY [facility] Last Admin: 04/10/17 10:31 Dose: 20 mg Hydralazine HCl (Apresoline) 10 mg IVP Q6H PRN PRN Reason: For SBP >180 Last Admin: 02/26/17 23:58 Dose: 10 mg Hydralazine HCl (Apresoline) 50 mg PO QID [facility] Last Admin: 04/10/17 13:57 Dose: 50 mg Sodium Chloride (Sodium Chloride 0.45%) 1,000 mls @ 100 mls/hr IV .Q10H [facility] Last Admin: 04/10/17 08:18 Dose: 100 mls/hr Insulin Aspart (Novolog) 0 unit SC ACHS [facility] PRN Reason: Protocol Last Admin: 04/10/17 12:34 Dose: Not Given Insulin Aspart (Novolog Mix 70/30 (70/30 Units/Ml)) 17 units SC BID [facility] Last Admin: 04/10/17 10:32 Dose: 17 units Labetalol HCl (Trandate) 200 mg PO BID [facility] Last Admin: 04/10/17 10:31 Dose: 200 mg Lisinopril (Zestril) 20 mg PO HS [facility] Last Admin: 04/09/17 21:49 Dose: Not Given Metformin HCl (Glucophage) 500 mg PO BIDCC [facility] Last Admin: 04/10/17 08:16 Dose: 500 mg Rosuvastatin Calcium (Crestor) 40 mg PO HS [facility] Last Admin: 04/09/17 21:50 Dose: 40 mg Tamsulosin HCl (Flomax) 0.4 mg PO DAILY [facility] Last Admin: 04/10/17 10:31 Dose: 0.4 mg - Labs Labs: 04/10/17 06:39 04/10/17 06:39 PT 12.0 SECONDS (9.7-12.2) 02/24/17 11:48 INR 1.1 02/24/17 11:48 APTT 24 SECONDS (21-34) 02/24/17 11:48 Attending/Attestation - Attestation I have personally seen and examined this patient.: Yes I have fully participated in the care of the patient.: Yes I have reviewed all pertinent clinical information, including history, physical exam and plan: Yes Notes (Text): 04/10/17 16:19 Patient was seen and examined at bedside with the resident Continue current medical management and continue physical therapy daily Discharge planning is in progress I discussed the plan of care with the resident and agree with the history and physical and assessment/plan recommended.
[2017-04-10 06:53] LABS: BASO # 0.1 K/uL (0.0-0.2); BASO % 0.6 % (0.0-2.0); EOS # 0.4 K/uL (0.0-0.7); EOS % 3.9 % (0.0-4.0); HEMOGLOBIN 10.4 g/dL (11.0-16.0); LYMPH # 2.9 K/uL (1.0-4.3); LYMPH % 28.2 % (20.0-40.0); MEAN CELL VOLUME 84.9 fL (81.0-99.0); MEAN CORPUSCULAR HEMOGLOBIN 27.3 pg (27.0-31.0); MEAN CORPUSCULAR HGB CONC 32.1 g/dL (33.0-37.0); MEAN PLATELET VOLUME 9.2 fL (7.2-11.7); MONO # 0.5 K/uL (0.0-0.8); NEUT # 6.5 K/uL (1.8-7.0); NEUT % 62.3 % (50.0-75.0); NRBC % 0.1 % (0.0-2.0); RBC 3.81 Mil/uL (3.80-5.20); WHITE BLOOD COUNT 10.4 K/uL (4.8-10.8)
[2017-04-10 07:21] LABS: ALBUMIN 3.1 g/dL (3.5-5.0)
[2017-04-10 07:24] LABS: AST/SGOT 26 U/L (14-36); BLOOD UREA NITROGEN 25 mg/dL (7-17); GFR AFRICAN-AMERICAN > 60; GFR NON-AFRICAN AMERICAN 52
[2017-04-10 07:25] LABS: ALT/SGPT 45 U/L (9-52); CALCIUM 9.2 mg/dl (8.6-10.4); MAGNESIUM 1.6 mg/dL (1.6-2.3)
[2017-04-10] MEDS: (Novolog) Insulin Aspart, Recombinant 100 u/ml 10 ml vial SC SCH ×4 (08:15→22:02)
[2017-04-10] MEDS: Sodium Chloride 0.45% 1,000 ML IV SCH ×2 (08:18→19:08)
[2017-04-10] MEDS: (Novolog Mix 70/30) Insulin Aspart/Insulin Aspar 100 units/ml SC SCH ×2 (10:32→18:34)
[2017-04-10] MEDS: Enoxaparin 40 mg Syringe SC SCH (10:32)
--- NOTE | 2017-04-10 11:54 | CP.PCM.PN ---
<Renaldo Mercado E - Last Filed: 04/10/17 13:19> Subjective - Date & Time of Evaluation Date of Evaluation: 04/10/17 Time of Evaluation: 07:35 - Subjective Subjective: Medicine note ( PGY 1): Dr. Miranda's service Patient was seen and examined at bedside. Patient was resting comfortably in bed. Patient denies chest pain, sob, nausea, vomiting, fever and chills. Patient had no acute issues overnight and no new complaints. Patient is tolerating diet and working with physical therapy. Objective - Vital Signs/Intake and Output Vital Signs (last 24 hours): Temp Pulse Resp BP Pulse Ox 97.3 F L 73 20 150/73 99 04/10/17 08:12 04/10/17 08:12 04/10/17 08:12 04/10/17 08:12 04/10/17 08:12 Intake and Output: 04/10/17 04/10/17 06:59 18:59 Intake Total 1200 Balance 1200 - Medications Medications: Current Medications Acetaminophen (Tylenol 325mg Tab) 650 mg PO Q6 PRN PRN Reason: Pain, moderate (4-7) Aspirin (Ecotrin) 81 mg PO DAILY [facility] Last Admin: 04/10/17 10:31 Dose: 81 mg Clopidogrel Bisulfate (Plavix) 75 mg PO DAILY [facility] Last Admin: 04/10/17 10:31 Dose: 75 mg Enoxaparin Sodium (Lovenox) 40 mg SC DAILY [facility] Last Admin: 04/10/17 10:32 Dose: 40 mg Famotidine (Pepcid) 20 mg PO DAILY [facility] Last Admin: 04/10/17 10:31 Dose: 20 mg Hydralazine HCl (Apresoline) 10 mg IVP Q6H PRN PRN Reason: For SBP >180 Last Admin: 02/26/17 23:58 Dose: 10 mg Hydralazine HCl (Apresoline) 50 mg PO QID [facility] Last Admin: 04/10/17 10:31 Dose: 50 mg Sodium Chloride (Sodium Chloride 0.45%) 1,000 mls @ 100 mls/hr IV .Q10H [facility] Last Admin: 04/10/17 08:18 Dose: 100 mls/hr Insulin Aspart (Novolog) 0 unit SC ACHS [facility] PRN Reason: Protocol Last Admin: 04/10/17 08:15 Dose: 1 unit Insulin Aspart (Novolog Mix 70/30 (70/30 Units/Ml)) 17 units SC BID [facility] Last Admin: 04/10/17 10:32 Dose: 17 units Labetalol HCl (Trandate) 200 mg PO BID [facility] Last Admin: 04/10/17 10:31 Dose: 200 mg Lisinopril (Zestril) 20 mg PO HS [facility] Last Admin: 04/09/17 21:49 Dose: Not Given Metformin HCl (Glucophage) 500 mg PO BIDCC [facility] Last Admin: 04/10/17 08:16 Dose: 500 mg Rosuvastatin Calcium (Crestor) 40 mg PO HS [facility] Last Admin: 04/09/17 21:50 Dose: 40 mg Tamsulosin HCl (Flomax) 0.4 mg PO DAILY [facility] Last Admin: 04/10/17 10:31 Dose: 0.4 mg - Labs Labs: 04/10/17 06:39 04/10/17 06:39 PT 12.0 SECONDS (9.7-12.2) 02/24/17 11:48 INR 1.1 02/24/17 11:48 APTT 24 SECONDS (21-34) 02/24/17 11:48 - Constitutional Appears: Well, No Acute Distress - Head Exam Head Exam: ATRAUMATIC - Eye Exam Eye Exam: EOMI, Normal appearance - ENT Exam ENT Exam: Mucous Membranes Moist, Normal Exam - Respiratory Exam Respiratory Exam: Clear to Ausculation Bilateral, NORMAL BREATHING PATTERN - Cardiovascular Exam Cardiovascular Exam: REGULAR RHYTHM, +S1, +S2 - GI/Abdominal Exam GI & Abdominal Exam: Soft, Normal Bowel Sounds - Extremities Exam Extremities Exam: Normal Capillary Refill, Normal Inspection - Neurological Exam Neurological Exam: Alert, Awake, Oriented x3 - Psychiatric Exam Psychiatric exam: Normal Affect, Normal Mood - Skin Skin Exam: Dry, Normal Color, Warm Assessment and Plan (1) Ischemic stroke Assessment & Plan: Stable 04/08: very minimal movement in the right UE and LE 04/03 - 04/04/17: less movement in right LE, and no movement in right UE 03/29-04/02/17: continues to have movement in right lower extremity, right upper extremity has no movement 7/5: increased movement in right lower extremity, right upper extremity has no movement 7/3: No changes from before. No improvement or change of the right upper and lower extremity weakness. Swallow evaluation done and recommends mechanical soft bite size food and thin liquids. 03/21: Neurologic assessment: aphasic speach, flaccid right upper and lower extremity muscle strength. 03/20: Patient seen by PT and given score of 5 on the Modified [place] Scale: severe disability; bedridden, incontinent/requiring constant nsg care. Patient moved out of bed to chair with cheng steady. 02/24: * ROMIs negative x 3, * EKG- NSR w possible atrial enlargement. * Echo- EF is 65-70%. Mild aortic regurgitation; LV systolic function is normal ; hypokinesis in septal wall. Refer to complete report. As per Dr. Mccormick, BP SBP btwn 130-140 mmHg, ASA 81 mg PO daily and Plavix 75 mg PO daily, Crestor 40 mg PO HS since patient passed swallow eval HgbA1C 11.2, FLP elevated, TSH 1.7 02/26:Head, Neck MRA-Complete occlusion of left internal carotid and mild occlusive disease of right internal carotid. Per Surgery ( Dr. Choi) no surgical intervention at this time. Radiologist Dr. Khan called to confirm occlusive findings. 03/05:Head CT- redemonstrates large MCA territory infarct with mild surrounding mass effect . No evidence of hemorrhage or new infarcts. Continue to encourage movement with help from Physical Therapy. 03/13: Patient moved from bed to chair with max assist and put back to bed after an hour with max assist. Modified [place] scale: 5, severe disability; bedridden, incontinent/ requiring constant nursing care. 03/27/17: "Patient continues to present with R sided weakness which impacts functional independence; recommend continuous PT for progressive mobility training, strengthening, balance activities with emphasis on family training." Patient has low PO food intake. Seen by treasury analyst on 03/08 and recommended Boost glucose control supplementation. Continue boost and await new recommendations. continue PT B/L LE extremity pain--> LE venous doppler (04/04/17)--> no abnormal findings * Possibly secondary to central post-stroke pain * Acetaminophen 650mg PO Q6h prn Status: Acute (2) Leg pain, bilateral Assessment & Plan: R>L LE venous doppler (04/04/17)--> no abnormal findings Possibly secondary to central post-stroke pain * Acetaminophen 650mg PO Q6h prn for pain control Status: Acute (3) Urinary retention Assessment & Plan: Resolved, stable Monitor I & Os Recent bladder scan has been within normal limit As per nurse, with design assistant, patient has used bed valentine and commode as needed. 03/30: Bladder scan <20ml 03/29: bladder scan done, 630cc, patient put on bed valentine and urinated about 300cc, continue to encourage urination with bed valentine 03/28: bladder can done, 600cc, patient put on bed valentine and urinated about 100cc, then urinated again on bed valentine a few hours later. Continue to encourage patient to urinate by placing on bed valentine every 3 hours. 03/27: bladder scan done, 195 cc, nursing communication put in to put patient on bed valentine q3h to encourage urination. 03/26: 635am: Bladder scan done, 511ml so straight cath performed with approx 500 cc of clear yellow fluid obtained 03/25: Bennett taken out, voiding trial 03/22 and 03/21: no lasix given 03/19: bennett catheter, lasix 20 mg one time dose given Retaining urine no 03/11 in AM- bladder scan 680ml so patient straight catheterized. Repeat bladder scan 150. Pt continued retaining urine and bennett placed. Bennett inserted 03/14. Flomax .4mg once daily started. Dr. Valdez evaluated patient on 03/14 and recommends keeping patient on bennett and encouraging patient to try to urinate more often. Continue patient on Cipro 250 mg PO BID: stopped 03/31/17 Status: Acute (4) Acute kidney injury Assessment & Plan: Improving BUN/CR: 32/1.3----> 25/1.1 (04/10/17) * Started on 1/2NS @ 100MLS/HR * Monitor with BUN/CR Status: Acute (5) Hypertension Assessment & Plan: Stable Controlled 04/06:136/74 04/05: 144/72 04/04: 148/76 04/03: 149/69 04/01: 144/70 03/30: 136/75, 151/70 03/29: 110/69 03/27: BP-160/70 03/23: elevated bp, lasix x1 given 03/21: blood pressure stable Continue Labetalol 200 mg PO BID (switched from 100 mg PO TID) which is better controlling blood pressure Lisinopril 20mg PO changed from daily to HS (03/25/17); Hydralazine 50 mg QID, Hydralazine 10 mg IV Q6 PRN if SBP above 180 Continue to monitor BP Status: Acute (6) Diabetes Assessment & Plan: Goal <200 Accucheck. ISS ACHS. HgbA1C 11.2 Novolog Mix 70/30 15 units BIDAC daily---> adjusted to 17 units (04/08/17) Metformin 500 mg PO BIDCC, Cont to monitor. Insulin 15u SC BIDAC held because of low blood sugars, monitor. ISS to low coverage Status: Acute (7) Prophylactic measure Assessment & Plan: Pepcid 20 mg PO BID. ASA 81mg. Lovenox 40 sc daily. SCDs. Out of bed Continue with PT/OT daily to maximize strength. Patient is maximum assist. As per updated information from manager case, Patient's brother will be here from [place] on April 15 with plans to take patient back to [place]. Status: Acute <Jad Miranda M - Last Filed: 04/11/17 18:01> Objective - Vital Signs/Intake and Output Vital Signs (last 24 hours): Temp Pulse Resp BP Pulse Ox 97.4 F L 70 20 132/75 98 04/11/17 15:37 04/11/17 15:37 04/11/17 15:37 04/11/17 15:37 04/11/17 15:37 Intake and Output: 04/11/17 04/11/17 06:59 18:59 Intake Total 100 Balance 100 - Medications Medications: Current Medications Acetaminophen (Tylenol 325mg Tab) 650 mg PO Q6 PRN PRN Reason: Pain, moderate (4-7) Aspirin (Ecotrin) 81 mg PO DAILY [facility] Last Admin: 04/11/17 10:42 Dose: 81 mg Clopidogrel Bisulfate (Plavix) 75 mg PO DAILY [facility] Last Admin: 04/11/17 10:51 Dose: 75 mg Enoxaparin Sodium (Lovenox) 40 mg SC DAILY [facility] Last Admin: 04/11/17 10:42 Dose: 40 mg Famotidine (Pepcid) 20 mg PO DAILY [facility] Last Admin: 04/11/17 10:41 Dose: 20 mg Hydralazine HCl (Apresoline) 10 mg IVP Q6H PRN PRN Reason: For SBP >180 Last Admin: 02/26/17 23:58 Dose: 10 mg Hydralazine HCl (Apresoline) 50 mg PO QID [facility] Last Admin: 04/11/17 17:39 Dose: 50 mg Sodium Chloride (Sodium Chloride 0.45%) 1,000 mls @ 75 mls/hr IV .[id number] [facility] Last Admin: 04/11/17 11:10 Dose: 75 mls/hr Insulin Aspart (Novolog) 0 unit SC ACHS [facility] PRN Reason: Protocol Last Admin: 04/11/17 17:40 Dose: Not Given Insulin Aspart (Novolog Mix 70/30 (70/30 Units/Ml)) 17 units SC BID [facility] Last Admin: 04/11/17 17:40 Dose: Not Given Labetalol HCl (Trandate) 200 mg PO BID [facility] Last Admin: 04/11/17 17:39 Dose: 200 mg Lisinopril (Zestril) 20 mg PO HS [facility] Last Admin: 04/10/17 22:02 Dose: 20 mg Metformin HCl (Glucophage) 500 mg PO BIDCC [facility] Last Admin: 04/11/17 17:39 Dose: 500 mg Rosuvastatin Calcium (Crestor) 40 mg PO HS [facility] Last Admin: 04/10/17 22:02 Dose: 40 mg Tamsulosin HCl (Flomax) 0.4 mg PO DAILY [facility] Last Admin: 04/11/17 10:41 Dose: 0.4 mg - Labs Labs: 04/11/17 08:23 04/11/17 08:23 PT 12.0 SECONDS (9.7-12.2) 02/24/17 11:48 INR 1.1 02/24/17 11:48 APTT 24 SECONDS (21-34) 02/24/17 11:48 Attending/Attestation - Attestation I have personally seen and examined this patient.: Yes I have fully participated in the care of the patient.: Yes I have reviewed all pertinent clinical information, including history, physical exam and plan: Yes Notes (Text): 04/11/17 18:01 Patient was seen and examined at bedside with the resident Patient to has no new complaints Continue current medical management Agree with the assessment and plan documented by the resident Awaiting placement
[2017-04-11] MEDS: Sodium Chloride 0.45% 1,000 ML IV SCH ×3 (01:32→11:10)
[2017-04-11] MEDS: (Novolog) Insulin Aspart, Recombinant 100 u/ml 10 ml vial SC SCH ×4 (07:30→22:10)
[2017-04-11 08:34] LABS: BASO # 0.1 K/uL (0.0-0.2); BASO % 0.8 % (0.0-2.0); EOS # 0.4 K/uL (0.0-0.7); EOS % 4.7 % (0.0-4.0); HEMOGLOBIN 10.6 g/dL (11.0-16.0); LYMPH # 2.5 K/uL (1.0-4.3); LYMPH % 29.4 % (20.0-40.0); MEAN CELL VOLUME 84.6 fL (81.0-99.0); MEAN CORPUSCULAR HEMOGLOBIN 28.3 pg (27.0-31.0); MEAN CORPUSCULAR HGB CONC 33.4 g/dL (33.0-37.0); MEAN PLATELET VOLUME 8.8 fL (7.2-11.7); MONO # 0.6 K/uL (0.0-0.8); MONO % 7.3 % (0.0-10.0); NEUT # 4.8 K/uL (1.8-7.0); NEUT % 57.8 % (50.0-75.0); RBC 3.76 Mil/uL (3.80-5.20); RED CELL DISTRIBUTION WIDTH 15.2 % (11.5-14.5); WHITE BLOOD COUNT 8.3 K/uL (4.8-10.8)
[2017-04-11 08:46] LABS: ALBUMIN 3.2 g/dL (3.5-5.0)
[2017-04-11 08:48] LABS: AST/SGOT 26 U/L (14-36); GFR AFRICAN-AMERICAN > 60; GFR NON-AFRICAN AMERICAN 58
[2017-04-11 08:49] LABS: ALT/SGPT 38 U/L (9-52); BLOOD UREA NITROGEN 19 mg/dL (7-17)
[2017-04-11] MEDS: Enoxaparin 40 mg Syringe SC SCH (10:42)
[2017-04-11] MEDS: (Novolog Mix 70/30) Insulin Aspart/Insulin Aspar 100 units/ml SC SCH ×2 (10:48→17:40)
--- NOTE | 2017-04-11 16:17 | CP.PCM.PN ---
<Renaldo Mercado E - Last Filed: 04/11/17 18:00> Subjective - Date & Time of Evaluation Date of Evaluation: 04/11/17 Time of Evaluation: 07:05 - Subjective Subjective: Medicine note ( PGY 1): Dr. Miranda's service Patient was seen and examined at bedside. Patient was resting comfortably in bed. Patient denies chest pain, sob, nausea, vomiting, fever and chills. Patient had no acute issues overnight and no new complaints. Patient is tolerating diet and working with physical therapy. Unchanged clinically. Objective - Vital Signs/Intake and Output Vital Signs (last 24 hours): Temp Pulse Resp BP Pulse Ox 97.4 F L 70 20 132/75 98 04/11/17 15:37 04/11/17 15:37 04/11/17 15:37 04/11/17 15:37 04/11/17 15:37 Intake and Output: 04/11/17 04/11/17 06:59 18:59 Intake Total 100 Balance 100 - Medications Medications: Current Medications Acetaminophen (Tylenol 325mg Tab) 650 mg PO Q6 PRN PRN Reason: Pain, moderate (4-7) Aspirin (Ecotrin) 81 mg PO DAILY [facility] Last Admin: 04/11/17 10:42 Dose: 81 mg Clopidogrel Bisulfate (Plavix) 75 mg PO DAILY [facility] Last Admin: 04/11/17 10:51 Dose: 75 mg Enoxaparin Sodium (Lovenox) 40 mg SC DAILY [facility] Last Admin: 04/11/17 10:42 Dose: 40 mg Famotidine (Pepcid) 20 mg PO DAILY [facility] Last Admin: 04/11/17 10:41 Dose: 20 mg Hydralazine HCl (Apresoline) 10 mg IVP Q6H PRN PRN Reason: For SBP >180 Last Admin: 02/26/17 23:58 Dose: 10 mg Hydralazine HCl (Apresoline) 50 mg PO QID [facility] Last Admin: 04/11/17 14:30 Dose: 50 mg Sodium Chloride (Sodium Chloride 0.45%) 1,000 mls @ 75 mls/hr IV .[id number] [facility] Last Admin: 04/11/17 11:10 Dose: 75 mls/hr Insulin Aspart (Novolog) 0 unit SC ACHS [facility] PRN Reason: Protocol Last Admin: 04/11/17 12:00 Dose: 3 unit Insulin Aspart (Novolog Mix 70/30 (70/30 Units/Ml)) 17 units SC BID [facility] Last Admin: 04/11/17 10:48 Dose: 17 units Labetalol HCl (Trandate) 200 mg PO BID [facility] Last Admin: 04/11/17 10:53 Dose: 200 mg Lisinopril (Zestril) 20 mg PO HS [facility] Last Admin: 04/10/17 22:02 Dose: 20 mg Metformin HCl (Glucophage) 500 mg PO BIDCC [facility] Last Admin: 04/11/17 09:00 Dose: 500 mg Rosuvastatin Calcium (Crestor) 40 mg PO HS [facility] Last Admin: 04/10/17 22:02 Dose: 40 mg Tamsulosin HCl (Flomax) 0.4 mg PO DAILY [facility] Last Admin: 04/11/17 10:41 Dose: 0.4 mg - Labs Labs: 04/11/17 08:23 04/11/17 08:23 PT 12.0 SECONDS (9.7-12.2) 02/24/17 11:48 INR 1.1 02/24/17 11:48 APTT 24 SECONDS (21-34) 02/24/17 11:48 - Constitutional Appears: Well, No Acute Distress - Head Exam Head Exam: NORMAL INSPECTION, NORMOCEPHALIC - Eye Exam Eye Exam: EOMI, Normal appearance - ENT Exam ENT Exam: Mucous Membranes Moist, Normal Exam - Respiratory Exam Respiratory Exam: Clear to Ausculation Bilateral, NORMAL BREATHING PATTERN - Cardiovascular Exam Cardiovascular Exam: REGULAR RHYTHM, +S1, +S2 - GI/Abdominal Exam GI & Abdominal Exam: Soft, Normal Bowel Sounds - Extremities Exam Extremities Exam: Tenderness - Neurological Exam Neurological Exam: Alert, Awake, Oriented x3 - Psychiatric Exam Psychiatric exam: Normal Affect - Skin Skin Exam: Dry, Normal Color, Warm Assessment and Plan (1) Ischemic stroke Assessment & Plan: Stable, Unchanged clinically Minimal movement in the right LE and no movement in the right UE 04/08: very minimal movement in the right UE and LE 04/03 - 04/04/17: less movement in right LE, and no movement in right UE 03/29-04/02/17: continues to have movement in right lower extremity, right upper extremity has no movement 03/27: increased movement in right lower extremity, right upper extremity has no movement 03/25: No changes from before. No improvement or change of the right upper and lower extremity weakness. Swallow evaluation done and recommends mechanical soft bite size food and thin liquids. 03/21: Neurologic assessment: aphasic speach, flaccid right upper and lower extremity muscle strength. 03/20: Patient seen by PT and given score of 5 on the Modified [place] Scale: severe disability; bedridden, incontinent/requiring constant nsg care. Patient moved out of bed to chair with cheng steady. 02/24: * ROMIs negative x 3, * EKG- NSR w possible atrial enlargement. * Echo- EF is 65-70%. Mild aortic regurgitation; LV systolic function is normal ; hypokinesis in septal wall. Refer to complete report. As per Dr. Mccormick, BP SBP btwn 130-140 mmHg, ASA 81 mg PO daily and Plavix 75 mg PO daily, Crestor 40 mg PO HS since patient passed swallow eval HgbA1C 11.2, FLP elevated, TSH 1.7 02/26:Head, Neck MRA-Complete occlusion of left internal carotid and mild occlusive disease of right internal carotid. Per Surgery ( Dr. Choi) no surgical intervention at this time. Radiologist Dr. Khan called to confirm occlusive findings. 03/05:Head CT- redemonstrates large MCA territory infarct with mild surrounding mass effect . No evidence of hemorrhage or new infarcts. Continue to encourage movement with help from Physical Therapy. 03/13: Patient moved from bed to chair with max assist and put back to bed after an hour with max assist. Modified [place] scale: 5, severe disability; bedridden, incontinent/ requiring constant nursing care. 03/27/17: "Patient continues to present with R sided weakness which impacts functional independence; recommend continuous PT for progressive mobility training, strengthening, balance activities with emphasis on family training." Patient has low PO food intake. Seen by commissioned police officer on 03/08 and recommended Boost glucose control supplementation. Continue boost and await new recommendations. continue PT B/L LE extremity pain--> LE venous doppler (04/04/17)--> no abnormal findings * Possibly secondary to central post-stroke pain * Acetaminophen 650mg PO Q6h prn Status: Acute (2) Leg pain, bilateral Assessment & Plan: Continuos R>L LE venous doppler (04/04/17)--> no abnormal findings Possibly secondary to central post-stroke pain * Acetaminophen 650mg PO Q6h prn for pain control * PT/OT treatment Status: Acute (3) Urinary retention Assessment & Plan: Resolved, stable Monitor I & Os Recent bladder scan has been within normal limit and as per nurse, patient is making urine As per nurse, with chemist assistant, patient has used bed valentine and commode as needed. 03/30: Bladder scan <20ml 03/29: bladder scan done, 630cc, patient put on bed valentine and urinated about 300cc, continue to encourage urination with bed valentine 03/28: bladder can done, 600cc, patient put on bed valentine and urinated about 100cc, then urinated again on bed valentine a few hours later. Continue to encourage patient to urinate by placing on bed valentine every 3 hours. 03/27: bladder scan done, 195 cc, nursing communication put in to put patient on bed valentine q3h to encourage urination. 03/26: 635am: Bladder scan done, 511ml so straight cath performed with approx 500 cc of clear yellow fluid obtained 03/25: Bennett taken out, voiding trial 03/22 and 03/21: no lasix given 03/19: bennett catheter, lasix 20 mg one time dose given Retaining urine no 03/11 in AM- bladder scan 680ml so patient straight catheterized. Repeat bladder scan 150. Pt continued retaining urine and bennett placed. Bennett inserted 03/14. Flomax .4mg once daily started. Dr. Valdez evaluated patient on 03/14 and recommends keeping patient on bennett and encouraging patient to try to urinate more often. Continue patient on Cipro 250 mg PO BID: stopped 03/31/17 Status: Acute (4) Acute kidney injury Assessment & Plan: Improving BUN/CR: 32/1.3----> 25/1.1 (04/10/17)---> 19/1.0(04/11/17) * Started on 1/2NS @ 100MLS/HR ---> adjusted to 75mls/hr (04/11/17) * Monitor with BUN/CR Status: Acute (5) Hypertension Assessment & Plan: Stable Controlled 04/06:136/74 04/05: 144/72 04/04: 148/76 04/03: 149/69 04/01: 144/70 7: 136/75, 151/70 03/29: 110/69 03/27: BP-160/70 03/23: elevated bp, lasix x1 given 03/21: blood pressure stable Continue Labetalol 200 mg PO BID (switched from 100 mg PO TID) which is better controlling blood pressure Lisinopril 20mg PO changed from daily to HS (03/25/17); Hydralazine 50 mg QID, Hydralazine 10 mg IV Q6 PRN if SBP above 180 Continue to monitor BP Status: Acute (6) Diabetes Assessment & Plan: Goal <200 Accucheck. ISS ACHS. HgbA1C 11.2 Novolog Mix 15 units BIDAC daily---> adjusted to 17 units (04/08/17) Metformin 500 mg PO BIDCC, Cont to monitor. Insulin 15u SC BIDAC held because of low blood sugars, monitor. ISS to low coverage Status: Acute (7) Prophylactic measure Assessment & Plan: Pepcid 20 mg PO BID. ASA 81mg. Lovenox 40 sc daily. SCDs. Out of bed Continue with PT/OT daily to maximize strength. Patient is maximum assist. Status: Acute <Jad Miranda - Last Filed: 04/12/17 18:51> Objective - Vital Signs/Intake and Output Vital Signs (last 24 hours): Temp Pulse Resp BP Pulse Ox 97.7 F 81 18 154/70 H 100 04/12/17 07:59 04/12/17 07:59 04/12/17 07:59 04/12/17 07:59 04/12/17 07:59 - Medications Medications: Current Medications Acetaminophen (Tylenol 325mg Tab) 650 mg PO Q6 PRN PRN Reason: Pain, moderate (4-7) Aspirin (Ecotrin) 81 mg PO DAILY [facility] Last Admin: 04/12/17 09:33 Dose: 81 mg Clopidogrel Bisulfate (Plavix) 75 mg PO DAILY [facility] Last Admin: 04/12/17 09:37 Dose: 75 mg Enoxaparin Sodium (Lovenox) 40 mg SC DAILY [facility] Last Admin: 04/12/17 09:32 Dose: 40 mg Famotidine (Pepcid) 20 mg PO DAILY [facility] Last Admin: 04/12/17 09:34 Dose: 20 mg Hydralazine HCl (Apresoline) 10 mg IVP Q6H PRN PRN Reason: For SBP >180 Last Admin: 02/26/17 23:58 Dose: 10 mg Hydralazine HCl (Apresoline) 50 mg PO QID [facility] Last Admin: 04/12/17 13:20 Dose: 50 mg Sodium Chloride (Sodium Chloride 0.45%) 1,000 mls @ 75 mls/hr IV .[id number] [facility] Last Admin: 04/12/17 01:43 Dose: 75 mls/hr Insulin Aspart (Novolog) 0 unit SC ACHS [facility] PRN Reason: Protocol Last Admin: 04/12/17 13:20 Dose: 2 unit Insulin Aspart (Novolog Mix 70/30 (70/30 Units/Ml)) 17 units SC BID [facility] Last Admin: 04/12/17 09:35 Dose: 17 units Labetalol HCl (Trandate) 200 mg PO BID [facility] Last Admin: 04/12/17 10:00 Dose: 200 mg Lisinopril (Zestril) 20 mg PO HS [facility] Last Admin: 04/11/17 22:09 Dose: 20 mg Metformin HCl (Glucophage) 500 mg PO BIDCC [facility] Last Admin: 04/12/17 09:00 Dose: 500 mg Rosuvastatin Calcium (Crestor) 40 mg PO HS [facility] Last Admin: 04/11/17 22:09 Dose: 40 mg Tamsulosin HCl (Flomax) 0.4 mg PO DAILY [facility] Last Admin: 04/12/17 09:34 Dose: 0.4 mg - Labs Labs: 04/11/17 08:23 04/11/17 08:23 PT 12.0 SECONDS (9.7-12.2) 02/24/17 11:48 INR 1.1 02/24/17 11:48 APTT 24 SECONDS (21-34) 02/24/17 11:48 Attending/Attestation - Attestation I have personally seen and examined this patient.: Yes I have fully participated in the care of the patient.: Yes I have reviewed all pertinent clinical information, including history, physical exam and plan: Yes Notes (Text): 04/12/17 18:50 Patient was seen and examined at bedside with the resident Continue current medical management Continue physical therapy Discharge planning is in progress I discussed the plan of care with the resident and agree with the assessment and plan documented above.
[2017-04-12] MEDS: Sodium Chloride 0.45% 1,000 ML IV SCH ×2 (01:43→18:19)
[2017-04-12] MEDS: (Novolog) Insulin Aspart, Recombinant 100 u/ml 10 ml vial SC SCH ×4 (07:30→17:30)
[2017-04-12] MEDS: Enoxaparin 40 mg Syringe SC SCH (09:32)
[2017-04-12] MEDS: (Novolog Mix 70/30) Insulin Aspart/Insulin Aspar 100 units/ml SC SCH ×2 (09:35→17:33)
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
[2017-04-13] MEDS: Sodium Chloride 0.45% 1,000 ML IV SCH ×2 (03:05→06:03)
--- NOTE | 2017-04-13 03:23 | CP.PCM.PN ---
<Sherlyn Zaidi - Last Filed: 04/13/17 03:20> Subjective - Date & Time of Evaluation Date of Evaluation: 04/13/17 Time of Evaluation: 07:00 - Subjective Subjective: PGY1-Medicine Note-Dr. Clemens Service Patient seen and examined at bedside and is in no acute distress. Patient is still unable to move right arm. Patient gaining strength in right leg. Patient denies headache, shortness of breath, chest pain, abdominal pain, nausea, vomiting, constipation, or diarrhea Objective - Vital Signs/Intake and Output Vital Signs (last 24 hours): Temp Pulse Resp BP Pulse Ox 98.0 F 83 20 154/70 H 98 04/13/17 00:21 04/13/17 00:21 04/13/17 00:21 04/13/17 00:21 04/13/17 00:21 Intake and Output: 04/12/17 04/13/17 18:59 06:59 Intake Total 900 Balance 900 - Medications Medications: Current Medications Acetaminophen (Tylenol 325mg Tab) 650 mg PO Q6 PRN PRN Reason: Pain, moderate (4-7) Aspirin (Ecotrin) 81 mg PO DAILY [facility] Last Admin: 04/12/17 09:33 Dose: 81 mg Clopidogrel Bisulfate (Plavix) 75 mg PO DAILY [facility] Last Admin: 04/12/17 09:37 Dose: 75 mg Enoxaparin Sodium (Lovenox) 40 mg SC DAILY [facility] Last Admin: 04/12/17 09:32 Dose: 40 mg Famotidine (Pepcid) 20 mg PO DAILY [facility] Last Admin: 04/12/17 09:34 Dose: 20 mg Hydralazine HCl (Apresoline) 10 mg IVP Q6H PRN PRN Reason: For SBP >180 Last Admin: 02/26/17 23:58 Dose: 10 mg Hydralazine HCl (Apresoline) 50 mg PO QID [facility] Last Admin: 04/12/17 22:32 Dose: 50 mg Sodium Chloride (Sodium Chloride 0.45%) 1,000 mls @ 75 mls/hr IV .[id number] [facility] Last Admin: 04/12/17 18:19 Dose: 75 mls/hr Insulin Aspart (Novolog) 0 unit SC ACHS [facility] PRN Reason: Protocol Last Admin: 04/12/17 17:30 Dose: 3 unit Insulin Aspart (Novolog Mix 70/30 (70/30 Units/Ml)) 17 units SC BID [facility] Last Admin: 04/12/17 17:33 Dose: 17 units Labetalol HCl (Trandate) 200 mg PO BID [facility] Last Admin: 04/12/17 18:19 Dose: 200 mg Lisinopril (Zestril) 20 mg PO HS [facility] Last Admin: 04/12/17 22:30 Dose: 20 mg Metformin HCl (Glucophage) 500 mg PO BIDCC [facility] Last Admin: 04/12/17 17:34 Dose: 500 mg Rosuvastatin Calcium (Crestor) 40 mg PO HS [facility] Last Admin: 04/12/17 22:30 Dose: 40 mg Tamsulosin HCl (Flomax) 0.4 mg PO DAILY [facility] Last Admin: 04/12/17 09:34 Dose: 0.4 mg - Labs Labs: 04/11/17 08:23 04/11/17 08:23 PT 12.0 SECONDS (9.7-12.2) 02/24/17 11:48 INR 1.1 02/24/17 11:48 APTT 24 SECONDS (21-34) 02/24/17 11:48 - Constitutional Appears: Well, Non-toxic - Head Exam Head Exam: ATRAUMATIC, NORMAL INSPECTION, NORMOCEPHALIC - Eye Exam Eye Exam: EOMI, Normal appearance, PERRL - Neck Exam Neck Exam: Full ROM, Normal Inspection. absent: Lymphadenopathy - Respiratory Exam Respiratory Exam: Clear to Ausculation Bilateral, NORMAL BREATHING PATTERN - Cardiovascular Exam Cardiovascular Exam: REGULAR RHYTHM, RRR, +S1, +S2. absent: Murmur - GI/Abdominal Exam GI & Abdominal Exam: Soft, Normal Bowel Sounds. absent: Distended, Firm, Guarding, Tenderness - Extremities Exam Extremities Exam: Normal Inspection. absent: Full ROM Additional comments: right upper extremity no movement right lower extremity decreased movement - Back Exam Back Exam: NORMAL INSPECTION. absent: rash noted - Neurological Exam Neurological Exam: Alert, Awake, Oriented x3 Neuro motor strength exam: Left Upper Extremity: 5, Right Upper Extremity: 0, Left Lower Extremity: 5, Right Lower Extremity: 4 - Psychiatric Exam Psychiatric exam: Normal Affect, Normal Mood - Skin Skin Exam: Intact, Normal Color, Warm Assessment and Plan (1) Ischemic stroke Assessment & Plan: Stable, Unchanged clinically Continues to have minimal movement in the right LE and no movement in the right UE 04/08: very minimal movement in the right UE and LE 04/03 - 04/04/17: less movement in right LE, and no movement in right UE 03/29-04/02/17: continues to have movement in right lower extremity, right upper extremity has no movement 03/27: increased movement in right lower extremity, right upper extremity has no movement 03/25: No changes from before. No improvement or change of the right upper and lower extremity weakness. Swallow evaluation done and recommends mechanical soft bite size food and thin liquids. 03/21: Neurologic assessment: aphasic speach, flaccid right upper and lower extremity muscle strength. 03/20: Patient seen by PT and given score of 5 on the Modified Antonio Scale: severe disability; bedridden, incontinent/requiring constant nsg care. Patient moved out of bed to chair with cheng steady. 02/24: * ROMIs negative x 3, * EKG- NSR w possible atrial enlargement. * Echo- EF is 65-70%. Mild aortic regurgitation; LV systolic function is normal ; hypokinesis in septal wall. Refer to complete report. As per Dr. Mccormick, BP SBP btwn 130-140 mmHg, ASA 81 mg PO daily and Plavix 75 mg PO daily, Crestor 40 mg PO HS since patient passed swallow eval HgbA1C 11.2, FLP elevated, TSH 1.7 02/26:Head, Neck MRA-Complete occlusion of left internal carotid and mild occlusive disease of right internal carotid. Per Surgery ( Dr. Choi) no surgical intervention at this time. Radiologist Dr. Khan called to confirm occlusive findings. 03/05:Head CT- redemonstrates large MCA territory infarct with mild surrounding mass effect . No evidence of hemorrhage or new infarcts. Continue to encourage movement with help from Physical Therapy. 03/13: Patient moved from bed to chair with max assist and put back to bed after an hour with max assist. Modified Antonio scale: 5, severe disability; bedridden, incontinent/ requiring constant nursing care. 03/27/17: "Patient continues to present with R sided weakness which impacts functional independence; recommend continuous PT for progressive mobility training, strengthening, balance activities with emphasis on family training." Patient has low PO food intake. Seen by anesthesia associate on 03/08 and recommended Boost glucose control supplementation. Continue boost and await new recommendations. continue PT B/L LE extremity pain--> LE venous doppler (04/04/17)--> no abnormal findings * Possibly secondary to central post-stroke pain * Acetaminophen 650mg PO Q6h prn Status: Acute (2) Acute kidney injury Assessment & Plan: Improving, Stable BUN/CR: 32/1.3----> 25/1.1 (04/10/17)---> 19/1.0(04/11/17) * Started on 1/2NS @ 100MLS/HR ---> adjusted to 75mls/hr (04/11/17) * Monitor with BUN/CR Status: Acute (3) Leg pain, bilateral Assessment & Plan: Continuos R>L LE venous doppler (04/04/17)--> no abnormal findings Possibly secondary to central post-stroke pain * Acetaminophen 650mg PO Q6h prn for pain control * PT/OT treatment * Out of bed order Status: Acute (4) Urinary retention Assessment & Plan: Resolved, stable As per nurses, patient is urinating without assistance Monitor I & Os Recent bladder scan has been within normal limit and as per nurse, patient is making urine As per nurse, with executive staff assistant, patient has used bed valentine and commode as needed. 03/30: Bladder scan <20ml 03/29: bladder scan done, 630cc, patient put on bed valentine and urinated about 300cc, continue to encourage urination with bed valentine 03/28: bladder can done, 600cc, patient put on bed valentine and urinated about 100cc, then urinated again on bed valentine a few hours later. Continue to encourage patient to urinate by placing on bed valentine every 3 hours. 03/27: bladder scan done, 195 cc, nursing communication put in to put patient on bed valentine q3h to encourage urination. 03/26: 635am: Bladder scan done, 511ml so straight cath performed with approx 500 cc of clear yellow fluid obtained 03/25: Bennett taken out, voiding trial 03/22 and 03/21: no lasix given 03/19: bennett catheter, lasix 20 mg one time dose given Retaining urine no 03/11 in AM- bladder scan 680ml so patient straight catheterized. Repeat bladder scan 150. Pt continued retaining urine and bennett placed. Bennett inserted 03/14. Flomax .4mg once daily started. Dr. Valdez evaluated patient on 03/14 and recommends keeping patient on bennett and encouraging patient to try to urinate more often. Continue patient on Cipro 250 mg PO BID: stopped 03/31/17 Status: Resolved (5) Hypertension Assessment & Plan: Stable Controlled 04/06:136/74 04/05: 144/72 04/04: 148/76 04/03: 149/69 04/01: 144/70 03/30: 136/75, 151/70 03/29: 110/69 03/27: BP-160/70 03/23: elevated bp, lasix x1 given 03/21: blood pressure stable Continue Labetalol 200 mg PO BID (switched from 100 mg PO TID) which is better controlling blood pressure Lisinopril 20mg PO changed from daily to HS (03/25/17); Hydralazine 50 mg QID, Hydralazine 10 mg IV Q6 PRN if SBP above 180 Continue to monitor BP Status: Acute (6) Diabetes Assessment & Plan: Goal <200 Accucheck. ISS ACHS. HgbA1C 11.2 Novolog Mix 70/30 15 units BIDAC daily---> adjusted to 17 units (04/08/17) Metformin 500 mg PO BIDCC, Continue to monitor. Status: Acute (7) Prophylactic measure Assessment & Plan: SCD Pepcid 20 mg PO BID. ASA 81mg. Lovenox 40 sc daily. Out of bed order Continue with PT/OT daily to maximize strength. Patient is maximum assist. Status: Acute <Jad Miranda - Last Filed: 04/13/17 16:36> Objective - Vital Signs/Intake and Output Vital Signs (last 24 hours): Temp Pulse Resp BP Pulse Ox 97.4 F L 76 20 134/70 96 04/13/17 15:00 04/13/17 15:00 04/13/17 15:00 04/13/17 15:00 04/13/17 15:00 Intake and Output: 04/13/17 04/13/17 06:59 18:59 Intake Total 900 840 Balance 900 840 - Medications Medications: Current Medications Acetaminophen (Tylenol 325mg Tab) 650 mg PO Q6 PRN PRN Reason: Pain, moderate (4-7) Aspirin (Ecotrin) 81 mg PO DAILY [facility] Last Admin: 04/13/17 09:58 Dose: 81 mg Clopidogrel Bisulfate (Plavix) 75 mg PO DAILY [facility] Last Admin: 04/13/17 09:57 Dose: 75 mg Enoxaparin Sodium (Lovenox) 40 mg SC DAILY [facility] Last Admin: 04/13/17 09:58 Dose: 40 mg Famotidine (Pepcid) 20 mg PO DAILY [facility] Last Admin: 04/13/17 09:57 Dose: 20 mg Hydralazine HCl (Apresoline) 10 mg IVP Q6H PRN PRN Reason: For SBP >180 Last Admin: 02/26/17 23:58 Dose: 10 mg Hydralazine HCl (Apresoline) 50 mg PO QID [facility] Last Admin: 04/13/17 13:06 Dose: 50 mg Sodium Chloride (Sodium Chloride 0.45%) 1,000 mls @ 75 mls/hr IV .[id number] [facility] Last Admin: 04/13/17 06:03 Dose: 75 mls/hr Insulin Aspart (Novolog) 0 unit SC ACHS [facility] PRN Reason: Protocol Last Admin: 04/13/17 12:36 Dose: 2 unit Insulin Aspart (Novolog Mix 70/30 (70/30 Units/Ml)) 17 units SC BID [facility] Last Admin: 04/13/17 09:51 Dose: Not Given Labetalol HCl (Trandate) 200 mg PO BID [facility] Last Admin: 04/13/17 09:58 Dose: 200 mg Lisinopril (Zestril) 20 mg PO HS [facility] Last Admin: 04/12/17 22:30 Dose: 20 mg Metformin HCl (Glucophage) 500 mg PO BIDCC [facility] Last Admin: 04/13/17 08:45 Dose: 500 mg Rosuvastatin Calcium (Crestor) 40 mg PO HS [facility] Last Admin: 04/12/17 22:30 Dose: 40 mg Tamsulosin HCl (Flomax) 0.4 mg PO DAILY [facility] Last Admin: 04/13/17 09:58 Dose: 0.4 mg - Labs Labs: 04/11/17 08:23 04/11/17 08:23 PT 12.0 SECONDS (9.7-12.2) 02/24/17 11:48 INR 1.1 06/04/17 11:48 APTT 24 SECONDS (21-34) 02/24/17 11:48 Attending/Attestation - Attestation I have personally seen and examined this patient.: Yes I have fully participated in the care of the patient.: Yes I have reviewed all pertinent clinical information, including history, physical exam and plan: Yes Notes (Text): 04/13/17 16:36 Patient was seen and examined at bedside with the resident Patient to has no new complaints Continue current medical management Patient's family given all the prescriptions prior to discharge Discharge planning on Saturday I agree with the assessment and plan documented by the resident.
[2017-04-13] MEDS: (Novolog) Insulin Aspart, Recombinant 100 u/ml 10 ml vial SC SCH ×4 (08:42→22:13)
[2017-04-13] MEDS: (Novolog Mix 70/30) Insulin Aspart/Insulin Aspar 100 units/ml SC SCH ×2 (09:51→17:01)
[2017-04-13] MEDS: Enoxaparin 40 mg Syringe SC SCH (09:58)
--- NOTE | 2017-04-14 02:55 | CP.PCM.PN ---
<Sherlyn Zaidi - Last Filed: 04/14/17 02:52> Subjective - Date & Time of Evaluation Date of Evaluation: 04/14/17 Time of Evaluation: 07:30 - Subjective Subjective: PGY1-Medicine Note-Dr. Clemens Service Patient seen and examined at bedside and is in no acute distress. Patient is still unable to move right arm. Patient gaining strength in right leg. Patient laying comfortably in bed watching tv. Patient denies headache, shortness of breath, chest pain, abdominal pain, nausea, vomiting, constipation, or diarrhea. Objective - Vital Signs/Intake and Output Vital Signs (last 24 hours): Temp Pulse Resp BP Pulse Ox 97.7 F 78 20 153/71 H 98 04/13/17 23:30 04/13/17 23:30 04/13/17 23:30 04/13/17 23:30 04/13/17 23:30 Intake and Output: 04/13/17 04/14/17 18:59 06:59 Intake Total 840 Balance 840 - Medications Medications: Current Medications Acetaminophen (Tylenol 325mg Tab) 650 mg PO Q6 PRN PRN Reason: Pain, moderate (4-7) Aspirin (Ecotrin) 81 mg PO DAILY [facility] Last Admin: 04/13/17 09:58 Dose: 81 mg Clopidogrel Bisulfate (Plavix) 75 mg PO DAILY [facility] Last Admin: 04/13/17 09:57 Dose: 75 mg Enoxaparin Sodium (Lovenox) 40 mg SC DAILY [facility] Last Admin: 04/13/17 09:58 Dose: 40 mg Famotidine (Pepcid) 20 mg PO DAILY [facility] Last Admin: 04/13/17 09:57 Dose: 20 mg Hydralazine HCl (Apresoline) 10 mg IVP Q6H PRN PRN Reason: For SBP >180 Last Admin: 02/26/17 23:58 Dose: 10 mg Hydralazine HCl (Apresoline) 50 mg PO QID [facility] Last Admin: 04/13/17 22:15 Dose: 50 mg Sodium Chloride (Sodium Chloride 0.45%) 1,000 mls @ 75 mls/hr IV .[id number] [facility] Last Admin: 04/13/17 06:03 Dose: 75 mls/hr Insulin Aspart (Novolog) 0 unit SC ACHS [facility] PRN Reason: Protocol Last Admin: 04/13/17 22:13 Dose: Not Given Insulin Aspart (Novolog Mix 70/30 (70/30 Units/Ml)) 17 units SC BID [facility] Last Admin: 04/13/17 17:01 Dose: Not Given Labetalol HCl (Trandate) 200 mg PO BID [facility] Last Admin: 04/13/17 17:27 Dose: 200 mg Lisinopril (Zestril) 20 mg PO HS [facility] Last Admin: 04/13/17 22:15 Dose: 20 mg Metformin HCl (Glucophage) 500 mg PO BIDCC [facility] Last Admin: 04/13/17 17:27 Dose: 500 mg Rosuvastatin Calcium (Crestor) 40 mg PO HS [facility] Last Admin: 04/13/17 22:15 Dose: 40 mg Tamsulosin HCl (Flomax) 0.4 mg PO DAILY [facility] Last Admin: 04/13/17 09:58 Dose: 0.4 mg - Labs Labs: 04/11/17 08:23 04/11/17 08:23 PT 12.0 SECONDS (9.7-12.2) 02/24/17 11:48 INR 1.1 02/24/17 11:48 APTT 24 SECONDS (21-34) 02/24/17 11:48 - Constitutional Appears: Well - Head Exam Head Exam: ATRAUMATIC, NORMAL INSPECTION, NORMOCEPHALIC - Eye Exam Eye Exam: EOMI, Normal appearance, PERRL - ENT Exam ENT Exam: Mucous Membranes Moist, Normal Exam - Neck Exam Neck Exam: Full ROM, Normal Inspection. absent: Lymphadenopathy - Respiratory Exam Respiratory Exam: Clear to Ausculation Bilateral, NORMAL BREATHING PATTERN - Cardiovascular Exam Cardiovascular Exam: REGULAR RHYTHM, RRR, +S1, +S2. absent: Gallop, Rubs, Murmur - GI/Abdominal Exam GI & Abdominal Exam: Soft, Normal Bowel Sounds. absent: Tenderness - Extremities Exam Extremities Exam: Normal Inspection - Back Exam Back Exam: NORMAL INSPECTION. absent: rash noted - Neurological Exam Neurological Exam: Alert, Awake, Oriented x3 Neuro motor strength exam: Left Upper Extremity: 5, Right Upper Extremity: 0, Left Lower Extremity: 5, Right Lower Extremity: 4 - Psychiatric Exam Psychiatric exam: Normal Affect, Normal Mood - Skin Skin Exam: Intact, Normal Color, Warm Assessment and Plan (1) Ischemic stroke Assessment & Plan: Stable, Unchanged clinically Continues to have minimal movement in the right LE and no movement in the right UE 04/08: very minimal movement in the right UE and LE 04/03 - 04/04/17: less movement in right LE, and no movement in right UE 03/29-04/02/17: continues to have movement in right lower extremity, right upper extremity has no movement 03/27: increased movement in right lower extremity, right upper extremity has no movement 03/25: No changes from before. No improvement or change of the right upper and lower extremity weakness. Swallow evaluation done and recommends mechanical soft bite size food and thin liquids. 03/21: Neurologic assessment: aphasic speach, flaccid right upper and lower extremity muscle strength. 03/20: Patient seen by PT and given score of 5 on the Modified [place] Scale: severe disability; bedridden, incontinent/requiring constant nsg care. Patient moved out of bed to chair with cheng steady. 02/24: * ROMIs negative x 3, * EKG- NSR w possible atrial enlargement. * Echo- EF is 65-70%. Mild aortic regurgitation; LV systolic function is normal ; hypokinesis in septal wall. Refer to complete report. As per Dr. Mccormick, BP SBP btwn 130-140 mmHg, ASA 81 mg PO daily and Plavix 75 mg PO daily, Crestor 40 mg PO HS since patient passed swallow eval HgbA1C 11.2, FLP elevated, TSH 1.7 02/26:Head, Neck MRA-Complete occlusion of left internal carotid and mild occlusive disease of right internal carotid. Per Surgery ( Dr. Choi) no surgical intervention at this time. Radiologist Dr. Khan called to confirm occlusive findings. 03/05:Head CT- redemonstrates large MCA territory infarct with mild surrounding mass effect . No evidence of hemorrhage or new infarcts. Continue to encourage movement with help from Physical Therapy. 03/13: Patient moved from bed to chair with max assist and put back to bed after an hour with max assist. Modified [place] scale: 5, severe disability; bedridden, incontinent/ requiring constant nursing care. 03/27/17: "Patient continues to present with R sided weakness which impacts functional independence; recommend continuous PT for progressive mobility training, strengthening, balance activities with emphasis on family training." Patient has low PO food intake. Seen by manager clinic on 03/08 and recommended Boost glucose control supplementation. Continue boost and await new recommendations. continue PT B/L LE extremity pain--> LE venous doppler (04/04/17)--> no abnormal findings * Possibly secondary to central post-stroke pain * Acetaminophen 650mg PO Q6h prn Status: Acute (2) Acute kidney injury Assessment & Plan: Improving, Stable BUN/CR: 32/1.3----> 25/1.1 (04/10/17)---> 19/1.0(04/11/17) * Started on 1/2NS @ 100MLS/HR ---> adjusted to 75mls/hr (04/11/17) * Monitor with BUN/CR Status: Acute (3) Leg pain, bilateral Assessment & Plan: Continuos R>L LE venous doppler (04/04/17)--> no abnormal findings Possibly secondary to central post-stroke pain * Acetaminophen 650mg PO Q6h prn for pain control * PT/OT treatment * Out of bed order Status: Acute (4) Urinary retention Assessment & Plan: Resolved, stable As per nurses, patient is urinating without assistance Monitor I & Os Recent bladder scan has been within normal limit and as per nurse, patient is making urine As per nurse, with compliance assistant, patient has used bed valentine and commode as needed. 03/30: Bladder scan <20ml 03/29: bladder scan done, 630cc, patient put on bed valentien and urinated about 300cc, continue to encourage urination with bed valentine 03/28: bladder can done, 600cc, patient put on bed valentine and urinated about 100cc, then urinated again on bed valentine a few hours later. Continue to encourage patient to urinate by placing on bed valentine every 3 hours. 03/27: bladder scan done, 195 cc, nursing communication put in to put patient on bed valentine q3h to encourage urination. 03/26: 635am: Bladder scan done, 511ml so straight cath performed with approx 500 cc of clear yellow fluid obtained 03/25: Bennett taken out, voiding trial 03/22 and 03/21: no lasix given 03/19: bennett catheter, lasix 20 mg one time dose given Retaining urine no 03/11 in AM- bladder scan 680ml so patient straight catheterized. Repeat bladder scan 150. Pt continued retaining urine and bennett placed. Bennett inserted 03/14. Flomax .4mg once daily started. Dr. Valdez evaluated patient on 03/14 and recommends keeping patient on bennett and encouraging patient to try to urinate more often. Continue patient on Cipro 250 mg PO BID: stopped 03/31/17 Status: Resolved (5) Hypertension Assessment & Plan: Stable Controlled 04/06:136/74 04/05: 144/72 04/04: 148/76 04/03: 149/69 04/01: 144/70 03/30: 136/75, 151/70 03/29: 110/69 03/27: BP-160/70 03/23: elevated bp, lasix x1 given 03/21: blood pressure stable Continue Labetalol 200 mg PO BID (switched from 100 mg PO TID) which is better controlling blood pressure Lisinopril 20mg PO changed from daily to HS (03/25/17); Hydralazine 50 mg QID, Hydralazine 10 mg IV Q6 PRN if SBP above 180 Continue to monitor BP Status: Acute (6) Diabetes Assessment & Plan: Goal <200 Accucheck. ISS ACHS. HgbA1C 11.2 Novolog Mix 70/30 15 units BIDAC daily---> adjusted to 17 units (04/08/17) Metformin 500 mg PO BIDCC, Continue to monitor. Status: Acute (7) Prophylactic measure Assessment & Plan: SCDs Pepcid 20 mg PO BID. ASA 81mg. Lovenox 40 sc daily. Out of bed order Continue with PT/OT daily to maximize strength. Patient is maximum assist. Status: Acute <Jad Miranda - Last Filed: 04/14/17 14:35> Objective - Vital Signs/Intake and Output Vital Signs (last 24 hours): Temp Pulse Resp BP Pulse Ox 97.5 F L 77 20 153/75 H 97 04/14/17 08:56 04/14/17 08:56 04/14/17 08:56 04/14/17 08:56 04/14/17 08:56 Intake and Output: 04/14/17 04/14/17 06:59 18:59 Intake Total 600 Balance 600 - Medications Medications: Current Medications Acetaminophen (Tylenol 325mg Tab) 650 mg PO Q6 PRN PRN Reason: Pain, moderate (4-7) Aspirin (Ecotrin) 81 mg PO DAILY [facility] Last Admin: 04/14/17 09:07 Dose: 81 mg Clopidogrel Bisulfate (Plavix) 75 mg PO DAILY [facility] Last Admin: 04/14/17 09:07 Dose: 75 mg Enoxaparin Sodium (Lovenox) 40 mg SC DAILY [facility] Last Admin: 04/14/17 09:10 Dose: 40 mg Famotidine (Pepcid) 20 mg PO DAILY [facility] Last Admin: 04/14/17 09:07 Dose: 20 mg Hydralazine HCl (Apresoline) 10 mg IVP Q6H PRN PRN Reason: For SBP >180 Last Admin: 02/26/17 23:58 Dose: 10 mg Hydralazine HCl (Apresoline) 50 mg PO QID [facility] Last Admin: 04/14/17 13:36 Dose: 50 mg Insulin Aspart (Novolog) 0 unit SC ACHS [facility] PRN Reason: Protocol Last Admin: 04/14/17 12:10 Dose: Not Given Insulin Aspart (Novolog Mix 70/30 (70/30 Units/Ml)) 17 units SC BID [facility] Last Admin: 04/14/17 09:11 Dose: Not Given Labetalol HCl (Trandate) 200 mg PO BID [facility] Last Admin: 04/14/17 09:07 Dose: 200 mg Lisinopril (Zestril) 40 mg PO [facility]) [facility] Last Admin: 04/14/17 08:29 Dose: 500 mg Rosuvastatin Calcium (Crestor) 40 mg PO [facility] Last Admin: 04/13/17 22:15 Dose: 40 mg Tamsulosin HCl (Flomax) 0.4 mg PO DAILY [facility] Last Admin: 04/14/17 09:07 Dose: 0.4 mg - Labs Labs: 04/11/17 08:23 04/11/17 08:23 PT 12.0 SECONDS (9.7-12.2) 02/24/17 11:48 INR 1.1 02/24/17 11:48 APTT 24 SECONDS (21-34) 02/24/17 11:48 Attending/Attestation - Attestation I have personally seen and examined this patient.: Yes I have fully participated in the care of the patient.: Yes I have reviewed all pertinent clinical information, including history, physical exam and plan: Yes Notes (Text): 04/14/17 14:33 Patient was seen and examined at bedside. Family is present at bedside. Patient has no new complaints. Plan for discharge patient to home tomorrow. All the medication prescriptions were given to the patient's brother and as per him he has obtained all the medications prior to flying to her home [place] tomorrow. Blood pressure was noted to be elevated this morning. We have increased the dose of lisinopril to 40 mg tonight. I agree with the assessment plan by the resident with the exceptions noted hair.
[2017-04-14] MEDS: Sodium Chloride 0.45% 1,000 ML IV SCH ×2 (05:45→06:43)
[2017-04-14] MEDS: (Novolog) Insulin Aspart, Recombinant 100 u/ml 10 ml vial SC SCH ×4 (08:30→21:20)
[2017-04-14] MEDS: Enoxaparin 40 mg Syringe SC SCH (09:10)
[2017-04-14] MEDS: (Novolog Mix 70/30) Insulin Aspart/Insulin Aspar 100 units/ml SC SCH ×2 (09:11→18:39)
[2017-04-15 08:12] VITALS: BP 126/68; PULSE 73; RESP 18; TEMP 97.7; O2SAT 100
[2017-04-15] MEDS: (Novolog) Insulin Aspart, Recombinant 100 u/ml 10 ml vial SC SCH ×2 (08:32→12:35)
[2017-04-15] MEDS: (Novolog Mix 70/30) Insulin Aspart/Insulin Aspar 100 units/ml SC SCH (09:07)
[2017-04-15] MEDS: Enoxaparin 40 mg Syringe SC SCH (09:08)
--- NOTE | 2017-04-15 10:57 | CP.PCM.DIS ---
<Renaldo Mercado E - Last Filed: 04/15/17 18:28> Provider - Provider Date of Admission: 02/24/17 12:03 Attending physician: Jad Miranda MD Time Spent in preparation of Discharge (in minutes): 45 Diagnosis - Discharge Diagnosis (1) Ischemic stroke Status: Acute (2) Leg pain, bilateral Status: Acute (3) Urinary retention Status: Resolved (4) Acute kidney injury Status: Acute (5) Hypertension Status: Acute (6) Diabetes Status: Acute (7) Prophylactic measure Status: Acute Hospital Course - Lab Results Lab Results: Micro Results 03/09/17 07:00 Urine,Catheterized Urine Culture - Final No Growth (<1,000 CFU/ML) 02/28/17 06:00 Urine,Catheterized Urine Culture - Final Escherichia Coli Most Recent Lab Values WBC 8.3 K/uL (4.8-10.8) 04/11/17 08:23 RBC 3.76 Mil/uL (3.80-5.20) L 04/11/17 08:23 Hgb 10.6 g/dL (11.0-16.0) L 04/11/17 08:23 Hct 31.8 % (34.0-47.0) L 04/11/17 08:23 MCV 84.6 fL (81.0-99.0) 04/11/17 08:23 MCH 28.3 pg (27.0-31.0) 04/11/17 08:23 MCHC 33.4 g/dL (33.0-37.0) 04/11/17 08:23 RDW 15.2 % (11.5-14.5) H 04/11/17 08:23 Plt Count 306 K/uL (130-400) 04/11/17 08:23 MPV 8.8 fL (7.2-11.7) 04/11/17 08:23 Neut % (Auto) 57.8 % (50.0-75.0) 04/11/17 08:23 Lymph % (Auto) 29.4 % (20.0-40.0) 04/11/17 08:23 [place] % (Auto) 7.3 % (0.0-10.0) 04/11/17 08:23 Eos % (Auto) 4.7 % (0.0-4.0) H 04/11/17 08:23 Baso % (Auto) 0.8 % (0.0-2.0) 04/11/17 08:23 Neut # 4.8 K/uL (1.8-7.0) 04/11/17 08:23 Lymph # 2.5 K/uL (1.0-4.3) 04/11/17 08:23 [place] # 0.6 K/uL (0.0-0.8) 04/11/17 08:23 Eos # 0.4 K/uL (0.0-0.7) 04/11/17 08:23 Baso # 0.1 K/uL (0.0-0.2) 04/11/17 08:23 Differential Comment 03/31/17 08:05 PT 12.0 SECONDS (9.7-12.2) 02/24/17 11:48 INR 1.1 02/24/17 11:48 APTT 24 SECONDS (21-34) 02/24/17 11:48 Sodium 138 mmol/L (132-148) 04/11/17 08:23 Potassium 4.2 mmol/L (3.6-5.2) 04/11/17 08:23 Chloride 105 mmol/L (98-107) 04/11/17 08:23 Carbon Dioxide 24 mmol/L (22-30) 04/11/17 08:23 Anion Gap 13 (10-20) 04/11/17 08:23 BUN 19 mg/dL (7-17) H 04/11/17 08:23 Creatinine 1.0 MG/DL (0.7-1.2) 04/11/17 08:23 Est GFR ( Amer) > 60 04/11/17 08:23 Est GFR (Non-Af Amer) 58 04/11/17 08:23 POC Glucose (mg/dL) 181 mg/dL (65-110) H 04/15/17 06:51 Random Glucose 167 mg/dL (65-105) H 04/11/17 08:23 Hemoglobin A1c 11.2 % (4.2-6.5) H 02/25/17 07:15 Calcium 9.0 mg/dl (8.6-10.4) 04/11/17 08:23 Phosphorus 4.0 mg/dL (2.5-4.5) 04/10/17 06:39 Magnesium 1.6 mg/dL (1.6-2.3) 04/10/17 06:39 Total Bilirubin 0.4 mg/dL (0.2-1.3) 04/11/17 08:23 AST 26 U/L (14-36) 04/11/17 08:23 ALT 38 U/L (9-52) 04/11/17 08:23 Alkaline Phosphatase 73 U/L (38-126) 04/11/17 08:23 Total Creatine Kinase 111 U/L (30-135) 02/25/17 00:45 CK-MB (Mass) 1.92 ng/mL (0.0-3.38) 02/25/17 00:45 Troponin I 0.0130 ng/mL (0.00-0.120) 02/24/17 12:25 Troponin I, Quant 0.0170 ng/mL (0.00-0.120) 02/25/17 00:45 Total Protein 6.3 g/dL (6.3-8.3) 04/11/17 08:23 Albumin 3.2 g/dL (3.5-5.0) L 04/11/17 08:23 Globulin 3.1 gm/dL (2.2-3.9) 04/11/17 08:23 Albumin/Globulin Ratio 1.0 (1.0-2.1) 04/11/17 08:23 Triglycerides 176 mg/dL (0-149) H 02/25/17 07:15 Cholesterol 215 mg/dL (0-199) H 02/25/17 07:15 LDL Cholesterol Direct 140 mg/dL (0-129) H 02/25/17 07:15 HDL Cholesterol 28 mg/dL (30-70) L 02/25/17 07:15 TSH 3rd Generation 1.70 mIU/L (0.46-4.68) 02/25/17 07:15 Urine Color Yellow (YELLOW) 03/09/17 08:02 Urine Clarity Hazy (Clear) 03/09/17 08:02 Urine pH 5.0 (5.0-8.0) 03/09/17 08:02 Ur Specific [place] 1.018 (1.003-1.030) 03/09/17 08:02 Urine Protein 2+ mg/dL (NEGATIVE) H 03/09/17 08:02 Urine Glucose (UA) Normal mg/dL (Normal) 03/09/17 08:02 Urine Ketones Negative mg/dL (NEGATIVE) 03/09/17 08:02 Urine Blood Negative (NEGATIVE) 03/09/17 08:02 Urine Nitrate Negative (NEGATIVE) 03/09/17 08:02 Urine Bilirubin Negative (NEGATIVE) 03/09/17 08:02 Urine Urobilinogen Normal mg/dL (0.2-1.0) 03/09/17 08:02 Ur Leukocyte Esterase Neg Socrates/uL (Negative) 03/09/17 08:02 Urine WBC (Auto) 4 /hpf (0-5) 03/09/17 08:02 Urine RBC (Auto) 1 /hpf (0-3) 03/09/17 08:02 Ur Squamous Epith Cells < 1 /hpf (0-5) 03/09/17 08:02 Urine Bacteria Rare (<OCC) 03/09/17 08:02 Urine HCG, Qual Negative (NEGATIVE) 02/28/17 02:12 - Hospital Course Hospital Course: As per admission: HPI: Patient is a 52 year old female that presented to the hospital after being found by ambulance, which was called by people at her workplace after she had not come to work. Patient does not have any family in the [place] as per her emergency contact. Patient is able to answer some yes or no questions. She denies any current chest pain, breathing problems, abdominal pain. Additional history is not unobtainable, as patient is unable to talk. Chart review shows her last visit was in 2013, she had a history of hypertension, DM and triple vessel disease s/p triple bypass. Patient does not recall any of this history. Hospital Course: Patient was admitted with the consideration for acute ischemic stroke with deficits, which led to stroke protocol initiation. Surgery consult was placed to Dr. Choi, who followed up on appropriate diagnostic images with no surgical intervention recommendation. Neurology consult was placed to Dr. Jace Manning, who recommended appropriate diagnostic imaging, medical management and the consideration for speech therapy. Patient continued to be medically managed on appropriate medications. Patient was followed by physical therapy, who worked with the patient during the course of admission by providing maximum assist. During the course of admission, patient complained of right leg pain, which prompted a Venous duplex scan of the lower extremity that was negative for both deep/superficial vein thrombosis bilaterally. Urology , Dr. Leal was consulted for clinical symptoms of urinary retention, who recommended that patient should be encourage to urinate. During the course of admission, patient was able to urinate on her own without a bennett in place. Patient continued to be clinically stable with minimal movement of right lower extremity and lack of movement in the right upper extremity. As the patient's hospital course went on, patient was able to respond "yes or no" to questions but unable to speak in full sentences. Patient continued to be medically managed daily, while awaiting for the arrival of her son and brother from [place]. Patient has been cleared by her care team and will be returning to home country, [place] for follow-up care as per planning by family members. Pertinent Study Results: 1. Head CT w/o contrast (02/24/17): Large acute/subacute left MCA territory infarct which also involves the on lateral basal ganglia. * No evidence of acute intracranial hemorrhage 2. Echocardiogram (02/24/17): Ejection fraction is 65-70%. Mild aortic regurgitation; LV systolic function is normal; hypokinesis in septal wall 3. Carotid Doppler (02/26/17): Occlusion of left internal carotid artery 4. Head MRA (02/26/17): Complete occlusion of the left internal carotid artery. High-Grade stenosis of the distal right internal carotid artery at the cavernouss/supraclinoid level. 5. Neck MRA (02/26/17): There is complete occlusion of the left internal carotid artery which appears to extend from the level of the bifurcation /proximal left internal carotid artery into the intracranial compartment. The left petrous and cavernous as well as proximal supraclinoid segments are completely occluded as seen on concurrent MRI and MRA of the brain. Evaluation for the degree of narrowing on the right side is limited due to motion artifact as above. There is asymmetry of the vertebral arteries right-sided which is larger in caliber/more dominant than the left 6.Repeat HEAD CT (03/05/17): Re- demonstrated is large left MCA territory infarct with mild surrounding mass effect as described. No evidence hemorrhage. No new infarcts seen This is a brief summary of events. For a complete course, refer to the medical report. Discharge Exam - Head Exam Head Exam: ATRAUMATIC, NORMAL INSPECTION, NORMOCEPHALIC - Eye Exam Eye Exam: EOMI, Normal appearance - ENT Exam ENT Exam: Mucous Membranes Moist - Respiratory Exam Respiratory Exam: Clear to PA & Lateral, NORMAL BREATHING PATTERN - Cardiovascular Exam Cardiovascular Exam: REGULAR RHYTHM, +S1, +S2 - GI/Abdominal Exam GI & Abdominal Exam: Normal Bowel Sounds, Soft - Extremities Exam Extremities exam: normal capillary refill, normal inspection, tenderness - Neurological Exam Neurological exam: Alert - Psychiatric Exam Psychiatric exam: Normal Affect, Normal Mood - Skin Skin Exam: Dry, Normal Color, Warm Discharge Plan - Discharge Medications Prescriptions: Aspirin [Ecotrin] 81 mg PO DAILY #30 Atorvastatin Calcium [Lipitor] 80 mg PO DAILY #30 tablet Clopidogrel [Plavix] 75 mg PO DAILY #30 tab hydrALAZINE [Apresoline] 50 mg PO QID #120 tab Insulin Aspart/Insulin Aspar [Novolog Mix 70/30 (70/30 units/ml)] 15 units SC BIDAC #2 vial Labetalol [Trandate] 200 mg PO BID #60 tab Lisinopril [Zestril] 20 mg PO HS #30 tab metFORMIN [glucOPHAGE] 500 mg PO BIDCC #60 tab Tamsulosin [Flomax] 0.4 mg PO DAILY #30 cap - Follow Up Plan Condition: GUARDED Disposition: HOME/ ROUTINE Instructions: Labetalol (By mouth), Lisinopril (By mouth), Aspirin (By mouth), Hydralazine (By mouth), Metformin (By mouth), Atorvastatin (By mouth), Tamsulosin (By mouth), Insulin Aspart Protamine/Insulin Aspart (By injection), Heart Failure (DC), Heart Healthy Diet (DC), Diabetic Foot Care (DC), Basic Carbohydrate Counting (DC), Meal Planning with the Plate Method (DC), Meal Planning with Diabetes Exchanges (DC), Hypertension (DC), Stroke (DC) Additional Instructions: Patient is stable for discharge as per Dr. Miranda/Joi De La Garza. Patient should continue all medications as outlined in this document. Please make an appointment and follow up with preferred primary care physician in [place] as [facility] will [facility] [place] [facility]. Patient should return to ED immediately if symptoms return or worsen. Instructions discussed with patient and patient's son who understood and agreed. Medications: Aspirin 81mg PO daily #30 Atorvastatin 80mg PO daily #30 Clopidogrel 75mg PO daily #30 hydralazine 50 mg PO QID #120 Novolog Mix 70/30 15 units Labetalol 200 mg PO BID #60 Lisinopril 20mg PO HS #30 Metformin 500mg PO BID #60 Flomax .4mg PO daily #30 Referrals: [facility] [Provider Group] <Bryon De La Garza - Last Filed: 04/15/17 18:36> Provider - Provider Date of Admission: 02/24/17 12:03 Attending physician: Bryon De La Garza MD Hospital Course - Lab Results Lab Results: Micro Results 03/09/17 07:00 Urine,Catheterized Urine Culture - Final No Growth (<1,000 CFU/ML) 02/28/17 06:00 Urine,Catheterized Urine Culture - Final Escherichia Coli Most Recent Lab Values WBC 8.3 K/uL (4.8-10.8) 04/11/17 08:23 RBC 3.76 Mil/uL (3.80-5.20) L 04/11/17 08:23 Hgb 10.6 g/dL (11.0-16.0) L 04/11/17 08:23 Hct 31.8 % (34.0-47.0) L 04/11/17 08:23 MCV 84.6 fL (81.0-99.0) 04/11/17 08:23 MCH 28.3 pg (27.0-31.0) 04/11/17 08:23 MCHC 33.4 g/dL (33.0-37.0) 04/11/17 08:23 RDW 15.2 % (11.5-14.5) H 04/11/17 08:23 Plt Count 306 K/uL (130-400) 04/11/17 08:23 MPV 8.8 fL (7.2-11.7) 04/11/17 08:23 Neut % (Auto) 57.8 % (50.0-75.0) 04/11/17 08:23 Lymph % (Auto) 29.4 % (20.0-40.0) 04/11/17 08:23 [place] % (Auto) 7.3 % (0.0-10.0) 04/11/17 08:23 Eos % (Auto) 4.7 % (0.0-4.0) H 04/11/17 08:23 Baso % (Auto) 0.8 % (0.0-2.0) 04/11/17 08:23 Neut # 4.8 K/uL (1.8-7.0) 04/11/17 08:23 Lymph # 2.5 K/uL (1.0-4.3) 04/11/17 08:23 [place] # 0.6 K/uL (0.0-0.8) 04/11/17 08:23 Eos # 0.4 K/uL (0.0-0.7) 04/11/17 08:23 Baso # 0.1 K/uL (0.0-0.2) 04/11/17 08:23 Differential Comment 03/31/17 08:05 PT 12.0 SECONDS (9.7-12.2) 02/24/17 11:48 INR 1.1 02/24/17 11:48 APTT 24 SECONDS (21-34) 02/24/17 11:48 Sodium 138 mmol/L (132-148) 04/11/17 08:23 Potassium 4.2 mmol/L (3.6-5.2) 04/11/17 08:23 Chloride 105 mmol/L (98-107) 04/11/17 08:23 Carbon Dioxide 24 mmol/L (22-30) 04/11/17 08:23 Anion Gap 13 (10-20) 04/11/17 08:23 BUN 19 mg/dL (7-17) H 04/11/17 08:23 Creatinine 1.0 MG/DL (0.7-1.2) 04/11/17 08:23 Est GFR ( Amer) > 60 04/11/17 08:23 Est GFR (Non-Af Amer) 58 04/11/17 08:23 POC Glucose (mg/dL) 86 mg/dL (65-110) 04/15/17 12:06 Random Glucose 167 mg/dL (65-105) H 04/11/17 08:23 Hemoglobin A1c 11.2 % (4.2-6.5) H 02/25/17 07:15 Calcium 9.0 mg/dl (8.6-10.4) 04/11/17 08:23 Phosphorus 4.0 mg/dL (2.5-4.5) 04/10/17 06:39 Magnesium 1.6 mg/dL (1.6-2.3) 04/10/17 06:39 Total Bilirubin 0.4 mg/dL (0.2-1.3) 04/11/17 08:23 AST 26 U/L (14-36) 04/11/17 08:23 ALT 38 U/L (9-52) 04/11/17 08:23 Alkaline Phosphatase 73 U/L (38-126) 04/11/17 08:23 Total Creatine Kinase 111 U/L (30-135) 02/25/17 00:45 CK-MB (Mass) 1.92 ng/mL (0.0-3.38) 02/25/17 00:45 Troponin I 0.0130 ng/mL (0.00-0.120) 02/24/17 12:25 Troponin I, Quant 0.0170 ng/mL (0.00-0.120) 02/25/17 00:45 Total Protein 6.3 g/dL (6.3-8.3) 04/11/17 08:23 Albumin 3.2 g/dL (3.5-5.0) L 04/11/17 08:23 Globulin 3.1 gm/dL (2.2-3.9) 04/11/17 08:23 Albumin/Globulin Ratio 1.0 (1.0-2.1) 04/11/17 08:23 Triglycerides 176 mg/dL (0-149) H 02/25/17 07:15 Cholesterol 215 mg/dL (0-199) H 02/25/17 07:15 LDL Cholesterol Direct 140 mg/dL (0-129) H 02/25/17 07:15 HDL Cholesterol 28 mg/dL (30-70) L 02/25/17 07:15 TSH 3rd Generation 1.70 mIU/L (0.46-4.68) 02/25/17 07:15 Urine Color Yellow (YELLOW) 03/09/17 08:02 Urine Clarity Hazy (Clear) 03/09/17 08:02 Urine pH 5.0 (5.0-8.0) 03/09/17 08:02 Ur Specific [place] 1.018 (1.003-1.030) 03/09/17 08:02 Urine Protein 2+ mg/dL (NEGATIVE) H 03/09/17 08:02 Urine Glucose (UA) Normal mg/dL (Normal) 03/09/17 08:02 Urine Ketones Negative mg/dL (NEGATIVE) 03/09/17 08:02 Urine Blood Negative (NEGATIVE) 03/09/17 08:02 Urine Nitrate Negative (NEGATIVE) 03/09/17 08:02 Urine Bilirubin Negative (NEGATIVE) 03/09/17 08:02 Urine Urobilinogen Normal mg/dL (0.2-1.0) 03/09/17 08:02 Ur Leukocyte Esterase Neg Socrates/uL (Negative) 03/09/17 08:02 Urine WBC (Auto) 4 /hpf (0-5) 03/09/17 08:02 Urine RBC (Auto) 1 /hpf (0-3) 03/09/17 08:02 Ur Squamous Epith Cells < 1 /hpf (0-5) 03/09/17 08:02 Urine Bacteria Rare (<OCC) 03/09/17 08:02 Urine HCG, Qual Negative (NEGATIVE) 02/28/17 02:12 Attending/Attestation - Attestation I have personally seen and examined this patient.: Yes I have fully participated in the care of the patient.: Yes I have reviewed all pertinent clinical information, including history, physical exam and plan: Yes Notes (Text): 04/15/17 18:33 Patient was seen and examined at 9:25 AM 04/15/17 Discussed exam, assessment and plan, and discharge instructions with the resident. I confirmed with Weed Sprayer Melissa that the patient has already received Rx for which Medicine Team already wrote for on Saturday04/12/17. Melissa has also arranged for Wheelchair for patien through the Physical Therapy Department. Son to fruit picker machine operator patient between 12:30 PM and 1 PM for flight to [facility]. Bryon De La Garza D.O.
--- NOTE | 2017-04-15 18:30 | PCM.HF ---
Heart Failure Core Measure - Heart Failure Ejection Fraction: 40 % or Greater (ef 65-70%) LAURA Inhibitor Prescribed: Yes Beta-Gogo Prescribed: Metoprolol Succinate Angiotensin II Receptor Gogo Prescribed: No Contraindication/Reason for not providing: laura AnticoagulationTherapy for Atrial Fibrillation/Atrialflutter: No Contraindication/Reason for not providing: no afib Aldosterone Antagonist Prescribed: No Contraindication/Reason for not providing: ef >40% Hydralazine Nitrate Prescribed: Yes Implantable Cardioverter Defibrillator Therapy: No Contraindication/Reason for not providing: ef >40% Cardiac Resynchronization Therapy Prescribed: No Contraindication/Reason for not providing: ef >40% - Follow up Will be discharged to: Home Follow Up Date (must be within 7 days from discharge): 04/17/17 (pt d/c to [facility] ) Follow Up Time: 09:00
== END 2017-04-15 12:59 | disposition home or self-care (01) | DRG 65 ==
LOC: C.ER 11:09 → C.6T 12:03 → UNDOADMIN 13:26 → C.9E 13:26 → C.6T 13:52 → C.ER 15:39 → UNDODISIN 03-18 17:00
PROVIDERS: ADMIT Family Medicine; ATTEND Family Medicine
DX: I63.8 Other cerebral infarction (principal); G81.91 Hemiplegia, unspecified affecting right dominant side; N17.9 Acute kidney failure, unspecified; E11.649 Type 2 diabetes mellitus with hypoglycemia without coma; N39.0 Urinary tract infection, site not specified; I10 Essential (primary) hypertension; R47.01 Aphasia; E11.9 Type 2 diabetes mellitus without complications; E78.5 Hyperlipidemia, unspecified; F17.200 Nicotine dependence, unspecified, uncomplicated; Z95.1 Presence of aortocoronary bypass graft; I69.828 Other speech and language deficits following other cerebrovascular disease; I69.392 Facial weakness following cerebral infarction; I25.10 Atherosclerotic heart disease of native coronary artery without angina pectoris; I65.22 Occlusion and stenosis of left carotid artery; E87.5 Hyperkalemia; M79.605 Pain in left leg; M79.604 Pain in right leg